=== PATIENT | male | born 1970 | race Caucasian/White ===

== ENCOUNTER → 2022-05-27 14:18 | Outpatient (CLI) | payer OTHER, SELFPAY ==
[2022-05-27 14:31] LABS: Microscopic, Urine URINE MICROSCOPIC (MICROSCOPIC)
[2022-05-27 14:59] LABS: Appearance,Urine CLEAR (Clear); Bilirubin,Urine Negative (Negative); Blood, Urine 1+ (Negative); Color,Urine YELLOW (Yellow); Glucose,Urine (UA) 3+ (Negative); Ketones,Urine Negative (Negative); Leukocyte Esterase,Urine Negative (Negative); Nitrate,Urine Negative (Negative); Protein,Urine 3+ (Negative); Urobilinogen,Urine 0.2 EU/dl (0.2)
[2022-05-27 15:02] LABS: Basophils # 0.1 K/mm3 (0-0.2); Basophils % 1.3 % (0.1-2.0); Eosinophils # 0.4 K/mm3 (0.0-0.4); Eosinophils % 3.2 % (0.1-12.0); Hematocrit 52.5 % (42.0-52.0); Hemoglobin 17.9 g/dL (14.1-18.0); Lymphocytes # 3.6 K/mm3 (0.7-4.5); Lymphocytes % 31.8 % (10-50); Mean Platelet Volume 8.2 fl (7.4-10.4); Monocytes # 0.7 K/mm3 (0.1-1.0); Monocytes % 6.6 % (1.7-9.3); Neutrophils # 6.4 K/mm3 (1.8-7.8); Neutrophils % 57.1 % (37.0-80.0); Platelet Count 364 K/mm3 (142-424); Red Blood Count 5.59 M/mm3 (4.60-6.20); Red Cell Distribution Width 13.5 % (11.5-17.5); White Blood Count 11.3 K/mm3 (4.8-10.8)
[2022-05-27 15:25] LABS: Chloride 106 mmol/L (98-107); Potassium 4.1 mmoL/L (3.5-5.1); Sodium 139 mmol/L (136-145)
[2022-05-27 15:28] LABS: Anion Gap 6.1 mEq/L (5-15); Blood Urea Nitrogen 17 mg/dl (9-20); Calcium 8.2 mg/dl (8.4-10.2); Carbon Dioxide 31 mmol/L (22.0-30.0); Estimated Glomerular Filt Rate 37 ml/min (>60); GFR (African American) 45 ML/MIN (>60); Glucose 160 mg/dl (74-100); Iron 109 ug/dL (49-181); Phosphorous 4.4 mg/dl (2.5-4.5)
[2022-05-27 15:34] LABS: RBC,Urine Occasional #/hpf (0-3); Squamous Epithelial Cell,Urine Occasional #/hpf (0-5); WBC,Urine Occasional #/hpf (0-3)
[2022-05-27 15:38] LABS: Total Iron Binding Capacity 179 ug/dL (261-462)
[2022-05-27 16:03] LABS: Ferritin 212 ng/ml (17.9-464)
[2022-05-27 16:05] LABS: Intact Parathyroid Hormone 105.2 pg/mL (7.5-53.5)
== END ==
PROVIDERS: Internal Medicine; PCP Family Medicine
DX: N18.30 Chronic kidney disease, stage 3 unspecified (principal)
CPT/HCPCS: 36415; 80048; 81001; 82728; 83540; 83550; 83735; 83970; 84100; 85025

== ENCOUNTER 2023-12-16 12:02 | Outpatient (CLI) | payer BC, SELFPAY ==
[2023-12-16 12:09] LABS: Microscopic, Urine URINE MICROSCOPIC (MICROSCOPIC)
[2023-12-16 12:24] LABS: Appearance,Urine CLEAR (Clear); Basophils # 0.1 K/mm3 (0-0.2); Basophils % 0.9 % (0.1-2.0); Bilirubin,Urine Negative (Negative); Blood, Urine 1+ (Negative); Color,Urine YELLOW (Yellow); Eosinophils # 0.8 K/mm3 (0.0-0.4); Eosinophils % 6.4 % (0.1-12.0); Glucose,Urine (UA) 3+ (Negative); Hematocrit 46.9 % (42.0-52.0); Hemoglobin 15.2 g/dL (14.1-18.0); Ketones,Urine Negative (Negative); Leukocyte Esterase,Urine Negative (Negative); Lymphocytes # 2.9 K/mm3 (0.7-4.5); Lymphocytes % 23.1 % (10-50); Mean Corpuscular HGB Conc 32.3 g/dL (31.8-35.4); Mean Corpuscular Hemoglobin 30.7 pg (27.0-31.2); Mean Corpuscular Volume 95.2 fl (80-94); Mean Platelet Volume 8.1 fl (7.4-10.4); Monocytes # 0.7 K/mm3 (0.1-1.0); Monocytes % 5.3 % (1.7-9.3); Neutrophils # 8.1 K/mm3 (1.8-7.8); Neutrophils % 64.2 % (37.0-80.0); Nitrate,Urine Negative (Negative); Platelet Count 252 K/mm3 (142-424); Protein,Urine 3+ (Negative); Red Blood Count 4.93 M/mm3 (4.60-6.20); Red Cell Distribution Width 14.7 % (11.5-17.5); Specific Gravity, Urine 1.025 (1.005-1.030); Urobilinogen,Urine 0.2 EU/dl (0.2); White Blood Count 12.6 K/mm3 (4.8-10.8)
[2023-12-16 12:38] LABS: Bacteria,Urine Trace /lpf; Squamous Epithelial Cell,Urine Occasional #/hpf (0-5); WBC,Urine Occasional #/hpf (0-3)
[2023-12-16 13:15] LABS: Chloride 103 mmol/L (98-107); Sodium 140 mmol/L (136-145)
[2023-12-16 13:16] LABS: Albumin Level 3.6 g/dl (3.5-5.0); Potassium 4.2 mmoL/L (3.5-5.1)
[2023-12-16 13:18] LABS: Anion Gap 11.2 mEq/L (5-15); Blood Urea Nitrogen 41 mg/dl (9-20); Carbon Dioxide 30 mmol/L (22.0-30.0); Estimated Glomerular Filt Rate 18 ml/min (>60); GFR (African American) 21 ML/MIN (>60)
[2023-12-16 13:19] LABS: Calcium 8.3 mg/dl (8.4-10.2); Glucose 168 mg/dl (74-100); Phosphorous 6.3 mg/dl (2.5-4.5)
== END 2023-12-16 23:59 | disposition home or self-care (01) ==
LOC: LAB 12:05
PROVIDERS: PCP Family Medicine; Visit Provider Student in an Organized Health Care Education/Training Program
DX: N18.4 Chronic kidney disease, stage 4 (severe) (principal)
CPT/HCPCS: 36415; 80069; 81001; 84156; 85025

== ENCOUNTER 2024-08-06 01:55 | Emergency (ER) | payer MEDICARE, SELFPAY ==
[2024-08-06] VITALS (12 sets, daily range): BP systolic 142–180; BP diastolic 63–98; PULSE 82–91; RESP 16–28; TEMP 36.9–37.1; O2SAT 89–100; BMI 37.6
--- NOTE | 2024-08-06 02:01 | ECG_ITS ---
APPROVED REPORT Exam: Resting ECG HR:89 bpm ECG Measurements Heart Rate 89 AXES SC 166 P 59 QRSd 162 QRS 127 QT 421 T 16 QTc 467 Conclusion SINUS RHYTHM RIGHT AXIS DEVIATION [QRS AXIS > 100] RIGHT BUNDLE BRANCH BLOCK [120+ ms QRS DURATION, UPRIGHT V1, 40+ ms S IN I/aVL/V4/V5/V6] ABNORMAL ECG UNCONFIRMED REPORT Electronically signed by : DEBRA SCHAEFFER, 08/07/2024 06:53:53
--- NOTE | 2024-08-06 02:07 | XR_ITS ---
PROCEDURE INFORMATION: Exam: XR Chest Exam date and time: 08/06/2024 2:09 AM Age: 54 years old Clinical indication: Pain; Other: Hypoxia, esrd; Chest pressure; Additional info: Hypoxia, esrd, left chest pain TECHNIQUE: Imaging protocol: Radiologic exam of the chest. Views: 2 views. COMPARISON: No relevant prior studies available. FINDINGS: Lungs: Bilateral interstitial opacities. Pleural spaces: Unremarkable. No pleural effusion. No pneumothorax. Heart/Mediastinum: Unremarkable. No cardiomegaly. Bones/joints: Unremarkable. IMPRESSION: Bilateral interstitial opacities. Suspicious for volume overload versus pulmonary edema.
[2024-08-06] MEDS: ACETAMINOPHEN 500MG TAB 1000 MG PO (02:14)
--- NOTE | 2024-08-06 02:14 | HMH.EDGENADL ---
Discharge Plan Disposition Patient Disposition: Xfer Other Chief Complaint: Shortness of Breath/Dyspnea Prescriptions Prescriptions: No Action hydroxychloroquine 200 mg Tablet 200 mg PO BID Referrals Follow up/Referrals: Provider,Referral, MD [Primary Care Provider] - See instructions Clinical Impressions Clinical Impression: Respiratory failure with hypoxia, Pulmonary edema, ESRD (end stage renal disease) on dialysis Print Language Print Language: Syriac Discharge ED Provider: Dennis Martinez General Adult HPI General Chief complaint: Shortness of Breath/Dyspnea Stated complaint: sob Time Seen by Provider: 08/06/24 01:55 History of Present Illness HPI narrative: 54-year-old male with history of end-stage renal disease, diabetes, hypertension presents for shortness of breath. He reports that started around 9 PM and continued to worsen. He is on Monday dialysis, last received dialysis on Monday. He reports he is been having some left lateral rib pain, worse with coughing for the last couple of weeks. Worse tonight. Denies any fever chills or other infectious symptoms recently. Cough is nonproductive. Exposed to get dialysis in a few hours but was too short of breath. Related Data Home Medications ?Medication ?Instructions ?Recorded ?Confirmed aspirin 81 mg tablet 81 mg PO DAILY 08/06/24 08/06/24 atorvastatin 80 mg tablet 80 mg PO DAILY 08/06/24 08/06/24 bumetanide 2 mg tablet 2 mg PO DAILY 08/06/24 08/06/24 clonidine HCl 0.1 mg tablet 0.1 mg PO TID 08/06/24 08/06/24 clopidogrel 75 mg tablet 75 mg PO DAILY 08/06/24 08/06/24 empagliflozin 25 mg tablet 25 mg PO DAILY 08/06/24 08/06/24 (Jardiance) ezetimibe 10 mg tablet 10 mg PO DAILY 08/06/24 08/06/24 fenofibrate 40 mg tablet 48 mg PO DAILY 08/06/24 08/06/24 fluoxetine 20 mg tablet 20 mg PO DAILY 08/06/24 08/06/24 gabapentin 300 mg capsule 300 mg PO BID 08/06/24 08/06/24 gabapentin 800 mg tablet 800 mg PO DAILY 08/06/24 08/06/24 hydralazine 25 mg tablet 25 mg PO QID 08/06/24 08/06/24 hydroxychloroquine 200 mg tablet 200 mg PO BID 08/06/24 08/06/24 icosapent ethyl 1 gram capsule 2 g PO BID 08/06/24 08/06/24 isosorbide mononitrate 120 mg 120 mg PO DAILY 08/06/24 08/06/24 tablet,extended release 24 hr nifedipine 90 mg tablet,extended 90 mg PO DAILY 08/06/24 08/06/24 release tamsulosin 0.4 mg capsule 0.4 mg PO DAILY 08/06/24 08/06/24 Allergies Allergy/AdvReac Type Severity Reaction Status Date / Time glipizide Allergy Unknown Verified 08/06/24 02:25 allergy reaction Sulfa (Sulfonamide Allergy Unknown Verified 08/06/24 02: Antibiotics) [facility] Disclaimer: The information contained in this section may have been updated after the patient was seen, as this information can be updated by other users. Social History Smoking Status: Never smoker Have you lived/traveled outside [place] in past 30 days?: No Contact w/someone who lives/traveled outside US past 30 days?: No Exposure to someone with infectious disease in past 14 days?: No Do you have a fever (greater than 100.4 F or 38 C)?: No Have you tested positive for COVID-19: No Exposed to someone with COVID-19 in past 14 days?: No Do you have a sore throat?: No Do you have a cough?: No Do you have any weakness?: No Do you have any diarrhea?: No Are you experiencing any unusual bleeding?: No Do you have any muscle aches/pain?: No Do you have any abdominal pain?: No Are you experiencing loss of taste or smell?: No ROS Obtained: Yes All systems reviewed & no additional complaints except as documented Physical Exam General General appearance: alert Comment: Uncomfortable appearing Head Head exam: atraumatic and normocephalic Eye Eye exam: Present normal appearance, PERRL and EOMI ENT ENT exam: Present normal oropharynx and normal external ear exam Neck Neck exam: Present normal inspection and full ROM Chest Chest inspection: Present normal inspection, symmetric chest wall rise and tenderness (Left lateral chest wall) Respiratory Respiratory exam: Present other (Tachypnea, crackles) Cardiovascular Cardiovascular exam: Present regular rate and normal rhythm Abdominal Exam Abdominal exam: Present soft and distention; Absent tenderness or guarding Extremities Exam Extremities exam: Present other (Left upper extremity fistula); Absent joint swelling Back Exam Back exam: Present normal inspection; Absent tenderness Neurological Exam Neurological exam: Present alert and oriented X3; Absent motor sensory deficit Psychiatric Psychiatric exam: Present normal affect and normal mood Skin Skin exam: Present warm, dry and normal color Lymphatic Lymphatic Findings: no adenopathy Medical Decision Making Medical Records Medical records reviewed: Yes I reviewed the patient's medical records. Screening: Per USPSTF and CDC recommendations, given the prevalence of disease in our region, it is our hospital?s policy to screen for HIV and viral Hepatitis for all patients aged 18 and over and those with ongoing risk factors. Andrew Inquiry Pt receiving controlled substance: No Andrew was queried for this patient: No Vital Signs: 08/06/24 02:00 08/06/24 02:12 08/06/24 02:14 Temperature 98.7 F Temperature Source Oral Pulse Rate 90 88 Pulse Rate [Right] 87 Respiratory Rate 24 24 Blood Pressure 180/77 H 166/98 H Blood Pressure [Right Arm] 166/91 H Blood Pressure Mean 120 Blood Pressure Mean [Right Arm] 116 Blood Pressure Position 02 Sat by Pulse Oximetry 91 L 94 L 89 L Oxygen Delivery Method Nasal Cannula Nasal Cannula Nasal Cannula Oxygen Flow Rate (LPM) 4 4 4 Fraction of Inspired Oxygen 08/06/24 02:31 08/06/24 02:54 08/06/24 03:19 Temperature Temperature Source Pulse Rate 91 H 91 H 88 Pulse Rate [Right] Respiratory Rate 26 H 28 H 16 Blood Pressure 173/68 H 179/82 H 180/95 H Blood Pressure [Right Arm] Blood Pressure Mean 103 Blood Pressure Mean [Right Arm] Blood Pressure Position Sitting 02 Sat by Pulse Oximetry 91 L 90 L 94 L Oxygen Delivery Method Nasal Cannula Nasal Cannula Room Air Oxygen Flow Rate (LPM) 4 6 Fraction of Inspired Oxygen 08/06/24 03:23 08/06/24 03:30 Temperature Temperature Source Pulse Rate 86 Pulse Rate [Right] Respiratory Rate 25 H Blood Pressure 171/78 H Blood Pressure [Right Arm] Blood Pressure Mean Blood Pressure Mean [Right Arm] Blood Pressure Position 02 Sat by Pulse Oximetry 96 Oxygen Delivery Method BiPAP Oxygen Flow Rate (LPM) Fraction of Inspired Oxygen 35 Lab Data Lab results reviewed: Yes I reviewed the patient's lab results. Lab Results 08/06/24 02:07: WBC 16.9 H, RBC 3.45 L, Hgb 10.5 L, Hct 32.9 L, MCV 95.4 H, MCH 30.4, MCHC 31.9, RDW 15.9, Plt Count 286, MPV 9.3, Neut % (Auto) 78.8, Lymph % (Auto) 10.9, [place] % (Auto) 6.6, Eos % (Auto) 2.8, Baso % (Auto) 0.4, Neut # (Auto) 13.3 H, Lymph # (Auto) 1.8, [place] # (Auto) 1.1 H, Eos # (Auto) 0.5 H, Baso # (Auto) 0.1, D-Dimer 1.10 H, Sodium 140, Potassium 4.4, Chloride 98, Carbon Dioxide 27, Anion Gap 19.4 H, BUN 49 H, Creatinine 4.80 H, Estimated Creat Clear 30, Estimated GFR 13 L*, Est GFR ( Amer) 15 L*, Glucose 164 H, Calcium 8.6, Phosphorus 6.1 H, Magnesium 2.6 H, Total Bilirubin 0.8, AST 29, ALT 28, Alkaline Phosphatase 96, Troponin I < 0.01, Total Protein 8.1, Albumin 4.8, Globulin 3.3 H, Albumin/Globulin Ratio 1.5 08/06/24 02:12: VBG pH 7.38, VBG pCO2 42.1, VBG pO2 38.7, VBG HCO3 24.2, VBG Total CO2 25.5, VBG O2 Saturation 72.0 H, VBG Base Excess -1.0, VBG Lactic Acid 2.0 08/06/24 02:42: SARS-CoV-2 (PCR) Not detected, Influenza A Untype (PCR) Not detected, Influenza Type B (PCR) Not detected 08/06/24 02:07 08/06/24 02:07 Orders (Tests/Meds): ED MEDICATIONS Discontinued Medications Generic Name Dose Route Start Last Admin Trade Name Freq PRN Reason Stop Dose Admin Acetaminophen 1,000 mg 08/06/24 02:07 08/06/24 02:14 Acetaminophen 500mg Tab PO 08/06/24 02:08 1,000 mg ONCE ONE Administration Hydralazine HCl 10 mg 08/06/24 03:03 Hydralazine 20mg/Ml Vial IV 08/06/24 03:04 ONCE ONE Ceftriaxone Sodium 1 gm/ 50 mls @ 100 mls/hr 08/06/24 02:48 08/06/24 02:56 Sodium Chloride IV 08/06/24 03:17 100 mls/hr ONCE ONE Administration Ondansetron HCl 4 mg 08/06/24 02:49 08/06/24 02:52 Ondansetron 4mg/2ml Vial IV 08/06/24 02:50 4 mg ONCE ONE Administration ORDERS Category Date Time Status CXR 2 view (NOT portable) [XR chest 2V] Stat Exams 08/06/24 02:07 Completed POCUS Point of Care (ER Only) Stat Exams 08/06/24 02:39 Completed CBC w/Auto Diff [Complete Blood Count Auto Diff] Stat Lab 08/06/24 02:07 Results CMP [Comprehensive Metabolic Panel] Stat Lab 08/06/24 02:07 Completed D-Dimer Stat Lab 08/06/24 02:07 Completed Lactate Venous Stat Lab 08/06/24 02:12 Ordered Magnesium Stat Lab 08/06/24 02:07 Completed Phosphorous Stat Lab 08/06/24 02:07 Completed Rapid PCR Covid and Flu A/B Stat Lab 08/06/24 02:42 Completed Troponin I Q3H Lab 08/06/24 02:07 Completed Troponin I Q3H Lab 08/06/24 05:15 Ordered VBG [Venous Blood Gas] Stat RT 08/06/24 02:12 Completed ECG Data Tracing #1: I reviewed this ECG and interpreted as documented below: Sinus rhythm, rate of 89, right bundle branch block, no obvious ischemic ST changes. ECG initial impression date: 08/06/24 ECG initial impression time: 02:02 HEART Score History (anamnesis): Slightly suspicious ECG: Non-specific disturbance Age: 45-65 years Risk factors: 3 or more risk factors Troponin: </= normal limit HEART Score: 4 Medical Decision Narrative: 54-year-old male with history of HTN, DM2, ESRD on TTS dialysis, last dialysis on Monday presents for worsening shortness of breath.. History was obtained via interactive discussion with patient, family. On arrival, patient is afebrile, mildly hypertensive, satting in the high 70s on room air, moving all extremities spontaneously. Full physical exam performed and significant for bibasilar crackles, distended abdomen without tenderness, some tenderness to the left lateral ribs. Hypoxia improved on 2 L nasal cannula. Bedside ultrasound was performed and shows diffuse B-lines consistent with pulmonary edema Differential includes but is not limited to volume overload/pulmonary edema, pneumonia, COVID flu, ACS, PE. Patient was given Zofran, Tylenol for symptomatic management and correction of underlying abnormalities. Workup initiated including 2 view chest x-ray CBC CMP mag Phos VBG troponin EKG D-dimer. On re-evaluation, patient continues to intermittently desat on nasal cannula, will transition to BiPAP. Laboratory workup independently interpreted by me and significant for creatinine consistent with ESRD, potassium normal, pH normal, leukocytosis with white count of 16.9 with neutrophil predominance. D-dimer is positive but Imaging independently interpreted by me and significant for bilateral pulmonary edema with small left lower lobe infiltrate versus atelectasis. See radiology read for full review of final results. Patient was initiated on ceftriaxone for empiric coverage of possible pneumonia. CT PE was considered, but given patient has pulmonary edema on x-ray and bedside ultrasound, and given concerns from patient regarding his renal function, I discussed with patient and his the risk and benefit of it CT imaging with contrast at this time. It seems that pulmonary edema is the more likely culprit at this time given his x-ray and ultrasound. They have concerns about the contrast and the fact that he still makes urine. After discussion with family, they decided they would prefer to forego the CT scan at this time. Given patient history, exam and workup, patient's presentation most likely represents acute pulmonary edema and volume overload in the setting of ESRD with resulting acute hypoxic respiratory failure. We do not have the capability to do dialysis at the facility so initiated transfer discussion. Multiple hospitals including [place] and [place] did not have capacity. We called and spoke with Dori and Dr. Mancera who accepted the patient in transfer. Procedures Risk/Benefits of Procedure(s) Were Explained: Yes Limited Ultrasound Indication:: Limited lung ultrasound A focused ultrasound exam of the pleural spaces was performed to evaluate for pneumothorax, pulmonary edema, pleural effusion and/or consolidation. The ultrasound was performed with the following indications, as noted in the H&P: Shortness of breath and hypoxia Identified structures: Bilateral thoracic cavities were examined. Findings: Lung sliding: -Present bilaterally B-lines: -Present bilaterally anteriorly and posteriorly Pleural effusion: -Absent bilaterally Consolidation: -Absent bilaterally Impression: -Diffuse B-lines consistent with pulmonary edema Images were saved to permanent archive The study was technically adequate CPT 03514-76 This study was performed by me, and I personally interpreted all images/videos. Critical Care Critical Care Time Critical Care Time: Yes Attestation: On 08/06/24, the high probability of a clinically significant, sudden or life threatening deterioration of the following system(s) required my full and direct attention, intervention and personal management. The time I documented below is in addition to time spent performing reported procedures but includes the following listed in this critical care notation. Total Time Total Critical Care Time: 40
[2024-08-06 02:15] LABS: Basophils # 0.1 K/mm3 (0-0.2); Basophils % 0.4 % (0.1-2.0); Eosinophils # 0.5 K/mm3 (0.0-0.4); Eosinophils % 2.8 % (0.1-12.0); Hematocrit 32.9 % (42.0-52.0); Hemoglobin 10.5 g/dL (14.1-18.0); Lymphocytes # 1.8 K/mm3 (0.7-4.5); Lymphocytes % 10.9 % (10-50); Mean Corpuscular HGB Conc 31.9 g/dL (31.8-35.4); Mean Corpuscular Hemoglobin 30.4 pg (27.0-31.2); Mean Corpuscular Volume 95.4 fl (80-94); Mean Platelet Volume 9.3 fl (7.4-10.4); Monocytes # 1.1 K/mm3 (0.1-1.0); Monocytes % 6.6 % (1.7-9.3); Neutrophils # 13.3 K/mm3 (1.8-7.8); Neutrophils % 78.8 % (37.0-80.0); Platelet Count 286 K/mm3 (142-424); Red Blood Count 3.45 M/mm3 (4.60-6.20); Red Cell Distribution Width 15.9 % (11.5-17.5); White Blood Count 16.9 K/mm3 (4.8-10.8)
[2024-08-06 02:29] LABS: Alanine Aminotransferase 28 U/L (12-78); Albumin Level 4.8 g/dl (3.5-5.0); Albumin/Globulin Ratio 1.5 (1.1-1.8); Alkaline Phosphatase 96 U/L (38-126); Aspartate Amino Transferase 29 U/L (17-59); Bilirubin,Total 0.8 mg/dl (0.2-1.3); Blood Urea Nitrogen 49 mg/dl (9-20); Calcium 8.6 mg/dl (8.4-10.2); Carbon Dioxide 27 mmol/L (22.0-30.0); Chloride 98 mmol/L (98-107); Creatinine Clearance Estimated 30 mL/min (50-200); Estimated Glomerular Filt Rate 13 ml/min (>60); GFR (African American) 15 ML/MIN (>60); Globulin 3.3 g/dL (1.3-3.2); Glucose 164 mg/dl (74-100); Potassium 4.4 mmoL/L (3.5-5.1); Total Protein,Serum 8.1 g/dl (6.3-8.2)
[2024-08-06 02:33] LABS: MANUAL DIFFERENTIAL MANUAL DIFFERENTIAL (MANUAL DIFF)
[2024-08-06 02:34] LABS: Anion Gap 19.4 mEq/L (5-15); Sodium 140 mmol/L (136-145)
[2024-08-06 02:42] LABS: VBG HCO3 24.2 mmol/L (23-30); VBG PCO2 42.1 mmol/L (35-51); VBG PH 7.38 mmol/L (7.31-7.41); VBG PO2 38.7 mmol/L (28-40); VBG Total CO2 25.5 mmol/L (23-27)
[2024-08-06 02:47] LABS: Coronavirus 19, PCR Not Detected (NotDetected); Influenza A, PCR Not Detected (NotDetected); Influenza B, PCR Not Detected (NotDetected)
--- NOTE | 2024-08-06 02:51 | PC.NURSE ---
Patient has started vomiting. EVS has been called to clean the room due to emesis on floor and ramirez.
[2024-08-06] MEDS: ONDANSETRON 4MG/2ML VIAL 4 MG IV (02:52)
[2024-08-06] MEDS: CEFTRIAXONE 1 GM 1 GM in 0.9 % SODIUM CHLORIDE 50 ML IV (02:56)
--- NOTE | 2024-08-06 03:09 | PC.NURSE ---
Aj RN placing non-rebreather at this time
--- NOTE | 2024-08-06 03:10 | PC.NURSE ---
Spoke with [facility], awaiting a call back from them at this time.
--- NOTE | 2024-08-06 03:10 | PC.NURSE ---
JARRED Moy called respiratory for bipap placement
[2024-08-06 03:14] LABS: Troponin I < 0.01 ng/ml (0.00-0.034)
[2024-08-06 03:24] LABS: Magnesium 2.6 mg/dl (1.6-2.3); Phosphorous 6.1 mg/dl (2.5-4.5)
--- NOTE | 2024-08-06 03:29 | PC.NURSE ---
[facility] was called for a transfer. Transfer was declined due to hospital volume.
--- NOTE | 2024-08-06 03:29 | PC.NURSE ---
[facility] has been called for a transfer. Provider Dennis Martinez is currently speaking to the automatic vulcanizing operator.
[2024-08-06] MEDS: HYDRALAZINE 20MG/ML VIAL 10 MG IV (03:46)
[2024-08-06 04:16] LABS: Eosinophils % 6 % (0-3); Lymphocytes % 6 % (10-50); Neutrophils % 85 % (42-76); Platelet Estimate Normal; RBC Morphology Normal; Total Cells Counted 100
== END 2024-08-06 05:25 | disposition other institution (70) ==
PROVIDERS: Emergency Provider Emergency Medicine
DX: N18.6 End stage renal disease (principal); J81.1 Chronic pulmonary edema; J96.91 Respiratory failure, unspecified with hypoxia; R07.82 Intercostal pain; R05.9 Cough, unspecified; Z99.2 Dependence on renal dialysis
CPT/HCPCS: 71046; 80053; 82803; 83735; 84100; 84484; 85007; 85025; 85027; 85378; 87636; 93005; 96365; 96374; 96375; 99291; J0360; J0696; J2405

== ENCOUNTER 2025-01-24 16:02 | Emergency (ER) | payer MEDICARE, SELFPAY ==
--- OUTSIDE RECORDS SUMMARY | 2024-08-07 11:47 | XMS_ITS | Continuity of Care Document ---
Author Organization [facility], [facility]. If a dditional information is needed, contact Health Information Management at [phone] Address [address] [place] [address] Phone Care Team Providers Care Firearms Assembly Supervisor Name Role Phone Unavailable Unavailable Unavailable Unavailable Unavailable Unavailable Unavailable Unavailable Unavailable Unavailable Unavailable Unavailable Unavailable Unavailable Unavailable Unavailable Unavailable Unavailable Unavailable Unavailable Unavailable Unavailable Unavailable Unavailable Unavailable Unavailable Unavailable Unavailable Unavailable Unavailable Unavailable Unavailable Unavailable Unavailable Unavailable Unavailable Unavailable Unavailable Unavailable Unavailable Unavailable Unavailable Unavailable Unavailable Unavailable Unavailable Unavailable Unavailable Note Nadine Stevenson MD-07-Aug-19 [place], [place] [address]Phone: [email or web address] Discharge SummaryPatient Name: JAISON CHEUNGDOB: 1970 Age: 54 Sex: MAcct: [id number] MR#: [id number]: Graham Mccoy MD Author: Graham Mccoy MDPatient Status: DIS IN Patient Location: [place] [address]-ADate of Admission/Service: 08/06/24Report Date/Time: 08/07/24 1318 Report Status: SignedReport#: [id number] Information- General InformationDate of admission:08/06/24Discharge date: 08/07/24Hospital course:54 years old man with history of ESRD on TTS dialysis, hypertension, diabetes, neuropathy, who wastransferred from outlying facility for fluid overload requiring urgent dialysis.Patient reports that he went to her dialysis last Monday and completed full session, however overthe weekend his started to feel more short of breath and has increasing cough as well. Patient hadsimilar symptoms in the past due to fluid overload and reportedly resolved after extra session ofdialysis. He denies any fever, chills, chest pain, leg swelling, or other related complaints.Patient initially presented at outlying facility but referred to our hospital for nephrology anddialysisER course reviewed and discussed with ER providerHypoxic but stable on nasal cannula, hemodynamically stable, not in distress. Workup revealedpulmonary edema likely secondary to fluid overload. Also noted he has elevated white blood cell [id number], COVID and flu was checked at outlying facility and it was negative. Suspected concurrentcommunity-acquired pneumonia as well patient started on antibiotics empirically.During hospital course patient underwent dialysis on Monday and Monday (on discharge day), hisfluid status optimized. 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- General InformationAllergies/Adverse Reactions:Allergiesglipizide Allergy (Verified 08/06/24 10:09)Patient Name: JAISON CHEUNG Acct: [id number] Unit: [id number] Page 1 UnknownSulfa (Sulfonamide Antibiotics) Allergy (Verified 08/06/24 10:09) UnknownObjective- Physical ExamVS/I O: Vital Signs - Last DocumentedBlood pressure 125/55 L 08/07/24 10:45Blood pressure location Arm upper right 08/06/24 09:43Blood pressure source Monitor 08/06/24 06:48Temperature 97.5 F 08/07/24 10:45Temperature source Axillary 08/07/24 08:00Pulse 63 08/07/24 10:45Pulse location Radial 08/06/24 06:48Pulse source Monitor 08/06/24 06:48Respiratory rate 16 08/07/24 10:45Respiratory source Observed 08/06/24 09:43Vital signs position Lying 08/06/24 09:43Mean arterial pressure 82 08/07/24 10:00Bedside pulse oximetry/SpO2 99 08/07/24 10:45Oxygen delivery devices Nasal cannula 08/07/24 10:45O2 liters per minute 6 08/07/24 10:45Level of consciousness Alert 08/07/24 10:45MEWS score - adult 1 08/06/24 09:43Weight 119 kg 08/06/24 10:15Weight source Stated/Reported 08/06/24 06:48Body surface area 2.53 08/06/24 10:15Body mass index 33.7 08/06/24 10:15Height 1.88 m 08/06/24 10:15Patient Name: JAISON CHEUNG Acct: [id number] Unit: [id number] Page 2[facility] source Stated/Reported 08/06/24 10:15 Vital Signs Temp Pulse Resp BP Pulse Ox 08/07/24 10:45 97.5 F 63 16 125/55 L 99 08/07/24 10:20 64 23 H 91 08/07/24 10:10 64 27 H 90 08/07/24 10:00 64 22 H 90 08/07/24 10:00 123/57 L 08/07/24 09:50 65 28 H 98 08/07/24 09:40 64 19 98 08/07/24 09:30 65 29 H 100 08/07/24 09:20 64 30 H 99 08/07/24 09:10 65 20 88 L 08/07/24 09:00 64 18 90 08/07/24 09:00 132/60 L 08/07/24 08:50 66 20 94 08/07/24 08:40 64 29 H 97 08/07/24 08:30 64 20 98 08/07/24 08:20 59 L 9 L 100 08/07/24 08:10 59 L 8 L 100 08/07/24 08:00 59 L 9 L 100 08/07/24 08:00 139/65 L 08/07/24 08:00 97.7 F 08/07/24 07:50 60 8 L 99 08/07/24 07:40 61 10 L 100 08/07/24 07:30 60 9 L 99 08/07/24 07:20 62 13 98Patient Name: JAISON CHEUNG Acct: [id number] Unit: [id number] Page 3 08/07/24 07:10 62 13 98 08/07/24 07:00 60 9 L 96 08/07/24 07:00 138/65 L 08/07/24 06:50 60 9 L 98 08/07/24 06:40 60 9 L 98 08/07/24 06:30 60 9 L 98 08/07/24 06:20 61 9 L 99 08/07/24 06:10 62 10 L 99 08/07/24 06:00 64 17 99 08/07/24 06:00 141/69 H 08/07/24 05:50 67 23 H 99 08/07/24 05:40 62 13 100 08/07/24 05:30 62 13 99 08/07/24 05:20 62 12 98 08/07/24 05:10 65 20 99 08/07/24 05:00 64 23 H 97 08/07/24 05:00 132/63 L 08/07/24 04:50 64 20 99 08/07/24 04:40 65 17 98 08/07/24 04:30 65 20 99 08/07/24 04:20 63 100 08/07/24 04:10 66 99 08/07/24 04:01 65 98 08/07/24 04:01 133/103 H 08/07/24 04:00 65 97 08/07/24 03:53 98.2 F 08/07/24 03:50 62 20 99 08/07/24 03:40 62 18 99Patient Name: JAISON CHEUNG Acct: [id number] Unit: [id number] Page 4 08/07/24 03:30 62 19 98 08/07/24 03:20 62 20 98 08/07/24 03:10 64 98 08/07/24 03:01 65 99 08/07/24 03:01 143/70 H 08/07/24 03:00 64 98 08/07/24 02:50 62 99 08/07/24 02:40 62 99 08/07/24 02:30 62 98 08/07/24 02:20 62 19 98 08/07/24 02:10 62 19 98 08/07/24 02:00 63 20 99 08/07/24 02:00 142/69 H 08/07/24 01:50 64 20 100 08/07/24 01:40 67 28 H 98 08/07/24 01:30 66 10 L 99 08/07/24 01:20 66 15 97 08/07/24 01:10 67 19 96 08/07/24 01:00 65 13 97 08/07/24 01:00 155/70 H 08/07/24 00:50 64 10 L 99 08/07/24 00:40 66 11 L 98 08/07/24 00:30 66 11 L 98 08/07/24 00:20 66 11 L 99 08/07/24 00:10 66 12 97 08/07/24 00:01 68 21 H 91 08/07/24 00:01 117/71 L 08/07/24 00:00 67 19 91 08/07/24 00:00 98.4 FPatient Name: JAISON CHEUNG Acct: [id number] Unit: [id number] Page 5 08/06/24 23:50 68 15 98 08/06/24 23:40 69 19 99 08/06/24 23:30 68 12 98 08/06/24 23:20 68 12 98 08/06/24 23:10 69 13 97 08/06/24 23:01 71 18 97 08/06/24 23:01 121/56 L 08/06/24 23:00 71 16 97 08/06/24 22:50 72 16 98 08/06/24 22:40 73 18 98 08/06/24 22:30 69 14 99 08/06/24 22:20 71 17 99 08/06/24 22:10 72 19 100 08/06/24 22:00 74 20 100 08/06/24 22:00 154/71 H 08/06/24 21:50 79 87 L 08/06/24 21:40 77 18 99 08/06/24 21:30 76 16 99 08/06/24 21:20 75 17 98 08/06/24 21:10 75 16 98 08/06/24 21:01 76 15 97 02 21:01 158/71 H 08/06/24 21:00 76 96 08/06/24 20:54 75 159/70 H 08/06/24 20:50 76 89 L 08/06/24 20:40 78 94 08/06/24 20:30 76 20 95 02/18/25 20:20 78 94Patient Name: JAISON CHEUNG Acct: [id number] Unit: [id number] Page 6 08/06/24 20:10 76 96 08/06/24 20:00 78 17 98 08/06/24 20:00 159/70 H 08/06/24 20:00 98.2 F 08/06/24 19:50 76 17 97 08/06/24 19:40 78 97 08/06/24 19:30 79 95 08/06/24 19:20 75 16 97 08/06/24 19:10 77 96 08/06/24 19:01 76 96 08/06/24 19:01 142/66 H 08/06/24 19:00 75 97 08/06/24 18:50 75 97 08/06/24 18:40 72 96 08/06/24 18:30 72 97 08/06/24 18:20 73 95 08/06/24 18:10 75 94 08/06/24 18:00 74 95 08/06/24 18:00 155/73 H 08/06/24 17:52 73 87 L 08/06/24 17:52 157/72 H 08/06/24 17:40 70 08/06/24 17:38 98.2 F 72 20 161/80 H 99 08/06/24 17:30 70 08/06/24 17:20 70 08/06/24 17:10 70 08/06/24 17:00 69 08/06/24 16:50 69 08/06/24 16:40 70Patient Name: JAISON CHEUNG Acct: [id number] Unit: [id number] Page 7 08/06/24 16:30 71 08/06/24 16:20 72 08/06/24 16:10 71 08/06/24 16:00 71 08/06/24 15:50 69 08/06/24 15:40 69 08/06/24 15:30 71 08/06/24 15:20 70 08/06/24 15:10 70 08/06/24 15:00 70 08/06/24 14:50 72 08/06/24 14:40 70 08/06/24 14:30 71 08/06/24 14:20 73 08/06/24 14:10 75 08/06/24 14:00 75 08/06/24 13:50 77 08/06/24 13:40 78 08/06/24 13:30 80- ResultsFindings/Data: Chemistry 08/07/24 Range/Units 04:16Sodium 139 (136-142) mmol/LPotassium 4.5 (3.5-5.1) mmol/LChloride 100 (98-107) mmol/LPatient Name: JAISON CHEUNG Acct: [id number] Unit: [id number] Page 8Carbon Dioxide 32 (21-32) mmol/LAnion Gap 7 (5-14) mMol/LBUN 40 H (7-18) mg/dLCreatinine 4.22 H (0.70- 1.30) mg/dLBUN/Creatinine Ratio 9.5Glucose 112 H (74-106) mg/dLCalcium 8.4 L (8.5- 10.1) mg/dLMagnesium 2.6 H (1.8-2.4) mg/dL POC Glucose 08/06/24 08/06/24 08/07/24 Range/Units 13:22 20:09 07:16POC Glucose 141 H 151 H 122 H (73-118) mg/dL Hematology 08/07/24 Range/Units 04:16WBC 12.9 H (4.8-10.8) K/uLRBC 3.66 (3.60-6.00) M/uLHgb 10.7 L (13.0-17.8) g/dLHct 34.8 L (38.1-50.5) %MCV 95.1 (80-98) fLMCH 29.2 (27.7- 34.6) pgMCHC 30.7 L (32-38) g/dLRDW Coeff of Ekta 15.4 (10.9-15.6) %Plt Count 285 (119- 334) K/uLMPV 9.5 (8.4-11.5) fLPatient Name: JAISON CHEUNG Acct: [id number] Unit: [id number] Page 9Gran % (Auto) 65.2 (41.7-77.2) %Immature Gran % (Auto) 0.5 (0.0-0.7) %Lymph % (Auto) 22.2 (11.0-46.1) %[place] % (Auto) 7.9 (3.5-13.5) %Eos % (Auto) 3.6 (0.0-5.3) %Baso % (Auto) 0.6 (0.0-1.0) %Nucleat RBC Rel Count 0.0 (0.0-0.2) %Gran # (Auto) 8.40 H (2.00-6.30) K/uLLymph # (Auto) 2.86 (0.60-3.60) K/uLMono # (Auto) 1.02 H (0.20-1.00) K/uLEos # (Auto) 0.46 (0.00-0.50) K/uLBaso # (Auto) 0.08 H (0.01- 0.05) K/uLImmature Gran # (Auto) 0.06 (0.00-0.06) K/uLAbsolute Nucleated RBC 0.00 (0.00-0.01) K/uL Serology 08/06/24 Range/Units 12:45Hep Bs Antigen Negative (Negative)Radiology data:Recent ImpressionsChest X-Ray 08/06/24 13:27IMPRESSION:Slightly increased bilateral interstitial opacities suggestive of increasing pulmonary edema.CRITICAL RESULT:No.COMMUNICATION:Per this written report.By electronically signing this report, I, the attending physician, attest that I have personallyreviewed the images/data for the above examination(s) and I agree with the final edited report.Patient Name: JAISON CHEUNG Acct: [id number] Unit: [id number] Page 10Drafted by Jonathan Gomez MD on 08/06/2024 1:50 PMFinal report signed by Graham Love MD on 08/06/2024 2:27 PMChest X-Ray 08/07/24 05:00IMPRESSION:Decreasing pulmonary edema. Small bilateral pleural effusions.CRITICAL RESULT:No.COMMUNICATION:Per this written report.By electronically signing this report, I, the attending physician, attest that I have personallyreviewed the images/data for the above examination(s) and I agree with the final edited report.Drafted by Jonathan Gomez MD on 08/07/2024 8:04 AMFinal report signed by Kobe Cisneros MD on 08/07/2024 9:36 AM- Free Text Obj NotesFree Text Obj Notes:General: Alert and oriented, not in distressEye: PERRLNeck: Supple, no lymphadenopathyLung: Diminished breath sound bilaterally, scattered rales, no wheezingHeart: Normal S1 and S2, regular rhythm, no murmurAbdomen: Soft, non tender, no organomegaly, no rebound/guardingExtremities: normal capillary refill time, no peripheral edemaNeuro: No focal neuro deficitSkin: No rashDischarge Instructions- PCPPCP follow-up:PCP Provider UndefinedDischarge to: Home/Self Care- Discharge InstructionsAdditional Discharge Routines: PCP Follow-Up, Guest Experience Manager Follow-Up (Account Officer)Treatments Procedures- Treatments ProceduresLab: Chemistry last 24 hrs 08/07/24Patient Name: JAISON CHEUNG Acct: [id number] Unit: [id number] Page 11 04:16Sodium 139 mmol/L (136-142)Potassium 4.5 mmol/L (3.5-5.1)Chloride 100 mmol/L (98-107)Carbon Dioxide 32 mmol/L (21-32)BUN 40 H mg/dL (7-18)Glucose 112 H mg/dL (74-106) Hematology last 24 hrs 08/07/24 04:16WBC 12.9 H K/uL (4.8-10.8)Hgb 10.7 L g/dL (13.0-17.8)Hct 34.8 L % (38.1-50.5)Plt Count 285 K/uL (119- 334)Imaging:Radiology Impressions within the last 48 hrsChest X-Ray 08/06/24 06:59Patient Name: JAISON CHEUNG Acct: [id number] Unit: [id number] Page 12IMPRESSION:Findings concerning for pulmonary edema.CRITICAL RESULT:No.COMMUNICATION:Per this written report.Drafted by Gustavo Gould MD on 08/06/2024 7:22 AMFinal report signed by Gustavo Gould MD on 08/06/2024 7:23 AMChest X-Ray 08/06/24 13:27IMPRESSION:Slightly increased bilateral interstitial opacities suggestive of increasing pulmonary edema.CRITICAL RESULT:No.COMMUNICATION:Per this written report.By electronically signing this report, I, the attending physician, attest that I have personallyreviewed the images/data for the above examination(s) and I agree with the final edited report.Drafted by Jonathan Gomez MD on 08/06/2024 1:50 PMFinal report signed by Graham Love MD on 08/06/2024 2:27 PMChest X-Ray 08/07/24 05:00IMPRESSION:Decreasing pulmonary edema. Small bilateral pleural effusions.CRITICAL RESULT:No.COMMUNICATION:Per this written report.By electronically signing this report, I, the attending physician, attest that I have personallyreviewed the images/data for the above examination(s) and I agree with the final edited report.Drafted by Jonathan Gomez MD on 08/07/2024 8:04 AMFinal report signed by Kobe Cisneros MD on 08/07/2024 9:36 AMQuality- ReviewedCurrent medication review:I attest that the foregoing medication list in the medical record is true, accurate, and complete tothe best of my knowledge.Unable to obtain:Patient Name: JAISON CHEUNG Acct: [id number] Unit: [id number] Page 13Unable to obtain an accurate home medication list at this time. [facility] where time is of the essence. To delay treatment would jeopardize thepatient's health status on the day of the encounter.- BMI Screening > 25 or < 18.5Patient's BMI:Current BMI: 33.7 08/06/24 10:15- HTN Screening/Follow-upLast documented vitals: Vital Signs - Last DocumentedBlood pressure 125/55 L 08/07/24 10:45Blood pressure location Arm upper right 08/06/24 09:43Blood pressure source Monitor 08/06/24 06:48Temperature 97.5 F 08/07/24 10:45Temperature source Axillary 08/07/24 08:00Pulse 63 08/07/24 10:45Pulse location Radial 08/06/24 06:48Pulse source Monitor 08/06/24 06:48Respiratory rate 16 08/07/24 10:45Respiratory source Observed 08/06/24 09:43Vital signs position Lying 08/06/24 09:43Mean arterial pressure 82 08/07/24 10:00Bedside pulse oximetry/SpO2 99 08/07/24 10:45Oxygen delivery devices Nasal cannula 08/07/24 10:45O2 liters per minute 6 08/07/24 10:45Level of consciousness Alert 08/07/24 10:45MEWS score - adult 1 08/06/24 09:43Weight 119 kg 08/06/24 10:15Weight source Stated/Reported 08/06/24 06:48Body surface area 2.53 08/06/24 10:15Body mass index 33.7 08/06/24 10:15Patient Name: JAISON CHEUNG Acct: [id number] Unit: [id number] Page 14Height 1.88 m 08/06/24 10:15Height source Stated/Reported 08/06/24 10:15Blood pressure ranges/guide:Screening for Hypertension and follow up measure #317Blood pressure parametersNormal B/P SBP </= 119 DBP </= 79Pre-hypertensive SBP 120-139 DBP 80-89Hypertensive SBP >/= 140 DBP >/= 90Discharge Plan- Discharge PlanDisposition: Home, Self-CareReason For Visit: DIALYSISDischarge Orders:Discharge Order (Routine); Ordered 08/07/24 Ordered By: Graham Mccoy Discharge Disposition: Home, Self-Care Does patient have any of following, AMI, HF, PCI,Stroke/TIA?: NoCondition: Good- InstructionsPrescriptions:New azithromycin 500 mg Tablet 500 mg PO DAILY Qty: 5 RF: 0 [id number] Ordered By: Graham Mccoy Last Taken: Unknown cefdinir 300 mg Capsule 300 mg PO Q12H Qty: 10 RF: 0 Transmission Status: Received by [id number] Ordered By: Graham Mccoy Last Taken: UnknownContinued aspirin 81 mg Tablet,Delayed Release (Dr/Ec) 81 mg PO DAILYPatient Name: JAISON CHEUNG Acct: [id number] Unit: [id number] Page 15 Last Taken: 08/07/24 09:02 81 mg atorvastatin 80 mg tablet 80 mg PO DAILY Last Taken: 08/07/24 09:02 80 mg bisoprolol fumarate 10 mg tablet 10 mg PO DAILY Last Taken: 08/07/24 09:03 100 mg bumetanide 2 mg tablet 2 mg PO DAILY Last Taken: 08/07/24 09:01 2 mg clonidine HCl 0.1 mg tablet 0.1 mg PO TID Last Taken: 08/07/24 09:03 0.1 mg clopidogrel 75 mg tablet 75 mg PO DAILY Last Taken: 08/07/24 09:03 75 mg Dialyvite 800-Ultra D 0.8-2,000 mg-unit tablet 1 tab PO DAILY Last Taken: Unknown ezetimibe 10 mg tablet 10 mg PO DAILY Last Taken: 08/07/24 09:01 10 mg fenofibrate 40 mg Tablet 40 mg PO DAILY Last Taken: Unknown fluoxetine 20 mg tablet 20 mg PO DAILY Last Taken: 08/07/24 09:03 20 mg gabapentin 300 mg capsule 300 mg PO TID Last Taken: 08/07/24 09:03 300 mg Humulin 70/30 U-100 Insulin 100 unit/mL (70-30) suspension 80 ml SUBCUT BID Last Taken: Unknown hydralazine 100 mg tablet 100 mg PO TID Last Taken: 08/07/24 09:01 100 mg isosorbide mononitrate 120 mg tablet extended release 24 hr 120 mg PO DAILY Last Taken: 08/07/24 09:02 120 mg Jardiance 10 mg tablet 10 mg PO DAILY Last Taken: 08/07/24 09:03 10 mg nifedipine 90 mg tablet extended release 24hr 90 mg PO DAILY Last Taken: 08/07/24 09:01 90 mg oxycodone 10 mg tablet 10 mg PO TID Last Taken: 08/07/24 05:07 10 mgAdditional Instructions:Follow up with PCP and HD center<Electronically signed by Graham Mccoy MD> 08/07/24 1633Patient Name: JAISON CHEUNG Acct: [id number] Unit: [id number] Page 16 [facility]-19-Jul-2024 [place] [address] [address] [address]Jipre: [phone] Zeekiqbmlwa Progress NotePatient Name: JAISON CHEUNGDOB: 1970 Age: 54 Sex: MAcct: [id number] MR#: [id number]: Graham Mccoy MD Author: Fabien Sarabia HPatient Status: ADM IN Patient Location: [address]-ADate of Admission/Service: 08/06/24Report Date/Time: 08/07/24 0654 Report Status: SignedReport#: [id number]- SubjectivePatient reports: YES resting comfortably (on O2, S/P HD, + dyspnea , cough and chest pain)Objective- Physical ExamVS/I O: Vital Signs - Last DocumentedBlood pressure 133/103 H 08/07/24 04:01Blood pressure location Arm upper right 08/06/24 09:43Blood pressure source Monitor 08/06/24 06:48Temperature 36.8 C 08/07/24 03:53Temperature source Oral 08/07/24 03:53Pulse 63 08/07/24 04:20Pulse location Radial 08/06/24 06:48Pulse source Monitor 08/06/24 06:48Respiratory rate 20 08/07/24 03:50Respiratory source Observed 08/06/24 09:43Vital signs position Lying 08/06/24 09:43Mean arterial pressure 114 08/07/24 04:01Bedside pulse oximetry/SpO2 100 08/07/24 04:20Oxygen delivery devices Nasal cannula 08/06/24 20:00Patient Name: JAISON CHEUNG Acct: [id number] Unit: [id number] Page 1O2 liters per minute 6 08/06/24 20:00Level of consciousness Alert 08/06/24 17:38MEWS score - adult 1 08/06/24 09:43Weight 119 kg 08/06/24 10:15Weight source Stated/Reported 08/06/24 06:48Body surface area 2.53 08/06/24 10:15Body mass index 33.7 02/18/25 10:15Height 1.88 m 08/06/24 10:15Height source Stated/Reported 08/06/24 10:15 Intake Output 08/05/24 08/06/24 08/07/24 06:59 06:59 06:59Intake Total 720 / 720Output Total 5000 / 5000Balance -4280 / - 4280Intake: Oral 720 / 720Output: HD net negative volume balance 5000 / 5000Other: Number of voids 1Medications: Active MedicationsGeneric Name Dose Route Start Last Admin Trade Name Freq PRN Reason Stop Dose AdminPatient Name: JAISON CHEUNG Acct: [id number] Unit: [id number] Page 2Acetaminophen 650 mg 08/06/24 08:53 Acetaminophen 325 Mg Tab PO 10/05/24 08:52 Q6H PRN PRN Pain 1-3 / Temp > 100.5F/38.1CAlbuterol 2.5 mg 08/06/24 23:34 Albuterol Nebulizer Solution 2.5 Mg/0.5 Ml (0.5%) Vial NEB 10/05/24 23:33 RT Q6H PRN PRN WheezingAspirin 81 mg 08/07/24 09:00 Aspirin 81 Mg Ec Tab PO 10/06/24 08:59 DAILY SCHAtorvastatin Calcium 80 mg 08/07/24 09:00 Atorvastatin 80 Mg Tab PO 10/06/24 08:59 DAILY LAURA ProtocolBumetanide 2 mg 08/07/24 09:00 Bumetanide 1 Mg Tab PO 10/06/24 08:59 DAILY SCHCeftriaxone Sodium 1 gm 08/06/24 10:00 08/06/24 10:34 Ceftriaxone Powder For Injection 1 Gm Vial IV 08/10/24 09:01 1 gm Q24 LAURA Administration ProtocolClonidine 0.1 mg 08/06/24 21:00 08/06/24 20:54 Clonidine 0.1 Mg Tab PO 10/05/24 20:59 0.1 mg TID LAURA AdministrationClopidogrel Bisulfate 75 mg 08/07/24 09:00 Clopidogrel Bisulfate 75 Mg Tab PO 10/06/24 08:59 DAILY SCHDapagliflozin 10 mg 08/07/24 09:00Patient Name: JAISON CHEUNG Acct: [id number] Unit: [id number] Page 3 Dapagliflozin 10 Mg Tablet PO 10/06/24 08:59 DAILY SCHEzetimibe 10 mg 08/07/24 09:00 Ezetimibe 10 Mg Tab PO 10/06/24 08:59 DAILY SCHEnoxaparin Sodium 30 mg 08/06/24 10:00 08/06/24 10:34 Enoxaparin 30 Mg/0.3 Ml Syringe SUBQ 10/05/24 09:59 30 mg Q24H LAURA AdministrationFluoxetine HCl 20 mg 08/07/24 09:00 Fluoxetine 20 Mg Cap PO 10/06/24 08:59 DAILY SCHGabapentin 300 mg 08/06/24 21:00 08/06/24 20:53 Gabapentin 300 Mg Cap PO 10/05/24 20:59 300 mg TID LAURA AdministrationHydralazine HCl 100 mg 08/06/24 21:00 08/06/24 20:54 Hydralazine 50 Mg Tab PO 10/05/24 20:59 100 mg TID LAURA AdministrationInsulin Human Lispro 0 unit 08/06/24 16:30 08/06/24 20:54 Insulin Lispro 100 Unit/Ml SUBQ 10/05/24 16:29 Not Given ACHS LAURA ProtocolIsosorbide Mononitrate 120 mg 08/07/24 09:00 Isosorbide Mononitrate 60 Mg 24 Hr Er Tab PO 10/06/24 08:59 DAILY SCHMetoprolol Succinate 100 mg 08/07/24 09:00 Metoprolol Succinate 100 Mg Sr 24 Hr Tab PO 10/06/24 08:59 DAILY SCHNicotine 14 mg 08/06/24 08:53Patient Name: JAISON CHEUNG Acct: [id number] Unit: [id number] Page 4 Nicotine 14 Mg/24 Hr Transdermal Patch TRANSDERM 10/05/24 08:59 Q24 PRN Nicotine Replacement ProtocolNifedipine 90 mg 08/07/24 09:00 Nifedipine 90 Mg 24 Hr Er Tab PO 10/06/24 08:59 DAILY SCHOndansetron HCl 4 mg 08/06/24 08:53 Ondansetron Injection Solution 4 Mg/2 Ml Sdv IV 10/05/24 08:52 Q8H PRN PRN Nausea / VomitingOxycodone HCl 10 mg 08/06/24 15:31 08/07/24 05:07 Oxycodone Hcl 10mg Immed Release Tablet PO 10/05/24 15:30 10 mg TID PRN PRN Administration Pain Scale 7- 10 Protocol Discontinued MedicationsDiscontinued MedicationsGeneric Name Dose Route Start Last Admin Trade Name Jerri PRN Reason Stop Dose AdminAlbuterol 2.5 mg 08/06/24 17:00 08/06/24 23:35 Albuterol Nebulizer Solution 2.5 Mg/0.5 Ml (0.5%) Vial NEB 10/05/24 16:59 Not Given RT Q6H SCHFenofibrate 48 mg 08/07/24 09:00 Fenofibrate Nanocrystallized 48 Mg Tablet PO 10/06/24 08:59Patient Name: JAISON CHEUNG Acct: [id number] Unit: [id number] Page 5 DAILY SCHMorphine Sulfate 2 mg 08/06/24 13:30 08/06/24 13:34 Morphine Sulfate Injection Solution 2 Mg/Ml 1 Ml IV 08/06/24 13:31 2 mg ONCE ONE AdministrationGeneral appearance: alert, awake, oriented, no acute distress- ResultsResult Diagrams: 08/07/24 04:16 08/07/24 04:16Findings/Data: Blood Gas 08/06/24 Range/Units 07:00Specimen Type VenousPuncture Site Not enteredVBG pH 7.40 (7.32-7.43)VBG pCO2 47 (41-51) mmHgVBG pO2 48 (30-55) mmHgVBG HCO3 29 (22- 29) mmol/LPOC VBG CO2 (Calc) 31 H (24-30) mmol/LVBG O2 Saturation 83 (40-85) %VBG Base Excess 4 H (-2-3) mmol/LO2 Delivery Device Not enteredVent Mode Not enteredBlood Gas Notified Whom lawsomReport Date/Time 08/06/2024 07:01:32 ChemistryPatient Name: JAISON CHEUNG Acct: [id number] Unit: [id number] Page 6 08/06/24 08/06/24 08/07/24 Range/Units 06:58 06:58 04:16Sodium 142 139 (136-142) mmol/LPotassium 5.2 H 4.5 (3.5-5.1) mmol/LChloride 103 100 (98-107) mmol/LCarbon Dioxide 29 32 (21-32) mmol/LAnion Gap 10 7 (5-14) mMol/LBUN 48 H 40 H (7-18) mg/dLCreatinine 5.10 H 4.22 H (0.70-1.30) mg/dLBUN/Creatinine Ratio 9.4 9.5Glucose 148 H 112 H (74-106) mg/dLCalcium 8.5 8.4 L (8.5-10.1) mg/dLPhosphorus 5.8 H 5.9 H (2.5-4.9) mg/dLMagnesium 2.7 H 2.6 H (1.8-2.4) mg/dLTotal Bilirubin 0.6 (0.2-1.0) mg/dLAST 16 (15-37) IU/LALT 23 (13-63) IU/LTotal Alk Phosphatase 135 H (46-116) IU/LSerum Total Protein 7.7 (6.4-8.2) g/dLAlbumin 3.5 (3.4-5.0) g/dLGlobulin 4.2 g/dLAlbumin/Globulin Ratio 0.8 POC Glucose 08/06/24 08/06/24 Range/Units 13:22 20:09POC Glucose 141 H 151 H (73-118) mg/dL HematologyPatient Name: JAISON CHEUNG Acct: [id number] Unit: [id number] Page 7 08/06/24 08/07/24 Range/Units 06:58 04:16WBC 15.4 H 12.9 H (4.8-10.8) K/uLRBC 3.45 L 3.66 (3.60-6.00) M/uLHgb 10.3 L 10.7 L (13.0-17.8) g/dLHct 33.0 L 34.8 L (38.1-50.5) %MCV 95.7 95.1 (80-98) fLMCH 29.9 29.2 (27.7-34.6) pgMCHC 31.2 L 30.7 L (32-38) g/dLRDW Coeff of Ekta 16.0 H 15.4 (10.9-15.6) %Plt Count 266 285 (119-334) K/uLMPV 9.7 9.5 (8.4-11.5) fLGran % (Auto) 81.7 H 65.2 (41.7-77.2) %Immature Gran % (Auto) 0.4 0.5 (0.0-0.7) %Lymph % (Auto) 9.8 L 22.2 (11.0-46.1) %[place] % (Auto) 6.7 7.9 (3.5-13.5) %Eos % (Auto) 0.9 3.6 (0.0-5.3) %Baso % (Auto) 0.5 0.6 (0.0-1.0) %Nucleat RBC Rel Count 0.0 0.0 (0.0-0.2) %Gran # (Auto) 12.60 H 8.40 H (2.00-6.30) K/uLLymph # (Auto) 1.51 2.86 (0.60-3.60) K/uLMono # (Auto) 1.04 H 1.02 H (0.20-1.00) K/uLEos # (Auto) 0.14 0.46 (0.00-0.50) K/uLBaso # (Auto) 0.08 H 0.08 H (0.01-0.05) K/uLImmature Gran # (Auto) 0.06 0.06 (0.00-0.06) K/uLAbsolute Nucleated RBC 0.00 0.00 (0.00-0.01) K/uL SerologyPatient Name: JAISON CHEUNG Acct: [id number] Unit: [id number] Page 8 08/06/24 Range/Units 12:45Hep Bs Antigen Negative (Negative)Radiology data:Recent ImpressionsChest X-Ray 08/06/24 06:59IMPRESSION:Findings concerning for pulmonary edema.CRITICAL RESULT:No.COMMUNICATION:Per this written report.Drafted by Gustavo Gould MD on 08/06/2024 7:22 AMFinal report signed by Gustavo Gould MD on 08/06/2024 7:23 AMChest X-Ray 08/06/24 13:27IMPRESSION:Slightly increased bilateral interstitial opacities suggestive of increasing pulmonary edema.CRITICAL RESULT:No.COMMUNICATION:Per this written report.By electronically signing this report, I, the attending physician, attest that I have personallyreviewed the images/data for the above examination(s) and I agree with the final edited report.Drafted by Jonathan Gomez MD on 08/06/2024 1:50 PMFinal report signed by Graham Love MD on 08/06/2024 2:27 PMDiagnosis, Assessment Plan- Hospital Course to DateHospital course to date:Subjective:on O2, S/P HD, + dyspnea , cough and chest painPatient Name: JAISON CHEUNG Acct: [id number] Unit: [id number] Page 9PHYSICAL EXAMINATION:alert, awake, not in distressNECK: Supple. No thyromegaly. No lymphadenopathy in cervical area. Nojugular venous distention.CARDIOVASCULAR: S1, S2. Point of maximum impulse is nondisplaced.LUNGS: Scattered rhonchi. Decreased air movement. No wheezing. Nodullness.ABDOMEN: Soft. Bowel sounds present.EXTREMITIES: Trace edema. No rashes. No bleeding.ASSESSMENT:1. Acute respiratory failure.2. Hypoxemia.3. Pulmonary edema.4. Likely chronic obstructive pulmonary disease.5. Tobacco abuse.6. Diabetes.7. End-stage renal disease, on hemodialysis.8. Hypertension.August 07, 2024.on O2, S/P HD, + dyspnea , cough and chest paintitrate O2 as tolerated.DVT prophAbxaggressive BDconsider CTA/ VS V/Q scan, discussed the case with the patient, he wants to talk to his formaking any decision.Discussed with hospitalist during the round.- Diagnosis, Assessment PlanOrders:My Orders Category Date Time Status Albuterol NEB [Proventil] Med 08/06/24 17:00 Discontinued 2.5 mg NEB RT Q6H Albuterol NEB [Proventil] Med 08/06/24 23:34 Active 2.5 mg NEB RT Q6H PRN PRN Notify RT NEB Routine Resp 08/06/24 16:48 Completed Notify RT O2 Routine Resp 08/06/24 19:19 Completed Oxygen Administration CONTINUOUS Resp 08/06/24 19:18 ActivePatient Name: JAISON CHEUNG Acct: [id number] Unit: [id number] Page 10<Electronically signed by Fabien Sarabia M.D.> 08/07/24 1336Patient Name: JAISON CHEUNG Acct: [id number] Unit: [id number] Page 11 Nadine Stevenson MD-[birth year] [place], [place] [address]Phone: [id number] History PhysicalPatient Name: JAISON CHEUNGDOB: 1970 Age: 54 Sex: MAcct: [id number] MR#: [id number]: Graham Mccoy MD Author: Graham Mccoy MDPatient Status: ADM IN Patient Location: [address]-ADate of Admission/Service: 08/06/24Report Date/Time: 08/06/24 1556 Report Status: SignedReport#: [id number] of Present Illness- HPIChief complaint: Shortness of breathPCP:PCP Provider UndefinedHPI:54 years old man with history of ESRD on TTS dialysis, hypertension, diabetes, neuropathy, [facility].Patient reports that he went to her dialysis last Monday and completed full session, however overthe weekend his started to feel more short of breath and has increasing cough as well. Patient hadsimilar symptoms in the past due to fluid overload and reportedly resolved after extra session ofdialysis. He denies any fever, chills, chest pain, leg swelling, or other related complaints.Patient [facility] but referred to our hospital for nephrology anddialysisER course reviewed and discussed with ER providerHypoxic but stable on nasal cannula, hemodynamically stable, not in distress. Workup revealedpulmonary edema likely secondary to fluid overload. Also noted he has elevated white blood cell [id number], COVID and flu was checked at [facility] and it was negative.History- Past Medical HistoryMedical History: History, Medical (Last Updated 08/06/24 @ 15:59 by Graham Mccoy MD)Diabetes (Medical) E11.9ESRD (end stage renal disease) (Medical) N18.6Hypertension (Medical) D61Gtbikppvfk (Medical) G62.9- Social HistoryAlcohol use: denies EtOH useDrug use: denies recreational drugsSmoking status for patients 13 years old or older: Former SmokerPatient Name: JAISON CHEUNG Acct: [id number] Unit: [id number] Page 1- Medication/Allergy-Vaccine HxMedications:Rx, Patient Hx, SampleMedication Instructions Recorded Confirmed Last Taken Typeaspirin 81 mg tablet,delayed 81 mg PO DAILY 08/06/24 08/06/24 Unknown Historyreleaseatorvastatin 80 mg tablet 80 mg PO DAILY 08/06/24 08/06/24 Unknown Historybisoprolol fumarate 10 mg tablet 10 mg PO DAILY 08/06/24 08/06/24 Unknown Historybumetanide 2 mg tablet 2 mg PO DAILY 08/06/24 08/06/24 Unknown Historyclonidine HCl 0.1 mg tablet 0.1 mg PO TID 08/06/24 08/06/24 Unknown Historyclopidogrel 75 mg tablet 75 mg PO DAILY 08/06/24 08/06/24 Unknown Historyempagliflozin 10 mg tablet 10 mg PO DAILY 08/06/24 08/06/24 Unknown History(Jardiance)ezetimibe 10 mg tablet 10 mg PO DAILY 08/06/24 08/06/24 Unknown Historyfenofibrate 40 mg tablet 40 mg PO DAILY 08/06/24 08/06/24 Unknown Historyfluoxetine 20 mg tablet 20 mg PO DAILY 08/06/24 08/06/24 Unknown Historyfolic acid 0.8 mg-vit B comp with 1 tab PO DAILY 08/06/24 08/06/24 Unknown [id number]-qpdsyck D3 2,000 unittablet (Dialyvite 800-Ultra D)gabapentin 300 mg capsule 300 mg PO TID 08/06/24 08/06/24 Unknown Historyhydralazine 100 mg tablet 100 mg PO TID 08/06/24 08/06/24 Unknown Historyinsulin human U-100 NPH-regulr 80 ml subcut BID 08/06/24 08/06/24 Unknown Hjcwvdf14-27 mix 100 unit/mL subcutaneoussusp (Humulin 70/30 U-100 Insulin)isosorbide mononitrate 120 mg 120 mg PO DAILY 08/06/24 08/06/24 Unknown Historytablet,extended release 24 hrnifedipine 90 mg tablet,extended 90 mg PO DAILY 08/06/24 08/06/24 Unknown Historyrelease 24 hroxycodone 10 mg tablet 10 mg PO TID 08/06/24 08/06/24 Unknown HistoryPatient Name: JAISON CHEUNG Acct: [id number] Unit: [id number] Page 2Current Hospital MedicationsGeneric Name Dose Route Start Last Admin Trade Name Freq PRN Reason Stop Dose AdminAcetaminophen 650 mg 08/06/24 08:53 Acetaminophen 325 Mg Tab PO 10/05/24 08:52 Q6H PRN PRN Pain 1-3 / Temp > 100.5F/38.1CAspirin 81 mg 08/07/24 09:00 Aspirin 81 Mg Ec Tab PO 10/06/24 08:59 DAILY SCHAtorvastatin Calcium 80 mg 08/07/24 09:00 Atorvastatin 80 Mg Tab PO 10/06/24 08:59 DAILY LAURA ProtocolCeftriaxone Sodium 1 gm 08/06/24 10:00 08/06/24 10:34 Ceftriaxone Powder For Injection 1 Gm Vial IV 08/10/24 09:01 1 gm Q24 LAURA Administration ProtocolClonidine 0.1 mg 08/06/24 21:00 Clonidine 0.1 Mg Tab PO 10/05/24 20:59 TID SCHClopidogrel Bisulfate 75 mg 08/07/24 09:00 Clopidogrel Bisulfate 75 Mg Tab PO 10/06/24 08:59 DAILY SCHEzetimibe 10 mg 08/07/24 09:00 Ezetimibe 10 Mg Tab PO 10/06/24 08:59 DAILY SCHPatient Name: JAISON CHEUNG Acct: [id number] Unit: [id number] Page 3Enoxaparin Sodium 30 mg 08/06/24 10:00 08/06/24 10:34 Enoxaparin 30 Mg/0.3 Ml Syringe SUBQ 10/05/24 09:59 30 mg Q24H LAURA AdministrationGabapentin 300 mg 08/06/24 21:00 Gabapentin 300 Mg Cap PO 10/05/24 20:59 TID SCHNicotine 14 mg 08/06/24 08:53 Nicotine 14 Mg/24 Hr Transdermal Patch TRANSDERM 10/05/24 08:59 Q24 PRN Nicotine Replacement ProtocolNifedipine 90 mg 08/07/24 09:00 Nifedipine 90 Mg 24 Hr Er Tab PO 10/06/24 08:59 DAILY SCHNon- Formulary Medication 10 mg 08/07/24 09:00 Bisoprolol Fumarate PO 10/06/24 08:59 DAILY SCHNon-Formulary Medication 2 mg 08/07/24 09:00 Bumetanide PO 10/06/24 08:59 DAILY SCHNon-Formulary Medication 10 mg 08/07/24 09:00 Empagliflozin [Jardiance] PO 10/06/24 08:59 DAILY SCHNon-Formulary Medication 40 mg 08/07/24 09:00 Fenofibrate PO 10/06/24 08:59 DAILY SCHNon-Formulary Medication 20 mg 08/07/24 09:00 Fluoxetine PO 10/06/24 08:59Patient Name: JAISON CHEUNG Acct: [id number] Unit: [id number] Page 4 DAILY SCHNon-Formulary Medication 100 mg 08/06/24 21:00 Hydralazine PO 10/05/24 20:59 TID SCHNon-Formulary Medication 120 mg 08/07/24 09:00 Isosorbide Mononitrate PO 10/06/24 08:59 DAILY SCHOndansetron HCl 4 mg 08/06/24 08:53 Ondansetron Injection Solution 4 Mg/2 Ml Sdv IV 10/05/24 08:52 Q8H PRN PRN Nausea / VomitingOxycodone HCl 10 mg 08/06/24 15:31 Oxycodone Hcl 10mg Immed Release Tablet PO 10/05/24 15:30 TID PRN Pain Scale 7-10 Protocol- Medication/Allergy-Vaccine HxAllergies/Adverse Reactions:Allergiesglipizide Allergy (Verified 08/06/24 10:09) UnknownSulfa (Sulfonamide Antibiotics) Allergy (Verified 08/06/24 10:09) UnknownReview of Systems- Free Text ROS NotesFree Text ROS Notes:Constitutional: Denies chills, feverEyes: DENIES visual loss/blurredENT: DENIES nasal congestion, hearing lossRespiratory: DENIES hemoptysisCardiovascular: DENIES orthopnea, palpitation, PNDGI: DENIES hematemesis, melenaPatient Name: JAISON CHEUNG Acct: [id number] Unit: [id number] Page 5GU: DENIES hematuriaNeuro: DENIES loss of consciousness, slurred speech,Objective- GeneralVS/I O: Vital Signs - Last DocumentedBlood pressure 164/77 H 08/06/24 13:15Blood pressure location Arm upper right 08/06/24 09:43Blood pressure source Monitor 08/06/24 06:48Temperature 98.4 F 08/06/24 13:15Temperature source Oral 08/06/24 09:43Pulse 78 08/06/24 13:15Pulse location Radial 08/06/24 06:48Pulse source Monitor 08/06/24 06:48Respiratory rate 22 H 08/06/24 13:15Respiratory source Observed 08/06/24 09:43Vital signs position Lying 08/06/24 09:43Mean arterial pressure 94.9 08/06/24 09:43Bedside pulse oximetry/SpO2 96 08/06/24 13:15Oxygen delivery devices Nasal cannula 08/06/24 13:15O2 liters per minute 6 08/06/24 13:15Level of consciousness Alert 08/06/24 13:15MEWS score - adult 1 08/06/24 09:43Weight 119 kg 08/06/24 10:15Weight source Stated/Reported 08/06/24 06:48Body surface area 2.53 08/06/24 10:15Body mass index 33.7 08/06/24 10:15Height 1.88 m 08/06/24 10:15Height source Stated/Reported 08/06/24 10:15Patient Name: JAISON CHEUNG Acct: [id number] Unit: [id number] Page 6Patient Weight: 119 kg 08/06/24 10:15Medications: Active MedicationsGeneric Name Dose Route Start Last Admin Trade Name Freq PRN Reason Stop Dose AdminAcetaminophen 650 mg 08/06/24 08:53 Acetaminophen 325 Mg Tab PO 10/05/24 08:52 Q6H PRN PRN Pain 1-3 / Temp > 100.5F/38.1CAspirin 81 mg 08/07/24 09:00 Aspirin 81 Mg Ec Tab PO 10/06/24 08:59 DAILY SCHAtorvastatin Calcium 80 mg 08/07/24 09:00 Atorvastatin 80 Mg Tab PO 10/06/24 08:59 DAILY LAURA ProtocolCeftriaxone Sodium 1 gm 08/06/24 10:00 08/06/24 10:34 Ceftriaxone Powder For Injection 1 Gm Vial IV 08/10/24 09:01 1 gm Q24 LAURA Administration ProtocolClonidine 0.1 mg 08/06/24 21:00 Clonidine 0.1 Mg Tab PO 10/05/24 20:59 TID SCHClopidogrel Bisulfate 75 mg 08/07/24 09:00 Clopidogrel Bisulfate 75 Mg Tab PO 10/06/24 08:59 DAILY SCHEzetimibe 10 mg 08/07/24 09:00 Ezetimibe 10 Mg Tab PO 10/06/24 08:59Patient Name: JAISON CHEUNG Acct: [id number] Unit: [id number] Page 7 DAILY SCHEnoxaparin Sodium 30 mg 08/06/24 10:00 08/06/24 10:34 Enoxaparin 30 Mg/0.3 Ml Syringe SUBQ 10/05/24 09:59 30 mg Q24H LAURA AdministrationGabapentin 300 mg 08/06/24 21:00 Gabapentin 300 Mg Cap PO 10/05/24 20:59 TID SCHNicotine 14 mg 08/06/24 08:53 Nicotine 14 Mg/24 Hr Transdermal Patch TRANSDERM 10/05/24 08:59 Q24 PRN Nicotine Replacement ProtocolNifedipine 90 mg 08/07/24 09:00 Nifedipine 90 Mg 24 Hr Er Tab PO 10/06/24 08:59 DAILY SCHNon- Formulary Medication 10 mg 08/07/24 09:00 Bisoprolol Fumarate PO 10/06/24 08:59 DAILY SCHNon-Formulary Medication 2 mg 08/07/24 09:00 Bumetanide PO 10/06/24 08:59 DAILY SCHNon-Formulary Medication 10 mg 08/07/24 09:00 Empagliflozin [Jardiance] PO 10/06/24 08:59 DAILY SCHNon-Formulary Medication 40 mg 08/07/24 09:00 Fenofibrate PO 10/06/24 08:59 DAILY SCHNon-Formulary Medication 20 mg 08/07/24 09:00Patient Name: JAISON CHEUNG Acct: [id number] Unit: [id number] Page 8 Fluoxetine PO 10/06/24 08:59 DAILY SCHNon-Formulary Medication 100 mg 08/06/24 21:00 Hydralazine PO 10/05/24 20:59 TID SCHNon-Formulary Medication 120 mg 08/07/24 09:00 Isosorbide Mononitrate PO 10/06/24 08:59 DAILY SCHOndansetron HCl 4 mg 08/06/24 08:53 Ondansetron Injection Solution 4 Mg/2 Ml Sdv IV 10/05/24 08:52 Q8H PRN PRN Nausea / VomitingOxycodone HCl 10 mg 08/06/24 15:31 Oxycodone Hcl 10mg Immed Release Tablet PO 10/05/24 15:30 TID PRN Pain Scale 7-10 Protocol Discontinued MedicationsDiscontinued MedicationsGeneric Name Dose Route Start Last Admin Trade Name Freq PRN Reason Stop Dose AdminMorphine Sulfate 2 mg 08/06/24 13:30 08/06/24 13:34 Morphine Sulfate Injection Solution 2 Mg/Ml 1 Ml IV 08/06/24 13:31 2 mg ONCE ONE AdministrationPatient Name: JAISON CHEUNG Acct: [id number] Unit: [id number] Page 9- ResultsFindings/Data: Blood Gas 08/06/24 Range/Units 07:00Specimen Type VenousPuncture Site Not enteredVBG pH 7.40 (7.32-7.43)VBG pCO2 47 (41-51) mmHgVBG pO2 48 (30-55) mmHgVBG HCO3 29 (22-29) mmol/LPOC VBG CO2 (Calc) 31 H (24-30) mmol/LVBG O2 Saturation 83 (40-85) %VBG Base Excess 4 H (-2-3) mmol/LO2 Delivery Device Not enteredVent Mode Not enteredBlood Gas Notified Whom lawsomReport Date/Time 08/06/2024 07:01:32 Chemistry 08/06/24 08/06/24 Range/Units 06:58 06:58Sodium 142 (136-142) mmol/LPotassium 5.2 H (3.5-5.1) mmol/LChloride 103 (98-107) mmol/LCarbon Dioxide 29 (21-32) mmol/LAnion Gap 10 (5-14) mMol/LBUN 48 H (7-18) mg/dLPatient Name: JAISON CHEUNG Acct: [id number] Unit: [id number] Page 10Creatinine 5.10 H (0.70-1.30) mg/dLBUN/Creatinine Ratio 9.4Glucose 148 H (74-106) mg/dLCalcium 8.5 (8.5-10.1) mg/dLPhosphorus 5.8 H 5.9 H (2.5-4.9) mg/dLMagnesium 2.7 H (1.8-2.4) mg/dLTotal Bilirubin 0.6 (0.2-1.0) mg/dLAST 16 (15-37) IU/LALT 23 (13-63) IU/LTotal Alk Phosphatase 135 H (46-116) IU/LSerum Total Protein 7.7 (6.4-8.2) g/dLAlbumin 3.5 (3.4-5.0) g/dLGlobulin 4.2 g/dLAlbumin/Globulin Ratio 0.8 POC Glucose 08/06/24 Range/Units 13:22POC Glucose 141 H (73-118) mg/dL Hematology 08/06/24 Range/Units 06:58WBC 15.4 H (4.8-10.8) K/uLRBC 3.45 L (3.60- 6.00) M/uLHgb 10.3 L (13.0-17.8) g/dLHct 33.0 L (38.1-50.5) %Patient Name: JAISON CHEUNG Acct: [id number] Unit: [id number] Page 11MCV 95.7 (80-98) fLMCH 29.9 (27.7- 34.6) pgMCHC 31.2 L (32-38) g/dLRDW Coeff of Ekta 16.0 H (10.9-15.6) %Plt Count 266 (119-334) K/uLMPV 9.7 (8.4-11.5) fLGran % (Auto) 81.7 H (41.7-77.2) %Immature Gran % (Auto) 0.4 (0.0-0.7) %Lymph % (Auto) 9.8 L (11.0-46.1) %[place] % (Auto) 6.7 (3.5- 13.5) %Eos % (Auto) 0.9 (0.0-5.3) %Baso % (Auto) 0.5 (0.0-1.0) %Nucleat RBC Rel Count 0.0 (0.0-0.2) %Gran # (Auto) 12.60 H (2.00-6.30) K/uLLymph # (Auto) 1.51 (0.60-3.60) K/uLMono # (Auto) 1.04 H (0.20-1.00) K/uLEos # (Auto) 0.14 (0.00-0.50) K/uLBaso # (Auto) 0.08 H (0.01-0.05) K/uLImmature Gran # (Auto) 0.06 (0.00-0.06) K/uLAbsolute Nucleated RBC 0.00 (0.00-0.01) K/uLRadiology Data:Recent ImpressionsChest X-Ray 08/06/24 06:59IMPRESSION:Findings concerning for pulmonary edema.CRITICAL RESULT:No.COMMUNICATION:Per this written report.Drafted by Gustavo Gould MD on 08/06/2024 7:22 AMFinal report signed by Gustavo Gould MD on 08/06/2024 7:23 AMPatient Name: JAISON CHEUNG Acct: [id number] Unit: [id number] Page 12Chest X-Ray 08/06/24 13:27IMPRESSION:Slightly increased bilateral interstitial opacities suggestive of increasing pulmonary edema.CRITICAL RESULT:No.COMMUNICATION:Per this written report.By electronically signing this report, I, the attending physician, attest that I have personallyreviewed the images/data for the above examination(s) and I agree with the final edited report.Drafted by Jonathan Gomez MD on 08/06/2024 1:50 PMFinal report signed by Graham Love MD on 08/06/2024 2:27 PM- Free Text Obj NotesFree Text Obj Notes:General: Alert and oriented, not in distressEye: PERRLNeck: Supple, no lymphadenopathyLung: Diminished breath sound bilaterally, scattered rales, no wheezingHeart: Normal S1 and S2, regular rhythm, no murmurAbdomen: Soft, non tender, no organomegaly, no rebound/guardingExtremities: normal capillary refill time, no peripheral edemaNeuro: No focal neuro deficitSkin: No rashDiagnosis, Assessment Plan- Diagnosis, Assessment PlanFree Text A P:Assessment and Plan:# pulmonary edema; due to fluid overload# ESRD on TTS HD-resume home meds-nephrology consult-further fluid optimization per Nephrology, follow up recommendations-wean O2 off when able# Lung infiltrates-likely due to pulmonary edema, however elevated WBC raising concern of underlying pneumonia as well- start empiric IV ceftriaxone for now-monitor WBC, monitor chest x-ray post dialysis# essential hypertension-blood pressure acceptable-reconcile and continue with home medicationPatient Name: JAISON CHEUNG Acct: [id number] Unit: [id number] Page 13# type 2 diabetes mellitus-start lispro sliding scale-fingerstick glucose ACHS, Hypoglycemia precaution# chronic neuropathy-resume home medication# DVT prophylaxis - Lovenox subQ, renal adjusted doseCode: Full codeDisposition: Depends on hospital courseHigh risk and complex decision making due to aboveOrders:My Orders Category Date Time Status Top Stitcher follow up [Reflex Only] ONCE Care 08/06/24 08:53 Completed VTE Prophylaxis Status Routine Care 08/06/24 08:53 Ordered Consult Nephrology Routine Cons 08/06/24 08:52 Ordered Diet, Renal/Low Potassium/Low Phos Diet 08/06/24 Lunch Active Basic Metabolic Panel 0500 Lab 08/07/24 05:00 Ordered Basic Metabolic Panel 0500 Lab 08/08/24 05:00 Ordered Basic Metabolic Panel 0500 Lab 08/09/24 05:00 Ordered CBC w Automated Differential 0500 Lab 08/07/24 05:00 Ordered CBC w Automated Differential 0500 Lab 08/08/24 05:00 Ordered CBC w Automated Differential 0500 Lab 08/09/24 05:00 Ordered Hepatitis B Surface Ag Pnl Routine Lab 08/06/24 12:45 Received Magnesium Level 0500 Lab 08/07/24 05:00 Ordered Magnesium Level 0500 Lab 08/08/24 05:00 Ordered Magnesium Level 0500 Lab 08/09/24 05:00 Ordered POC Glucose Profile Routine Lab 08/06/24 13:22 Completed Phosphorus Routine Lab 08/06/24 06:58 Completed Acetaminophen [Tylenol] Med 08/06/24 08:53 Active 650 mg PO Q6H PRN PRN Aspirin [Ecotrin] Med 08/07/24 09:00 OrderedPatient Name: JAISON CHEUNG Acct: [id number] Unit: [id number] Page 14 81 mg PO DAILY Atorvastatin [Lipitor] Med 08/07/24 09:00 Ordered 80 mg PO DAILY Clopidogrel Bisulfate [Plavix] Med 08/07/24 09:00 Ordered 75 mg PO DAILY Enoxaparin [Lovenox] Med 08/06/24 10:00 Active 30 mg SUBQ Q24H Ezetimibe [Zetia] Med 08/07/24 09:00 Ordered 10 mg PO DAILY Gabapentin [Neurontin] Med 08/06/24 21:00 Ordered 300 mg PO TID NIFEdipine [NIFEdipine ER] Med 08/07/24 09:00 Ordered 90 mg PO DAILY Nicotine [Nicoderm CQ] Med 08/06/24 08:53 Active 14 mg TRANSDERM Q24 PRN Ondansetron [Zofran] Med 08/06/24 08:53 Active 4 mg IV Q8H PRN PRN bisoprolol fumarate Med 08/07/24 09:00 Ordered 10 mg PO DAILY bumetanide Med 08/07/24 09:00 Ordered 2 mg PO DAILY cefTRIAXone [Rocephin] Med 08/06/24 10:00 Active 1 gm IV Q24 cloNIDine [Catapres] Med 08/06/24 21:00 Ordered 0.1 mg PO TID empagliflozin [Jardiance] Med 08/07/24 09:00 Ordered 10 mg PO DAILY fenofibrate Med 08/07/24 09:00 OrderedPatient Name: JONATAN JAISON Acct: [id number] Unit: [id number] Page 15 40 mg PO DAILY fluoxetine Med 08/07/24 09:00 Ordered 20 mg PO DAILY hydralazine Med 08/06/24 21:00 Ordered 100 mg PO TID isosorbide mononitrate Med 08/07/24 09:00 Ordered 120 mg PO DAILY oxyCODONE HCl Med 08/06/24 15:31 Ordered 10 mg PO TID PRN OT Eval and Tx Routine Ther 08/06/24 08:53 Active PT Eval and Tx Routine Ther 08/06/24 08:53 ActiveQuality- ReviewedCurrent medication review:I attest that the foregoing medication list in the medical record is true, accurate, and complete to the best of my knowledge.Unable to obtain:Unable to obtain an accurate home medication list at this time. The patient is in an urgent oremergent medical situation where time is of the essence. To delay treatment would jeopardize thepatient's health status on the day of the encounter.- BMI Screening > 25 or < 18.5Patient's BMI:Current BMI: 33.7 08/06/24 10:15- HTN Screening/Follow-upLast documented vitals: Vital Signs - Last DocumentedBlood pressure 164/77 H 08/06/24 13:15Blood pressure location Arm upper right 08/06/24 09:43Blood pressure source Monitor 08/06/24 06:48Temperature 98.4 F 08/06/24 13:15Patient Name: JAISON CHEUNG Acct: [id number] Unit: [id number] Page 16Temperature source Oral 08/06/24 09:43Pulse 78 08/06/24 13:15Pulse location Radial 08/06/24 06:48Pulse source Monitor 08/06/24 06:48Respiratory rate 22 H 08/06/24 13:15Respiratory source Observed 08/06/24 09:43Vital signs position Lying 08/06/24 09:43Mean arterial pressure 94.9 08/06/24 09:43Bedside pulse oximetry/SpO2 96 08/06/24 13:15Oxygen delivery devices Nasal cannula 08/06/24 13:15O2 liters per minute 6 08/06/24 13:15Level of consciousness Alert 08/06/24 13:15MEWS score - adult 1 08/06/24 09:43Weight 119 kg 08/06/24 10:15Weight source Stated/Reported 08/06/24 06:48Body surface area 2.53 08/06/24 10:15Body mass index 33.7 08/06/24 10:15Height 1.88 m 08/06/24 10:15Height source Stated/Reported 08/06/24 10:15Blood pressure ranges/guide:Screening for Hypertension and follow up measure #317Blood pressure parametersNormal B/P SBP </= 119 DBP </= 79Pre-hypertensive SBP 120-139 DBP 80-89Hypertensive SBP >/= 140 DBP >/= 90Patient Name: JAISON CHEUNG Acct: [id number] Unit: [id number] Page 17<Electronically signed by Graham Mccoy MD> 08/06/24 1716Patient Name: DELFINO CHEUNGORD Acct: [id number] Unit: [id number] Page 18 Jermaine Core[employer]- [address] [place], [place] [address]Phone: [id number] Consultation NotePatient Name: JAISON CHEUNGDOB: 1970 Age: 54 Sex: MAcct: [id number] MR#: [id number]: Graham Mccoy MD Author: Anu Dean NPPatient Status: DIS IN Patient Location: [place] [address]-ADate of Admission/Service: 08/06/24Report Date/Time: 08/06/24 1235 Report Status: SignedReport#: [id number] of Present Illness- HPIRequesting clinician: Nadine Jaquez for consult: End-stage renal diseaseHPI:54-year-old male with history of hypertension, diabetes mellitus type 2, in [address] renal disease.Patient on hemodialysis since January of last year. Normally undergoes dialysis in [facility] the care of Dr. Carpenter and CLIFF. His last treatment was Monday. He woke up overnight withsudden onset of shortness of breath. Presented to emergency room in [place] with concern forfluid overload. He was placed on BiPAP. Transferred here for hemodialysis. Chest x-ray notedpulmonary vascular congestion with increased opacity. Potassium 5.2. Blood pressure 130-140ssystolic. Patient was seen lying flat in bed. On 6 L O2. Patient's states he still makessome urine. Patient complains of shortness of breath although able to lie flat. No significantedema. No vomiting or diarrhea. No cough. Noted with white blood cell count [id number]. We are askedto see him for end-stage renal disease theHistory- Social HistorySmoking status for patients 13 years old or older: Former Smoker- Medication/Allergy-Vaccine HxMedications:Rx, Patient Hx, SampleMedication Instructions Recorded Confirmed Last Taken Typeaspirin 81 mg tablet,delayed 81 mg PO DAILY 08/06/24 08/06/24 Unknown Historyreleaseatorvastatin 80 mg tablet 80 mg PO DAILY 08/06/24 08/06/24 Unknown Historybisoprolol fumarate 10 mg tablet 10 mg PO DAILY 08/06/24 08/06/24 Unknown Historybumetanide 2 mg tablet 2 mg PO DAILY 08/06/24 08/06/24 Unknown HistoryPatient Name: JAISON CHEUNG Acct: [id number] Unit: [id number] Page 1clonidine HCl 0.1 mg tablet 0.1 mg PO TID 08/06/24 08/06/24 Unknown Historyclopidogrel 75 mg tablet 75 mg PO DAILY 08/06/24 08/06/24 Unknown Historyempagliflozin 10 mg tablet 10 mg PO DAILY 08/06/24 08/06/24 Unknown History(Jardiance)ezetimibe 10 mg tablet 10 mg PO DAILY 08/06/24 08/06/24 Unknown Historyfenofibrate 40 mg tablet 40 mg PO DAILY 08/06/24 08/06/24 Unknown Historyfluoxetine 20 mg tablet 20 mg PO DAILY 08/06/24 08/06/24 Unknown Historyfolic acid 0.8 mg-vit B comp with 1 tab PO DAILY 08/06/24 08/06/24 Unknown EkztwdvO-zqme-epdtpwr D3 2,000 unittablet (Dialyvite 800-Ultra D)gabapentin 300 mg capsule 300 mg PO TID 08/06/24 08/06/24 Unknown Historyhydralazine 100 mg tablet 100 mg PO TID 08/06/24 08/06/24 Unknown Historyinsulin human U-100 NPH-regulr 80 ml subcut BID 08/06/24 08/06/24 Unknown Sutjozu37-09 mix 100 unit/mL subcutaneoussusp (Humulin 70/30 U-100 Insulin)isosorbide mononitrate 120 mg 120 mg PO DAILY 08/06/24 08/06/24 Unknown Historytablet,extended release 24 hrnifedipine 90 mg tablet,extended 90 mg PO DAILY 08/06/24 08/06/24 Unknown Historyrelease 24 hroxycodone 10 mg tablet 10 mg PO TID 08/06/24 08/06/24 Unknown HistoryCurrent Hospital MedicationsGeneric Name Dose Route Start Last Admin Trade Name Freq PRN Reason Stop Dose AdminAcetaminophen 650 mg 08/06/24 08:53 Acetaminophen 325 Mg Tab PO 10/05/24 08:52 Q6H PRN PRN Pain 1-3 / Temp > 100.5F/38.1CPatient Name: JAISON CHEUNG Acct: [id number] Unit: [id number] Page 2Ceftriaxone Sodium 1 gm 08/06/24 10:00 08/06/24 10:34 Ceftriaxone Powder For Injection 1 Gm Vial IV 08/10/24 09:01 1 gm Q24 LAURA Administration ProtocolEnoxaparin Sodium 30 mg 08/06/24 10:00 08/06/24 10:34 Enoxaparin 30 Mg/0.3 Ml Syringe SUBQ 10/05/24 09:59 30 mg Q24H LAURA AdministrationNicotine 14 mg 08/06/24 08:53 Nicotine 14 Mg/24 Hr Transdermal Patch TRANSDERM 10/05/24 08:59 Q24 PRN Nicotine Replacement ProtocolOndansetron HCl 4 mg 08/06/24 08:53 Ondansetron Injection Solution 4 Mg/2 Ml Sdv IV 10/05/24 08:52 Q8H PRN PRN Nausea / Vomiting- Medication/Allergy-Vaccine HxAllergies/Adverse Reactions:Allergiesglipizide Allergy (Verified 08/06/24 10:09) UnknownSulfa (Sulfonamide Antibiotics) Allergy (Verified 08/06/24 10:09) UnknownObjective- GeneralVS/I O: Vital Signs Temp Pulse Resp BP Pulse OxPatient Name: JAISON CHEUNG Acct: [id number] Unit: [id number] Page 3 08/06/24 09:43 36.7 C 72 17 146/69 H 96 08/06/24 09:00 74 96 08/06/24 08:56 73 94 08/06/24 08:30 75 94 08/06/24 08:20 78 94 08/06/24 08:10 80 08/06/24 08:08 147/70 H 08/06/24 08:08 75 98 08/06/24 08:07 76 22 H 99 08/06/24 06:48 36.2 C 80 24 H 137/35 L 99Medications: Active MedicationsGeneric Name Dose Route Start Last Admin Trade Name Freq PRN Reason Stop Dose AdminAcetaminophen 650 mg 08/06/24 08:53 Acetaminophen 325 Mg Tab PO 10/05/24 08:52 Q6H PRN PRN Pain 1-3 / Temp > 100.5F/38.1CCeftriaxone Sodium 1 gm 08/06/24 10:00 08/06/24 10:34 Ceftriaxone Powder For Injection 1 Gm Vial IV 08/10/24 09:01 1 gm Q24 LAURA Administration ProtocolEnoxaparin Sodium 30 mg 08/06/24 10:00 08/06/24 10:34 Enoxaparin 30 Mg/0.3 Ml Syringe SUBQ 10/05/24 09:59 30 mg Q24H LAURA AdministrationNicotine 14 mg 08/06/24 08:53 Nicotine 14 Mg/24 Hr Transdermal Patch TRANSDERM 10/05/24 08:59Patient Name: JAISON CHEUNG Acct: [id number] Unit: [id number] Page 4 Q24 PRN Nicotine Replacement ProtocolOndansetron HCl 4 mg 08/06/24 08:53 Ondansetron Injection Solution 4 Mg/2 Ml Sdv IV 10/05/24 08:52 Q8H PRN PRN Nausea / Vomiting- Physical ExamGeneral appearance: alert, no acute distressHead/eyes: atraumatic, normocephalicENT: normal noseNeck: non-tenderCardiovascular: lower extremity edema (trace), normal heart sounds, pedal pulses presentRespiratory: decreased breath sounds, on oxygen, symmetric expansion, no distressAbdomen: non-tender, normal bowel sounds, softGenitourinary: no foleyExtremities: swelling (trace LE), non-tenderNeuro/PIPING DESIGN SPECIALIST: alert, oriented X 3- Hemodialysis AccessType: AV fistulaLocation: left upper armComments: bruit present, thrill presentSkin: dryPsychiatry: normal mood- ResultsFindings/Data:Hematology 08/06/24 Range/Units 06:58WBC 15.4 H (4.8-10.8) K/uLRBC 3.45 L (3.60-6.00) M/uLHgb 10.3 L (13.0-17.8) g/dLHct 33.0 L (38.1-50.5) %MCV 95.7 (80-98) fLMCH 29.9 (27.7-34.6) pgPatient Name: JAISNO CHEUNG Acct: [id number] Unit: [id number] Page 5MCHC 31.2 L (32-38) g/dLRDW Coeff of Ekta 16.0 H (10.9-15.6) %Plt Count 266 (119-334) K/uLMPV 9.7 (8.4-11.5) fLGran % (Auto) 81.7 H (41.7-77.2) %Immature Gran % (Auto) 0.4 (0.0-0.7) %Lymph % (Auto) 9.8 L (11.0-46.1) %[place] % (Auto) 6.7 (3.5-13.5) %Eos % (Auto) 0.9 (0.0-5.3) %Baso % (Auto) 0.5 (0.0-1.0) %Nucleat RBC Rel Count 0.0 (0.0-0.2) %Gran # (Auto) 12.60 H (2.00-6.30) K/uLLymph # (Auto) 1.51 (0.60-3.60) K/uLMono # (Auto) 1.04 H (0.20-1.00) K/uLEos # (Auto) 0.14 (0.00-0.50) K/uLBaso # (Auto) 0.08 H (0.01-0.05) K/uLImmature Gran # (Auto) 0.06 (0.00-0.06) K/uLAbsolute Nucleated RBC 0.00 (0.00-0.01) K/uLChemistry 08/06/24 08/06/24 Range/Units 06:58 06:58Sodium 142 (136-142) mmol/LPotassium 5.2 H (3.5-5.1) mmol/LChloride 103 (98-107) mmol/LCarbon Dioxide 29 (21-32) mmol/LAnion Gap 10 (5-14) mMol/LBUN 48 H (7-18) mg/dLPatient Name: JAISON CHEUNG Acct: [id number] Unit: [id number] Page 6Creatinine 5.10 H (0.70-1.30) mg/dLEst GFR (CKD-EPI 2020) 13 mL/minBUN/Creatinine Ratio 9.4Glucose 148 H (74-106) mg/dLCalcium 8.5 (8.5-10.1) mg/dLPhosphorus 5.8 H 5.9 H (2.5-4.9) mg/dLMagnesium 2.7 H (1.8-2.4) mg/dLTotal Bilirubin 0.6 (0.2-1.0) mg/dLAST 16 (15-37) IU/LALT 23 (13-63) IU/LTotal Alk Phosphatase 135 H (46-116) IU/LTroponin I High Sens 13 (0-76) ng/LSerum Total Protein 7.7 (6.4-8.2) g/dLAlbumin 3.5 (3.4-5.0) g/dLGlobulin 4.2 g/dLAlbumin/Globulin Ratio 0.8Blood Gas 08/06/24 Range/Units 07:00Specimen Type VenousPuncture Site Not enteredVBG pH 7.40 (7.32-7.43)VBG pCO2 47 (41-51) mmHgVBG pO2 48 (30-55) mmHgVBG HCO3 29 (22-29) mmol/LPOC VBG CO2 (Calc) 31 H (24-30) mmol/LVBG O2 Saturation 83 (40-85) %VBG Base Excess 4 H (-2-3) mmol/LPatient Name: JAISON CHEUNG Acct: [id number] Unit: [id number] Page 7O2 Delivery Device Not enteredVent Mode Not enteredBlood Gas Notified Whom lawsomReport Date/Time 08/06/2024 07:01:32Radiology data:Radiology Impressions within the last 24 hrsChest X-Ray 08/06/24 06:59IMPRESSION:Findings concerning for pulmonary edema.CRITICAL RESULT:No.COMMUNICATION:Per this written report.Drafted by Gustavo Gould MD on 08/06/2024 7:22 AMFinal report signed by Gustavo Gould MD on 08/06/2024 7:23 AMResults: labs reviewed, vital signs stable, current med profile rev'dDiagnosis, Assessment Plan- Problem List/A P(1) ESRD (end stage renal disease)Status: Acute(2) HypertensionStatus: Acute(3) HyperkalemiaStatus: Acute(4) Pulmonary edemaStatus: Acute(5) Acute hypoxic respiratory failureStatus: Acute- Diagnosis, Assessment PlanFree Text A P:54-year-old with end-stage renal disease, hypertension, diabetes mellitus type 2. Patient presentedto outside hospital with shortness of breath. Likely pulmonary edema. Today is his normal dialysisday. Mild hyperkalemia. No significant peripheral edema however chest x-ray concerning for volumeoverload. Anemia with leukocytosis noted. Was given IV antibiotics in outside hospital.PLAN KARELY DURANIDYPatient Name: JAISON CHEUNG Acct: [id number] Unit: [id number] Page 8Plan hemodialysis today. Patient states he normally takes between 4 and 5 L. Will attempt UF 4.5.Resume the antihypertensive medications after dialysis depending on his blood pressures.Renal diet. Fluid restrictionFollow hemoglobin. Stable hemoglobin at this point for ESRDOrders:My Orders Category Date Time Status Initiate Magnesium Protocol Continuous Care 08/06/24 10:53 Active Initiate Phosphorus Protocol CONTINUOUS Care 08/06/24 10:53 Active Initiate Potassium Protocol Continuous Care 08/06/24 10:53 Active Hemodialysis DIRECTED Ther 08/06/24 11:00 Ordered<Electronically signed by MIKE Dean> 08/06/24 1245I interviewed/examined the pt. Rev'd all charts/labs/images and agree with the PA/NPsfindings/exam/plan.<Electronically signed by Silke Esparza MD> 08/15/24 0853Patient Name: JAISON CHEUNG Acct: [id number] Unit: [id number] Page 9 Bobby Linares MD- [address] [place], [place] [address]Phone: ed PHYSICIAN RECORDPatient Name: JAISON CHEUNGDOB: 1970 Age: 54 Sex: MAcct: [id number] MR#: [id number]: Graham Mccoy MD Author: Hadley Rosales MDPatient Status: ADM IN Patient [facility]-BDate of Admission/Service: 08/06/24Report Date/Time: 08/06/24 0647 Report Status: SignedReport#: [id number] Illness- Chief ComplaintChief Complaint: OtherComplaint Description: 54-year-old male with history of ESRD on Monday//Monday dialysis,diabetes, hypertension, presents to the emergency department from [facility] for fluid overload. Patient had went to the outside hospital due to increased shortness ofbreath. He has not had any missed dialysis sessions. Patient was placed on a BiPAP there, and hadsome improvement, and then was accepted here for further evaluation and treatment.- Source of HistoryHx Obtained From: Patient, EMS- GeneralTime Seen by Provider: 08/06/24 06:37Review of Systems- Free Text ROS NotesAll reviewed and per HPIPast Medical History - Adult- Nursing NotesStated Complaint: DIALYSISPhysical Exam- Initial Vital SignsReview of Vital Signs: Reviewed- Basic Physical ExamBasic Physical Exam: HEAD:atraumatic/NC, NECK:supple,full ROM, RESP:no resp distress (Rhonchi,crackles bilaterally), C/V:RRR,normal pulses, ABD:soft,non-tender, ABD:no distention,EXT:neurovascular intact, SKIN:no rashes,warm/dry, LITA:alert/orient,nonfocalInterpretation Diagnostics- Lab Results InterpretationPatient Name: JAISON CHEUNG Acct: [id number] Unit: [id number] Page 1Result Diagrams: 08/06/24 06:58 08/06/24 06:58Re-Evaluation MDM- Free Text MDM NotesText/Dict MDM Notes:54-year-old male with ESRD on Monday//Monday dialysis, hypertension, diabetes, presentsto the emergency department from [facility] due to concern for fluid overload, hehad went to the outside hospital to be seen for increased shortness of breath. He was found to behypoxic on arrival and had B-lines indicating pulmonary edema on ultrasound there, was started onBiPAP and oxygen went up to the 90s.According to record review, he has been feeling more short of breath over the last day or so, and inaddition is had left lateral rib pain for about 6 weeks which is worse with coughing. He wasoffered a CT/CTA of the chest at the outside hospital and refused. He had labs there showing whiteblood cell count 16.9, hemoglobin 10.5, platelets okay, D-dimer 1.1, creatinine 4.8, potassium 4.4,magnesium 2.6, negative troponin, and a blood gas was showing pH 7.38 with CO2 on blood gas 42. Hehad a negative influenza and negative COVID at the outside hospital as well. Patient was on BiPAPfor couple of hours and taken off BiPAP and put back on nasal cannula. He does not normally requirenasal cannula, in the ER here, on arrival, patient has slightly elevated blood pressure, hisrespiratory rate is okay, he is on 4 L nasal cannula, and states he feels much better than when hepresented to the outside hospital regionally. He had a chest x-ray, and radiology read showsbilateral interstitial opacities that is suspicious for pulmonary edema/volume overload. [facility] he was treated with 1 g of Tylenol 1 g Rocephin and 4 mg Zofran. Patient will beadmitted for further evaluation treatment.- ED CourseOrders-All:08/06/24XR RAD Reference Images [RAD] RoutinePatient Discharge Departure- ConditionCondition: StableClinical Impression: Acute hypoxic respiratory failure, Pulmonary edemaDischarge Plan- Discharge PlanReason For Visit: DIALYSIS<Electronically signed by Hadley Rosales MD> 08/06/24 1404Patient Name: JAISON CHEUNG Acct: [id number] Unit: [id number] Page 2 No Conn Q-40-Tiv06-Aug-2024 [place], [place] [address]Phone: Rzpindzkyyue ReportPatient Name: JAISON CHEUNGDOB: 1970 Age: 54 Sex: MAcct: [id number] MR#: [id number] Status: ADM IN Patient Location: [address] Physician:Date of Admission:08/06/24 DATE OF CONSULTATION: 08/06/2024 REASON FOR EVALUATION: Respiratory failure. HISTORY OF PRESENT ILLNESS: This is a pleasant 54-year-old gentleman with known history of end-stage renal disease, on hemodialysis. He did not miss any of his dialysis. The patient claimed that he was told that he has COPD and using rescue inhaler as needed, unfortunately continued to smoke. The patient has at baseline mild shortness of breath for moderate to severe exertion. The patient presented to the hospital complaining of belly distention, lower extremity edema, shortness of breath. He had been having events of cough for a while. The patient was admitted to the hospital. Also he is complaining of left-sided pain for a month. It is pleuritic and with the cough. No fever or chills. The patient was placed on BiPAP on his admission to the emergency room at [facility] and then transferred to [facility]. We had been asked to see the patient for further evaluation and management. ALLERGIES: GLIPIZIDE, SULFONAMIDE. MEDICATIONS: Please refer to MAR. PAST MEDICAL HISTORY: History of COPD, tobacco abuse, end-stage renal disease on hemodialysis, diabetes, and hypertension. SOCIAL HISTORY: Continues to smoke. No drug abuse or alcohol abuse. FAMILY HISTORY: No lung cancer. REVIEW OF SYSTEMS: Twelve systems have been reviewed. Positive for left- sided chest pain, shortness of breath, and cough. PHYSICAL EXAMINATION: GENERAL: During my evaluation, he is on hemodialysis. VITAL SIGNS: Temperature 36.9, respirations 22, heart rate 78, blood pressure 164/77 with oxygen saturation 96% on 6 L of oxygen, earlier he was on 10 L of oxygen. NECK: Supple. No thyromegaly. No lymphadenopathy in cervical area. No jugular venous distention. CARDIOVASCULAR: S1, S2. Point of maximum impulse is nondisplaced.Patient Name: JAISON CHEUNG Acct: [id number] Unit: [id number] Page 1 LUNGS: Scattered rhonchi. Decreased air movement. No wheezing. No dullness. ABDOMEN: Soft. Bowel sounds present. EXTREMITIES: Trace edema. No rashes. No bleeding. Reportedly by ER physician on his arrival, the patient was offered CTA of the chest since he had left-sided rib pain, pleuritic in nature. The patient declined to take this CAT scan at the outside hospital. LABORATORY AND DIAGNOSTIC DATA: White count 15.4, hemoglobin 10.3, hematocrit 33.0, and platelets 266. Sodium 142, potassium 5.2, chloride 103, bicarb 29, anion gap 10, BUN 48, creatinine 5.1. AST and ALT within normal limits. The patient had chest x-ray and blood gas; pH 7.40, pCO2 47, PO2 48 and bicarb 29, and it was on venous sample. Chest x-ray is showing bilateral fluid excess/pulmonary edema. ASSESSMENT: 1. Acute respiratory failure. 2. Hypoxemia. 3. Pulmonary edema. 4. Likely chronic obstructive pulmonary disease. 5. Tobacco abuse. 6. Diabetes. 7. End-stage renal disease, on hemodialysis. 8. Hypertension. PLAN: At this point, we will titrate oxygen to keep sat above 92%. He is getting hemodialysis now. Started on antibiotic, he is on DVT prophylaxis, might use bronchodilator as needed. He will need pulmonary function tests as an outpatient. Likely, he has COPD. The patient was counseled for tobacco abuse. Meanwhile with this chronic rib pain for a month, I cannot rule out pulmonary embolism. Reportedly, the patient was offered as an outpatient and he did decline. We will retry again in the morning to discuss. If the patient is not willing to get the CT of the chest since he is going to be on transplant list according to his information, we might consider doing V/Q scan. We will titrate oxygen down to keep sat above 92%. Further plan depends on the hospital course and on his response to the treatment. Thank you for allowing me to participate in the care of this patient. JOB: [id number]<Electronically signed by Fabien Sarabia M.D.>08/07/24 0640Dictated By: Fabien Sarabia M.D. DictatedDate/Time: 08/06/24 1649Transcribed By: [facility] InterfaceTranscribed Date/Time: 08/06/24 1717Technologist: Report ID: [id number] Name: JAISON CHEUNG Acct: [id number] Unit: [id number] Page 2Copies To:Patient Name: JAISON CHEUNG Acct: [id number] Unit: [id number] Page 3 Problems End-stage renal disease Onset:06-Aug-2024 Nadine Stevenson MD Status:Inactive Hypertensive disorder Onset:06-Aug-2024 Nadine Stevenson MD Status:Inactive Neuropathy Onset:06-Aug-2024 Nadine Stevenson MD Status:Inactive Diabetes mellitus Onset:06-Aug-2024 Nadine Stevenson MD Status:Inactive End-stage renal disease Onset:06-Aug-2024 Jermaine Corea [employer] Status:Acute Hyperkalemia Onset:06-Aug-2024 Jermaine Corea [employer] Status:Acute Hypertensive disorder Onset:06-Aug-2024 Jermaine Corea [employer] Status:Acute Pulmonary edema Onset:06-Aug-2024 Bobby Linares MD Status:Acute Acute respiratory failure Onset:06-Aug-2024 Bobby Linares MD Status:Acute Functional Status Functional finding 06-Aug-2024 Functional finding 06-Aug-2024 Functional finding 06-Aug-2024 Functional finding 06-Aug-2024 Allergies and Adverse Reactions Sulfa (Sulfonamide Antibioti cs)(Allergy) Onset: 06-Aug-2024 Reaction:Unknown glipizide(Allergy) Onset: 06-Aug-2024 Reaction:Unknown Medications 100 ML albumin human, SHELTER 250 MG/ML Injection [Alburx];100 ML .STK-MED Quantity:1 Start:50-Rib-6556Zyg:2024 Status:Aborted Comments:Provider Administration Instructions:Administer over 30 to 60 minutes HAZARDOUS WASTE DISPOSAL REQUIREMENT Please dispose of remaining product inthe RED sharps/biohazardous disposal heparin sodium, porcine 1000 UNT/ML Injectable Solution;2000 UNIT .STK-MED Quantity:2 Start:51-Kls-5427Eci:2024 Status:Aborted aspirin 81 MG Oral Tablet;81 MG DAILY_0900 Quantity:1 Start:60-Wvw-5368Jon:2024 Status:Aborted ATORVASTATIN;80 MG DAILY_0900 Quantity:1 Start:24-Vrl-8302Iil:2024 Status:Aborted 24 HR NIFEdipine 90 MG Extended Release Oral Tablet;90 MG DAILY_0900 Quantity:1 Start:58-Gnz-8122Vof:2024 Status:Aborted clopidogrel 75 MG Oral Tablet [Plavix];75 MG DAILY_0900 Quantity:1 Start:53-Pbs-0429Bkb:2024 Status:Aborted ezetimibe 10 MG Oral Tablet [Zetia];10 MG DAILY_0900 Quantity:1 Start:26-Ihz-8624Elp:2024 Status:Aborted 24 HR isosorbide mononitrate 60 MG Extended Release Oral Tablet;120 MG DAILY_0900 Quantity:2 Start:61-Zib-1052Ivn:2024 Status:Aborted FLUoxetine 20 MG Oral Capsule;20 MG DAILY_0900 Quantity:1 Start:36-Pql-2074Jzd:2024 Status:Aborted bumetanide 1 MG Oral Tablet;2 MG DAILY_0900 Quantity:2 Start:68-Cfq-9395Qrx:2024 Status:Aborted 24 HR metoprolol succinate 100 MG Extended Release Oral Tablet [Toprol];100 MG DAILY_0900 Quantity:1 Start:10-Xkb-0040Rlr:2024 Status:Aborted Comments:Provider Administration Instructions:Therapeutic Substitution forbisoprolol 10mg po daily dapagliflozin 10 MG Oral Tablet [Farxiga];10 MG DAILY_0900 Quantity:1 Start:31-Fum-4712Dxo:2024 Status:Aborted Comments:Provider Administration Instructions:Therapeutic Substitution forjardiance (empagliflozin) 10mg po daily fenofibrate 48 MG Oral Tablet;48 MG DAILY_0900 Quantity:1 Nadine Stevenson MD Start:45-Lvd-1061Sga:2024 Status:Aborted Comments:Provider Administration Instructions:Therapeutic Substitution forfenofibrate 40mg po daily glucose 0.4 MG/MG Oral Gel [Glutose];15 GM As Directed Quantity:1 Start:91-Ciu-1023Ell:2024 Status:Aborted Comments:Provider Administration Instructions:Hypoglycemia Per ProtocolAdminister 1 tube for blood glucose 50-70mg/dL 50 ML glucose 500 MG/ML Prefilled Syringe;25 GM As Needed Quantity:1 Start:77-Mop-5936Ajh:2024 Status:Aborted glucose 0.4 MG/MG Oral Gel [Glutose];30 GM As Directed Quantity:2 Start:01-Ttl-7268Szd:2024 Status:Aborted Comments:Provider Administration Instructions:Administer 2 tubes for blood glucose lessthan 50 mg/dL cefdinir 300 MG Oral Capsule;300 MG ORAL Q12H Start:07-Aug-2024 Comments:300 mg PO Q12H Zithromax;500 MG ORAL Daily Start:07-Aug-2024 Comments:500 mg PO DAILY albuterol 5 MG/ML Inhalation Solution;2.5 MG Every 6 Hours as Needed Quantity:1 Start:01-Kzf-0392Adp:2024 Status:Aborted gabapentin 300 MG Oral Capsule [Neurontin];300 MG TID_0900,1400,2100 Quantity:1 Start:61-Xjf-9100Ugv:2024 Status:Aborted Comments:Provider Administration Instructions:Consider monitoring SCr while patient isreceiving Gabapentin cloNIDine hydrochloride 0.1 MG Oral Tablet;0.1 MG TID_0900,1400,2100 Quantity:1 Start:57-Nzy-0143Bij:2024 Status:Aborted hydrALAZINE hydrochloride 50 MG Oral Tablet;100 MG TID_0900,1400,2100 Quantity:2 Start:35-Dbm-2101Ntj:2024 Status:Aborted albuterol 5 MG/ML Inhalation Solution;2.5 MG RT Q6H_0500,1100,1700,2300 Quantity:1 Start:58-Gxs-7501Nbw:2024 Status:Aborted insulin lispro 100 UNT/ML Injectable Solution [HumaLOG];Provider Administration Instructions:Moderate dose sliding scale- for averageadults.Administer SUBQ according to protocol forhyperglycemia. Quantity:0 Start:39-Lrq-6655Rgw:2024 Status:Aborted Comments:Provider Administration Instructions:Moderate dose sliding scale- for averageadults.Administer SUBQ according to protocol forhyperglycemia. oxyCODONE HCl;10 MG Three Times a Day As Needed Quantity:1 Start:23-Qis-9663Xft:2024 Status:Aborted 1 ML morphine sulfate 2 MG/ML Cartridge;2 MG Once Quantity:1 Chauncey Wesley MD Start:30-Hzg-8845Dfz:2024 1 ML morphine sulfate 2 MG/ML Cartridge;2 MG .STK-MED Quantity:1 Start:03-Uvd-1582Yjr:2024 Status:Aborted Comments:Provider Administration Instructions:Consider Monitoring End Tidal CO2 lidocaine 25 MG/ML / prilocaine 25 MG/ML Topical Cream;1 APPLICATION .STK-MED Quantity:1 Start:53-Pkh-5343Fnr:2024 Status:Aborted heparin sodium, porcine 1000 UNT/ML Injectable Solution;2000 UNIT .STK-MED Quantity:2 Start:32-Pot-8764Nwr:2024 Status:Aborted 0.3 ML enoxaparin sodium 100 MG/ML Prefilled Syringe [Lovenox];30 MG Q24H Quantity:1 Start:39-Fji-5232Sqt:2024 Status:Aborted Comments:Provider Administration Instructions:for creatinine clearance less than 30ml/min cefTRIAXone 1000 MG Injection;1 GM [id number] Quantity:1 Start:36-Vmz-5433Oaq:2024 Status:Aborted Comments:Provider Administration Instructions:DO NOT INFUSE WITH LACTATED RINGERSDilute Rocephin 1 GM in 10 ml NormalSaline. Administer IV Push over 3 to 5minutes 2 ML ondansetron 2 MG/ML Injection;4 MG Every 8 Hours as Needed Quantity:1 Start:21-Urz-9581Efi:2024 Status:Aborted acetaminophen 325 MG Oral Tablet;650 MG Every 6 Hours as Needed Quantity:2 Start:10-Vvl-4622Ovr:2024 Status:Aborted 24 HR nicotine 0.583 MG/HR Transdermal System;14 MG [id number] Quantity:1 Start:23-Ohs-3265Odl:2024 Status:Aborted bisoprolol fumarate 10 MG Oral Tablet;10 MG ORAL Daily Start:06-Aug-2024 Comments:10 mg PO DAILY gabapentin 300 mg capsule;300 MG ORAL Three Times a Day Start:06-Aug-2024 Comments:300 mg PO TID clopidogrel 75 MG Oral Tablet [Plavix];75 MG ORAL Daily Start:06-Aug-2024 Comments:75 mg PO DAILY Nifedipine ER;90 MG ORAL Daily Start:06-Aug-2024 Comments:90 mg PO DAILY Fenoglide;40 MG ORAL Daily Start:06-Aug-2024 Comments:40 mg PO DAILY empagliflozin 10 mg tablet;10 MG ORAL Daily Start:06-Aug-2024 Comments:10 mg PO DAILY Isosorbide Mononitrate;120 MG ORAL Daily Start:06-Aug-2024 Comments:120 mg PO DAILY hydrALAZINE hydrochloride;100 MG ORAL Three Times a Day Start:06-Aug-2024 Comments:100 mg PO TID oxycodone 10 mg tablet;10 MG ORAL Three Times a Day Start:06-Aug-2024 Comments:10 mg PO TID ezetimibe 10 MG Oral Tablet [Zetia];10 MG ORAL Daily Start:06-Aug-2024 Comments:10 mg PO DAILY bumetanide;2 MG ORAL Daily Start:06-Aug-2024 Comments:2 mg PO DAILY ReliOn/NovoLIN 70/30;80 ML subcut Two Times a Day Start:06-Aug-2024 Comments:80 mL SUBCUT BID ATORVASTATIN;80 MG ORAL Daily Start:06-Aug-2024 Comments:80 mg PO DAILY Dialyvite 800-Ultra D Tablet;1 TAB ORAL Daily Start:06-Aug-2024 Comments:1 tab PO DAILY Aspir 57_PTES-065-KCF;81 MG ORAL Daily Start:06-Aug-2024 Comments:81 mg PO DAILY Sarafem;20 MG ORAL Daily Start:06-Aug-2024 Comments:20 mg PO DAILY Catapres;0.1 MG ORAL Three Times a Day Start:06-Aug-2024 Comments:0.1 mg PO TID Procedures Performance of Urinary Filtr ation, Intermittent, Less than 6 Hours Per Day Date:07-Aug-2024 Chest 1 ViewResult:[place] [address] Diagnostic Imaging ReportPatient Name: JAISON CHEUNG Acct: [id number]: 1970 Age: 54 Sex: M MR#: [id number] Date/Time: 08/07/24 0500 Admit Date/Time:08/06/24 0733Patient Status: ADM IN Ordering Physician: VINEET Whartonatidrew Location: [address] Attending Physician: Saranya Whartonession Number(s): [id number](s): Radiology XR Chest 1 ViewCPT Code(s): 82566KQRJSVMJ INDICATION: Follow-up pulmonary edema TECHNIQUE: XR Chest 1 View COMPARISON: Chest radiograph 08/06/2024 FINDINGS: Cardiac silhouette and mediastinal contours are similar to prior. Interval decrease in bilateralairspace opacities. Persistent subtle interstitial opacities. Small bilateral pleural effusions. Nopneumothorax. RAD/XR Chest 1 ViewIMPRESSION:Decreasing pulmonary edema. Small bilateral pleural effusions.CRITICAL RESULT:No.COMMUNICATION:Per this written report.By electronically signing this report, I, the attending physician, attest that I have personallyreviewed the images/data for the above examination(s) and I agree with the final edited report.Drafted by Jonathan Gomez MD on 08/07/2024 8:04 AMFinal report signed by Kobe Cisneros MD on 08/07/2024 9:36 AM<Electronically signed by Kobe Cisneros MD in OV>08/07/24 0936Patient Name: JAISON CHEUNG Acct: [id number] Unit: [id number] Page 1 Thank you for choosing [facility] Imaging Services Dictated By: AVIS Lazcanoictated Date/Time: 08/07/24 0936Transcribed By: Kobe Cisneros MDTranscribed Date/Time: 08/07/24 0936Technologist: Nadya Rosales To: Report ID: [id number] -End of Report-Patient Name: JAISON CHEUNG Acct: [id number] Unit: [id number] Page 2 Date:07-Aug-2024 Status:Completed Chest 1 ViewResult:[place] [address] [place] [address] Diagnostic Imaging ReportPatient Name: JAISON CHEUNG Acct: [id number]: 1970 Age: 54 Sex: M MR#: [id number] Date/Time: 08/06/24 1327 Admit Date/Time:08/06/24 0733Patient Status: ADM IN Ordering Physician: VINEET Keyesatidrew Location: [facility] FR.435-B Attending Physician: Saranya Whartonession Number(s): [id number](s): Radiology XR Chest 1 ViewCPT Code(s): [id number] INDICATION: Shortness of air TECHNIQUE: XR Chest 1 View COMPARISON: Chest radiograph 08/06/2024 FINDINGS: Cardiac silhouette and mediastinal contours are similar to prior. Slightly increased bilateralinterstitial opacities and significant pulmonary vascular congestion. No large pleural effusions. Nopneumothorax. RAD/XR Chest 1 ViewIMPRESSION:Slightly increased bilateral interstitial opacities suggestive of increasing pulmonary edema.CRITICAL RESULT:No.COMMUNICATION:Per this written report.By electronically signing this report, I, the attending physician, attest that I have personallyreviewed the images/data for the above examination(s) and I agree with the final edited report.Drafted by Jonathan Gomez MD on 08/06/2024 1:50 PMFinal report signed by Graham Love MD on 08/06/2024 2:27 PM<Electronically signed by Graham Love MD in OV>08/06/24 1427 Thank you for choosing [facility] Imaging Services Patient Name: JAISON CHEUNG Acct: [id number] Unit: [id number] Page 1Dictated By: Graham Love MD Dictated Date/Time: 08/06/24 1427Transcribed By: Graham Love MD Transcribed Date/Time: 08/06/24 1427Technologist: Thais Martinez To: Report ID: [id number] -End of Report-Patient Name: JAISON CHEUNG Acct: [id number] Unit: [id number] Page 2 Date:06-Aug-2024 Status:Completed EKGResult:[place], [place] [address]Phone: Moagyrnfebtlswqkb ReportPatient Name: JAISON CHEUNGDOB: 1970 Age: 54 Sex: MAcct: [id number] MR#: [id number] Status: DIS IN Patient Location: [address] Physician: Hadley Rosales MDDate of Admission:08/06/24Test Reason : Blood Pressure : / mmHG Vent. Rate : 077 BPM Atrial Rate : 077 BPM P-R Int : 160 ms QRS Dur : 146 ms QT Int : 452 ms P-R-T Axes : 061 131 024 degrees QTc Int : 511 ms Normal sinus rhythm Right bundle branch block Left posterior fascicular block Bifascicular block Abnormal ECG No previous ECGs available Confirmed by Willie Paz ([id number]) on 08/21/2024 2:03:20 PM Referred By: Confirmed By:Willie Paz<Electronically signed by Willie Paz MD in OV>08/21/24 1403Dictated By: Willie Paz MD DictatedDate/Time: 08/06/247[address]Transcribed By: Willie Paz MDTranscribed Date/Time: 08/06/247[address]Technologist: Report ID: [id number] To:Patient Name: JAISON CHEUNG Acct: [id number] Unit: [id number] Page 1 Date:06-Aug-2024 Status:Completed Chest 1 ViewResult:[place] [address] [place] [address] Diagnostic Imaging ReportPatient Name: JAISON CHEUNG Acct: [id number]: 1970 Age: 54 Sex: M MR#: [id number] Date/Time: 08/06/24 0659 Admit Date/Time:Patient Status: PRE ER Ordering Physician: VINEET Fongatidrew [facility] Attending Physician:Accession Number(s): [id number](s): Radiology XR Chest 1 ViewCPT Code(s): 22656CYAFOHNP INDICATION: soa TECHNIQUE: XR Chest 1 View COMPARISON: 5 hours prior. FINDINGS: Pulmonary venous congestion with increased interstitial opacities. Cardiac silhouette is at theupper limits of normal. No pleural effusion. No pneumothorax. No acute fracture. RAD/XR Chest 1 ViewIMPRESSION:Findings concerning for pulmonary edema.CRITICAL RESULT:No.COMMUNICATION:Per this written report.Drafted by Gustavo Gould MD on 08/06/2024 7:22 AMFinal report signed by Gustavo Gould MD on 08/06/2024 7:23 AM<Electronically signed by Gustavo Gould MD in OV>08/06/[address] Thank you for choosing [facility] Imaging Services Dictated By: AVIS Deckerictated Date/Time: 08/06/247[address]Patient Name: JAISON CHEUNG Acct: [id number] Unit: [id number] Page 1Transcribed By: Gustavo Gould MDTranscribed Date/Time: 02/18/25 0723Technologist: Thais NelsonCopanna To: Report ID: [id number] -End of Report-Patient Name: JAISON CHEUNG Acct: [id number] Unit: [id number] Page 2 Date:06-Aug-2024 Status:Completed Results POC Glucose Profile Ordered On:07-Aug-2024 07:30 Glucose Point of Cfzd367zr/dL(High) Range:73mg/dL-118mg/dL Magnesium Level Ordered On:07-Aug-2024 05:09 Magnesium Level2.6mg/dL(High) Range:1.8mg/dL-2.4mg/dL CBC w Automated Differential Ordered On:07-Aug-2024 04:54 Nucleated RBC absolu te auto0.00K/uL(Normal) Range:0K/uL-0.01K/uL Nucleated RBC relati ve auto0.0%(Normal) Range:0%-0.2% RDW Coefficient of Dcymlgmsn98.4%(Normal) Range:10.9%-15.6% White Blood Count12.9K/uL(High) Range:4.8K/uL-10.8K/uL Platelet Omqqp699J/uL(Normal) Range:119K/uL-334K/uL Red Blood Cell Count3.66{M/uL}(Normal) Range:3.6{M/uL}-6{M/uL} Basophils Absolute-Auto0.08K/uL(High) Range:0.01K/uL-0.05K/uL Basophils Percent-Auto0.6%(Normal) Range:0%-1% Eosinophils Absolute-Auto0.46K/uL(Normal ) Range:0K/uL-0.5K/uL Eosinophils Percent-Auto3.6%(Normal) Range:0%-5.3% Granulocytes Absolute-Auto8.40K/uL(High) Range:2K/uL-6.3K/uL Granulocytes Percent-Auto65.2%(Normal) Range:41.7%-77.2% Fsocikqhxx29.8%(Low) Range:38.1% -50.5% Hmpehmisuo29.7g/dL(Low) Range:13 g/dL-17.8g/dL Immature Granulocyte s absolute0.06K/uL(Normal) Range:0K/uL-0.06K/uL Immature Granulocyte s percent0.5%(Normal) Range:0%-0.7% Lymphocytes Absolute-Auto2.86K/uL(Normal ) Range:0.6K/uL-3.6K/uL Lymphocytes Percent-Auto22.2%(Normal) Range:11%-46.1% Mean Corpuscular Jkcszebole32.2pg(Normal) Range:27.7pg-34.6pg Mean Corpuscular Hgb Kisyobt95.7g/dL(Low) Range:32g/dL-38g/dL Mean Corpuscular Aeqddu05.1fL(Normal) Range:80fL-98fL Monocytes Absolute-Auto1.02K/uL(High) Range:0.2K/uL-1K/uL Monocytes Percent-Auto7.9%(Normal) Range:3.5%-13.5% Mean Platelet Volume9.5fL(Normal) Range:8.4fL-11.5fL Basic Metabolic Panel Ordered On:07-Aug-2024 05:09 BUN/Creatinine Ratio9.5 Anion Rqz9geup/L(Normal) Range:5 mmol/L-14mmol/L Fxkvhdw439iq/dL(High) Range:74mg /dL-106mg/dL Potassium4.5mmol/L(Normal) Range :3.5mmol/L-5.1mmol/L Cyknig681tgcx/L(Normal) Range:13 6mmol/L-142mmol/L Blood Urea Itkjpuqn95pj/dL(High) Range:7mg/dL-18mg/dL Calcium8.4mg/dL(Low) Range:8.5mg /dL-10.1mg/dL Vumasbbo841pfwf/L(Normal) Range: 98mmol/L-107mmol/L Carbon Smcgdxi23vfgv/L(Normal) Range:21mmol/L-32mmol/L Creatinine4.22mg/dL(High) Range: 0.7mg/dL-1.3mg/dL Glom Filtration Rate CKD-EPI 216mL/min Comments:EFFECTIVE SEPT 2022, THE LABORATORY HAS CONVERTED TO BTM1960 CKD EPI CREATININE EQUATION FOR ADULTS THAT DOES NOTCONTAIN A RACE FACTOR TO CALCULATE AND REPORT THE eGFRRESULTS. POC Glucose Profile Ordered On:06-Aug-2024 20:22 Glucose Point of Utkq911ad/dL(High) Range:73mg/dL-118mg/dL POC Glucose Profile Ordered On:06-Aug-2024 13:27 Glucose Point of Tnof634vg/dL(High) Range:73mg/dL-118mg/dL Hepatitis B Surface Ag Pnl Ordered On:07-Aug-2024 05:09 Hepatitis B Surface AntigenNegative Range:Negative Comments:Performed At: [address] [id number] Vincent PhD Ph:[phone] VENOUS BLOOD GAS Ordered On:06-Aug-2024 07:06 DELIVERY SYSTEMNot entered Draw SiteNot entered VENT MODENot entered Notify Time 07:01:32 Notify [place] BLOOD GAS SAMPLE TYPEVenous POC VBG BASE UOXXDY9gdnj/L(High) Range:-2mmol/L-3mmol/L POC VBG O2 FMEBFVIVIO79%(Normal) Range:40%-85% POC VBG UYR372jb[Hg](Normal) Ran ge:41mm[Hg]-51mm[Hg] POC VBG PH7.40(Normal) Range:7.3 2-7.43 POC VBG RN167yq[Hg](Normal) Rang e:30mm[Hg]-55mm[Hg] VBG TCO2 (calculated)31mmol/L(High) Range:24mmol/L-30mmol/L POC VBG VJIFMCKUJAI39auko/L(Normal) Range:22mmol/L-29mmol/L CBC w Automated Differential Ordered On:06-Aug-2024 07:19 RDW Coefficient of Htupwpsby24.0%(High) Range:10.9%-15.6% Nucleated RBC relati ve auto0.0%(Normal) Range:0%-0.2% Nucleated RBC absolu te auto0.00K/uL(Normal) Range:0K/uL-0.01K/uL White Blood Count15.4K/uL(High) Range:4.8K/uL-10.8K/uL Red Blood Cell Count3.45{M/uL}(Low) Range:3.6{M/uL}-6{M/uL} Cvehejcipe60.3g/dL(Low) Range:13 g/dL-17.8g/dL Upjlpnycwv33.0%(Low) Range:38.1% -50.5% Mean Corpuscular Zivzsx76.7fL(Normal) Range:80fL-98fL Mean Corpuscular Eckvhtxhzn28.9pg(Normal) Range:27.7pg-34.6pg Mean Corpuscular Hgb Krlebma62.2g/dL(Low) Range:32g/dL-38g/dL Granulocytes Absolute-Auto12.60K/uL(High) Range:2K/uL-6.3K/uL Immature Granulocyte s absolute0.06K/uL(Normal) Range:0K/uL-0.06K/uL Lymphocytes Absolute-Auto1.51K/uL(Normal ) Range:0.6K/uL-3.6K/uL Monocytes Absolute-Auto1.04K/uL(High) Range:0.2K/uL-1K/uL Eosinophils Absolute-Auto0.14K/uL(Normal ) Range:0K/uL-0.5K/uL Basophils Absolute-Auto0.08K/uL(High) Range:0.01K/uL-0.05K/uL Platelet Xpjrh709I/uL(Normal) Range:119K/uL-334K/uL Mean Platelet Volume9.7fL(Normal) Range:8.4fL-11.5fL Granulocytes Percent-Auto81.7%(High) Range:41.7%-77.2% Immature Granulocyte s percent0.4%(Normal) Range:0%-0.7% Lymphocytes Percent-Auto9.8%(Low) Range:11%-46.1% Monocytes Percent-Auto6.7%(Normal) Range:3.5%-13.5% Eosinophils Percent-Auto0.9%(Normal) Range:0%-5.3% Basophils Percent-Auto0.5%(Normal) Range:0%-1% Comprehensive Metabolic Panel Ordered On:06-Aug-2024 07:35 BUN/Creatinine Ratio9.4 Anion Ffg76usou/L(Normal) Range: 5mmol/L-14mmol/L Blood Urea Pecyhbvc84ef/dL(High) Range:7mg/dL-18mg/dL Creatinine5.10mg/dL(High) Range: 0.7mg/dL-1.3mg/dL Bxwtsz916ouss/L(Normal) Range:13 6mmol/L-142mmol/L Potassium5.2mmol/L(High) Range:3 .5mmol/L-5.1mmol/L Kecaqbts280tloa/L(Normal) Range: 98mmol/L-107mmol/L Carbon Jltxghf86llxi/L(Normal) Range:21mmol/L-32mmol/L Glom Filtration Rate CKD-EPI 213mL/min Comments:EFFECTIVE FEB 2022, THE LABORATORY HAS CONVERTED TO XOT4606 CKD EPI CREATININE EQUATION FOR ADULTS THAT DOES NOTCONTAIN A RACE FACTOR TO CALCULATE AND REPORT THE eGFRRESULTS. 06-Aug-2024 07:43 Albumin/Globulin Ratio0.8 Globulin4.2g/dL Alkaline Phosphatase Uyfux274[IU]/L(High) Range:46[IU]/L-116[IU]/L Aglbzdb258kh/dL(High) Range:74mg /dL-106mg/dL Calcium8.5mg/dL(Normal) Range:8. 5mg/dL-10.1mg/dL Bilirubin Total0.6mg/dL(Normal) Range:0.2mg/dL-1mg/dL Aspartate Aminotrans AST/SGOT16[IU]/L(Normal) Range:15[IU]/L-37[IU]/L Alanine Aminotrans ALT/SGPT23[IU]/L(Normal) Range:13[IU]/L-63[IU]/L Total Protein7.7g/dL(Normal) Ran ge:6.4g/dL-8.2g/dL Albumin3.5g/dL(Normal) Range:3.4 g/dL-5g/dL Phosphorus Ordered On:06-Aug-2024 07:43 Phosphorus5.8mg/dL(High) Range :2.5mg/dL-4.9mg/dL Magnesium Level Ordered On:06-Aug-2024 07:43 Magnesium Level2.7mg/dL(High) Range:1.8mg/dL-2.4mg/dL Troponin I High Sensitivity Ordered On:06-Aug-19 07:43 Troponin I High Idyevdbekui95pc/L(Normal) Range:0ng/L-76ng/L Comments:If the repeat Troponin is rising and a delta of 20% ispresent, it may be clinically significant. Provider shouldassess if further treatment is required.The reportedreference range is based on the gender specific 99thpercentile cut-off for the Siemens Dimension EXL HighSensitivity Troponin I method.Biotin concentrations greater than 300 ng/mL may have falsenegative results. Therefore, this method should not be usedfor these patients and patients with renal impairment (eGFR<60). Phosphorus Ordered On:06-Aug-2024 10:05 Phosphorus5.9mg/dL(High) Range :2.5mg/dL-4.9mg/dL Vital Signs 07-Aug-2024 15:00 Pnmore521.64924gx 07-Aug-2024 14:30 O2 SAT98% Pulse66 Respiratory Rate18 07-Aug-2024 14:20 O2 SAT98% Pulse64 Respiratory Rate20 07-Aug-2024 14:10 O2 SAT98% Pulse63 Respiratory Rate17 07-Aug-2024 14:10 Temp36.4c Pulse63 Respiratory Rate16 O2 SAT98% BP Lajfsjjr686dj[Hg] BP Spxohezgn27lr[Hg] 07-Aug-2024 14:09 BP Ooavqhfp373cz[Hg] BP Jmgvckyrf70xe[Hg] 07-Aug-2024 14:09 O2 SAT97% Pulse63 Respiratory Rate18 07-Aug-2024 14:00 BP Cagwnuvg019vv[Hg] BP Rwqfqywxa75ti[Hg] 07-Aug-2024 14:00 O2 SAT98% Pulse63 Respiratory Rate27 07-Aug-2024 13:58 BP Wwvqrihb241dx[Hg] BP Vumfowvev68cn[Hg] 07-Aug-2024 13:58 O2 IMF626% Pulse63 Respiratory Rate24 07-Aug-2024 13:50 O2 SAT97% Pulse61 Respiratory Rate18 07-Aug-2024 13:45 BP Ldplqkba801xg[Hg] BP Ntoojfwkz63mn[Hg] 07-Aug-2024 13:45 O2 SAT97% Pulse61 Respiratory Rate17 07-Aug-2024 13:40 O2 SAT99% Pulse61 Respiratory Rate16 07-Aug-2024 13:30 O2 SAT97% Pulse61 Respiratory Rate13 07-Aug-2024 13:29 BP Uifkykfx946os[Hg] BP Djplziqsq74qe[Hg] 07-Aug-2024 13:29 O2 SAT98% Pulse62 Respiratory Rate17 07-Aug-2024 13:20 O2 SAT99% Pulse61 Respiratory Rate13 07-Aug-2024 13:15 BP Dagjstpo098vt[Hg] BP Ruvjbxeor64su[Hg] 07-Aug-2024 13:15 O2 SAT98% Pulse61 Respiratory Rate14 07-Aug-2024 13:10 O2 SAT98% Pulse61 Respiratory Rate20 07-Aug-2024 13:06 BP Uangswxx854gs[Hg] BP Jkbtvqbgu22rv[Hg] 07-Aug-2024 13:06 O2 SAT97% Pulse61 Respiratory Rate20 07-Aug-2024 13:05 BP Tvwjyqiq372ek[Hg] BP Ppsaugshq64kr[Hg] 07-Aug-2024 13:05 O2 SAT99% Pulse61 Respiratory Rate19 07-Aug-2024 13:00 BP Uzqxupoq261la[Hg] BP Qbqastukn58sw[Hg] 07-Aug-2024 13:00 O2 SEX600% Pulse62 Respiratory Rate28 07-Aug-2024 12:50 O2 SAT95% Pulse61 Respiratory Rate14 07-Aug-2024 12:45 BP Duhcmfcq931az[Hg] BP Cagrxjdvq12mn[Hg] 07-Aug-2024 12:45 O2 SAT97% Pulse61 Respiratory Rate22 07-Aug-2024 12:40 O2 SAT98% Pulse62 Respiratory Rate16 07-Aug-2024 12:30 BP Aoaybgmk129qa[Hg] BP Snrkewnoi70ce[Hg] 07-Aug-2024 12:30 O2 SAT97% Pulse63 Respiratory Rate27 07-Aug-2024 12:20 O2 SAT97% Pulse64 Respiratory Rate27 07-Aug-2024 12:15 BP Cajolbnq512iy[Hg] BP Nroyhxost53gr[Hg] 07-Aug-2024 12:15 O2 SAT97% Pulse63 Respiratory Rate26 07-Aug-2024 12:10 O2 SAT97% Pulse63 Respiratory Rate24 07-Aug-2024 12:00 BP Pxdiaowj462nf[Hg] BP Iyywwndfx07ad[Hg] 07-Aug-2024 12:00 O2 SAT98% Pulse63 Respiratory Rate28 07-Aug-2024 11:50 O2 SAT98% Pulse63 Respiratory Rate23 07-Aug-2024 11:45 BP Efelcgsu725wo[Hg] BP Mcrfjyqqe91rc[Hg] 07-Aug-2024 11:45 O2 IRR097% Pulse61 Respiratory Rate20 07-Aug-2024 11:40 O2 OVP277% Pulse62 Respiratory Rate18 07-Aug-2024 11:30 BP Bgdihkyz837ij[Hg] BP Phaqnorfa94lg[Hg] 07-Aug-2024 11:30 O2 SAT97% Pulse63 Respiratory Rate14 07-Aug-2024 11:29 BP Xmvsrzpu464sj[Hg] BP Hlbdzijnz36qc[Hg] 07-Aug-2024 11:29 O2 SAT98% Pulse63 Respiratory Rate13 07-Aug-2024 11:23 BP Muovvqmw613qk[Hg] BP Yzypnixrm38tu[Hg] 07-Aug-2024 11:23 O2 SAT97% Pulse63 Respiratory Rate25 07-Aug-2024 11:20 O2 SAT98% Pulse63 Respiratory Rate25 07-Aug-2024 11:15 BP Gfkrxlrl498el[Hg] BP Rvahinlrz13mr[Hg] 07-Aug-2024 10:45 Temp36.4c Pulse63 Respiratory Rate16 O2 SAT99% BP Qmafarum222nd[Hg] BP Sakwibggn80wg[Hg] 07-Aug-2024 10:20 O2 SAT91% Pulse64 Respiratory Rate23 07-Aug-2024 10:10 O2 SAT90% Pulse64 Respiratory Rate27 07-Aug-2024 10:00 O2 SAT90% Pulse64 Respiratory Rate22 07-Aug-2024 10:00 BP Lcmonpru893mr[Hg] BP Snjyatkip59ae[Hg] 07-Aug-2024 09:50 O2 SAT98% Pulse65 Respiratory Rate28 07-Aug-2024 09:40 O2 SAT98% Pulse64 Respiratory Rate19 07-Aug-2024 09:30 O2 YVT200% Pulse65 Respiratory Rate29 07-Aug-2024 09:20 O2 SAT99% Pulse64 Respiratory Rate30 07-Aug-2024 09:10 O2 SAT88% Pulse65 Respiratory Rate20 07-Aug-2024 09:00 O2 SAT90% Pulse64 Respiratory Rate18 07-Aug-2024 09:00 BP Umdifdmj203ew[Hg] BP Ajhyziikw54ww[Hg] 07-Aug-2024 08:50 O2 SAT94% Pulse66 Respiratory Rate20 07-Aug-2024 08:40 O2 SAT97% Pulse64 Respiratory Rate29 07-Aug-2024 08:30 O2 SAT98% Pulse64 Respiratory Rate20 07-Aug-2024 08:20 O2 RUC807% Pulse59 Respiratory Rate9 07-Aug-2024 08:10 O2 GZO700% Pulse59 Respiratory Rate8 07-Aug-2024 08:00 Temp36.5c 07-Aug-2024 08:00 O2 BSL069% Pulse59 Respiratory Rate9 07-Aug-2024 08:00 BP Ksqabzny237wc[Hg] BP Vmozwmaln28cs[Hg] 07-Aug-2024 07:50 O2 SAT99% Pulse60 Respiratory Rate8 07-Aug-2024 07:40 O2 PEP294% Pulse61 Respiratory Rate10 07-Aug-2024 07:30 O2 SAT99% Pulse60 Respiratory Rate9 07-Aug-2024 07:20 O2 SAT98% Pulse62 Respiratory Rate13 07-Aug-2024 07:10 O2 SAT98% Pulse62 Respiratory Rate13 07-Aug-2024 07:00 O2 SAT96% Pulse60 Respiratory Rate9 07-Aug-2024 07:00 BP Fjqeexct512ku[Hg] BP Awkebyjsd59zw[Hg] 07-Aug-2024 06:50 O2 SAT98% Pulse60 Respiratory Rate9 07-Aug-2024 06:40 O2 SAT98% Pulse60 Respiratory Rate9 07-Aug-2024 06:30 O2 SAT98% Pulse60 Respiratory Rate9 07-Aug-2024 06:20 O2 SAT99% Pulse61 Respiratory Rate9 07-Aug-2024 06:10 O2 SAT99% Pulse62 Respiratory Rate10 07-Aug-2024 06:00 O2 SAT99% Pulse64 Respiratory Rate17 07-Aug-2024 06:00 BP Ajfrywkl834de[Hg] BP Lwhmxerta28dz[Hg] 07-Aug-2024 05:50 O2 SAT99% Pulse67 Respiratory Rate23 07-Aug-2024 05:40 O2 MGA673% Pulse62 Respiratory Rate13 07-Aug-2024 05:30 O2 SAT99% Pulse62 Respiratory Rate13 07-Aug-2024 05:20 O2 SAT98% Pulse62 Respiratory Rate12 07-Aug-2024 05:10 O2 SAT99% Pulse65 Respiratory Rate20 07-Aug-2024 05:00 O2 SAT97% Pulse64 Respiratory Rate23 07-Aug-2024 05:00 BP Qvmpbmsb861kw[Hg] BP Cwipcdnhq83pu[Hg] 07-Aug-2024 04:50 O2 SAT99% Pulse64 Respiratory Rate20 07-Aug-2024 04:40 O2 SAT98% Pulse65 Respiratory Rate17 07-Aug-2024 04:30 O2 SAT99% Pulse65 Respiratory Rate20 07-Aug-2024 04:20 O2 BIV559% Pulse63 07-Aug-2024 04:10 O2 SAT99% Pulse66 07-Aug-2024 04:01 O2 SAT98% Pulse65 07-Aug-2024 04:01 BP Qkrdvfqp194bg[Hg] BP Oolibkkjg873av[Hg] 07-Aug-2024 04:00 O2 SAT97% Pulse65 07-Aug-2024 03:53 Temp36.8c 07-Aug-2024 03:50 O2 SAT99% Pulse62 Respiratory Rate20 07-Aug-2024 03:40 O2 SAT99% Pulse62 Respiratory Rate18 07-Aug-2024 03:30 O2 SAT98% Pulse62 Respiratory Rate19 07-Aug-2024 03:20 O2 SAT98% Pulse62 Respiratory Rate20 07-Aug-2024 03:10 O2 SAT98% Pulse64 07-Aug-2024 03:01 O2 SAT99% Pulse65 07-Aug-2024 03:01 BP Dwcggnsi260yq[Hg] BP Rpexvrnwi52pn[Hg] 07-Aug-2024 03:00 O2 SAT98% Pulse64 07-Aug-2024 02:50 O2 SAT99% Pulse62 07-Aug-2024 02:40 O2 SAT99% Pulse62 07-Aug-2024 02:30 O2 SAT98% Pulse62 07-Aug-2024 02:20 O2 SAT98% Pulse62 Respiratory Rate19 07-Aug-2024 02:10 O2 SAT98% Pulse62 Respiratory Rate19 07-Aug-2024 02:00 O2 SAT99% Pulse63 Respiratory Rate20 07-Aug-2024 02:00 BP Jxhwneud896zg[Hg] BP Ezwsotdye65pt[Hg] 07-Aug-2024 01:50 O2 CYX569% Pulse64 Respiratory Rate20 07-Aug-2024 01:40 O2 SAT98% Pulse67 Respiratory Rate28 07-Aug-2024 01:30 O2 SAT99% Pulse66 Respiratory Rate10 07-Aug-2024 01:20 O2 SAT97% Pulse66 Respiratory Rate15 07-Aug-2024 01:10 O2 SAT96% Pulse67 Respiratory Rate19 07-Aug-2024 01:00 O2 SAT97% Pulse65 Respiratory Rate13 07-Aug-2024 01:00 BP Rwtydjwb269xk[Hg] BP Qsecvnjvq45gp[Hg] 07-Aug-2024 00:50 O2 SAT99% Pulse64 Respiratory Rate10 07-Aug-2024 00:40 O2 SAT98% Pulse66 Respiratory Rate11 07-Aug-2024 00:30 O2 SAT98% Pulse66 Respiratory Rate11 07-Aug-2024 00:20 O2 SAT99% Pulse66 Respiratory Rate11 07-Aug-2024 00:10 O2 SAT97% Pulse66 Respiratory Rate12 07-Aug-2024 00:01 O2 SAT91% Pulse68 Respiratory Rate21 07-Aug-2024 00:01 BP Snxczhjc023ok[Hg] BP Pnaehttbv95bk[Hg] 07-Aug-2024 Temp36.9c 07-Aug-2024 O2 SAT91% Pulse67 Respiratory Rate19 06-Aug-2024 23:50 O2 SAT98% Pulse68 Respiratory Rate15 06-Aug-2024 23:40 O2 SAT99% Pulse69 Respiratory Rate19 06-Aug-2024 23:30 O2 SAT98% Pulse68 Respiratory Rate12 06-Aug-2024 23:20 O2 SAT98% Pulse68 Respiratory Rate12 06-Aug-2024 23:10 O2 SAT97% Pulse69 Respiratory Rate13 06-Aug-2024 23:01 O2 SAT97% Pulse71 Respiratory Rate18 06-Aug-2024 23:01 BP Jzloicss637yb[Hg] BP Jewdjaclw90af[Hg] 06-Aug-2024 23:00 O2 SAT97% Pulse71 Respiratory Rate16 06-Aug-2024 22:50 O2 SAT98% Pulse72 Respiratory Rate16 06-Aug-2024 22:40 O2 SAT98% Pulse73 Respiratory Rate18 06-Aug-2024 22:30 O2 SAT99% Pulse69 Respiratory Rate14 06-Aug-2024 22:20 O2 SAT99% Pulse71 Respiratory Rate17 06-Aug-2024 22:10 O2 QIB037% Pulse72 Respiratory Rate19 06-Aug-2024 22:00 O2 VJK801% Pulse74 Respiratory Rate20 06-Aug-2024 22:00 BP Icoqjswv600fh[Hg] BP Spaasdwav17fw[Hg] 06-Aug-2024 21:50 O2 SAT87% Pulse79 06-Aug-2024 21:40 O2 SAT99% Pulse77 Respiratory Rate18 06-Aug-2024 21:30 O2 SAT99% Pulse76 Respiratory Rate16 06-Aug-2024 21:20 O2 SAT98% Pulse75 Respiratory Rate17 06-Aug-2024 21:10 O2 SAT98% Pulse75 Respiratory Rate16 06-Aug-2024 21:01 O2 SAT97% Pulse76 Respiratory Rate15 06-Aug-2024 21:01 BP Evkfankb446vy[Hg] BP Vzqlcnyvi72ya[Hg] 06-Aug-2024 21:00 O2 SAT96% Pulse76 06-Aug-2024 20:50 O2 SAT89% Pulse76 06-Aug-2024 20:40 O2 SAT94% Pulse78 06-Aug-2024 20:30 O2 SAT95% Pulse76 Respiratory Rate20 06-Aug-2024 20:20 O2 SAT94% Pulse78 06-Aug-2024 20:10 O2 SAT96% Pulse76 06-Aug-2024 20:00 Temp36.8c 06-Aug-2024 20:00 O2 SAT98% Pulse78 Respiratory Rate17 06-Aug-2024 20:00 BP Kagvkwvs794tx[Hg] BP Mxirwhmvq55ay[Hg] 06-Aug-2024 19:50 O2 SAT97% Pulse76 Respiratory Rate17 06-Aug-2024 19:40 O2 SAT97% Pulse78 06-Aug-2024 19:30 O2 SAT95% Pulse79 06-Aug-2024 19:20 O2 SAT97% Pulse75 Respiratory Rate16 06-Aug-2024 19:10 O2 SAT96% Pulse77 06-Aug-2024 19:01 O2 SAT96% Pulse76 06-Aug-2024 19:01 BP Dsffeuyi210sn[Hg] BP Orkxcaogv33vm[Hg] 06-Aug-2024 19:00 O2 SAT97% Pulse75 06-Aug-2024 18:50 O2 SAT97% Pulse75 06-Aug-2024 18:40 O2 SAT96% Pulse72 06-Aug-2024 18:30 O2 SAT97% Pulse72 06-Aug-2024 18:20 O2 SAT95% Pulse73 06-Aug-2024 18:10 O2 SAT94% Pulse75 06-Aug-2024 18:00 O2 SAT95% Pulse74 06-Aug-2024 18:00 BP Qjnhxiql149jl[Hg] BP Hndpjaciw35sc[Hg] 06-Aug-2024 17:52 O2 SAT87% Pulse73 06-Aug-2024 17:52 BP Ndenirvd032gf[Hg] BP Grxdlhdmg55wk[Hg] 06-Aug-2024 17:40 Pulse70 06-Aug-2024 17:38 Temp36.8c Pulse72 Respiratory Rate20 O2 SAT99% BP Kdbngmwz382ub[Hg] BP Vwgnoiirk73eo[Hg] 06-Aug-2024 17:30 Pulse70 06-Aug-2024 17:20 Pulse70 06-Aug-2024 17:10 Pulse70 06-Aug-2024 17:00 Pulse69 06-Aug-2024 16:50 Pulse69 06-Aug-2024 16:40 Pulse70 06-Aug-2024 16:30 Pulse71 06-Aug-2024 16:20 Pulse72 06-Aug-2024 16:10 Pulse71 06-Aug-2024 16:00 Pulse71 06-Aug-2024 15:50 Pulse69 06-Aug-2024 15:40 Pulse69 06-Aug-2024 15:30 Pulse71 06-Aug-2024 15:20 Pulse70 06-Aug-2024 15:10 Pulse70 06-Aug-2024 15:00 Pulse70 06-Aug-2024 14:50 Pulse72 06-Aug-2024 14:40 Pulse70 06-Aug-2024 14:30 Pulse71 06-Aug-2024 14:20 Pulse73 06-Aug-2024 14:10 Pulse75 06-Aug-2024 14:00 Pulse75 06-Aug-2024 13:50 Pulse77 06-Aug-2024 13:40 Pulse78 06-Aug-2024 13:30 Pulse80 06-Aug-2024 13:15 Temp36.9c Pulse78 Respiratory Rate22 O2 SAT96% BP Brjzdyvu827vh[Hg] BP Gccxegvra56rz[Hg] 06-Aug-2024 10:15 BMI33.7cm [id number][ft_us] [id number] 06-Aug-2024 09:43 Temp36.7c O2 SAT96% Pulse72 Respiratory Rate17 BP Ljemlpcl733jw[Hg] BP Lxuskvzif68kc[Hg] 06-Aug-2024 09:00 O2 SAT96% Pulse74 06-Aug-2024 08:56 O2 SAT94% Pulse73 06-Aug-2024 08:30 O2 SAT94% Pulse75 06-Aug-2024 08:20 O2 SAT94% Pulse78 06-Aug-2024 08:10 Pulse80 06-Aug-2024 08:08 BP Qdpyqmry778nf[Hg] BP Krjcfggci05dl[Hg] 06-Aug-2024 08:08 O2 SAT98% Pulse75 06-Aug-2024 08:07 O2 SAT99% Pulse76 Respiratory Rate22 06-Aug-2024 06:48 BMI33.7cm Temp36.2c O2 SAT99% Pulse80 Respiratory Rate24 BP Xcozdcqu606mv[Hg] BP Sferihcuy37dv[Hg] Height6.3662375[ft_us] [id number] Encounters Inpatient encounter Encounter Reason:DIALYSIS Encounter Diagnosis:640,640,PNEUMONIA, UNSPECIFIED ORGANISM,Contact with and (suspected) exposure to COVID-19,ACUTE RESPIRATORY FAILURE WITH HYPOXIA,END STAGE RENAL DISEASE,HYP CHR KIDNEY DISEASE W STAGE 5 CHR KIDNEY DISEASE OR ESRD,DEPENDENCE ON RENAL DIALYSIS,KILN STOKER (CURRENT) USE OF INSULIN,POLYNEUROPATHY, UNSPECIFIED,ALLERGY STATUS TO SULFONAMIDES STATUS,ALLERGY STATUS TO OTH DRUG/MEDS/BIOL SUBST STATUS,CHRONIC OBSTRUCTIVE PULMONARY DISEASE, UNSPECIFIED,TOBACCO USE,TYPE 2 DIABETES MELLITUS W DIABETIC CHRONIC KIDNEY DISEASE,MISC DISORDERS OF NUTRITION,METABOLISM,FLUIDS/ELECTROLYTES W JAIL,FLUID OVERLOAD, UNSPECIFIED 06-Aug-2024 07:[id number] 15:47 [place] Discharge Disposition:Discharged to home or self care (routine discharge) Rose Mary Schwartz-10-Aug-[address] [address]Ocums: [phone] Tcvq Management Rpt from MIDASPatient Name: JAISON CHEUNGDOB: 1970 Age: 54 Sex: MAcct: [id number] MR#: [id number] Status: DIS IN Patient Location: [address] [place] [address] Physician:Date of Admission:08/06/24 ----- [facility] User Loera: Date Entered: 08/06/2024 Service Type: *Care Coordination Operater: [facility],ICU-3rdFLR Worklist Date: 08/10/2024 Payer: [employer] [place] Comments: --- 08/06/2024 03:15 PM by Diane Connor --- DPE completed. HCM DISCHARGE PLANNING HCM Discharge Planning Comments: HCM DISCHARGE PLANNING EVALUATION Case Workers: Diane Connor Living Status: Spouse-partner Setting: Home-residence ADL Limits: None or n/a DME: None [facility] Discharge Planning User Loera: Community Services Prior to Admission: None or NA Current Mental Status/Cognition: Alert and Oriented Information obtained from: PatientPatient Name: JAISON CHEUNG Acct: [id number] Unit: [id number] Page 1 Discharge Barriers, select all that apply: None or NA Readmission (unplanned) in the last 30 days: No Patient goals and preferences after discharge: home Based on information gathered, is it likely that the patient's care needs can be met in the environment from which he/she entered the hospital?: Yes Proposed Discharge Plan, select one: Home Home Services needed: None or NA If a caregiver is needed, is there a caregiver available, willing and capable to provide care?: Yes Community services needed: None New DME required at discharge: None or NA If new DME is required, is patient able to obtain DME?: Yes Home Modifications required: None or NA If home modifications are required, is patient able to obtain them?: Yes Patient concerns about obtaining medications on day of discharge?: None Transportation needs at discharge: car Discharge Plan Discussed with: Patient Have you discussed with the patient how his/her care needs may pipe changer time?: No Patient/tax compliance representative agrees with discharge plan: Yes Discussed expected insurance coverage and/or out of pocket expenses: No Comments:: CM spoke with patient, states he lives home with his spouse. His pcp is Courtney Elizondo. States he drives and independent in ADL's. States he has dialysis @ [facility] in [facility], on , , and Mon. States he will return home when medically ready. Date / Time: 08/06/2024 12:05 PM Evaluated by: Diane Connor Updated by: Rose Mary Gutierrez ([id number]) - 08/10/2024 11:40 AM Patie nt Name: JAISON CHEUNG Acct: [id number] Unit: [id number] Page 2Dictated By: Rose Mary Gutierrez Dictated Date/Time:08/10/24 1140Transcribed By: Rose Mary Gutierrez TranscribedDate/Time: 08/10/24 1140Technologist: Report ID: [id number] To:Patient Name: JAISON CHEUNG Acct: [id number] Unit: [id number] Page 3 Plan of Treatment Future Tests Future scheduled test information is unavailable Pending Tests Pending diagnostic test information is unavailable Future Visits Future appointment information is unavailable Referrals to Other Providers Referral information is unavailable Future Procedures Procedure Name Ordered Date Scheduled Date PT Eval and Tx August 06, 2024 8:53am Febru enoch 2024 8:53am OT Eval and Tx August 06, 2024 8:53am Febru enoch 2024 8:53am Admission Status Order August 06, 2024 7:33a m August 06, 2024 7:33am Discharge Order August 07, 2024 10:49am Febr ua 2024 10:49am Level of Care August 06, 2024 7:33am Febru enoch2024 7:33am Hemodialysis August 06, 2024 10:53am Febr ua 2024 11:00am Hemodialysis August 07, 2024 9:58am Febru [place] 2024 10:00am Consult Nephrology August 06, 2024 8:52am Fe bruary 2024 8:52am Consult Pulmonary August 06, 2024 1:58pm Feb ruary 2024 1:58pm VTE Prophylaxis Status August 06, 2024 8:53a m August 06, 2024 8:53am Future Medications Future medication information is unavailable Patient Instructions Instruction Admit Date Azithromycin Cefdinir August 06, 2024 6:33am Goals Acute Goals Respiration Alteration Change in or modification of the breathing function Cardiovascular Alteration Change in or modification of the heart or blood vessels Assessments Diagnosis Onset Date Resolution Status Admit Date Acute hypoxic respiratory failure acute August 06, 025 6:33am ESRD (end stage renal disease) acute August 06, 2024 6:33am Hyperkalemia acute July 6:33am Hypertension acute July 6:33am Pulmonary edema acute August 06, 2024 6:33am
--- OUTSIDE RECORDS SUMMARY | 2024-12-13 11:00 | XMS_ITS | Encounter Summary ---
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 Procedures Adult Transthoracic Echo Complete W/ Cont if Necessary Per Protocol CA ECHO TTHRC R-T 2D W/WOM-MODE COMPL SPEC&COLR D CA ECHO TRANSTHORC R-T 2D W/WO M-MODE REC F-UP/LMTD Edi Leung MD [address] [facility] [address] [address] Phone: tel: fax: [facility] [address] [place] [address] Phone: tel: Referral ID Status Reason Start Date Expiration Date Visits Re quested Visits Authorized [id number] Closed 06/14/2024 06/14/2025 1 1 Reason for Visit * Diagnostic Imaging (Routine) - Closed Specialty Diagnoses / Procedures Referred By Contac t Referred To Contact Diagnoses 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 Procedures Adult Transthoracic Echo Complete W/ Cont if Necessary Per Protocol CA ECHO TTHRC R-T 2D W/WOM-MODE COMPL SPEC&COLR D CA ECHO TRANSTHORC R-T 2D W/WO M-MODE REC F-UP/LMTD Edi Leung MD [address] [place] [address] Phone: tel: fax: [facility] [address] [place] [address] Phone: tel: Referral ID Status Reason Start Date Expiration Date Visits Re quested Visits Authorized [id number] Closed 06/14/2024 06/14/2025 1 1 Encounter Details Date Type Department Care Team (Late st Contact Info) Description 12/13/2024 11:00 AM EDT - 12/13/2024 11:59 PM EDT Hospital Encounter [facility] [address] [facility] [address] [place] [address] Edi Leung MD [address] [facility] [address] [place] [address] 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 Discharge Disposition: Home or Self Care Social History Tobacco Use Types Packs/Day Years Used Date Smoking Tobacco: Former Cigarettes 1 38 Passive Smoke Exposure: Past Smokeless Tobacco: Never Alcohol Use Standard Drinks/Week Comments No 0 (1 standard drink = 0.6 oz pur e alcohol) AUDIT-C Answer Date Recorded Q1: How often do you have a drink containing alcohol? Never 06/20/2023 Q2: How many drinks containi ng alcohol do you have on a typical day when you are drinking? Patient does not drink Q3: How often do you have si x or more drinks on one occasion? Never 06/20/2023 Abuse Screen Answer Date Recorded Feels Unsafe at Home or Work/School no 06/20/2023 Feels Threatened by Someone no 07/2023 Does Anyone Try to Keep You From Having Contact with Others or Doing Things Outside Your Home? no 06/20/2023 Physical Signs of Abuse Present no 06/20/2023 Housing Stability Answer Date Recorded Current Living Arrangements home 07/2023 Potentially Unsafe Housing Conditions Not on kiet e 06/20/2023 Disabilities Answer Date Recorded Difficulty Concentrating, Remembering or Making Decisions no 06/20/2023 Difficulty Managing Errands Independently no 06/20/2023 Sex and Gender Information Value Date Recorded Sex Assigned at Male 10/29/2024 5:19 PM EDT Legal Sex Male 10:36 AM EDT Gender Identity Male 01/22/2024 9:13 AM EDT Sexual Orientation Straight 01/22/2024 9: 13 AM EDT documented as of this encounter Last Filed Vital Signs Vital Sign Reading Time Taken Comments Blood Pressure 130/73 12/13/2024 11:46 AM EDT Pulse - - Temperature - - Respiratory Rate - - Oxygen Saturation - - Inhaled Oxygen Concentration - - Weight 110 kg (242 lb 8.1 oz) 12/13/2024 11:46 A M EDT Height 182.9 cm (6' 0.01 ) 12/13/2024 11:46 AM E DT Body Mass Index 32.88 12/13/2024 11:46 AM EDT documented in this encounter Medications at Time of Discharge albuterol sulfate HFA 108 (90 Base) MCG/ACT inhaler INHALE 1 PUFF BY MOUTH EVERY 4 TO 6 HOURS aspirin 81 MG EC tablet Take 1 tablet by mouth Daily. atorvastatin (Lipitor) 80 MG tabletIndications:M ixed hyperlipidemia Take 1 tablet by mouth Daily. 30 tablet 11 4 03/08/20 25 bisoprolol (ZEBeta) 10 MG tablet Take 1 tablet by mouth Daily. 30 tablet 11 5 bumetanide (BUMEX) 2 MG tablet Take 1 tablet by mouth Daily. Nephrology for further refills 30 tablet 4 cetirizine (ZyrTEC Allergy) 10 MG tablet Take 1 tablet by mouth Daily. clopidogrel (PLAVIX) 75 MG tablet Take 1 tablet by mouth Daily. 90 tablet 1 5 ezetimibe (ZETIA) 10 MG tablet Take by mouth. FLUoxetine (PROzac) 20 MG tablet Take 1 tablet by mouth Daily. 4 gabapentin (NEURONTIN) 300 MG capsule Take 1 capsule by mouth 2 (Two) Times a Day. hydrALAZINE (APRESOLINE) 25 MG tablet Take 4 tablets by mouth 4 (Four) Times a Day. 4 hydroxychloroquine (PLAQUENIL) 200 MG tablet Take 1 tablet by mouth Daily. 4 02/13/20 25 icosapent ethyl (VASCEPA) 1 g capsule capsule Take 2 g by mouth 2 (Two) Times a Day With Meals. insulin NPH-insulin regular (HumuLIN 70/30) (70-30) 100 UNIT/ML injectionIndication s:Type 2 diabetes mellitus with chronic kidney disease on chronic dialysis, with long-term current use of insulin INJECT 80 UNITS SUBCUTANEOUSLY BEFORE BREAKFAST AND 80 BEFORE SUPPER (TITRATE FOR MAX DAILY DOSE OF 200 UNITS) 60 mL 6 5 Insulin Syringe-Needle U-100 (BD Insulin Syringe U/F) 31G X 11/01 1 ML miscIndications:Typ e 2 diabetes mellitus with chronic kidney disease on chronic dialysis, with long-term current use of insulin Use twice daily for insulin 100 each 5 5 NIFEdipine XL (PROCARDIA XL) 90 MG 24 hr tablet Take 1 tablet by mouth Daily. 30 tablet 11 4 03/08/20 25 oxyCODONE (ROXICODONE) 10 MG tablet Take by oral route for 30 days. tamsulosin (FLOMAX) 0.4 MG capsule 24 hr capsule Take 1 capsule by mouth Every Night. cloNIDine (CATAPRES) 0.1 MG tablet TAKE 1 TABLET BY MOUTH THREE TIMES DAILY 60 tablet 1 5 01/08/20 25 isosorbide mononitrate (IMDUR) 120 MG 24 hr tablet Take 1 tablet by mouth Daily. 90 tablet 3 4 12/18/19 25 documented as of this encounter Plan of Treatment Upcoming Encounters Date Type Department Care Team (Late st Contact Info) Description 03/03/2025 12:30 PM EDT Office Visit [facility] ENDOCRINOLOGY [address] [phone] Aileen Patricia PA [address] [id number] 05/13/2025 9:30 AM EST Office Visit [facility]Y [address] [address] [place] [address] Edi Leung MD [address] [place] [address] documented as of this encounter Procedures Procedure Name Priority Date/Time Associated Diagnosis Comments ECHO COMPLETE W/ DOPPLER, COLOR FLOW AND STRAIN Routine 12/13/2024 11:46 AM EDT 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 documented in this encounter Results * ECHO COMPLETE W/ DOPPLER, COLOR FLOW AND STRAIN (12/13/2024 11:46 AM EDT) LVIDd 6.0 cm LVIDs 4.0 cm IVSd 1.40 cm LVPWd 1.40 cm IVS/LVPW 1.00 cm LVOT area 5.3 cm2 LVOT diam 2.6 cm SVi (LVOT) 47.1 ml/m2 MV E max prashant 84.0 cm/sec MV A max prashant 93.0 cm/sec MV E/A 0.90 IVRT 96.0 ms LA ESV Index (BP) 18.0 ml/m2 Med Peak E' Prashant 8.4 cm/sec Lat Peak E' Prashant 9.0 cm/sec TR max prashant 210.8 cm/sec Avg E/e' ratio 9.66 SV(LVOT) 108.8 ml RV Base 3.8 cm RV Mid 3.3 cm RV Length 9.1 cm TAPSE (>1.6) 2.5 cm RV S' 14.6 cm/sec LA dimension (2D) 4.5 cm LV V1 max 92.0 cm/sec LV V1 max PG 3.4 mmHg LV V1 mean PG 1.40 mmHg LV V1 VTI 20.5 cm Ao pk prashant 171.1 cm/sec Ao max PG 11.7 mmHg Ao mean PG 6.3 mmHg Ao V2 VTI 42.5 cm GRADY(I,D) 2.6 cm2 Dimensionless Index 0.48 (DI) MV max PG 3.1 mmHg MV mean PG 1.70 mmHg MV V2 VTI 29.6 cm MV P1/2t 79.0 msec MVA(P1/2t) 2.8 cm2 MVA(VTI) 3.7 cm2 MV dec slope 321.3 cm/sec2 TR max PG 17.8 mmHg PA acc time 0.12 sec PI end-d prashant 104.4 cm/sec Ao root diam 3.3 cm Ascending aorta 3.5 cm EF(MOD-bp) 54.0 % LV GLOBAL STRAIN -15.9 % RVSP(TR) 21 mmHg RAP systole 3 mmHg BH CV VAS BP RIGHT ARM 130/73 mmHg Anatomical Region Laterality Modality Ultrasound Narrative 12/13/2024 12:44 PM EDT Left ventricular systolic function is normal. Calculated left ventricular EF = 54% The left ventricular cavity is mildly dilated. Left ventricular wall thickness is consistent with moderate concentric hypertrophy. There is moderate calcification of the aortic valve. No aortic valve regurgitation or stenosis is present. Mild tricuspid valve regurgitation is present. Estimated right ventricular systolic pressure from tricuspid regurgitation is normal (<35 mmHg). Left Ventricle Left ventricular systolic function is normal. Calculated left ventricular EF = 54% Global longitudinal LV strain (GLS) = -15.9%. The left ventricular cavity is mildly dilated. Left ventricular wall thickness is consistent with moderate concentric hypertrophy. All left ventricular wall segments contract normally. Right Ventricle Normal right ventricular cavity size and systolic function noted. Left Atrium The left atrial cavity is mildly dilated. Left atrial volume is normal. Right Atrium Normal right atrial cavity size noted. The inferior vena cava is normally sized. The diameter of the inferior vena cava is 1.44 cm. Normal IVC inspiratory collapse of greater than 50% noted. Mitral Valve No mitral valve regurgitation or significant stenosis is present. There is calcification of the mitral valve. Tricuspid Valve The tricuspid valve is structurally normal with no significant stenosis present. Mild tricuspid valve regurgitation is present. Estimated right ventricular systolic pressure from tricuspid regurgitation is normal (<35 mmHg). Calculated right ventricular systolic pressure from tricuspid regurgitation is 21 mmHg. Aortic Valve The aortic valve is not well visualized. No aortic valve regurgitation or stenosis is present. The aortic valve is abnormal in structure. There is moderate calcification of the aortic valve. Pulmonic Valve The pulmonic valve is structurally normal with no regurgitation or significant stenosis present. Pericardium There is no evidence of pericardial effusion. . Greater Vessels No dilation of the aortic root is present. Borderline dilation of the ascending aorta is present. Study Quality The study is technically adequate for diagnosis. 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
--- OUTSIDE RECORDS SUMMARY | 2025-01-01 10:15 | XMS_ITS | Encounter Summary ---
Author Organization [facility] Address [address] [place] [address] Care Team Providers Care Fur Dresser Name Role Phone Sydnee Castro Primary Care Provider [phone] Reason for Referral * Consultation (Routine) - Authorized Specialty Diagnoses / Procedures Referred By Anshu bustillo Referred To Contact Otolaryngology Diagnoses Primary squamous cell carcinoma of tonsil Israel Broderick MD [id number] [place] [address] Phone: tel: fax: Referral ID Status Reason Start Date Expiration Date Visits Requested Visits Authorized [id number] Authorized Specialty Services Required 01/01/2025 07/03/2026 1 1 Scheduling Instructions establish care ENT Dr. Abraham Rosenberg, history of a nasal vestibule squamous cell carcinoma. The patient underwent a right lateral rhinotomy with wide local excision of the lesion and full-thickness skin graft reconstruction on August 29, 2022. Reason for Visit * Reason Comments Follow-up Encounter Details Date Type Department Care Team ([facility] Contact Info) Description 01/01/2025 10:15 AM EDT Office Visit [facility] [address] [place] [address] Israel Broderick MD [id number] [place] [address] Primary squamous cell carcinoma of tonsil Social History Tobacco Use Types Packs/Day Years Used Date Smoking Tobacco: Former Cigarettes 0.5 37.6 S tarted: 06/19/1987 Passive Smoke Exposure: Never Smokeless Tobacco: Never Tobacco Cessation:Counseling Given: No Alcohol Use Standard Drinks/Week Comments Never 0 (1 standard drink = 0.6 oz pur e alcohol) PHQ-2 Answer Date Recorded Patient Health Questionnaire-2 Score 2 07/29/2024 PHQ-9 Answer Date Recorded Patient Health Questionnaire-9 Score 15 05/17/2023 PHQ-2A Answer Date Recorded Patient Health Questionnaire-2 Score 3 05/17/2023 Sex and Gender Information Value Date Recorded Sex Assigned at Male 08/08/2022 11:07 AM EST Legal Sex Male 8:42 AM EST Gender Identity Male 08/08/2022 11:07 AM EST Sexual Orientation Straight 08/08/2022 11 :07 AM EST documented as of this encounter Last Filed Vital Signs Vital Sign Reading Time Taken Comments Blood Pressure 138/68 01/01/2025 9:56 AM EDT Pulse 72 01/01/2025 9:56 AM EDT Temperature 36.9 C (98.5 F) 01/01/2025 9:56 AM EDT Respiratory Rate 14 01/01/2025 9:56 AM EDT Oxygen Saturation 97% 01/01/2025 9:56 AM EDT Inhaled Oxygen Concentration - - Weight 118 kg (261 lb 0.4 oz) 01/01/2025 9:56 AM EDT Height - - Body Mass Index 35.4 07/29/2024 8:05 AM EST documented in this encounter Functional Status * Calculated C-SSRS Risk Score (Lifetime/Recent) Answer Date of Assessment Author No Risk Indicated 01/01/2025 9:59 AM EDT Lety Obregon * Question Answer Date of Assessment Author 1. Wish to be (Past 1 Month) No 025 9:59 AM EDT Lety Obregon 2. Non-Specific Active Suici laurel Thoughts (Past 1 Month) No 01/01/2025 9:59 AM EDT Mary Obregon 6. Suicidal Behavior (Lifetime) No 9:59 AM EDT Lety Obregon documented as of this encounter Miscellaneous Notes * Progress Notes - Julianne Mo MD - 01/01/2025 10:15 AM EDT Chief Complaint Patient presents with Follow-up Johnny Madera is a 54 y.o. male who presents to our clinic today for follow up evaluation. He has a history of a nasal vestibule squamous cell carcinoma. The patient underwent a right lateral rhinotomy with wide local excision of the lesion and full-thickness skin graft reconstruction on August 29, 2022. He has done well from an oncologic standpoint since that time. He was last seen in June this year. We do not get CT scans on him because he has significant renal disease and is unable to get contrast. He presents today for a 1 year follow up. He has not noticed any new lesions on his face or nose. He is tired of being on dialysis at this point. He has quit smoking for 2 weeks and needs to quit forat least 30 days to be considered for renal transplant. His weight is 118 kg (261 lb 0.4 oz). His temperature is 36.9 ??C (98.5 ??F). His blood pressure is138/68 and his pulse is 72. His respiration is 14 and oxygen saturation is 97%. 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 He has a past surgical history that includes Back surgery; Nose surgery (Right, 08/29/2022); Coronary stent placement (06/2023); and Dialysis fistula creation (2023). His family history includes Angina in his mother; Cancer in his father and sister; Diabetes in his mother; Drug abuse in his brother; Heart disease in his mother; Leukemia in his sister; Lung cancer in his father; Melanoma in his paternal grandfather. He reports that he has quit smoking. His smoking use included cigarettes. He started smoking about 37 years ago. He has a 18.8 pack-year smoking history. He has never been exposed to tobacco smoke. He has never used smokeless tobacco. He reports no history of alcohol use. Nutrition Assessment Anthropometrics: Wt Readings from Last 3 Encounters: 01/01/25 118 kg (261 lb 0.4 oz) 07/29/24 117 kg (257 lb 8 oz) 05/03/24 118 kg (260 lb 5.8 oz) Ht Readings from Last 1 Encounters: 07/29/24 1.829 m (6') BMI Readings from Last 1 Encounters: 01/01/25 35.40 kg/m?? Biochemical: Lab Results Component Value Date GLUCOSE 124 (H) 05/03/2024 CALCIUM 8.0 (L) 05/03/2024 NA 143 05/03/2024 K 3.3 (L) 05/03/2024 CO2 28 05/03/2024 CL 101 05/03/2024 BUN 19 05/03/2024 CREATININE 3.46 (H) 05/03/2024 PHYSICAL EXAMINATION: General: Healthy-appearing 54 y.o. patient, alert and oriented x3, in no acute distress, well nourished, well developed. Psychiatric evaluation: Normal mood and affect, very pleasant and cooperative. Nasal cavity examination: Septum is midline. No new nasal lesions. Oral cavity examination: The oral cavity is evaluated without concerning ulceration or lesion. The tongue demonstrates full range of motion. Neck: soft and supple. I did not feel any enlarged lymphadenopathy. Eyes: Extraocular movements are intact bilaterally. PERRLA. Neurological examination: Cranial nerves II-XII are grossly intact. Skin of the neck and face: Nose and incision are well healed. There is no evidence of malignancy. Endocrine examination: I do not feel any thyroid nodules. No thyromegaly. Respiratory: chest is symmetrical, breathing comfortably without effort. The patient has been counseled on tobacco cessation: Not Applicable Diagnosis Plan 1. Primary squamous cell carcinoma of tonsil Clinic Appointment Request Follow up; ISRAEL BRODERICK IMPRESSION/PLAN: The patient appears free of disease from a surgical standpoint. We will refer him to an ENT closer to home in [place] for follow up. He can follow up with us as needed. Julianne Mo MD Digital speech recognition software was used to dictate this note and, despite all efforts to proofread, some dictation errors may occur. If you have any questions, please do not hesitate to contact me. Cosigned by Israel Broderick MD at 01/02/2025 3:08 PM EDT Associated attestation - Israel Broderick MD - 01/02/2025 3:08 PM EDT I saw and evaluated the patient with the resident/fellow. I discussed the case with the resident/fellow and agree with the findings and plan as documented. documented in this encounter Plan of Treatment Scheduled Referrals Name Type Priority Associated Diagnoses Order Schedule Ambulatory referral to ENT Outpatient Referral Routine Primary squamous cell carcinoma of tonsil Expected: 01/01/2025 (Approximate), Expires: 07/04/2026 documented as of this encounter Visit Diagnoses Diagnosis Primary squamous cell carcinoma of tonsil Malignant neoplasm of tonsil documented in this encounter Additional Health Concerns Assessment Noted Time PHQ-9 Depression Total Score: 15 023 10:32 AM EST A fall risk assessment has been complete d for the patient 01/01/2025 10:00 AM EDT A Body Mass Index follow-up plan has been documented for the patient 07/29/2024 9:12 AM EST documented as of this encounter Care Teams Fur Dresser Relationship Specialty Start Date End Date Sydnee Castro PA PCP - General 12/22/22 documented as of this encounter
[2025-01-24 16:04] VITALS: BP 124/45; PULSE 77; RESP 17; TEMP 36.7; O2SAT 97; BMI 25.0
--- OUTSIDE RECORDS SUMMARY | 2025-01-24 16:12 | XMS_ITS | Clinical Summary ---
Author Organization [facility] Address [address] [place] [address] Care Team Providers Care Casting Coordinator Name Role Phone Unavailable Primary Care Provider Unavailabl e Source Comments This information has been disclosed to you from confidential records protectedfrom disclosure by state law. You shall make no further disclosure of thisinformation without the specific, written, and informed release of theindividual to whom it pertains, or as otherwise permitted by law. A generalauthorization for the release of medical or other information is not sufficientfor the purposes of therelease of HIV test results or diagnoses. [id number] Social History Tobacco Use Types Packs/Day Years Used Date Smoking Tobacco: Never Assessed Sex and Gender Information Value Date Recorded Sex Assigned at Not on file Legal Sex Male 2:32 PM EST Gender Identity Not on file Sexual Orientation Not on file Last Filed Vital Signs Vital Sign Reading Time Taken Comments Blood Pressure - - Pulse - - Temperature - - Respiratory Rate - - Oxygen Saturation - - Inhaled Oxygen Concentration - - Weight 127 kg (280 lb) 05/04/2023 7:00 AM EST Height 182.9 cm (6') 05/04/2023 7:00 AM EST Body Mass Index 37.97 05/04/2023 7:00 AM EST Plan of Treatment Not on file Insurance
--- OUTSIDE RECORDS SUMMARY | 2025-01-24 16:13 | XMS_ITS | Referral Summary ---
Author Organization [facility] [place], [place], [place]) Address [address] [place] [address] Care Team Providers Care Airport Operations Coordinator Name Role Phone Courtney Mays MD Primary Care Provider [phone] Allergies Active Allergy Reactions Criticality Noted Date Comments Glyburide Itching 02/12/2024 Sulfa (Sulfonamide Antibiotics) Anaphylaxis High 07/2023 Medications tamsulosin (FLOMAX) 0.4 mg Cap 24 hr capsule Take 1 capsule (0.4 mg total) by mouth nightly. Active isosorbide mononitrate (IMDUR) 120 mg 24 hr tablet Take 1 tablet (120 mg total) by mouth daily. 11/15/19 24 Active icosapent ethyL (Vascepa) 1 gram capsule Take 2 capsules (2 g total) by mouth 2 (two) times daily with breakfast and dinner. Active FLUoxetine (PROzac) 10 MG tablet Take 1 tablet (10 mg total) by mouth daily. Active ezetimibe (ZETIA) 10 mg tablet Take 1 tablet (10 mg total) by mouth. 03/29/20 23 Active clopidogreL (PLAVIX) 75 mg tablet Take 1 tablet (75 mg total) by mouth daily. 06/20/19 24 Active aspirin 81 MG EC tablet Take 1 tablet (81 mg total) by mouth daily. Active empagliflozin (Jardiance) 10 mg tablet Take 1 tablet (10 mg total) by mouth daily. Active albuterol HFA (VENTOLIN HFA) 90 mcg/actuation inhaler Inhale 2 puffs by mouth via inhaler every 6 (six) hours as needed for wheezing. Active insulin 70/30, insulin NPH-insulin regular, (NovoLIN 70/30 U-100 Insulin) 100 unit/mL (70-30) injection Inject 80 Units subcutaneously 2 (two) times daily before meals. Active evolocumab (Repatha SureClick) 140 mg/mL pen injector Inject 140 mg subcutaneously every 14 (fourteen) days. Active semaglutide (Ozempic) 0.25 mg or 0.5 mg(2 mg/1.5 mL) PnIj Inject 0.1875 mLs (0.25 mg total) subcutaneously once a week. Active bisoprolol (ZEBETA) 5 MG tablet Take 3 tablets (15 mg total) by mouth daily. 90 tablet 02/13/20 24 025 Active atorvastatin (LIPITOR) 40 MG tablet Take 1 tablet (40 mg total) by mouth nightly. 30 tablet 02/13/20 24 025 Active fenofibrate (TRICOR) 48 MG tablet Take 1 tablet (48 mg total) by mouth daily. 30 tablet 02/13/20 24 025 Active gabapentin (NEURONTIN) 400 MG capsule Take 1 capsule (400 mg total) by mouth nightly. Max Daily Amount: 400 mg 3 capsule 02/13/20 24 025 Active gabapentin (NEURONTIN) 100 MG capsule Take 2 capsules (200 mg total) by mouth daily. Max Daily Amount: 200 mg 3 capsule 02/13/20 24 025 Active hydrALAZINE (APRESOLINE) 25 MG tablet Take 3 tablets (75 mg total) by mouth every 6 (six) hours Look-alike/Sound -alike medication. 360 tablet 02/13/20 24 025 Active hydroxychloroqu ine (PLAQUENIL) 200 mg tablet Take 1 tablet (200 mg total) by mouth daily. 30 tablet 02/13/20 24 025 Active bumetanide (BUMEX) 2 MG tablet Take 1 tablet (2 mg total) by mouth daily. 30 tablet 02/13/20 24 025 Active cloNIDine HCL (CATAPRES) 0.1 MG tablet Take 1 tablet (0.1 mg total) by mouth 2 (two) times daily Look-alike/Sound -alike medication. 60 tablet 02/13/20 24 025 Active NIFEdipine (PROCARDIA-XL) 90 MG (OSM) 24 hr tablet Take 1 tablet (90 mg total) by mouth daily. 30 tablet 02/13/20 24 025 Active oxyCODONE (OXY-IR) 5 mg capsule Take 2 capsules (10 mg total) by mouth every 6 (six) hours as needed for pain. Max Daily Amount: 40 mg Active Active Problems Problem Noted Date Diagnosed Date Abnormal nuclear stress test 06/14/2023 BPH (benign prostatic hyperplasia) 05/26/2023 01/30/2024 Squamous cell carcinoma of nose 05/26/2023 01/30/2024 Coronary artery disease of n ative artery of [place] heart with stable angina pectoris 04/12/2023 01/30/2024 Overview (01/30/2024): 06/20/2023: LHC at [facility], mid LAD 70-80% with IFR 0.83 status post PCI with a 3.0 x 23 mm Xience AMANDEEP postdilated with a 3.25 NC. 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 Mid circumflex 20% otherwise normal. LVEDP 18 mmHg. Tobacco use 04/12/2023 01/30/2024 Primary squamous cell carcinoma of tonsil 202201/30/2024 Hyperparathyroidism 02/10/2023 01/30/2024 Overview (01/30/2024): Last Assessment & Plan: -Suspect patient with 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 -Patient without evidence of hypercalcemia -Recommend he follow with nephrology later today to discuss management -Check CMP, 25-OH Vitamin D, and PTH 6th nerve palsy, left 08/26/2022 01/30/2024 Anxiety, generalized 08/26/2022 01/30/2024 CKD (chronic kidney disease), stage IV 01/30/2024 Overview (01/30/2024): [facility] Elevated TSH 08/26/2022 01/30/2024 Enlarged prostate 08/26/2022 01/30/2024 Hypertension, benign 08/26/2022 01/30/2024 Retinopathy, diabetic, bilateral 08/26/2022 01/30/2024 Chest pain 12/18/2020 01/30/2024 Arteriosclerosis of coronary artery 12/18/2020 01/30/2024 Hyperlipidemia 12/18/2020 01/30/2024 Morbid obesity 12/18/2020 01/30/2024 Type 2 diabetes mellitus treated with insulin 01/30/2024 Obesity with body mass index 30 or greater 05/1101/30/2024 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 Harden. Hydrocodone Resolved Problems Problem Noted Date Diagnosed Date Resolved Date Hypertensive emergency 01/19/202401/29 Melena 2024 01/30/2024 Social History Tobacco Use Types Packs/Day Years Used Date Smoking Tobacco: Former Cigarettes Passive Smoke Exposure: Past Tobacco Cessation:Counseling Given: Not Answered Alcohol Use Standard Drinks/Week Comments Not Currently 0 (1 standard drink = 0.6 oz pur e alcohol) Utilities Answer Date Recorded In the past 12 months, has t he electric, gas, oil, or water company threatened to shut off services in your home? No 01/21/2024 Interpersonal Safety Answer Date Record ed How often does anyone, douglas izaguirre family and friends, physically hurt you? Never 01/21/2024 How often does anyone, douglas izaguirre family and friends, insult or talk down to you? Never 01/21/2024 How often does anyone, douglas izaguirre family and friends, threaten you with harm? Never 01/21/2024 How often does anyone, inclu ding family and friends, scream or curse at you? Never 01/21/2024 Housing Stability Answer Date Recorded What is your living situation today? I have a [place] place to live 01/21/[address] you li ve. Do you have problems with any of the following? None of the above 01/21/2024 Food Insecurity Answer Date Recorded Within the past 12 months, y ou worried that your food would run out before you got money to buy more. Never true 01/21/2024 Within the past 12 months, t he food you bought just didn't last and you didn't have money to get more. Never true 01/21/2024 Transportation Needs Answer Date Record ed In the past 12 months, has l ack of reliable transportation kept you from medical appointments, meetings, work or from getting things needed for daily living? No 01/21/2024 Financial Resource Strain Answer Date R ecorded How hard is it for you to pa y for the very basics like food, housing, medical care, and heating? Would you say it is: Not hard at all 01/21/2024 Employment Answer Date Recorded Do you want help finding or keeping work or a job? I do not need or want help 01/21/2024 Family and Community Support Answer Roman e Recorded If for any reason you need h elp with day-to-day activities such as bathing, preparing meals, shopping, managing finances, etc., do you get the help you need? I don't need any help 01/21/2024 Feeling Lonely or Isolated 0 01/20 Educational Attainment Answer Date Serjio rded Do you speak a language other than [place] at [facility]? No 01/21/2024 Do you want help with school or training? For example, starting or completing job training or getting a high school diploma, GED or equivalent. No 01/21/2024 Physical Activity Answer Date Recorded Number of minutes of exercise per week 90 01/21/2024 Self Management Answer Date Recorded Because of a physical, menta l, or emotional condition, do you have serious difficulty concentrating, remembering, or making decisions? (5 years or older) No 01/21/2024 Because of a physical, menta l, or emotional condition, do you have difficulty doing errands alone such as visiting a doctor's office or shopping? (15 years or older) No 01/21/2024 Substance Use Answer Date Recorded How many times in the past y ear have you used prescription drugs for non-medical reasons? Never 01/21/2024 How many times in the past year have you used [place] legal drugs? Never 01/21/2024 Mental Health Answer Date Recorded Calculation of above two rows 0 Sex and Gender Information Value Date Recorded Sex Assigned at Not on file Legal Sex Male 7:08 PM CDT Gender Identity Not on file Sexual Orientation Not on file Last Filed Vital Signs Vital Sign Reading Time Taken Comments Blood Pressure 130/59 04/05/2024 9:55 AM EDT Pulse 63 04/05/2024 9:55 AM EDT Temperature 36.4 C (97.6 F) 04/05/2024 9:40 AM EDT Respiratory Rate 20 04/05/2024 9:55 AM EDT Oxygen Saturation 95% 04/05/2024 9:55 AM EDT RA Inhaled Oxygen Concentration 21% 10:56 PM EDT Weight 117.2 kg (258 lb 6.4 oz) 04/05/2024 6:00 AM EDT Height 182.9 cm (6') 04/05/2024 6:00 AM EDT Body Mass Index 35.05 04/05/2024 6:00 AM EDT Functional Status * Are you deaf or do you have serious difficulty hearing? Answer Date of Assessment Author No 02/13/2024 12:15 PM CDT Feli Elmore RN * Are you blind or do you have serious difficulty seeing, even when wearing glasses? Answer Date of Assessment Author No 02/13/2024 12:15 PM CDT Feli Elmore RN * Do you have serious difficulty walking or climbing stairs? Answer Date of Assessment Author No 02/13/2024 12:15 PM CDT Feli Elmore RN * Do you have serious difficulty dressing or bathing? Answer Date of Assessment Author No 02/13/2024 12:15 PM CDT Feli Elmore, RN * Because of a physical, mental, or emotional condition, do you have serious difficulty doing errandsalone such as visiting the doctor? Answer Date of Assessment Author No 02/13/2024 12:15 PM CDT Feli Elmore RN Mental Status * Because of a physical, mental, or emotional condition, do you have serious difficulty concentrating, remembering, or making decisions? (5 years old or older) Answer Entry Date Author No 02/13/2024 12:15 PM CDT Feli Elmore RN Plan of Treatment Not on file Procedures Procedure Name Priority Date/Time Associated Diagnosis Comments HEPATITIS PANEL, ACUTE Routine 02/08/2024 10:46 AM EDT from Last 3 Months or Most Recently Relevant to Health Maintenance Results * Hepatitis panel, acute (02/08/2024 10:46 AM EDT) Hep A IgM Nonreactive Nonreactive, Equivocal 02/08/2024 12:37 PM EDT [facility] Hep B C IgM Nonreactive Nonreactive 02/08/2024 12:37 PM EDT [facility] Hepatitis B surface antigen Nonreactive Nonreactive, Equivocal 02/08/2024 12:37 PM EDT [facility] Hepatitis C Ab Nonreactive Nonreactive, Equivocal 02/08/2024 12:37 PM EDT [facility] Blood Venipuncture / Unknown 02/08/2024 10:46 AM EDT 02/08/2024 10:53 AM EDT [facility] - 02/08/2024 12:37 PM EDT Hepatitis A Antibody IgM: (a) A negative test result does not exclude the possibility of exposure to the hepatitis A virus. (b) This test can be used to determine if a patient has or recently had an acute or asymptomatic hepatitis A infection. (c) A reactive result does not exclude co-infection by another hepatitis virus. Biotin supplements can cause clinically significant incorrect lab results. The FDA has seen an increase in the number of adverse events related to biotin interference with lab tests. Hepatitis B Core Antibody IgM: A reactive anti-HBc IgM result does not exclude co-infection by another hepatitis virus. Biotin supplements can cause clinically significant incorrect lab results. The FDA has seen an increase in the number of adverse events related to biotin interference with lab tests. Hepatitis B Surface Antibody Qual: This test does not differentiate between a vaccine induced immune response and an immune response induced by infection with HBV. Individuals that have received blood component therapies, (e.g. whole blood, plasma, immunoglobulin) administered during the previous 3 to 6 months may have a false reactive anti HBs due to passive transfer of anti HBs. A positive anti HBs result does not exclude co infection by another hepatitis virus. Biotin supplements can cause clinically significant incorrect lab results. The FDA has seen an increase in the number of adverse events related to biotin interference with lab tests. Hepatitis B Surface Antigen: This test may not detect all HBV mutants. If acute or chronic HBV infection is suspected and this test is non-reactive other HBV markers should be tested. Biotin supplements can cause clinically significant incorrect lab results. The FDA has seen an increase in the number of adverse events related to biotin interference with lab tests. Hepatitis C Antibody: A negative test result does not exclude the possibility of exposure to the hepatitis C virus and a reactive result does not exclude co-infection by another hepatitis virus. Biotin supplements can cause clinically significant incorrect lab results. The FDA has seen an increase in the number of adverse events related to biotin interference with lab tests. us Samuel Shaffer MD LAB BLOOD ORDERABLES Final Resul t [facility] [address] [phone] from Last 3 Months or Most Recently Relevant to Health Maintenance Insurance BLUE CROSS/BLUE SHIELD Advance Directives For more information, please contact: [phone] * Full Code (Latest Code Status on File) Date Activated Date Inactivated Comments 2024 7:01 PM 02/13/2024 5:44 PM Care Teams Airport Operations Coordinator Relationship Specialty Start Date End Date Courtney Mays MD PCP - General Internal Medicine 01/20/24
--- OUTSIDE RECORDS SUMMARY | 2025-01-24 16:13 | XMS_ITS ---
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 Ordering Clinician Indication Dosage Frequency Signature (SIG) Comments Components Venofer 01-03 04:00: 00 Yes [id number] Number of Repeats Allowed: Frequency: One time a weekDosesO rdered: Maintenanc e Dose 100 Milligram Route: Intravenou s Oxygen 204 10:15: 44 Yes [id number] Number of Repeats Allowed: Frequency: As needed ONS Adan Formulary 02-27 04:00: 00 Yes [id number] Number of Repeats Allowed: Frequency: Every Dialysis Treatment Gabapentin 02-13 15:35: 21 Yes Number of Repeats Allowed: Frequency: Every morning Gabapentin 02-13 15:34: 25 Yes Number of Repeats Allowed: Frequency: Once a day, at bedtime HYDROcodone -Acetaminop hen 02-13 12:07: 39 Yes Number of Repeats Allowed: Frequency: Four times a day ondansetron hydrochlori de 02-13 11:55: 00 Yes [id number] Number of Repeats Allowed: Frequency: Every 4 hours as needed acetaminoph en 02-13 11:54: 19 Yes [id number] Number of Repeats Allowed: Frequency: Every 4 hours as needed Problems This patient has no known problems. Procedures Procedure Date / Time Performed Performing Clinician Janny ce Details AV Fistula 2024-02-12 04:00:00 Access Surgeon MAAME MCGINNIS ([id number]),[place], [place] Access Site Upper Arm (Left) Access Use Start Date 2024-05-13 00:00:0 0 Central Venous Catheter (CVC)2024-02-12 04:00:00 Access Site Chest (Right) Access Use Start Date 2024-02-12 04:00:0 0 Access Use End Date 2024-06-05 05:00:00 DIALYSIS TREATMENT INFORMATION Conventional Hemodialysis Date Type Treatment Start Date Treatment End Date Pre-Treatment Vitals Post-Treatment Vitals Weight Gain BFR DFR Actual UF Dialysis Access Augus t 2024 In-Ce nter Hemod ialys is Treat ment 2025-01-23 T09:17:38. 000Z 2025-01-23 T12:52:22. 000Z BP Sitting (Pre-Dialysis) 153/79 mmHg BP Sitting (Post-D ialysis ) 131/ 70 mmHg BP Standing (Pre-Dialysis) 136/66 mmHg Sitti ng Heart Rate Post-Dialysis 68 BPM Sitting Heart Rate Pre-Dialysis 72 BPM Temperatu re Post-Dialysis 97.4 degF Standing Heart Rate Pre-Dialysis 68 BPM Temperature Pre-Dialysis 97.3 degF January 21, 2025 In-Center Hemodialysis Treatment 4968-05-67H40:25:00.000Z 2253-28-20S91:23:52.000Z BP Sitting (Pre-Dialysis) 146/77 mmHg BP Sitting (Post-Dialysis) 107/63 mmHg Concurrent Access: falseAV Fistula Upper Arm (Left) Arterial BP Standing (Pre-Dialysis) 145/82 mmHg BP Standing (P ost-Dialysis) 114/60 mmHg Sitting Heart Rate Pre-Dialysis 71 BPM Sitting Heart Rate Post-Dialysis 65 BPM Standing Heart Rate Pre-Dialysis 70 BPM Standing Heart Rate Post-Dialysis 66 BPM Temperature Pre-Dialysis 98.2 degF Temperature Post -Dialysis 97.4 degF January 18, 2025 In-Center Hemodialysis Treatment 2233-46-74S23:41:08.000Z 6333-51-97I19:37:48.000Z BP Sitting (Pre-Dialysis) 101/60 mmHg BP Sitting (Post-Dialysis) 138/72 mmHg Concurrent Access: falseAV Fistula Upper Arm (Left) Arterial Sitting Heart Rate Pre-Dialysis 68 BPM BP Standing (Post-Dialysis) 115/52 mmHg Temperature Pre-Dialysis 98.2 degF Sitting Heart Ra te Post-Dialysis 66 BPM Standing Heart Rate Post-Eileen lysis 67 BPM Temperature Post-Dialysis 98 degF January 16, 2025 In-Center Hemodialysis Treatment 2466-26-81U13:09:55.000Z 8147-25-05W67:56:10.000Z BP Sitting (Pre-Dialysis) 149/74 mmHg BP Sitting (Post-Dialysis) 126/59 mmHg Concurrent Access: falseAV Fistula Upper Arm (Left) Arterial BP Standing (Pre-Dialysis) 145/81 mmHg BP Standing (P ost-Dialysis) 103/53 mmHg Sitting Heart Rate Pre-Dialysis 73 BPM Sitting Heart Rate Post-Dialysis 67 BPM Standing Heart Rate Pre-Dialysis 77 BPM Standing Heart Rate Post-Dialysis 67 BPM Temperature Pre-Dialysis 97.5 degF Temperature Post -Dialysis 98.1 degF January 14, 2025 In-Center Hemodialysis Treatment 6223-26-27O56:34:05.000Z 7302-93-17N82:16:20.000Z BP Sitting (Pre-Dialysis) 135/76 mmHg BP Sitting (Post-Dialysis) 133/97 mmHg Concurrent Access: falseAV Fistula Upper Arm (Left) Arterial BP Standing (Pre-Dialysis) 138/79 mmHg BP Standing (P ost-Dialysis) 116/56 mmHg Sitting Heart Rate Pre-Dialysis 72 BPM Sitting Heart Rate Post-Dialysis 65 BPM Standing Heart Rate Pre-Dialysis 72 BPM Standing Heart Rate Post-Dialysis 69 BPM Temperature Pre-Dialysis 97.5 degF Temperature Post -Dialysis 97.3 degF January 11, 2025 In-Center Hemodialysis Treatment 4966-40-27I20:49:29.000Z 8701-16-65F42:47:51.000Z BP Sitting (Pre-Dialysis) 139/73 mmHg BP Sitting (Post-Dialysis) 108/58 mmHg Concurrent Access: falseAV Fistula Upper Arm (Left) Arterial Sitting Heart Rate Pre-Dialysis 74 BPM BP Standing (Post-Dialysis) 105/51 mmHg Temperature Pre-Dialysis 98.2 degF Sitting Heart Ra te Post-Dialysis 70 BPM Standing Heart Rate Post-Eileen lysis 69 BPM Temperature Post-Dialysis 97 .6 degF January 09, 2025 In-Center Hemodialysis Treatment 2662-69-65I30:22:46.000Z 6164-04-83D69:17:15.000Z BP Sitting (Pre-Dialysis) 100/67 mmHg BP Sitting (Post-Dialysis) 128/65 mmHg Concurrent Access: falseAV Fistula Upper Arm (Left) Arterial BP Standing (Pre-Dialysis) 134/64 mmHg BP Standing (P ost-Dialysis) 119/59 mmHg Sitting Heart Rate Pre-Dialysis 80 BPM Sitting Heart Rate Post-Dialysis 68 BPM Standing Heart Rate Pre-Dialysis 71 BPM Standing Heart Rate Post-Dialysis 69 BPM Temperature Pre-Dialysis 97.2 degF Temperature Post -Dialysis 97.9 degF January 07, 2025 In-Center Hemodialysis Treatment 7769-75-33M53:33:35.000Z 2261-34-22G65:20:33.000Z BP Sitting (Pre-Dialysis) 140/72 mmHg BP Sitting (Post-Dialysis) 147/79 mmHg Concurrent Access: falseAV Fistula Upper Arm (Left) Arterial BP Standing (Pre-Dialysis) 140/76 mmHg Sitti ng Heart Rate Post-Dialysis 72 BPM Sitting Heart Rate Pre-Dialysis 74 BPM Temperatu re Post-Dialysis 97.9 degF Standing Heart Rate Pre-Dialysis 74 BPM Temperature Pre-Dialysis 97.3 degF January 04, 2025 In-Center Hemodialysis Treatment 4276-70-54M45:24:05.000Z 1045-52-59H08:10:06.000Z BP Sitting (Pre-Dialysis) 139/79 mmHg BP Sitting (Post-Dialysis) 128/67 mmHg Concurrent Access: falseAV Fistula Upper Arm (Left) Arterial Sitting Heart Rate Pre-Dialysis 67 BPM BP Standing (Post-Dialysis) 122/66 mmHg Temperature Pre-Dialysis 98.3 degF Sitting Heart Ra te Post-Dialysis 60 BPM Standing Heart Rate Post-Eileen lysis 72 BPM Temperature Post-Dialysis 97 .6 degF January 02, 2025 In-Center Hemodialysis Treatment 8191-07-66S58:22:44.000Z 6835-21-73I84:20:03.000Z BP Sitting (Pre-Dialysis) 146/72 mmHg BP Sitting (Post-Dialysis) 133/72 mmHg Concurrent Access: falseAV Fistula Upper Arm (Left) Arterial BP Standing (Pre-Dialysis) 147/78 mmHg Sitting Heart Rate Post-Dialysis 66 BPM Sitting Heart Rate Pre-Dialysis 77 BPM Standing Heart Rate Pre-Dialysis 77 BPM Temperature Pre-Dialysis 98.4 degF December 31, 2024 In-Center Hemodialysis Treatment 7121-12-84E10:16:12.000Z 5294-13-40K38:12:13.000Z BP Sitting (Pre-Dialysis) 97/82 mmHg BP Sitting (Post-Dialysis) 159/79 mmHg Concurrent Access: falseAV Fistula Upper Arm (Left) Arterial Sitting Heart Rate Pre-Dialysis 77 BPM Sitting H eart Rate Post-Dialysis 72 BPM Temperature Pre-Dialysis 98.2 degF December 28, 2024 In-Center Hemodialysis Treatment 0050-18-19R92:31:37.000Z 7863-83-04U42:21:18.000Z BP Sitting (Pre-Dialysis) 143/89 mmHg BP Sitting (Post-Dialysis) 143/82 mmHg Concurrent Access: falseAV Fistula Upper Arm (Left) Arterial Sitting Heart Rate Pre-Dialysis 69 BPM BP Standing (Post-Dialysis) 106/80 mmHg Temperature Pre-Dialysis 98.1 degF Sitting Heart Ra te Post-Dialysis 62 BPM Standing Heart Rate Post-Eileen lysis 67 BPM Temperature Post-Dialysis 98 .1 degF December 26, 2024 In-Center Hemodialysis Treatment 8179-93-85V63:15:00.000Z 2995-71-94Z10:05:35.000Z BP Sitting (Pre-Dialysis) 113/91 mmHg BP Sitting (Post-Dialysis) 129/61 mmHg Concurrent Access: falseAV Fistula Upper Arm (Left) Arterial BP Standing (Pre-Dialysis) 139/76 mmHg BP Standing (P ost-Dialysis) 140/64 mmHg Sitting Heart Rate Pre-Dialysis 72 BPM Sitting Heart Rate Post-Dialysis 69 BPM Standing Heart Rate Pre-Dialysis 73 BPM Standing Heart Rate Post-Dialysis 69 BPM Temperature Pre-Dialysis 97.4 degF Temperature Post -Dialysis 97.3 degF December 24, 2024 In-Center Hemodialysis Treatment 1377-40-87S08:16:38.000Z 4589-46-60P41:06:34.000Z BP Sitting (Pre-Dialysis) 135/70 mmHg BP Sitting (Post-Dialysis) 137/78 mmHg Concurrent Access: falseAV Fistula Upper Arm (Left) Arterial Sitting Heart Rate Pre-Dialysis 69 BPM BP Standing (Post-Dialysis) 126/63 mmHg Temperature Pre-Dialysis 97.9 degF Sitting Heart Ra te Post-Dialysis 62 BPM Standing Heart Rate Post-Eileen lysis 68 BPM Temperature Post-Dialysis 97 .3 degF December 21, 2024 In-Center Hemodialysis Treatment 7565-84-27N44:16:05.000Z 4901-80-90J47:10:11.000Z BP Sitting (Pre-Dialysis) 183/109 mmHg BP Sitting (Post-Dialysis) 176/89 mmHg Concurrent Access: falseAV Fistula Upper Arm (Left) Arterial BP Standing (Pre-Dialysis) 177/90 mmHg BP Standing (P ost-Dialysis) 153/79 mmHg Sitting Heart Rate Pre-Dialysis 80 BPM Sitting Heart Rate Post-Dialysis 74 BPM Standing Heart Rate Pre-Dialysis 80 BPM Standing Heart Rate Post-Dialysis 80 BPM Temperature Pre-Dialysis 97.4 degF Temperature Post -Dialysis 97.9 degF December 19, 2024 In-Center Hemodialysis Treatment 9885-09-22N46:40:32.000Z 5863-74-24F62:42:24.000Z BP Sitting (Pre-Dialysis) 151/84 mmHg BP Sitting (Post-Dialysis) 150/80 mmHg Concurrent Access: falseAV Fistula Upper Arm (Left) Arterial BP Standing (Pre-Dialysis) 161/79 mmHg BP Standing (P ost-Dialysis) 129/69 mmHg Sitting Heart Rate Pre-Dialysis 80 BPM Sitting Heart Rate Post-Dialysis 72 BPM Standing Heart Rate Pre-Dialysis 80 BPM Standing Heart Rate Post-Dialysis 72 BPM Temperature Pre-Dialysis 97.3 degF Temperature Post -Dialysis 98.4 degF December 17, 2024 In-Center Hemodialysis Treatment 8052-45-01J04:21:42.000Z 6031-69-99M27:32:21.000Z BP Sitting (Pre-Dialysis) 109/85 mmHg BP Sitting (Post-Dialysis) 129/65 mmHg Concurrent Access: falseAV Fistula Upper Arm (Left) Arterial Sitting Heart Rate Pre-Dialysis 88 BPM BP Standing (Post-Dialysis) 123/68 mmHg Temperature Pre-Dialysis 97.8 degF Sitting Heart Ra te Post-Dialysis 67 BPM Standing Heart Rate Post-Eileen lysis 68 BPM Temperature Post-Dialysis 98 .1 degF December 14, 2024 In-Center Hemodialysis Treatment 0411-83-82C40:05:55.000Z 3938-11-90F32:55:28.000Z BP Sitting (Pre-Dialysis) 187/86 mmHg BP Sitting (Post-Dialysis) 138/78 mmHg Concurrent Access: falseAV Fistula Upper Arm (Left) Arterial Sitting Heart Rate Pre-Dialysis 80 BPM BP Standing (Post-Dialysis) 118/84 mmHg Temperature Pre-Dialysis 98.1 degF Sitting Heart Ra te Post-Dialysis 60 BPM Standing Heart Rate Post-Eileen lysis 67 BPM Temperature Post-Dialysis 97 .9 degF December 12, 2024 In-Center Hemodialysis Treatment 2881-05-70J91:16:36.000Z 0986-57-09J70:09:43.000Z BP Sitting (Pre-Dialysis) 146/85 mmHg BP Sitting (Post-Dialysis) 140/74 mmHg Concurrent Access: falseAV Fistula Upper Arm (Left) Arterial BP Standing (Pre-Dialysis) 144/85 mmHg BP Standing (P ost-Dialysis) 120/66 mmHg Sitting Heart Rate Pre-Dialysis 62 BPM Sitting Heart Rate Post-Dialysis 65 BPM Standing Heart Rate Pre-Dialysis 66 BPM Standing Heart Rate Post-Dialysis 68 BPM Temperature Pre-Dialysis 97.4 degF Temperature Post -Dialysis 97.9 degF December 10, 2024 In-Center Hemodialysis Treatment 6822-66-17D52:19:28.000Z 0555-72-50Z72:08:16.000Z BP Sitting (Pre-Dialysis) 139/75 mmHg BP Sitting (Post-Dialysis) 140/78 mmHg Concurrent Access: falseAV Fistula Upper Arm (Left) Arterial BP Standing (Pre-Dialysis) 120/63 mmHg BP Standing (P ost-Dialysis) 145/90 mmHg Sitting Heart Rate Pre-Dialysis 67 BPM Sitting Heart Rate Post-Dialysis 65 BPM Standing Heart Rate Pre-Dialysis 66 BPM Standing Heart Rate Post-Dialysis 66 BPM Temperature Pre-Dialysis 97.9 degF Temperature Post -Dialysis 97.5 degF December 07, 2024 In-Center Hemodialysis Treatment 8597-51-17W05:19:52.000Z 8994-87-78L52:58:29.000Z BP Sitting (Pre-Dialysis) 124/69 mmHg BP Sitting (Post-Dialysis) 131/60 mmHg Concurrent Access: falseAV Fistula Upper Arm (Left) Arterial BP Standing (Pre-Dialysis) 130/72 mmHg BP Standing (P ost-Dialysis) 112/63 mmHg Sitting Heart Rate Pre-Dialysis 67 BPM Sitting Heart Rate Post-Dialysis 74 BPM Standing Heart Rate Pre-Dialysis 66 BPM Standing Heart Rate Post-Dialysis 68 BPM Temperature Pre-Dialysis 97.6 degF Temperature Post -Dialysis 97.5 degF December 05, 2024 In-Center Hemodialysis Treatment 6984-68-14Q89:28:01.000Z 9383-99-48S96:03:42.000Z BP Sitting (Pre-Dialysis) 129/67 mmHg BP Sitting (Post-Dialysis) 113/85 mmHg Concurrent Access: falseAV Fistula Upper Arm (Left) Arterial Sitting Heart Rate Pre-Dialysis 72 BPM Sitting H eart Rate Post-Dialysis 77 BPM Temperature Pre-Dialysis 98.1 degF December 03, 2024 In-Center Hemodialysis Treatment 0631-80-99M92:30:23.000Z 4841-96-81U90:21:16.000Z BP Sitting (Pre-Dialysis) 167/81 mmHg BP Sitting (Post-Dialysis) 155/73 mmHg Concurrent Access: falseAV Fistula Upper Arm (Left) Arterial Sitting Heart Rate Pre-Dialysis 80 BPM Sitting H eart Rate Post-Dialysis 72 BPM Temperature Pre-Dialysis 97.6 degF Temperature Post -Dialysis 97.9 degF November 30, 2024 In-Center Hemodialysis Treatment 3487-72-52M74:41:54.000Z 3734-74-37X60:22:14.000Z BP Sitting (Pre-Dialysis) 165/78 mmHg BP Sitting (Post-Dialysis) 147/80 mmHg Concurrent Access: falseAV Fistula Upper Arm (Left) Arterial BP Standing (Pre-Dialysis) 166/78 mmHg BP Standing (P ost-Dialysis) 101/56 mmHg Sitting Heart Rate Pre-Dialysis 80 BPM Sitting Heart Rate Post-Dialysis 69 BPM Standing Heart Rate Pre-Dialysis 80 BPM Standing Heart Rate Post-Dialysis 72 BPM Temperature Pre-Dialysis 97.4 degF Temperature Post -Dialysis 98.3 degF November 28, 2024 In-Center Hemodialysis Treatment 3597-20-86Z25:17:52.000Z 5772-20-59M97:12:06.000Z BP Sitting (Pre-Dialysis) 154/80 mmHg BP Sitting (Post-Dialysis) 153/77 mmHg Concurrent Access: falseAV Fistula Upper Arm (Left) Arterial BP Standing (Pre-Dialysis) 152/72 mmHg Sitti ng Heart Rate Post-Dialysis 70 BPM Sitting Heart Rate Pre-Dialysis 74 BPM Temperatu re Post-Dialysis 97.5 degF Standing Heart Rate Pre-Dialysis 77 BPM Temperature Pre-Dialysis 97.5 degF November 26, 2024 In-Center Hemodialysis Treatment 7155-65-08W97:24:22.000Z 9398-74-91V59:19:23.000Z BP Sitting (Pre-Dialysis) 142/75 mmHg BP Sitting (Post-Dialysis) 143/75 mmHg Concurrent Access: falseAV Fistula Upper Arm (Left) Arterial Sitting Heart Rate Pre-Dialysis 66 BPM Sitting H eart Rate Post-Dialysis 42 BPM Temperature Pre-Dialysis 98 degF Temperature Post -Dialysis 98.1 degF November 23, 2024 In-Center Hemodialysis Treatment 9634-47-63E10:32:02.000Z 0135-52-23U04:23:07.000Z BP Sitting (Pre-Dialysis) 146/74 mmHg BP Sitting (Post-Dialysis) 117/63 mmHg Concurrent Access: falseAV Fistula Upper Arm (Left) Arterial BP Standing (Pre-Dialysis) 117/83 mmHg Sitti ng Heart Rate Post-Dialysis 66 BPM Sitting Heart Rate Pre-Dialysis 69 BPM Temperatu re Post-Dialysis 97.9 degF Standing Heart Rate Pre-Dialysis 67 BPM Temperature Pre-Dialysis 97.9 degF November 21, 2024 In-Center Hemodialysis Treatment 1170-11-41H14:27:30.000Z 0855-15-91U50:18:12.000Z BP Sitting (Pre-Dialysis) 153/78 mmHg BP Sitting (Post-Dialysis) 107/62 mmHg Concurrent Access: falseAV Fistula Upper Arm (Left) Arterial BP Standing (Pre-Dialysis) 154/78 mmHg BP Standing (P ost-Dialysis) 125/61 mmHg Sitting Heart Rate Pre-Dialysis 68 BPM Sitting Heart Rate Post-Dialysis 67 BPM Standing Heart Rate Pre-Dialysis 67 BPM Standing Heart Rate Post-Dialysis 68 BPM Temperature Pre-Dialysis 98.2 degF Temperature Post -Dialysis 98.2 degF November 19, 2024 In-Center Hemodialysis Treatment 9622-20-21E41:16:20.000Z 9837-61-88M64:05:38.000Z BP Sitting (Pre-Dialysis) 133/70 mmHg BP Sitting (Post-Dialysis) 127/69 mmHg Concurrent Access: falseAV Fistula Upper Arm (Left) Arterial Sitting Heart Rate Pre-Dialysis 74 BPM BP Standing (Post-Dialysis) 109/53 mmHg Temperature Pre-Dialysis 98.1 degF Sitting Heart Ra te Post-Dialysis 71 BPM Standing Heart Rate Post-Eileen lysis 71 BPM Temperature Post-Dialysis 97 .9 degF November 16, 2024 In-Center Hemodialysis Treatment 6603-51-05Q93:39:15.000Z 2274-46-46Z60:23:05.000Z BP Sitting (Pre-Dialysis) 147/80 mmHg BP Sitting (Post-Dialysis) 114/62 mmHg Concurrent Access: falseAV Fistula Upper Arm (Left) Arterial Sitting Heart Rate Pre-Dialysis 68 BPM BP Standing (Post-Dialysis) 107/68 mmHg Temperature Pre-Dialysis 98.2 degF Sitting Heart Ra te Post-Dialysis 70 BPM Standing Heart Rate Post-Eileen lysis 74 BPM Temperature Post-Dialysis 97 .1 degF November 14, 2024 In-Center Hemodialysis Treatment 5408-72-73B41:41:00.000Z 6603-83-25B10:33:57.000Z BP Sitting (Pre-Dialysis) 194/140 mmHg BP Sitting (Post-Dialysis) 121/71 mmHg Concurrent Access: falseAV Fistula Upper Arm (Left) Arterial Sitting Heart Rate Pre-Dialysis 68 BPM Sitting H eart Rate Post-Dialysis 68 BPM Temperature Pre-Dialysis 98.2 degF Temperature Post -Dialysis 98.2 degF November 12, 2024 In-Center Hemodialysis Treatment 1906-86-59X64:31:43.000Z 8404-65-19B94:20:49.000Z BP Sitting (Pre-Dialysis) 158/85 mmHg BP Sitting (Post-Dialysis) 136/72 mmHg Concurrent Access: falseAV Fistula Upper Arm (Left) Arterial BP Standing (Pre-Dialysis) 164/76 mmHg BP Standing (P ost-Dialysis) 106/85 mmHg Sitting Heart Rate Pre-Dialysis 74 BPM Sitting Heart Rate Post-Dialysis 72 BPM Standing Heart Rate Pre-Dialysis 74 BPM Standing Heart Rate Post-Dialysis 73 BPM Temperature Pre-Dialysis 98.3 degF Temperature Post -Dialysis 97.9 degF November 09, 2024 In-Center Hemodialysis Treatment 8894-72-08R30:30:40.000Z 5957-26-89Q41:14:02.000Z BP Sitting (Pre-Dialysis) 131/77 mmHg BP Sitting (Post-Dialysis) 116/55 mmHg Concurrent Access: falseAV Fistula Upper Arm (Left) Arterial Sitting Heart Rate Pre-Dialysis 69 BPM BP Standing (Post-Dialysis) 105/53 mmHg Temperature Pre-Dialysis 98.1 degF Sitting Heart Ra te Post-Dialysis 68 BPM Standing Heart Rate Post-Eileen lysis 80 BPM Temperature Post-Dialysis 98 .1 degF November 07, 2024 In-Center Hemodialysis Treatment 2426-63-91L83:25:00.000Z 0459-45-43L65:11:22.000Z BP Sitting (Pre-Dialysis) 130/81 mmHg BP Sitting (Post-Dialysis) 130/66 mmHg Concurrent Access: falseAV Fistula Upper Arm (Left) Arterial BP Standing (Pre-Dialysis) 160/81 mmHg BP Standing (P ost-Dialysis) 114/58 mmHg Sitting Heart Rate Pre-Dialysis 69 BPM Sitting Heart Rate Post-Dialysis 68 BPM Standing Heart Rate Pre-Dialysis 70 BPM Standing Heart Rate Post-Dialysis 69 BPM Temperature Pre-Dialysis 98.3 degF Temperature Post -Dialysis 98.3 degF November 05, 2024 In-Center Hemodialysis Treatment 2344-09-68O19:29:04.000Z 1931-05-60G03:18:24.000Z BP Sitting (Pre-Dialysis) 126/89 mmHg BP Sitting (Post-Dialysis) 118/65 mmHg Concurrent Access: falseAV Fistula Upper Arm (Left) Arterial Sitting Heart Rate Pre-Dialysis 66 BPM BP Standing (Post-Dialysis) 105/58 mmHg Temperature Pre-Dialysis 98.1 degF Sitting Heart Ra te Post-Dialysis 60 BPM Standing Heart Rate Post-Eileen lysis 60 BPM Temperature Post-Dialysis 98 .1 degF November 02, 2024 In-Center Hemodialysis Treatment 9045-69-79P62:56:14.000Z 8889-40-93D49:45:34.000Z BP Sitting (Pre-Dialysis) 129/71 mmHg BP Sitting (Post-Dialysis) 118/59 mmHg Concurrent Access: falseAV Fistula Upper Arm (Left) Arterial Sitting Heart Rate Pre-Dialysis 74 BPM Sitting H eart Rate Post-Dialysis 62 BPM Temperature Pre-Dialysis 97.9 degF Temperature Post -Dialysis 97.9 degF October 31, 2024 In-Center Hemodialysis Treatment 6323-05-84W70:01:58.000Z 5881-28-85M82:37:20.000Z BP Sitting (Pre-Dialysis) 162/82 mmHg BP Sitting (Post-Dialysis) 129/70 mmHg Concurrent Access: falseAV Fistula Upper Arm (Left) Arterial BP Standing (Pre-Dialysis) 158/80 mmHg Sitti ng Heart Rate Post-Dialysis 68 BPM Sitting Heart Rate Pre-Dialysis 77 BPM Temperatu re Post-Dialysis 97.9 degF Standing Heart Rate Pre-Dialysis 70 BPM Temperature Pre-Dialysis 97.6 degF October 29, 2024 In-Center Hemodialysis Treatment 4358-57-45V18:20:29.000Z 5289-94-05F13:15:34.000Z BP Sitting (Pre-Dialysis) 165/83 mmHg BP Sitting (Post-Dialysis) 144/72 mmHg Concurrent Access: falseAV Fistula Upper Arm (Left) Arterial BP Standing (Pre-Dialysis) 166/89 mmHg Sitting Heart Rate Post-Dialysis 65 BPM Sitting Heart Rate Pre-Dialysis 74 BPM Standing Heart Rate Pre-Dialysis 73 BPM Temperature Pre-Dialysis 98.2 degF October 26, 2024 In-Center Hemodialysis Treatment 8462-88-81E90:29:21.000Z 7802-29-08A32:16:21.000Z BP Sitting (Pre-Dialysis) 130/70 mmHg BP Sitting (Post-Dialysis) 134/68 mmHg Concurrent Access: falseAV Fistula Upper Arm (Left) Arterial BP Standing (Pre-Dialysis) 127/64 mmHg BP Standing (P ost-Dialysis) 104/55 mmHg Sitting Heart Rate Pre-Dialysis 66 BPM Sitting Heart Rate Post-Dialysis 70 BPM Standing Heart Rate Pre-Dialysis 69 BPM Standing Heart Rate Post-Dialysis 68 BPM Temperature Pre-Dialysis 97.5 degF Temperature Post -Dialysis 97.6 degF October 24, 2024 In-Center Hemodialysis Treatment 7768-91-69C69:25:49.000Z 5278-78-24M84:14:46.000Z BP Sitting (Pre-Dialysis) 122/62 mmHg BP Sitting (Post-Dialysis) 144/87 mmHg Concurrent Access: falseAV Fistula Upper Arm (Left) Arterial BP Standing (Pre-Dialysis) 119/67 mmHg BP Standing (P ost-Dialysis) 130/67 mmHg Sitting Heart Rate Pre-Dialysis 71 BPM Sitting Heart Rate Post-Dialysis 70 BPM Standing Heart Rate Pre-Dialysis 71 BPM Standing Heart Rate Post-Dialysis 70 BPM Temperature Pre-Dialysis 97.3 degF Temperature Post -Dialysis 98.1 degF October 22, 2024 In-Center Hemodialysis Treatment 2395-39-32Q10:25:00.000Z 3636-40-21D06:46:20.000Z BP Sitting (Pre-Dialysis) 111/56 mmHg BP Sitting (Post-Dialysis) 105/62 mmHg Concurrent Access: falseAV Fistula Upper Arm (Left) Arterial BP Standing (Pre-Dialysis) 123/68 mmHg BP Standing (P ost-Dialysis) 110/57 mmHg Sitting Heart Rate Pre-Dialysis 77 BPM Sitting Heart Rate Post-Dialysis 77 BPM Standing Heart Rate Pre-Dialysis 80 BPM Standing Heart Rate Post-Dialysis 77 BPM Temperature Pre-Dialysis 97.6 degF Temperature Post -Dialysis 98.2 degF October 19, 2024 In-Center Hemodialysis Treatment 7880-57-25Z56:29:47.000Z 9637-46-04F27:54:30.000Z BP Sitting (Pre-Dialysis) 160/79 mmHg BP Sitting (Post-Dialysis) 123/72 mmHg Concurrent Access: falseAV Fistula Upper Arm (Left) Arterial BP Standing (Pre-Dialysis) 142/103 mmHg BP Standing (P ost-Dialysis) 109/55 mmHg Sitting Heart Rate Pre-Dialysis 80 BPM Sitting Heart Rate Post-Dialysis 80 BPM Standing Heart Rate Pre-Dialysis 80 BPM Standing Heart Rate Post-Dialysis 78 BPM Temperature Pre-Dialysis 98.3 degF Temperature Post -Dialysis 97.3 degF October 17, 2024 In-Center Hemodialysis Treatment 9714-47-35G73:23:48.000Z 9089-30-16X35:17:06.000Z BP Sitting (Pre-Dialysis) 163/109 mmHg BP Sitting (Post-Dialysis) 157/94 mmHg Concurrent Access: falseAV Fistula Upper Arm (Left) Arterial BP Standing (Pre-Dialysis) 146/71 mmHg BP Standing (P ost-Dialysis) 128/66 mmHg Sitting Heart Rate Pre-Dialysis 80 BPM Sitting Heart Rate Post-Dialysis 80 BPM Standing Heart Rate Pre-Dialysis 80 BPM Standing Heart Rate Post-Dialysis 80 BPM Temperature Pre-Dialysis 97.9 degF Temperature Post -Dialysis 98.5 degF October 15, 2024 In-Center Hemodialysis Treatment 5300-65-99F60:25:28.000Z 7121-85-21E45:13:23.000Z BP Sitting (Pre-Dialysis) 122/67 mmHg BP Sitting (Post-Dialysis) 108/90 mmHg Concurrent Access: falseAV Fistula Upper Arm (Left) Arterial Sitting Heart Rate Pre-Dialysis 67 BPM BP Standing (Post-Dialysis) 113/85 mmHg Temperature Pre-Dialysis 98.2 degF Sitting Heart Ra te Post-Dialysis 80 BPM Standing Heart Rate Post-Eileen lysis 80 BPM Temperature Post-Dialysis 98 .4 degF October 12, 2024 In-Center Hemodialysis Treatment [id number]:26:08.000Z 2553-22-32O12:09:43.000Z BP Sitting (Pre-Dialysis) 152/62 mmHg BP Sitting (Post-Dialysis) 116/72 mmHg Concurrent Access: falseAV Fistula Upper Arm (Left) Arterial Sitting Heart Rate Pre-Dialysis 71 BPM BP Standing (Post-Dialysis) 109/80 mmHg Temperature Pre-Dialysis 97.9 degF Sitting Heart Ra te Post-Dialysis 68 BPM Standing Heart Rate Post-Eileen lysis 69 BPM Temperature Post-Dialysis 97 .3 degF October 10, 2024 In-Center Hemodialysis Treatment [id number]:54:50.000Z 0312-23-79B79:40:12.000Z BP Sitting (Pre-Dialysis) 149/81 mmHg BP Sitting (Post-Dialysis) 103/40 mmHg Concurrent Access: falseAV Fistula Upper Arm (Left) Arterial BP Standing (Pre-Dialysis) 161/80 mmHg BP Standing (P ost-Dialysis) 106/55 mmHg Sitting Heart Rate Pre-Dialysis 80 BPM Sitting Heart Rate Post-Dialysis 80 BPM Standing Heart Rate Pre-Dialysis 80 BPM Standing Heart Rate Post-Dialysis 77 BPM Temperature Pre-Dialysis 97.5 degF Temperature Post -Dialysis 97.3 degF October 08, 2024 In-Center Hemodialysis Treatment 2870-09-59R39:19:49.000Z 3513-49-76L05:43:36.000Z BP Sitting (Pre-Dialysis) 148/79 mmHg BP Sitting (Post-Dialysis) 119/71 mmHg Concurrent Access: falseAV Fistula Upper Arm (Left) Arterial Sitting Heart Rate Pre-Dialysis 71 BPM BP Standing (Post-Dialysis) 123/71 mmHg Temperature Pre-Dialysis 97.9 degF Sitting Heart Ra te Post-Dialysis 67 BPM Standing Heart Rate Post-Eileen lysis 67 BPM Temperature Post-Dialysis 97 .9 degF October 05, 2024 In-Center Hemodialysis Treatment [id number]:41:57.000Z 6003-18-94A38:26:13.000Z BP Sitting (Pre-Dialysis) 112/60 mmHg BP Sitting (Post-Dialysis) 131/77 mmHg Concurrent Access: falseAV Fistula Upper Arm (Left) Arterial Sitting Heart Rate Pre-Dialysis 60 BPM BP Standi ng (Post-Dialysis) 106/57 mmHg Temperature Pre-Dialysis 98 degF Sitting Heart Ra te Post-Dialysis 61 BPM Standing Heart Rate Post-Eileen lysis 62 BPM Temperature Post-Dialysis 98 .1 degF October 03, 2024 In-Center Hemodialysis Treatment 7603-20-73W96:39:45.000Z 0160-87-49Z88:23:30.000Z BP Sitting (Pre-Dialysis) 130/73 mmHg BP Sitting (Post-Dialysis) 121/77 mmHg Concurrent Access: falseAV Fistula Upper Arm (Left) Arterial Sitting Heart Rate Pre-Dialysis 69 BPM BP Standing (Post-Dialysis) 100/62 mmHg Temperature Pre-Dialysis 98.1 degF Sitting Heart Ra te Post-Dialysis 69 BPM Standing Heart Rate Post-Eileen lysis 70 BPM Temperature Post-Dialysis 98 .1 degF October 01, 2024 In-Center Hemodialysis Treatment 4929-40-34V66:17:35.000Z 9115-71-48K90:07:20.000Z BP Sitting (Pre-Dialysis) 147/67 mmHg BP Sitting (Post-Dialysis) 122/68 mmHg Concurrent Access: falseAV Fistula Upper Arm (Left) Arterial BP Standing (Pre-Dialysis) 158/75 mmHg Sitti ng Heart Rate Post-Dialysis 73 BPM Sitting Heart Rate Pre-Dialysis 66 BPM Temperatu re Post-Dialysis 97.6 degF Standing Heart Rate Pre-Dialysis 66 BPM Temperature Pre-Dialysis 98.2 degF September 28, 2024 In-Center Hemodialysis Treatment 5113-69-09W86:25:13.000Z 8166-59-02K85:31:28.000Z BP Sitting (Pre-Dialysis) 113/58 mmHg Concurrent Access: falseAV Fistula Upper Arm (Left) Arterial BP Standing (Pre-Dialysis) 141/96 mmHg Sitting Heart Rate Pre-Dialysis 65 BPM Standing Heart Rate Pre-Dialysis 66 BPM Temperature Pre-Dialysis 97.6 degF September 26, 2024 In-Center Hemodialysis Treatment 4608-63-89N80:28:56.000Z 1003-80-48U44:22:42.000Z BP Sitting (Pre-Dialysis) 110/58 mmHg BP Sitting (Post-Dialysis) 116/53 mmHg Concurrent Access: falseAV Fistula Upper Arm (Left) Arterial Sitting Heart Rate Pre-Dialysis 65 BPM BP Standing (Post-Dialysis) 114/52 mmHg Temperature Pre-Dialysis 98.1 degF Sitting Heart Ra te Post-Dialysis 67 BPM Standing Heart Rate Post-Eileen lysis 71 BPM Temperature Post-Dialysis 97 .6 degF September 24, 2024 In-Center Hemodialysis Treatment 9312-04-45N07:57:58.000Z 5716-07-22N07:49:22.000Z BP Sitting (Pre-Dialysis) 121/60 mmHg BP Sitting (Post-Dialysis) 140/68 mmHg Concurrent Access: falseAV Fistula Upper Arm (Left) Arterial Sitting Heart Rate Pre-Dialysis 71 BPM Sitting H eart Rate Post-Dialysis 71 BPM Temperature Pre-Dialysis 97.6 degF Temperature Post -Dialysis 97.6 degF September 21, 2024 In-Center Hemodialysis Treatment [id number]:35:16.000Z 6302-54-80X32:28:46.000Z BP Sitting (Pre-Dialysis) 134/71 mmHg BP Sitting (Post-Dialysis) 127/69 mmHg Concurrent Access: falseAV Fistula Upper Arm (Left) Arterial Sitting Heart Rate Pre-Dialysis 74 BPM Sitting H eart Rate Post-Dialysis 71 BPM Temperature Pre-Dialysis 97.9 degF Temperature Post -Dialysis 97.8 degF September 19, 2024 In-Center Hemodialysis Treatment [id number]:09:00.000Z 6920-55-48O31:58:45.000Z BP Sitting (Pre-Dialysis) 158/76 mmHg BP Sitting (Post-Dialysis) 138/78 mmHg Concurrent Access: falseAV Fistula Upper Arm (Left) Arterial BP Standing (Pre-Dialysis) 168/76 mmHg BP Standing (P ost-Dialysis) 100/62 mmHg Sitting Heart Rate Pre-Dialysis 77 BPM Sitting Heart Rate Post-Dialysis 68 BPM Standing Heart Rate Pre-Dialysis 80 BPM Standing Heart Rate Post-Dialysis 70 BPM Temperature Pre-Dialysis 97.3 degF Temperature Post -Dialysis 97.1 degF September 17, 2024 In-Center Hemodialysis Treatment 9761-26-06Y22:55:18.000Z 6343-87-72X12:52:58.000Z BP Sitting (Pre-Dialysis) 109/58 mmHg BP Sitting (Post-Dialysis) 132/62 mmHg Concurrent Access: falseAV Fistula Upper Arm (Left) Arterial Sitting Heart Rate Pre-Dialysis 62 BPM BP Standing (Post-Dialysis) 100/54 mmHg Temperature Pre-Dialysis 98.1 degF Sitting Heart Ra te Post-Dialysis 68 BPM Standing Heart Rate Post-Eileen lysis 70 BPM Temperature Post-Dialysis 97 .2 degF September 14, 2024 In-Center Hemodialysis Treatment 1780-28-50U33:34:27.000Z 1252-88-86D19:23:13.000Z BP Sitting (Pre-Dialysis) 168/88 mmHg BP Sitting (Post-Dialysis) 145/88 mmHg Concurrent Access: falseAV Fistula Upper Arm (Left) Arterial BP Standing (Pre-Dialysis) 172/80 mmHg Sitti ng Heart Rate Post-Dialysis 80 BPM Sitting Heart Rate Pre-Dialysis 80 BPM Temperatu re Post-Dialysis 97.9 degF Standing Heart Rate Pre-Dialysis 80 BPM Temperature Pre-Dialysis 97.6 degF September 13, 2024 Sequential Treatment 7921-04-93I91:26:00.000Z 9621-11-56E51:30:43.000Z BP Sitting (Pre-Dialysis) 181/97 mmHg BP Sitting (Post-Dialysis) 128/92 mmHg Concurrent Access: falseAV Fistula Upper Arm (Left) Arterial BP Standing (Pre-Dialysis) 189/99 mmHg BP Standing (P ost-Dialysis) 139/68 mmHg Sitting Heart Rate Pre-Dialysis 80 BPM Sitting Heart Rate Post-Dialysis 73 BPM Standing Heart Rate Pre-Dialysis 80 BPM Standing Heart Rate Post-Dialysis 80 BPM Temperature Pre-Dialysis 98.3 degF Temperature Post -Dialysis 98.1 degF September 12, 2024 In-Center Hemodialysis Treatment 4448-54-52Z18:21:31.000Z 0038-92-44Q96:55:43.000Z BP Sitting (Pre-Dialysis) 141/88 mmHg BP Sitting (Post-Dialysis) 130/75 mmHg Concurrent Access: falseAV Fistula Upper Arm (Left) Arterial BP Standing (Pre-Dialysis) 162/89 mmHg BP Standing (P ost-Dialysis) 117/61 mmHg Sitting Heart Rate Pre-Dialysis 80 BPM Sitting Heart Rate Post-Dialysis 80 BPM Standing Heart Rate Pre-Dialysis 80 BPM Standing Heart Rate Post-Dialysis 80 BPM Temperature Pre-Dialysis 98.5 degF Temperature Post -Dialysis 98.4 degF September 10, 2024 In-Center Hemodialysis Treatment 7501-80-79K58:28:58.000Z 9050-23-31S35:17:01.000Z BP Sitting (Pre-Dialysis) 154/79 mmHg BP Sitting (Post-Dialysis) 108/55 mmHg Concurrent Access: falseAV Fistula Upper Arm (Left) Arterial BP Standing (Pre-Dialysis) 156/77 mmHg BP Standing (P ost-Dialysis) 117/82 mmHg Sitting Heart Rate Pre-Dialysis 80 BPM Sitting Heart Rate Post-Dialysis 73 BPM Standing Heart Rate Pre-Dialysis 80 BPM Standing Heart Rate Post-Dialysis 120 BPM Temperature Pre-Dialysis 97.9 degF Temperature Post -Dialysis 97.3 degF September 07, 2024 In-Center Hemodialysis Treatment 6462-29-63I72:46:49.000Z 6462-61-31L79:38:24.000Z BP Sitting (Pre-Dialysis) 174/85 mmHg BP Sitting (Post-Dialysis) 132/71 mmHg Concurrent Access: falseAV Fistula Upper Arm (Left) Arterial BP Standing (Pre-Dialysis) 169/84 mmHg Sitti ng Heart Rate Post-Dialysis 68 BPM Sitting Heart Rate Pre-Dialysis 71 BPM Temperatu re Post-Dialysis 97.8 degF Standing Heart Rate Pre-Dialysis 71 BPM Temperature Pre-Dialysis 97.5 degF September 05, 2024 In-Center Hemodialysis Treatment 2852-50-68Z23:41:35.000Z 1852-55-19A94:31:41.000Z BP Sitting (Pre-Dialysis) 130/64 mmHg BP Sitting (Post-Dialysis) 144/72 mmHg Concurrent Access: falseAV Fistula Upper Arm (Left) Arterial BP Standing (Pre-Dialysis) 123/66 mmHg Sitti ng Heart Rate Post-Dialysis 70 BPM Sitting Heart Rate Pre-Dialysis 69 BPM Temperatu re Post-Dialysis 97.6 degF Standing Heart Rate Pre-Dialysis 68 BPM Temperature Pre-Dialysis 97.6 degF September 03, 2024 In-Center Hemodialysis Treatment 2637-00-33O96:13:46.000Z 7163-97-38O39:59:53.000Z BP Sitting (Pre-Dialysis) 111/64 mmHg BP Sitting (Post-Dialysis) 112/56 mmHg Concurrent Access: falseAV Fistula Upper Arm (Left) Arterial Sitting Heart Rate Pre-Dialysis 69 BPM Sitting H eart Rate Post-Dialysis 70 BPM Temperature Pre-Dialysis 97.6 degF Temperature Post -Dialysis 97.6 degF August 31, 2024 In-Center Hemodialysis Treatment 6529-41-92K59:44:36.000Z 3878-68-05L75:33:42.000Z BP Sitting (Pre-Dialysis) 134/97 mmHg BP Sitting (Post-Dialysis) 122/63 mmHg Concurrent Access: falseAV Fistula Upper Arm (Left) Arterial Sitting Heart Rate Pre-Dialysis 98 BPM BP Standi ng (Post-Dialysis) 121/56 mmHg Temperature Pre-Dialysis 98 degF Sitting Heart Ra te Post-Dialysis 68 BPM Standing Heart Rate Post-Eileen lysis 68 BPM Temperature Post-Dialysis 97 .7 degF August 29, 2024 In-Center Hemodialysis Treatment 5107-43-75F30:24:45.000Z 2970-86-58Q06:19:16.000Z BP Sitting (Pre-Dialysis) 128/67 mmHg BP Sitting (Post-Dialysis) 134/69 mmHg Concurrent Access: falseAV Fistula Upper Arm (Left) Arterial BP Standing (Pre-Dialysis) 122/64 mmHg BP Standing (P ost-Dialysis) 107/64 mmHg Sitting Heart Rate Pre-Dialysis 62 BPM Sitting Heart Rate Post-Dialysis 60 BPM Standing Heart Rate Pre-Dialysis 60 BPM Standing Heart Rate Post-Dialysis 68 BPM Temperature Pre-Dialysis 97.9 degF Temperature Post -Dialysis 98.1 degF August 27, 2024 In-Center Hemodialysis Treatment 7788-24-20E94:48:00.000Z 0997-06-17J83:42:35.000Z BP Sitting (Pre-Dialysis) 115/54 mmHg BP Sitting (Post-Dialysis) 144/71 mmHg Concurrent Access: falseAV Fistula Upper Arm (Left) Arterial BP Standing (Pre-Dialysis) 100/76 mmHg Sitting Heart Rate Post-Dialysis 71 BPM Sitting Heart Rate Pre-Dialysis 67 BPM Temperatu re Post-Dialysis 98 degF Standing Heart Rate Pre-Dialysis 77 BPM Temperature Pre-Dialysis 97.3 degF August 24, 2024 In-Center Hemodialysis Treatment 5667-89-31K68:02:05.000Z 4088-94-46M60:57:47.000Z BP Sitting (Pre-Dialysis) 145/113 mmHg BP Sitting (Post-Dialysis) 97/56 mmHg Concurrent Access: falseAV Fistula Upper Arm (Left) Arterial Sitting Heart Rate Pre-Dialysis 80 BPM Sitting H eart Rate Post-Dialysis 72 BPM Temperature Pre-Dialysis 97.5 degF Temperature Post -Dialysis 97.8 degF August 22, 2024 In-Center Hemodialysis Treatment 7091-16-59P31:42:15.000Z 5579-21-36F66:12:40.000Z BP Sitting (Pre-Dialysis) 120/68 mmHg BP Sitting (Post-Dialysis) 129/80 mmHg Concurrent Access: falseAV Fistula Upper Arm (Left) Arterial BP Standing (Pre-Dialysis) 126/62 mmHg BP Standing (P ost-Dialysis) 111/59 mmHg Sitting Heart Rate Pre-Dialysis 70 BPM Sitting Heart Rate Post-Dialysis 80 BPM Standing Heart Rate Pre-Dialysis 72 BPM Standing Heart Rate Post-Dialysis 71 BPM Temperature Pre-Dialysis 97.3 degF Temperature Post -Dialysis 97.6 degF August 20, 2024 In-Center Hemodialysis Treatment 5434-97-38C72:25:00.000Z 1758-38-36E84:21:38.000Z BP Sitting (Pre-Dialysis) 149/81 mmHg BP Sitting (Post-Dialysis) 133/70 mmHg Concurrent Access: falseAV Fistula Upper Arm (Left) Arterial BP Standing (Pre-Dialysis) 139/87 mmHg BP Standing (P ost-Dialysis) 106/56 mmHg Sitting Heart Rate Pre-Dialysis 73 BPM Sitting Heart Rate Post-Dialysis 70 BPM Standing Heart Rate Pre-Dialysis 74 BPM Standing Heart Rate Post-Dialysis 71 BPM Temperature Pre-Dialysis 98 degF Temperature Post -Dialysis 97.3 degF August 17, 2024 In-Center Hemodialysis Treatment [id number]:34:14.000Z 4321-76-58C17:22:14.000Z BP Sitting (Pre-Dialysis) 143/74 mmHg BP Sitting (Post-Dialysis) 124/63 mmHg Concurrent Access: falseAV Fistula Upper Arm (Left) Arterial BP Standing (Pre-Dialysis) 144/67 mmHg BP Standing (P ost-Dialysis) 103/56 mmHg Sitting Heart Rate Pre-Dialysis 68 BPM Sitting Heart Rate Post-Dialysis 67 BPM Standing Heart Rate Pre-Dialysis 69 BPM Standing Heart Rate Post-Dialysis 70 BPM Temperature Pre-Dialysis 98 degF Temperature Post -Dialysis 97.5 degF August 15, 2024 In-Center Hemodialysis Treatment 3675-95-03R53:17:00.000Z 7021-41-10V76:07:07.000Z BP Sitting (Pre-Dialysis) 140/76 mmHg BP Sitting (Post-Dialysis) 108/55 mmHg Concurrent Access: falseAV Fistula Upper Arm (Left) Arterial BP Standing (Pre-Dialysis) 135/72 mmHg BP Standing (P ost-Dialysis) 120/88 mmHg Sitting Heart Rate Pre-Dialysis 77 BPM Sitting Heart Rate Post-Dialysis 66 BPM Standing Heart Rate Pre-Dialysis 80 BPM Standing Heart Rate Post-Dialysis 70 BPM Temperature Pre-Dialysis 97.6 degF Temperature Post -Dialysis 97.3 degF August 13, 2024 In-Center Hemodialysis Treatment 4020-11-07W80:37:29.000Z 4765-11-57N15:20:23.000Z BP Sitting (Pre-Dialysis) 125/65 mmHg BP Sitting (Post-Dialysis) 117/88 mmHg Concurrent Access: falseAV Fistula Upper Arm (Left) Arterial BP Standing (Pre-Dialysis) 141/75 mmHg Sitti ng Heart Rate Post-Dialysis 71 BPM Sitting Heart Rate Pre-Dialysis 81 BPM Temperatu re Post-Dialysis 97.6 degF Standing Heart Rate Pre-Dialysis 77 BPM Temperature Pre-Dialysis 97.6 degF August 10, 2024 In-Center Hemodialysis Treatment 9994-60-97G39:45:17.000Z 2117-93-79L34:31:02.000Z BP Sitting (Pre-Dialysis) 125/62 mmHg BP Sitting (Post-Dialysis) 123/54 mmHg Concurrent Access: falseAV Fistula Upper Arm (Left) Arterial BP Standing (Pre-Dialysis) 112/79 mmHg Sitti ng Heart Rate Post-Dialysis 66 BPM Sitting Heart Rate Pre-Dialysis 66 BPM Temperatu re Post-Dialysis 97.9 degF Standing Heart Rate Pre-Dialysis 68 BPM Temperature Pre-Dialysis 98.1 degF August 08, 2024 In-Center Hemodialysis Treatment 0054-46-89W41:31:50.000Z 6247-83-98G15:19:26.000Z BP Sitting (Pre-Dialysis) 128/56 mmHg BP Sitting (Post-Dialysis) 146/78 mmHg Concurrent Access: falseAV Fistula Upper Arm (Left) Arterial BP Standing (Pre-Dialysis) 118/61 mmHg Sitting Heart Rate Post-Dialysis 67 BPM Sitting Heart Rate Pre-Dialysis 73 BPM Temperatu re Post-Dialysis 98 degF Standing Heart Rate Pre-Dialysis 74 BPM Temperature Pre-Dialysis 97.3 degF August 03, 2024 In-Center Hemodialysis Treatment 3998-13-10Q22:29:05.000Z 2313-65-14D08:16:05.000Z BP Sitting (Pre-Dialysis) 111/70 mmHg BP Sitting (Post-Dialysis) 129/62 mmHg Concurrent Access: falseAV Fistula Upper Arm (Left) Arterial Sitting Heart Rate Pre-Dialysis 80 BPM BP Standing (Post-Dialysis) 129/60 mmHg Temperature Pre-Dialysis 97.4 degF Sitting Heart Ra te Post-Dialysis 72 BPM Standing Heart Rate Post-Eileen lysis 74 BPM Temperature Post-Dialysis 98 .1 degF August 01, 2024 In-Center Hemodialysis Treatment 1237-22-39H27:46:30.000Z 4177-69-11C32:37:46.000Z BP Sitting (Pre-Dialysis) 137/69 mmHg BP Sitting (Post-Dialysis) 126/70 mmHg Concurrent Access: falseAV Fistula Upper Arm (Left) Arterial BP Standing (Pre-Dialysis) 132/70 mmHg BP Standing (P ost-Dialysis) 110/67 mmHg Sitting Heart Rate Pre-Dialysis 73 BPM Sitting Heart Rate Post-Dialysis 66 BPM Standing Heart Rate Pre-Dialysis 74 BPM Standing Heart Rate Post-Dialysis 68 BPM Temperature Pre-Dialysis 97.3 degF Temperature Post -Dialysis 98.3 degF July 30, 2024 In-Center Hemodialysis Treatment 9584-96-96E60:24:31.000Z 2508-84-48W29:11:37.000Z BP Sitting (Pre-Dialysis) 130/68 mmHg BP Sitting (Post-Dialysis) 133/66 mmHg Concurrent Access: falseAV Fistula Upper Arm (Left) Arterial BP Standing (Pre-Dialysis) 139/74 mmHg BP Standing (P ost-Dialysis) 104/71 mmHg Sitting Heart Rate Pre-Dialysis 80 BPM Sitting Heart Rate Post-Dialysis 72 BPM Standing Heart Rate Pre-Dialysis 80 BPM Standing Heart Rate Post-Dialysis 74 BPM Temperature Pre-Dialysis 97.6 degF Temperature Post -Dialysis 97.3 degF July 27, 2024 In-Center Hemodialysis Treatment 5252-09-48O77:32:07.000Z 8696-04-40A75:20:17.000Z BP Sitting (Pre-Dialysis) 150/78 mmHg BP Sitting (Post-Dialysis) 122/98 mmHg Concurrent Access: falseAV Fistula Upper Arm (Left) Arterial BP Standing (Pre-Dialysis) 153/73 mmHg BP Standing (P ost-Dialysis) 106/55 mmHg Sitting Heart Rate Pre-Dialysis 77 BPM Sitting Heart Rate Post-Dialysis 80 BPM Standing Heart Rate Pre-Dialysis 77 BPM Standing Heart Rate Post-Dialysis 68 BPM Temperature Pre-Dialysis 97.9 degF Temperature Post -Dialysis 97.3 degF July 25, 2024 In-Center Hemodialysis Treatment 3385-85-06A90:26:55.000Z 4445-29-40R13:12:30.000Z BP Sitting (Pre-Dialysis) 139/79 mmHg BP Sitting (Post-Dialysis) 130/68 mmHg Concurrent Access: falseAV Fistula Upper Arm (Left) Arterial BP Standing (Pre-Dialysis) 146/74 mmHg Sitti ng Heart Rate Post-Dialysis 68 BPM Sitting Heart Rate Pre-Dialysis 68 BPM Temperatu re Post-Dialysis 97.3 degF Standing Heart Rate Pre-Dialysis 69 BPM Temperature Pre-Dialysis 98 degF July 23, 2024 In-Center Hemodialysis Treatment 1476-10-00D25:14:02.000Z 2302-02-60W75:09:02.000Z BP Sitting (Pre-Dialysis) 135/75 mmHg BP Sitting (Post-Dialysis) 145/75 mmHg Concurrent Access: falseAV Fistula Upper Arm (Left) Arterial BP Standing (Pre-Dialysis) 124/60 mmHg BP Standing (P ost-Dialysis) 111/55 mmHg Sitting Heart Rate Pre-Dialysis 70 BPM Sitting Heart Rate Post-Dialysis 71 BPM Standing Heart Rate Pre-Dialysis 74 BPM Standing Heart Rate Post-Dialysis 69 BPM Temperature Pre-Dialysis 98 degF Temperature Post -Dialysis 98.2 degF July 20, 2024 In-Center Hemodialysis Treatment 7917-20-58Q37:57:44.000Z 2139-97-90W99:44:27.000Z BP Sitting (Pre-Dialysis) 135/67 mmHg BP Sitting (Post-Dialysis) 134/83 mmHg Concurrent Access: falseAV Fistula Upper Arm (Left) Arterial BP Standing (Pre-Dialysis) 135/69 mmHg Sitti ng Heart Rate Post-Dialysis 69 BPM Sitting Heart Rate Pre-Dialysis 69 BPM Temperatu re Post-Dialysis 97.9 degF Standing Heart Rate Pre-Dialysis 71 BPM Temperature Pre-Dialysis 97.5 degF July 18, 2024 In-Center Hemodialysis Treatment 2573-28-98A56:20:00.000Z 3995-49-84S49:09:08.000Z BP Sitting (Pre-Dialysis) 143/73 mmHg BP Sitting (Post-Dialysis) 116/56 mmHg Concurrent Access: falseAV Fistula Upper Arm (Left) Arterial BP Standing (Pre-Dialysis) 136/74 mmHg Sitti ng Heart Rate Post-Dialysis 73 BPM Sitting Heart Rate Pre-Dialysis 72 BPM Temperatu re Post-Dialysis 97.6 degF Standing Heart Rate Pre-Dialysis 73 BPM Temperature Pre-Dialysis 98.2 degF July 16, 2024 In-Center Hemodialysis Treatment 3661-85-04B88:25:52.000Z 5993-82-20L28:12:59.000Z BP Sitting (Pre-Dialysis) 139/76 mmHg BP Sitting (Post-Dialysis) 135/73 mmHg Concurrent Access: falseAV Fistula Upper Arm (Left) Arterial BP Standing (Pre-Dialysis) 134/75 mmHg Sitti ng Heart Rate Post-Dialysis 70 BPM Sitting Heart Rate Pre-Dialysis 77 BPM Temperatu re Post-Dialysis 97.9 degF Standing Heart Rate Pre-Dialysis 80 BPM Temperature Pre-Dialysis 97.9 degF July 13, 2024 In-Center Hemodialysis Treatment 1498-59-84P81:33:00.000Z 5861-34-96G32:34:27.000Z BP Sitting (Pre-Dialysis) 126/65 mmHg BP Sitting (Post-Dialysis) 105/61 mmHg Concurrent Access: falseAV Fistula Upper Arm (Left) Arterial BP Standing (Pre-Dialysis) 122/62 mmHg Sitti ng Heart Rate Post-Dialysis 66 BPM Sitting Heart Rate Pre-Dialysis 68 BPM Temperatu re Post-Dialysis 97.3 degF Standing Heart Rate Pre-Dialysis 71 BPM Temperature Pre-Dialysis 98.4 degF July 11, 2024 In-Center Hemodialysis Treatment 4280-10-21N95:28:51.000Z 4768-63-79S85:16:51.000Z BP Sitting (Pre-Dialysis) 131/90 mmHg BP Sitting (Post-Dialysis) 115/66 mmHg Concurrent Access: falseAV Fistula Upper Arm (Left) Arterial BP Standing (Pre-Dialysis) 109/67 mmHg BP Standing (P ost-Dialysis) 103/52 mmHg Sitting Heart Rate Pre-Dialysis 80 BPM Sitting Heart Rate Post-Dialysis 68 BPM Standing Heart Rate Pre-Dialysis 80 BPM Standing Heart Rate Post-Dialysis 70 BPM Temperature Pre-Dialysis 98.1 degF Temperature Post -Dialysis 97.7 degF July 09, 2024 In-Center Hemodialysis Treatment 8436-48-92R95:36:00.000Z 1360-19-70F94:53:05.000Z BP Sitting (Pre-Dialysis) 111/66 mmHg BP Sitting (Post-Dialysis) 120/72 mmHg Concurrent Access: falseAV Fistula Upper Arm (Left) Arterial BP Standing (Pre-Dialysis) 106/61 mmHg Sitting Heart Rate Post-Dialysis 67 BPM Sitting Heart Rate Pre-Dialysis 68 BPM Temperatu re Post-Dialysis 98 degF Standing Heart Rate Pre-Dialysis 67 BPM Temperature Pre-Dialysis 98 degF July 06, 2024 In-Center Hemodialysis Treatment 0549-42-00M65:45:32.000Z 6773-41-98F88:33:33.000Z BP Sitting (Pre-Dialysis) 135/73 mmHg BP Sitting (Post-Dialysis) 123/66 mmHg Concurrent Access: falseAV Fistula Upper Arm (Left) Arterial BP Standing (Pre-Dialysis) 137/75 mmHg BP Standing (P ost-Dialysis) 115/54 mmHg Sitting Heart Rate Pre-Dialysis 68 BPM Sitting Heart Rate Post-Dialysis 68 BPM Standing Heart Rate Pre-Dialysis 69 BPM Standing Heart Rate Post-Dialysis 54 BPM Temperature Pre-Dialysis 98 degF Temperature Post -Dialysis 97.6 degF July 04, 2024 In-Center Hemodialysis Treatment 3439-68-25I00:38:36.000Z 5341-99-53B79:35:41.000Z BP Sitting (Pre-Dialysis) 123/63 mmHg BP Sitting (Post-Dialysis) 116/59 mmHg Concurrent Access: falseAV Fistula Upper Arm (Left) Arterial BP Standing (Pre-Dialysis) 130/95 mmHg BP Standing (P ost-Dialysis) 116/56 mmHg Sitting Heart Rate Pre-Dialysis 68 BPM Sitting Heart Rate Post-Dialysis 69 BPM Standing Heart Rate Pre-Dialysis 74 BPM Standing Heart Rate Post-Dialysis 68 BPM Temperature Pre-Dialysis 98 degF Temperature Post -Dialysis 97.9 degF July 02, 2024 In-Center Hemodialysis Treatment 8663-87-44Q86:28:40.000Z 4808-18-33Z64:21:56.000Z BP Sitting (Pre-Dialysis) 143/69 mmHg BP Sitting (Post-Dialysis) 122/72 mmHg Concurrent Access: falseAV Fistula Upper Arm (Left) Arterial BP Standing (Pre-Dialysis) 140/75 mmHg BP Standing (P ost-Dialysis) 122/89 mmHg Sitting Heart Rate Pre-Dialysis 80 BPM Sitting Heart Rate Post-Dialysis 73 BPM Standing Heart Rate Pre-Dialysis 80 BPM Standing Heart Rate Post-Dialysis 77 BPM Temperature Pre-Dialysis 97.6 degF Temperature Post -Dialysis 98.5 degF June 29, 2024 In-Center Hemodialysis Treatment [id number]:42:59.000Z 5277-04-31S44:44:39.000Z BP Sitting (Pre-Dialysis) 133/77 mmHg BP Sitting (Post-Dialysis) 131/68 mmHg Concurrent Access: falseAV Fistula Upper Arm (Left) Arterial Sitting Heart Rate Pre-Dialysis 73 BPM BP Standing (Post-Dialysis) 117/88 mmHg Temperature Pre-Dialysis 97.9 degF Sitting Heart Ra te Post-Dialysis 70 BPM Standing Heart Rate Post-Eileen lysis 67 BPM Temperature Post-Dialysis 98 degF June 27, 2024 In-Center Hemodialysis Treatment [id number]:35:01.000Z 7143-31-01P11:28:37.000Z BP Sitting (Pre-Dialysis) 145/82 mmHg BP Sitting (Post-Dialysis) 134/68 mmHg Concurrent Access: falseAV Fistula Upper Arm (Left) Arterial BP Standing (Pre-Dialysis) 142/68 mmHg BP Standing (P ost-Dialysis) 126/62 mmHg Sitting Heart Rate Pre-Dialysis 74 BPM Sitting Heart Rate Post-Dialysis 80 BPM Standing Heart Rate Pre-Dialysis 74 BPM Standing Heart Rate Post-Dialysis 80 BPM Temperature Pre-Dialysis 98 degF Temperature Post -Dialysis 97.8 degF June 25, 2024 In-Center Hemodialysis Treatment 7576-51-96W44:38:13.000Z 3521-57-06L73:15:37.000Z BP Sitting (Pre-Dialysis) 113/61 mmHg BP Sitting (Post-Dialysis) 113/70 mmHg Concurrent Access: falseAV Fistula Upper Arm (Left) Arterial BP Standing (Pre-Dialysis) 121/63 mmHg Sitting Heart Rate Post-Dialysis 74 BPM Sitting Heart Rate Pre-Dialysis 66 BPM Standing Heart Rate Pre-Dialysis 74 BPM Temperature Pre-Dialysis 97.3 degF June 22, 2024 In-Center Hemodialysis Treatment [id number]:47:59.000Z 3010-04-92C03:41:04.000Z BP Sitting (Pre-Dialysis) 130/73 mmHg BP Sitting (Post-Dialysis) 128/71 mmHg Concurrent Access: falseAV Fistula Upper Arm (Left) Arterial BP Standing (Pre-Dialysis) 130/74 mmHg BP Standing (P ost-Dialysis) 121/66 mmHg Sitting Heart Rate Pre-Dialysis 70 BPM Sitting Heart Rate Post-Dialysis 68 BPM Standing Heart Rate Pre-Dialysis 71 BPM Standing Heart Rate Post-Dialysis 73 BPM Temperature Pre-Dialysis 97.3 degF Temperature Post -Dialysis 97.4 degF June 20, 2024 In-Center Hemodialysis Treatment [id number]:37:54.000Z [id number]:35:29.000Z BP Sitting (Pre-Dialysis) 127/69 mmHg BP Sitting (Post-Dialysis) 119/77 mmHg Concurrent Access: falseAV Fistula Upper Arm (Left) Arterial BP Standing (Pre-Dialysis) 139/71 mmHg BP Standing (P ost-Dialysis) 104/66 mmHg Sitting Heart Rate Pre-Dialysis 80 BPM Sitting Heart Rate Post-Dialysis 69 BPM Standing Heart Rate Pre-Dialysis 80 BPM Standing Heart Rate Post-Dialysis 70 BPM Temperature Pre-Dialysis 97.3 degF Temperature Post -Dialysis 97.3 degF June 18, 2024 In-Center Hemodialysis Treatment [id number]:33:00.000Z 4488-53-66Q17:29:00.000Z BP Sitting (Pre-Dialysis) 126/74 mmHg BP Sitting (Post-Dialysis) 131/60 mmHg Concurrent Access: falseAV Fistula Upper Arm (Left) Arterial BP Standing (Pre-Dialysis) 134/65 mmHg BP Standing (P ost-Dialysis) 111/60 mmHg Sitting Heart Rate Pre-Dialysis 80 BPM Sitting Heart Rate Post-Dialysis 72 BPM Standing Heart Rate Pre-Dialysis 80 BPM Standing Heart Rate Post-Dialysis 72 BPM Temperature Pre-Dialysis 98.7 degF Temperature Post -Dialysis 97.9 degF June 15, 2024 In-Center Hemodialysis Treatment [id number]:50:33.000Z [id number]:42:43.000Z BP Sitting (Pre-Dialysis) 157/79 mmHg BP Sitting (Post-Dialysis) 153/84 mmHg Concurrent Access: falseAV Fistula Upper Arm (Left) Arterial BP Standing (Pre-Dialysis) 106/58 mmHg Sitti ng Heart Rate Post-Dialysis 80 BPM Sitting Heart Rate Pre-Dialysis 80 BPM Temperatu re Post-Dialysis 96.8 degF Standing Heart Rate Pre-Dialysis 65 BPM Temperature Pre-Dialysis 97.5 degF June 13, 2024 In-Center Hemodialysis Treatment [id number]:36:36.000Z 6899-64-59B36:31:53.000Z BP Sitting (Pre-Dialysis) 142/73 mmHg BP Sitting (Post-Dialysis) 118/57 mmHg Concurrent Access: falseAV Fistula Upper Arm (Left) Arterial BP Standing (Pre-Dialysis) 124/65 mmHg Sitti ng Heart Rate Post-Dialysis 68 BPM Sitting Heart Rate Pre-Dialysis 68 BPM Temperatu re Post-Dialysis 96.8 degF Standing Heart Rate Pre-Dialysis 70 BPM Temperature Pre-Dialysis 97.3 degF June 10, 2024 In-Center Hemodialysis Treatment 8524-02-02W86:37:15.000Z [id number]:27:06.000Z BP Sitting (Pre-Dialysis) 128/67 mmHg BP Sitting (Post-Dialysis) 122/95 mmHg Concurrent Access: falseAV Fistula Upper Arm (Left) Arterial BP Standing (Pre-Dialysis) 117/78 mmHg BP Standing (P ost-Dialysis) 116/54 mmHg Sitting Heart Rate Pre-Dialysis 70 BPM Sitting Heart Rate Post-Dialysis 77 BPM Standing Heart Rate Pre-Dialysis 71 BPM Standing Heart Rate Post-Dialysis 73 BPM Temperature Pre-Dialysis 97.3 degF Temperature Post -Dialysis 98.3 degF June 08, 2024 In-Center Hemodialysis Treatment [id number]:46:42.000Z [id number]:08:52.000Z BP Sitting (Pre-Dialysis) 155/77 mmHg BP Sitting (Post-Dialysis) 121/59 mmHg Concurrent Access: falseAV Fistula Upper Arm (Left) Arterial BP Standing (Pre-Dialysis) 140/71 mmHg Sitti ng Heart Rate Post-Dialysis 80 BPM Sitting Heart Rate Pre-Dialysis 80 BPM Temperatu re Post-Dialysis 97.3 degF Standing Heart Rate Pre-Dialysis 80 BPM Temperature Pre-Dialysis 97.9 degF June 06, 2024 In-Center Hemodialysis Treatment [id number]:34:14.000Z 4317-81-94J99:25:54.000Z BP Sitting (Pre-Dialysis) 134/75 mmHg BP Sitting (Post-Dialysis) 136/73 mmHg Concurrent Access: falseAV Fistula Upper Arm (Left) ArterialCentral Venous Catheter (CVC) Chest (Right) Venous BP Standing (Pre-Dialysis) 137/64 mmHg BP Standing (P ost-Dialysis) 135/75 mmHg Sitting Heart Rate Pre-Dialysis 80 BPM Sitting Heart Rate Post-Dialysis 80 BPM Standing Heart Rate Pre-Dialysis 77 BPM Standing Heart Rate Post-Dialysis 80 BPM Temperature Pre-Dialysis 97.6 degF Temperature Post -Dialysis 97.4 degF June 04, 2024 In-Center Hemodialysis Treatment [id number]:46:03.000Z 8410-35-06O40:36:54.000Z BP Sitting (Pre-Dialysis) 121/90 mmHg BP Sitting (Post-Dialysis) 137/75 mmHg Concurrent Access: falseAV Fistula Upper Arm (Left) ArterialCentral Venous Catheter (CVC) Chest (Right) Venous BP Standing (Pre-Dialysis) 153/86 mmHg BP Standing (P ost-Dialysis) 110/73 mmHg Sitting Heart Rate Pre-Dialysis 80 BPM Sitting Heart Rate Post-Dialysis 79 BPM Standing Heart Rate Pre-Dialysis 80 BPM Standing Heart Rate Post-Dialysis 80 BPM Temperature Pre-Dialysis 97.6 degF Temperature Post -Dialysis 97.6 degF June 01, 2024 In-Center Hemodialysis Treatment [id number]:37:03.000Z 8623-41-48T45:34:53.000Z BP Sitting (Pre-Dialysis) 136/65 mmHg BP Sitting (Post-Dialysis) 134/63 mmHg Concurrent Access: falseAV Fistula Upper Arm (Left) ArterialCentral Venous Catheter (CVC) Chest (Right) Venous BP Standing (Pre-Dialysis) 149/70 mmHg Sitti ng Heart Rate Post-Dialysis 80 BPM Sitting Heart Rate Pre-Dialysis 80 BPM Temperatu re Post-Dialysis 97.6 degF Standing Heart Rate Pre-Dialysis 80 BPM Temperature Pre-Dialysis 97.9 degF May 30, 2024 In-Center Hemodialysis Treatment [id number]:02:18.000Z [id number]:54:49.000Z BP Sitting (Pre-Dialysis) 125/65 mmHg BP Sitting (Post-Dialysis) 130/71 mmHg Concurrent Access: falseAV Fistula Upper Arm (Left) ArterialCentral Venous Catheter (CVC) Chest (Right) Venous BP Standing (Pre-Dialysis) 113/69 mmHg Sitti ng Heart Rate Post-Dialysis 68 BPM Sitting Heart Rate Pre-Dialysis 68 BPM Temperatu re Post-Dialysis 97.6 degF Standing Heart Rate Pre-Dialysis 71 BPM Temperature Pre-Dialysis 97.6 degF May 28, 2024 In-Center Hemodialysis Treatment [id number]:52:50.000Z 4628-06-13S63:51:24.000Z BP Sitting (Pre-Dialysis) 130/67 mmHg BP Sitting (Post-Dialysis) 140/67 mmHg Concurrent Access: falseAV Fistula Upper Arm (Left) ArterialCentral Venous Catheter (CVC) Chest (Right) Venous BP Standing (Pre-Dialysis) 132/67 mmHg Sitti ng Heart Rate Post-Dialysis 68 BPM Sitting Heart Rate Pre-Dialysis 71 BPM Temperatu re Post-Dialysis 98.5 degF Standing Heart Rate Pre-Dialysis 70 BPM Temperature Pre-Dialysis 97.9 degF May 25, 2024 In-Center Hemodialysis Treatment [id number]:54:14.000Z [id number]:39:09.000Z BP Sitting (Pre-Dialysis) 148/82 mmHg BP Sitting (Post-Dialysis) 167/88 mmHg Concurrent Access: trueAV Fistula Upper Arm (Left) ArterialCentral Venous Catheter (CVC) Chest (Right) Venous BP Standing (Pre-Dialysis) 147/76 mmHg Sitti ng Heart Rate Post-Dialysis 80 BPM Sitting Heart Rate Pre-Dialysis 80 BPM Temperatu re Post-Dialysis 97.3 degF Standing Heart Rate Pre-Dialysis 80 BPM Temperature Pre-Dialysis 97.9 degF May 23, 2024 In-Center Hemodialysis Treatment [id number]:47:54.000Z 3775-55-14Y04:43:42.000Z BP Sitting (Pre-Dialysis) 117/54 mmHg BP Sitting (Post-Dialysis) 115/66 mmHg Concurrent Access: trueAV Fistula Upper Arm (Left) ArterialCentral Venous Catheter (CVC) Chest (Right) Venous Sitting Heart Rate Pre-Dialysis 80 BPM BP Standi ng (Post-Dialysis) 105/58 mmHg Temperature Pre-Dialysis 98 degF Sitting Heart Ra te Post-Dialysis 73 BPM Standing Heart Rate Post-Eileen lysis 69 BPM Temperature Post-Dialysis 97 .5 degF May 21, 2024 In-Center Hemodialysis Treatment [id number]:45:39.000Z [id number]:33:15.000Z BP Sitting (Pre-Dialysis) 117/78 mmHg BP Sitting (Post-Dialysis) 117/90 mmHg Concurrent Access: trueAV Fistula Upper Arm (Left) ArterialCentral Venous Catheter (CVC) Chest (Right) Venous BP Standing (Pre-Dialysis) 135/66 mmHg BP Standing (P ost-Dialysis) 100/65 mmHg Sitting Heart Rate Pre-Dialysis 73 BPM Sitting Heart Rate Post-Dialysis 68 BPM Standing Heart Rate Pre-Dialysis 73 BPM Standing Heart Rate Post-Dialysis 68 BPM Temperature Pre-Dialysis 97.9 degF Temperature Post -Dialysis 98.3 degF May 18, 2024 In-Center Hemodialysis Treatment [id number]:19:31.000Z 3547-30-03P73:07:21.000Z BP Sitting (Pre-Dialysis) 130/68 mmHg BP Sitting (Post-Dialysis) 147/79 mmHg Concurrent Access: trueAV Fistula Upper Arm (Left) ArterialCentral Venous Catheter (CVC) Chest (Right) Venous BP Standing (Pre-Dialysis) 123/78 mmHg BP Standing (P ost-Dialysis) 142/75 mmHg Sitting Heart Rate Pre-Dialysis 65 BPM Sitting Heart Rate Post-Dialysis 69 BPM Standing Heart Rate Pre-Dialysis 62 BPM Standing Heart Rate Post-Dialysis 72 BPM Temperature Pre-Dialysis 98 degF Temperature Post -Dialysis 97.6 degF May 15, 2024 In-Center Hemodialysis Treatment [id number]:33:19.000Z [id number]:22:10.000Z BP Sitting (Pre-Dialysis) 134/72 mmHg BP Sitting (Post-Dialysis) 126/63 mmHg Concurrent Access: trueAV Fistula Upper Arm (Left) ArterialCentral Venous Catheter (CVC) Chest (Right) Venous BP Standing (Pre-Dialysis) 134/66 mmHg Sitti ng Heart Rate Post-Dialysis 71 BPM Sitting Heart Rate Pre-Dialysis 69 BPM Temperatu re Post-Dialysis 98.1 degF Standing Heart Rate Pre-Dialysis 69 BPM Temperature Pre-Dialysis 98 degF May 13, 2024 In-Center Hemodialysis Treatment [id number]:37:17.000Z 8699-65-49T35:12:57.000Z BP Sitting (Pre-Dialysis) 132/73 mmHg BP Sitting (Post-Dialysis) 147/68 mmHg Concurrent Access: trueAV Fistula Upper Arm (Left) ArterialAV Fistula Upper Arm (Left) Venous BP Standing (Pre-Dialysis) 131/68 mmHg BP Standing (P ost-Dialysis) 146/70 mmHg Sitting Heart Rate Pre-Dialysis 69 BPM Sitting Heart Rate Post-Dialysis 67 BPM Standing Heart Rate Pre-Dialysis 72 BPM Standing Heart Rate Post-Dialysis 71 BPM Temperature Pre-Dialysis 98.2 degF Temperature Post -Dialysis 97.6 degF May 11, 2024 In-Center Hemodialysis Treatment [id number]:59:29.000Z 6137-23-03O32:04:02.000Z BP Sitting (Pre-Dialysis) 161/85 mmHg BP Sitting (Post-Dialysis) 172/84 mmHg Concurrent Access: falseCentral Venous Catheter (CVC) Chest (Right) ArterialAV Fistula Upper Arm (Left) Venous Sitting Heart Rate Pre-Dialysis 72 BPM BP Standing (Post-Dialysis) 155/82 mmHg Temperature Pre-Dialysis 96.9 degF Sitting Heart Ra te Post-Dialysis 73 BPM Standing Heart Rate Post-Eileen lysis 74 BPM Temperature Post-Dialysis 97 .9 degF May 09, 2024 In-Center Hemodialysis Treatment [id number]:25:36.000Z 8282-50-52U15:17:11.000Z BP Sitting (Pre-Dialysis) 118/97 mmHg BP Sitting (Post-Dialysis) 148/88 mmHg Concurrent Access: falseCentral Venous Catheter (CVC) Chest (Right) ArterialAV Fistula Upper Arm (Left) Venous BP Standing (Pre-Dialysis) 157/84 mmHg Sitti ng Heart Rate Post-Dialysis 68 BPM Sitting Heart Rate Pre-Dialysis 95 BPM Temperatu re Post-Dialysis 97.3 degF Standing Heart Rate Pre-Dialysis 74 BPM Temperature Pre-Dialysis 97.3 degF May 07, 2024 In-Center Hemodialysis Treatment 4894-05-89O14:32:13.000Z 6006-15-43K13:04:36.000Z BP Sitting (Pre-Dialysis) 184/87 mmHg BP Sitting (Post-Dialysis) 178/95 mmHg Concurrent Access: falseCentral Venous Catheter (CVC) Chest (Right) ArterialAV Fistula Upper Arm (Left) Venous BP Standing (Pre-Dialysis) 189/85 mmHg BP Standing (P ost-Dialysis) 151/76 mmHg Sitting Heart Rate Pre-Dialysis 80 BPM Sitting Heart Rate Post-Dialysis 85 BPM Standing Heart Rate Pre-Dialysis 80 BPM Standing Heart Rate Post-Dialysis 80 BPM Temperature Pre-Dialysis 98.7 degF Temperature Post -Dialysis 97.9 degF May 04, 2024 In-Center Hemodialysis Treatment [id number]:45:05.000Z 4858-56-79K37:29:04.000Z BP Sitting (Pre-Dialysis) 154/80 mmHg BP Sitting (Post-Dialysis) 161/85 mmHg Concurrent Access: falseCentral Venous Catheter (CVC) Chest (Right) ArterialAV Fistula Upper Arm (Left) Venous Sitting Heart Rate Pre-Dialysis 72 BPM BP Standing (Post-Dialysis) 155/76 mmHg Temperature Pre-Dialysis 97.5 degF Sitting Heart Ra te Post-Dialysis 72 BPM Standing Heart Rate Post-Eileen lysis 71 BPM Temperature Post-Dialysis 98 .7 degF May 02, 2024 In-Center Hemodialysis Treatment [id number]:21:43.000Z 9468-60-53D07:21:05.000Z BP Sitting (Pre-Dialysis) 163/82 mmHg BP Sitting (Post-Dialysis) 163/80 mmHg Concurrent Access: falseCentral Venous Catheter (CVC) Chest (Right) ArterialAV Fistula Upper Arm (Left) Venous BP Standing (Pre-Dialysis) 160/87 mmHg Sitti ng Heart Rate Post-Dialysis 73 BPM Sitting Heart Rate Pre-Dialysis 80 BPM Temperatu re Post-Dialysis 97.6 degF Standing Heart Rate Pre-Dialysis 80 BPM Temperature Pre-Dialysis 97.9 degF April 30, 2024 In-Center Hemodialysis Treatment [id number]:41:22.000Z 2527-20-05T51:37:57.000Z BP Sitting (Pre-Dialysis) 153/82 mmHg BP Sitting (Post-Dialysis) 153/87 mmHg Concurrent Access: falseCentral Venous Catheter (CVC) Chest (Right) ArterialAV Fistula Upper Arm (Left) Venous BP Standing (Pre-Dialysis) 150/82 mmHg BP Standing (P ost-Dialysis) 138/80 mmHg Sitting Heart Rate Pre-Dialysis 69 BPM Sitting Heart Rate Post-Dialysis 69 BPM Standing Heart Rate Pre-Dialysis 70 BPM Standing Heart Rate Post-Dialysis 69 BPM Temperature Pre-Dialysis 97.3 degF Temperature Post -Dialysis 98.4 degF April 27, 2024 In-Center Hemodialysis Treatment 2066-68-83P62:45:16.000Z 6609-50-73L78:46:46.000Z BP Sitting (Pre-Dialysis) 180/94 mmHg BP Sitting (Post-Dialysis) 200/100 mmHg Concurrent Access: falseCentral Venous Catheter (CVC) Chest (Right) ArterialAV Fistula Upper Arm (Left) Venous BP Standing (Pre-Dialysis) 184/89 mmHg BP Standing (P ost-Dialysis) 176/79 mmHg Sitting Heart Rate Pre-Dialysis 77 BPM Sitting Heart Rate Post-Dialysis 71 BPM Standing Heart Rate Pre-Dialysis 77 BPM Standing Heart Rate Post-Dialysis 72 BPM Temperature Pre-Dialysis 97.3 degF Temperature Post -Dialysis 97.3 degF April 25, 2024 In-Center Hemodialysis Treatment [id number]:32:03.000Z 6489-23-04E22:22:07.000Z BP Sitting (Pre-Dialysis) 132/66 mmHg BP Sitting (Post-Dialysis) 158/82 mmHg Concurrent Access: falseCentral Venous Catheter (CVC) Chest (Right) ArterialAV Fistula Upper Arm (Left) Venous BP Standing (Pre-Dialysis) 155/79 mmHg BP Standing (P ost-Dialysis) 155/70 mmHg Sitting Heart Rate Pre-Dialysis 82 BPM Sitting Heart Rate Post-Dialysis 74 BPM Standing Heart Rate Pre-Dialysis 73 BPM Standing Heart Rate Post-Dialysis 72 BPM Temperature Pre-Dialysis 97.6 degF Temperature Post -Dialysis 97.9 degF April 23, 2024 In-Center Hemodialysis Treatment [id number]:47:23.000Z 2948-88-04T44:44:27.000Z BP Sitting (Pre-Dialysis) 152/73 mmHg BP Sitting (Post-Dialysis) 164/79 mmHg Concurrent Access: falseCentral Venous Catheter (CVC) Chest (Right) ArterialAV Fistula Upper Arm (Left) Venous BP Standing (Pre-Dialysis) 158/81 mmHg Sitti ng Heart Rate Post-Dialysis 69 BPM Sitting Heart Rate Pre-Dialysis 66 BPM Temperatu re Post-Dialysis 97.6 degF Standing Heart Rate Pre-Dialysis 67 BPM Temperature Pre-Dialysis 97.3 degF April 20, 2024 In-Center Hemodialysis Treatment [id number]:47:51.000Z 4948-40-65T46:44:22.000Z BP Sitting (Pre-Dialysis) 122/82 mmHg BP Sitting (Post-Dialysis) 175/87 mmHg Concurrent Access: falseCentral Venous Catheter (CVC) Chest (Right) ArterialAV Fistula Upper Arm (Left) Venous Sitting Heart Rate Pre-Dialysis 80 BPM BP Standing (Post-Dialysis) 165/89 mmHg Temperature Pre-Dialysis 98.7 degF Sitting Heart Ra te Post-Dialysis 66 BPM Standing Heart Rate Post-Eileen lysis 69 BPM Temperature Post-Dialysis 97 .6 degF April 18, 2024 In-Center Hemodialysis Treatment [id number]:28:52.000Z 8045-85-84P41:24:52.000Z BP Sitting (Pre-Dialysis) 149/80 mmHg BP Sitting (Post-Dialysis) 158/82 mmHg Concurrent Access: falseCentral Venous Catheter (CVC) Chest (Right) ArterialAV Fistula Upper Arm (Left) Venous BP Standing (Pre-Dialysis) 144/76 mmHg BP Standing (P ost-Dialysis) 156/78 mmHg Sitting Heart Rate Pre-Dialysis 74 BPM Sitting Heart Rate Post-Dialysis 72 BPM Standing Heart Rate Pre-Dialysis 73 BPM Standing Heart Rate Post-Dialysis 74 BPM Temperature Pre-Dialysis 97.3 degF Temperature Post -Dialysis 97.6 degF April 16, 2024 In-Center Hemodialysis Treatment [id number]:28:47.000Z 2987-48-92Y75:02:53.000Z BP Sitting (Pre-Dialysis) 154/78 mmHg BP Sitting (Post-Dialysis) 168/88 mmHg Concurrent Access: falseCentral Venous Catheter (CVC) Chest (Right) ArterialAV Fistula Upper Arm (Left) Venous BP Standing (Pre-Dialysis) 155/81 mmHg BP Standing (P ost-Dialysis) 156/79 mmHg Sitting Heart Rate Pre-Dialysis 65 BPM Sitting Heart Rate Post-Dialysis 80 BPM Standing Heart Rate Pre-Dialysis 67 BPM Standing Heart Rate Post-Dialysis 68 BPM Temperature Pre-Dialysis 98.2 degF Temperature Post -Dialysis 97.8 degF April 13, 2024 In-Center Hemodialysis Treatment 1954-14-64U87:53:03.000Z 4251-26-14F92:03:44.000Z BP Sitting (Pre-Dialysis) 119/81 mmHg BP Sitting (Post-Dialysis) 165/92 mmHg Concurrent Access: falseCentral Venous Catheter (CVC) Chest (Right) ArterialAV Fistula Upper Arm (Left) Venous BP Standing (Pre-Dialysis) 126/99 mmHg Sitti ng Heart Rate Post-Dialysis 77 BPM Sitting Heart Rate Pre-Dialysis 68 BPM Temperatu re Post-Dialysis 97.6 degF Standing Heart Rate Pre-Dialysis 80 BPM Temperature Pre-Dialysis 97.6 degF April 11, 2024 In-Center Hemodialysis Treatment 3436-49-09M18:31:41.000Z 8788-86-35L83:08:27.000Z BP Sitting (Pre-Dialysis) 145/78 mmHg BP Sitting (Post-Dialysis) 128/73 mmHg Concurrent Access: falseCentral Venous Catheter (CVC) Chest (Right) ArterialAV Fistula Upper Arm (Left) Venous Sitting Heart Rate Pre-Dialysis 73 BPM BP Standing (Post-Dialysis) 139/69 mmHg Temperature Pre-Dialysis 97.1 degF Sitting Heart Ra te Post-Dialysis 71 BPM Standing Heart Rate Post-Eileen lysis 73 BPM Temperature Post-Dialysis 97 .4 degF April 09, 2024 In-Center Hemodialysis Treatment 2550-03-49H97:17:02.000Z 9411-95-44Y49:05:17.000Z BP Sitting (Pre-Dialysis) 110/60 mmHg BP Sitting (Post-Dialysis) 111/50 mmHg Concurrent Access: falseCentral Venous Catheter (CVC) Chest (Right) ArterialAV Fistula Upper Arm (Left) Venous BP Standing (Pre-Dialysis) 111/62 mmHg BP Standing (P ost-Dialysis) 100/53 mmHg Sitting Heart Rate Pre-Dialysis 70 BPM Sitting Heart Rate Post-Dialysis 68 BPM Standing Heart Rate Pre-Dialysis 71 BPM Standing Heart Rate Post-Dialysis 71 BPM Temperature Pre-Dialysis 97.6 degF Temperature Post -Dialysis 97.6 degF April 06, 2024 In-Center Hemodialysis Treatment [id number]:39:47.000Z 0883-70-28O21:34:00.000Z BP Sitting (Pre-Dialysis) 167/83 mmHg BP Sitting (Post-Dialysis) 151/73 mmHg Concurrent Access: falseCentral Venous Catheter (CVC) Chest (Right) ArterialAV Fistula Upper Arm (Left) Venous BP Standing (Pre-Dialysis) 139/92 mmHg BP Standing (P ost-Dialysis) 159/77 mmHg Sitting Heart Rate Pre-Dialysis 71 BPM Sitting Heart Rate Post-Dialysis 69 BPM Standing Heart Rate Pre-Dialysis 70 BPM Standing Heart Rate Post-Dialysis 80 BPM Temperature Pre-Dialysis 97.6 degF Temperature Post -Dialysis 97.6 degF April 04, 2024 In-Center Hemodialysis Treatment 9590-47-82G71:42:58.000Z 6248-23-79K26:29:58.000Z BP Sitting (Pre-Dialysis) 152/80 mmHg BP Sitting (Post-Dialysis) 167/87 mmHg Concurrent Access: falseCentral Venous Catheter (CVC) Chest (Right) ArterialAV Fistula Upper Arm (Left) Venous Sitting Heart Rate Pre-Dialysis 73 BPM BP Standing (Post-Dialysis) 158/83 mmHg Temperature Pre-Dialysis 98.1 degF Sitting Heart Ra te Post-Dialysis 68 BPM Standing Heart Rate Post-Eileen lysis 72 BPM Temperature Post-Dialysis 97 .8 degF April 02, 2024 Additional Day Of Dialysis Treatment [id number]:41:01.000Z [id number]:32:42.000Z BP Sitting (Pre-Dialysis) 157/82 mmHg BP Sitting (Post-Dialysis) 147/85 mmHg Concurrent Access: falseCentral Venous Catheter (CVC) Chest (Right) ArterialAV Fistula Upper Arm (Left) Venous BP Standing (Pre-Dialysis) 139/79 mmHg Sitti ng Heart Rate Post-Dialysis 68 BPM Sitting Heart Rate Pre-Dialysis 73 BPM Temperatu re Post-Dialysis 98.2 degF Standing Heart Rate Pre-Dialysis 74 BPM Temperature Pre-Dialysis 97.6 degF April 01, 2024 In-Center Hemodialysis Treatment [id number]:03:30.000Z 8980-28-95C15:56:00.000Z BP Sitting (Pre-Dialysis) 154/83 mmHg BP Sitting (Post-Dialysis) 158/75 mmHg Concurrent Access: falseCentral Venous Catheter (CVC) Chest (Right) ArterialAV Fistula Upper Arm (Left) Venous BP Standing (Pre-Dialysis) 148/81 mmHg BP Standing (P ost-Dialysis) 159/79 mmHg Sitting Heart Rate Pre-Dialysis 73 BPM Sitting Heart Rate Post-Dialysis 72 BPM Standing Heart Rate Pre-Dialysis 77 BPM Standing Heart Rate Post-Dialysis 77 BPM Temperature Pre-Dialysis 97.5 degF Temperature Post -Dialysis 98.3 degF March 28, 2024 In-Center Hemodialysis Treatment 6605-60-11Y52:59:08.000Z 2700-20-34Y16:56:34.000Z BP Sitting (Pre-Dialysis) 140/75 mmHg BP Sitting (Post-Dialysis) 160/78 mmHg Concurrent Access: falseCentral Venous Catheter (CVC) Chest (Right) ArterialAV Fistula Upper Arm (Left) Venous BP Standing (Pre-Dialysis) 146/87 mmHg BP Standing (P ost-Dialysis) 149/64 mmHg Sitting Heart Rate Pre-Dialysis 69 BPM Sitting Heart Rate Post-Dialysis 72 BPM Standing Heart Rate Pre-Dialysis 69 BPM Standing Heart Rate Post-Dialysis 71 BPM Temperature Pre-Dialysis 97.5 degF Temperature Post -Dialysis 97.9 degF March 27, 2024 In-Center Hemodialysis Treatment 8622-43-14L20:59:36.000Z 1635-79-41Q03:57:44.000Z BP Sitting (Pre-Dialysis) 134/71 mmHg BP Sitting (Post-Dialysis) 139/69 mmHg Concurrent Access: falseCentral Venous Catheter (CVC) Chest (Right) ArterialAV Fistula Upper Arm (Left) Venous BP Standing (Pre-Dialysis) 140/66 mmHg Sitti ng Heart Rate Post-Dialysis 71 BPM Sitting Heart Rate Pre-Dialysis 73 BPM Temperatu re Post-Dialysis 97.9 degF Standing Heart Rate Pre-Dialysis 74 BPM Temperature Pre-Dialysis 97.6 degF March 26, 2024 In-Center Hemodialysis Treatment 9012-97-07W77:55:23.000Z 1132-06-17K83:00:08.000Z BP Sitting (Pre-Dialysis) 110/88 mmHg BP Sitting (Post-Dialysis) 143/77 mmHg Concurrent Access: falseCentral Venous Catheter (CVC) Chest (Right) ArterialAV Fistula Upper Arm (Left) Venous BP Standing (Pre-Dialysis) 161/85 mmHg BP Standing (P ost-Dialysis) 135/74 mmHg Sitting Heart Rate Pre-Dialysis 87 BPM Sitting Heart Rate Post-Dialysis 77 BPM Standing Heart Rate Pre-Dialysis 87 BPM Standing Heart Rate Post-Dialysis 80 BPM Temperature Pre-Dialysis 97.9 degF Temperature Post -Dialysis 97.5 degF March 23, 2024 In-Center Hemodialysis Treatment [id number]:29:56.000Z 5054-77-85S01:22:56.000Z BP Sitting (Pre-Dialysis) 137/87 mmHg BP Sitting (Post-Dialysis) 141/68 mmHg Concurrent Access: falseCentral Venous Catheter (CVC) Chest (Right) ArterialAV Fistula Upper Arm (Left) Venous Sitting Heart Rate Pre-Dialysis 69 BPM Sitting H eart Rate Post-Dialysis 70 BPM Temperature Pre-Dialysis 97.8 degF Temperature Post -Dialysis 97.6 degF March 21, 2024 In-Center Hemodialysis Treatment [id number]:24:06.000Z 3561-31-74Y24:24:39.000Z BP Sitting (Pre-Dialysis) 155/81 mmHg BP Sitting (Post-Dialysis) 125/74 mmHg Concurrent Access: falseCentral Venous Catheter (CVC) Chest (Right) ArterialAV Fistula Upper Arm (Left) Venous BP Standing (Pre-Dialysis) 126/68 mmHg BP Standing (P ost-Dialysis) 151/74 mmHg Sitting Heart Rate Pre-Dialysis 73 BPM Sitting Heart Rate Post-Dialysis 75 BPM Standing Heart Rate Pre-Dialysis 74 BPM Standing Heart Rate Post-Dialysis 71 BPM Temperature Pre-Dialysis 97.6 degF Temperature Post -Dialysis 98 degF March 19, 2024 In-Center Hemodialysis Treatment 9550-20-23V23:55:00.000Z 7063-64-88Q23:34:57.000Z BP Sitting (Pre-Dialysis) 155/81 mmHg BP Sitting (Post-Dialysis) 150/77 mmHg Concurrent Access: falseCentral Venous Catheter (CVC) Chest (Right) ArterialAV Fistula Upper Arm (Left) Venous Sitting Heart Rate Pre-Dialysis 69 BPM BP Standi ng (Post-Dialysis) 151/78 mmHg Temperature Pre-Dialysis 98 degF Sitting Heart Ra te Post-Dialysis 75 BPM Standing Heart Rate Post-Eileen lysis 75 BPM Temperature Post-Dialysis 98 degF March 16, 2024 In-Center Hemodialysis Treatment [id number]:06:45.000Z [id number]:42:20.000Z BP Sitting (Pre-Dialysis) 144/74 mmHg BP Sitting (Post-Dialysis) 167/85 mmHg Concurrent Access: falseCentral Venous Catheter (CVC) Chest (Right) ArterialAV Fistula Upper Arm (Left) Venous Sitting Heart Rate Pre-Dialysis 73 BPM BP Standing (Post-Dialysis) 167/81 mmHg Temperature Pre-Dialysis 98.1 degF Sitting Heart Ra te Post-Dialysis 73 BPM Standing Heart Rate Post-Eileen lysis 73 BPM Temperature Post-Dialysis 98 degF March 14, 2024 In-Center Hemodialysis Treatment 0533-26-70L69:45:07.000Z 1623-59-41I01:27:36.000Z BP Sitting (Pre-Dialysis) 178/89 mmHg BP Sitting (Post-Dialysis) 164/90 mmHg Concurrent Access: falseCentral Venous Catheter (CVC) Chest (Right) ArterialAV Fistula Upper Arm (Left) Venous BP Standing (Pre-Dialysis) 172/89 mmHg BP Standing (P ost-Dialysis) 171/67 mmHg Sitting Heart Rate Pre-Dialysis 71 BPM Sitting Heart Rate Post-Dialysis 70 BPM Standing Heart Rate Pre-Dialysis 72 BPM Standing Heart Rate Post-Dialysis 70 BPM Temperature Pre-Dialysis 98.3 degF Temperature Post -Dialysis 98.3 degF March 12, 2024 In-Center Hemodialysis Treatment [id number]:08.000Z [id number]:38:24.000Z BP Sitting (Pre-Dialysis) 150/66 mmHg BP Sitting (Post-Dialysis) 166/82 mmHg Concurrent Access: falseCentral Venous Catheter (CVC) Chest (Right) ArterialAV Fistula Upper Arm (Left) Venous BP Standing (Pre-Dialysis) 137/75 mmHg BP Standing (P ost-Dialysis) 164/86 mmHg Sitting Heart Rate Pre-Dialysis 68 BPM Sitting Heart Rate Post-Dialysis 69 BPM Standing Heart Rate Pre-Dialysis 67 BPM Standing Heart Rate Post-Dialysis 71 BPM Temperature Pre-Dialysis 98.2 degF Temperature Post -Dialysis 97.9 degF March 09, 2024 In-Center Hemodialysis Treatment [id number]:59.000Z BP Sitting (Pre-Dialysis) 155/74 mmHg BP Sitting (Post-Dialysis) 164/86 mmHg Concurrent Access: falseCentral Venous Catheter (CVC) Chest (Right) ArterialAV Fistula Upper Arm (Left) Venous BP Standing (Pre-Dialysis) 154/84 mmHg BP Standing (P ost-Dialysis) 141/74 mmHg Sitting Heart Rate Pre-Dialysis 70 BPM Sitting Heart Rate Post-Dialysis 68 BPM Standing Heart Rate Pre-Dialysis 70 BPM Standing Heart Rate Post-Dialysis 69 BPM Temperature Pre-Dialysis 97.6 degF Temperature Post -Dialysis 97.9 degF March 07, 2024 In-Center Hemodialysis Treatment [id number]:15.000Z [id number]:43:24.000Z BP Sitting (Pre-Dialysis) 158/90 mmHg BP Sitting (Post-Dialysis) 123/98 mmHg Concurrent Access: falseCentral Venous Catheter (CVC) Chest (Right) ArterialAV Fistula Upper Arm (Left) Venous BP Standing (Pre-Dialysis) 147/75 mmHg Sitti ng Heart Rate Post-Dialysis 77 BPM Sitting Heart Rate Pre-Dialysis 80 BPM Temperatu re Post-Dialysis 98.3 degF Standing Heart Rate Pre-Dialysis 80 BPM Temperature Pre-Dialysis 98.3 degF March 05, 2024 In-Center Hemodialysis Treatment [id number]:41.000Z [id number]:31:07.000Z BP Sitting (Pre-Dialysis) 165/68 mmHg BP Sitting (Post-Dialysis) 166/87 mmHg Concurrent Access: falseCentral Venous Catheter (CVC) Chest (Right) ArterialAV Fistula Upper Arm (Left) Venous BP Standing (Pre-Dialysis) 175/86 mmHg BP Standing (P ost-Dialysis) 155/75 mmHg Sitting Heart Rate Pre-Dialysis 86 BPM Sitting Heart Rate Post-Dialysis 80 BPM Standing Heart Rate Pre-Dialysis 86 BPM Standing Heart Rate Post-Dialysis 80 BPM Temperature Pre-Dialysis 98.3 degF Temperature Post -Dialysis 98.8 degF March 02, 2024 In-Center Hemodialysis Treatment [id number]:56:34.000Z [id number]:45:00.000Z BP Sitting (Pre-Dialysis) 144/77 mmHg BP Sitting (Post-Dialysis) 163/82 mmHg Concurrent Access: falseCentral Venous Catheter (CVC) Chest (Right) ArterialAV Fistula Upper Arm (Left) Venous Sitting Heart Rate Pre-Dialysis 80 BPM BP Standing (Post-Dialysis) 131/71 mmHg Temperature Pre-Dialysis 98.3 degF Sitting Heart Ra te Post-Dialysis 77 BPM Standing Heart Rate Post-Eileen lysis 77 BPM Temperature Post-Dialysis 97 .5 degF February 29, 2024 In-Center Hemodialysis Treatment [id number]:03:46.000Z [id number]:45:30.000Z BP Sitting (Pre-Dialysis) 155/84 mmHg BP Sitting (Post-Dialysis) 151/85 mmHg Concurrent Access: falseCentral Venous Catheter (CVC) Chest (Right) ArterialAV Fistula Upper Arm (Left) Venous Sitting Heart Rate Pre-Dialysis 80 BPM BP Standi ng (Post-Dialysis) 171/89 mmHg Temperature Pre-Dialysis 98 degF Sitting Heart Ra te Post-Dialysis 77 BPM Standing Heart Rate Post-Eileen lysis 85 BPM Temperature Post-Dialysis 98 .1 degF February 27, 2024 In-Center Hemodialysis Treatment [id number]:56:00.000Z [id number]:34:08.000Z BP Sitting (Pre-Dialysis) 154/77 mmHg BP Sitting (Post-Dialysis) 160/82 mmHg Concurrent Access: falseCentral Venous Catheter (CVC) Chest (Right) ArterialAV Fistula Upper Arm (Left) Venous BP Standing (Pre-Dialysis) 148/88 mmHg Sitti ng Heart Rate Post-Dialysis 80 BPM Sitting Heart Rate Pre-Dialysis 80 BPM Temperatu re Post-Dialysis 98.3 degF Standing Heart Rate Pre-Dialysis 80 BPM Temperature Pre-Dialysis 98.6 degF February 24, 2024 In-Center Hemodialysis Treatment [id number]:44:00.000Z [id number]:13:37.000Z BP Sitting (Pre-Dialysis) 157/90 mmHg BP Sitting (Post-Dialysis) 164/81 mmHg Concurrent Access: falseCentral Venous Catheter (CVC) Chest (Right) ArterialAV Fistula Upper Arm (Left) Venous Sitting Heart Rate Pre-Dialysis 80 BPM BP Standing (Post-Dialysis) 157/70 mmHg Temperature Pre-Dialysis 97.5 degF Sitting Heart Ra te Post-Dialysis 80 BPM Standing Heart Rate Post-Eileen lysis 81 BPM Temperature Post-Dialysis 97 .1 degF February 22, 2024 In-Center Hemodialysis Treatment [id number]:37:00.000Z [id number]:28:28.000Z BP Sitting (Pre-Dialysis) 167/88 mmHg BP Sitting (Post-Dialysis) 169/82 mmHg Concurrent Access: falseCentral Venous Catheter (CVC) Chest (Right) ArterialAV Fistula Upper Arm (Left) Venous BP Standing (Pre-Dialysis) 154/91 mmHg BP Standing (P ost-Dialysis) 172/89 mmHg Sitting Heart Rate Pre-Dialysis 74 BPM Sitting Heart Rate Post-Dialysis 80 BPM Standing Heart Rate Pre-Dialysis 80 BPM Standing Heart Rate Post-Dialysis 80 BPM Temperature Pre-Dialysis 97.7 degF Temperature Post -Dialysis 97.6 degF February 20, 2024 In-Center Hemodialysis Treatment [id number]:42.000Z [id number]:16:09.000Z BP Sitting (Pre-Dialysis) 172/90 mmHg BP Sitting (Post-Dialysis) 131/74 mmHg Concurrent Access: falseCentral Venous Catheter (CVC) Chest (Right) ArterialAV Fistula Upper Arm (Left) Venous Sitting Heart Rate Pre-Dialysis 80 BPM BP Standing (Post-Dialysis) 118/64 mmHg Temperature Pre-Dialysis 97.7 degF Sitting Heart Ra te Post-Dialysis 72 BPM Standing Heart Rate Post-Eileen lysis 85 BPM Temperature Post-Dialysis 97 .5 degF February 17, 2024 In-Center Hemodialysis Treatment [id number]:44:00.000Z [id number]:16:52.000Z BP Sitting (Pre-Dialysis) 175/89 mmHg BP Sitting (Post-Dialysis) 177/99 mmHg Concurrent Access: falseCentral Venous Catheter (CVC) Chest (Right) ArterialAV Fistula Upper Arm (Left) Venous BP Standing (Pre-Dialysis) 174/88 mmHg Sitti ng Heart Rate Post-Dialysis 80 BPM Sitting Heart Rate Pre-Dialysis 80 BPM Temperatu re Post-Dialysis 97.6 degF Standing Heart Rate Pre-Dialysis 85 BPM Temperature Pre-Dialysis 97.5 degF February 15, 2024 In-Center Hemodialysis Treatment [id number]:21:36.000Z [id number]:04:11.000Z BP Sitting (Pre-Dialysis) 155/65 mmHg BP Sitting (Post-Dialysis) 133/65 mmHg Concurrent Access: falseCentral Venous Catheter (CVC) Chest (Right) ArterialAV Fistula Upper Arm (Left) Venous BP Standing (Pre-Dialysis) 100/83 mmHg Sitti ng Heart Rate Post-Dialysis 72 BPM Sitting Heart Rate Pre-Dialysis 77 BPM Temperatu re Post-Dialysis 97.6 degF Standing Heart Rate Pre-Dialysis 77 BPM Temperature Pre-Dialysis 98.2 degF DIALYSIS ORDER Dialysis Procedure Orders Type of Dialysis Procedure Order Order Date/Time Observations In-Center Hemodialysis Treatment January 22, 2025 Target Weight 115.5 kg Dialysate Flow Rate 800 mL/min Blood Flow Rate 450 mL/min Treatment Time 225 min(total) Max UF Rate 13 mL/kg/hr Base Sodium Dialysate Base Sodium 138 mE q/L dialysate_temp 37 C BiCarb Dialysate BiCarbonate 35 meq/L Access Concurrent No Arterial Access AV Fistula (Upper Ar m (Left)) Venous Access AV Fistula (Upper Ar m (Left)) Arterial Needle Display NIPRO, TULIP, 15 G x 1 , SHARP , TWIN Venous Needle NIPRO, TULIP, 15G x 1 , SHARP , TWIN Dialyzer [employer] Optiflux F 180NR 1218 [email or web address] Dialysate Bath Potassium Potassium 3 mEq /L Dialysate Bath Calcium Calcium 2.5 mEq/L In-Center Hemodialysis TreatmentJuly 2024 Observation Value Target Weight 113.5 kg Dialysate Flow Rate 800 mL/min Blood Flow Rate 450 mL/min Treatment Time 225 min(total) Max UF Rate 13 mL/kg/hr Base Sodium Dialysate Base Sodium 138 mE q/L dialysate_temp 37 C BiCarb Dialysate BiCarbonate 35 meq/L Access Concurrent No Arterial Access AV Fistula (Upper Ar m (Left)) Venous Access AV Fistula (Upper Ar m (Left)) Arterial Needle Display NIPRO, TULIP, 15 G x 1 , SHARP , TWIN Venous Needle NIPRO, TULIP, 15G x 1 , SHARP , TWIN Dialyzer [employer] Optiflux F 180NR 1218 [email or web address] Dialysate Bath Potassium Potassium 2 mEq /L Dialysate Bath Calcium Calcium 2.5 mEq/L In-Center Hemodialysis TreatmentMay 2024 Observation Value Target Weight 112.5 kg Dialysate Flow Rate 800 mL/min Blood Flow Rate 450 mL/min Treatment Time 225 min(total) Max UF Rate 13 mL/kg/hr Base Sodium Dialysate Base Sodium 138 mE q/L dialysate_temp 37 C BiCarb Dialysate BiCarbonate 35 meq/L Access Concurrent No Arterial Access AV Fistula (Upper Ar m (Left)) Venous Access AV Fistula (Upper Ar m (Left)) Arterial Needle Display NIPRO, TULIP, 15 G x 1 , SHARP , TWIN Venous Needle NIPRO, TULIP, 15G x 1 , SHARP , TWIN Dialyzer [employer] Optiflux F 180NR 1218 [email or web address] Dialysate Bath Potassium Potassium 3 mEq /L Dialysate Bath Calcium Calcium 2.5 mEq/L Results Adequacy Description Draw Date Result/Unit Status Ref Range Result Comments stdKT/V Total 2025-01-22 23:39:19 N/A F spKt/V 2025-01-22 23:39:19 1.13 F WEIGHT - POST DAY 1 2025-01-22 23:39:19 114.4 kg F VT (KT/V TX VOL) 2025-01-22 23:39:19 62.1 L F PRESCRIBED DAYS/WEEK 2025-01-22 23:39:19 3 Day/Wk F AMPUTATE FACTOR 2025-01-22 23:39:19 0 F eKt/V 2025-01-22 23:39:19 0.98 F Total Kt/V 2025-01-22 23:39:19 1.13 F Dialyzer JEFE 2025-01-22 23:39:19 1218 Calc F WEIGHT (KG) 2025-01-22 23:39:19 115.5 kg F BSA RICK 2025-01-22 23:39:19 2.34 sq m F HEIGHT IN INCHES 2025-01-22 23:39:19 71 Inches F Std Renal KT/V 2025-01-22 23:39:19 N/A F DIALYZER FLOW-QD 2025-01-22 23:39:19 792 mL/min F stdKt/V (DIAL) 2025-01-22 23:39:19 N/A F TBW (Sifuentes) 2025-01-22 23:39:19 54.85 Liters F VM (KT/V MEAN VOL) 2025-01-22 23:39:19 56.2 F WEIGHT - PRE DAY 1 2025-01-22 23:39:19 117.4 kg F CURRENT KRU 2025-01-22 23:39:19 F TOTAL HOURS/WEEK DIALYSIS 2025-01-22 23:39:19 11 hrs F BLOOD FLOW-QWB 2025-01-22 23:39:19 450 F LENGTH OF DIALYSIS 2025-01-22 23:39:19 225 min F Residual kt/v 2025-01-22 23:39:19 F PATIENT AGE 2025-01-22 23:39:19 55 Years F nPCR 2025-01-22 23:39:19 0.72 G/KG/D F KT/V PRESCRIBED 2025-01-22 23:39:19 1.53 F URR% 2025-01-22 23:39:19 63 % F Urea nitrogen [Mass/volume] in Serum or Plasma 2025-01-22 23:37:16 48 mg/dL F 9.0-23.0 Urea nitrogen [Mass/volume] in Serum or Plasma --post dialysis 2025-01-22 14:23:23 18 mg/dL F 9.0-23.0 URR% 2025-01-03 20:48:04 66 % F DIALYZER FLOW-QD 2025-01-03 20:48:04 811 mL/min F Dialyzer JEFE 2025-01-03 20:48:04 1218 Calc F PATIENT AGE 2025-01-03 20:48:04 54 Years F LENGTH OF DIALYSIS 2025-01-03 20:48:04 238 min F BSA RICK 2025-01-03 20:48:04 2.32 sq m F WEIGHT - POST DAY 1 2025-01-03 20:48:04 114.9 kg F HEIGHT IN INCHES 2025-01-03 20:48:04 71 Inches F WEIGHT - PRE DAY 1 2025-01-03 20:48:04 118.9 kg F WEIGHT (KG) 2025-01-03 20:48:04 113.5 kg F PRESCRIBED DAYS/WEEK 2025-01-03 20:48:04 3 Day/Wk F VM (KT/V MEAN VOL) 2025-01-03 20:48:04 54.2 F VT (KT/V TX VOL) 2025-01-03 20:48:04 56 L F KT/V PRESCRIBED 2025-01-03 20:48:04 1.64 F Residual kt/v 2025-01-03 20:48:04 F Total Kt/V 2025-01-03 20:48:04 1.29 F nPCR 2025-01-03 20:48:04 0.71 G/KG/D F AMPUTATE FACTOR 2025-01-03 20:48:04 0 F TBW (Sfiuentes) 2025-01-03 20:48:04 55.12 Liters F spKt/V 2025-01-03 20:48:04 1.29 F stdKt/V (DIAL) 2025-01-03 20:48:04 N/A F eKt/V 2025-01-03 20:48:04 1.12 F Std Renal KT/V 2025-01-03 20:48:04 N/A F stdKT/V Total 2025-01-03 20:48:04 N/A F TOTAL HOURS/WEEK DIALYSIS 2025-01-03 20:48:04 11 hrs F CURRENT KRU 2025-01-03 20:48:04 F BLOOD FLOW-QWB 2025-01-03 20:48:04 427 F Urea nitrogen [Mass/volume] in Serum or Plasma 2025-01-03 20:46:17 35 mg/dL F 9.0-23.0 Urea nitrogen [Mass/volume] in Serum or Plasma --post dialysis 2025-01-03 20:45:19 12 mg/dL F 9.0-23.0 URR% 2025-01-01 22:21:46 64 % F DIALYZER FLOW-QD 2025-01-01 22:21:46 807 mL/min F Dialyzer JEFE 2025-01-01 22:21:46 1218 Calc F LENGTH OF DIALYSIS 2025-01-01 22:21:46 227 min F PATIENT AGE 2025-01-01 22:21:46 54 Years F BSA RICK 2025-01-01 22:21:46 2.32 sq m F WEIGHT - POST DAY 1 2025-01-01 22:21:46 116.3 kg F HEIGHT IN INCHES 2025-01-01 22:21:46 71 Inches F WEIGHT - PRE DAY 1 2025-01-01 22:21:46 118.9 kg F WEIGHT (KG) 2025-01-01 22:21:46 113.5 kg F PRESCRIBED DAYS/WEEK 2025-01-01 22:21:46 3 Day/Wk F VT (KT/V TX VOL) 2025-01-01 22:21:46 57.9 L F Residual kt/v 2025-01-01 22:21:46 F Unable to calculate: Post BUN lab result is unknown VM (KT/V MEAN VOL) 2025-01-01 22:21:46 53.6 F KT/V PRESCRIBED 2025-01-01 22:21:46 1.56 F Total Kt/V 2025-01-01 22:21:46 1.17 F nPCR 2025-01-01 22:21:46 0.62 G/KG/D F AMPUTATE FACTOR 2025-01-01 22:21:46 0 F TBW (Sifuentes) 2025-01-01 22:21:46 55.59 Liters F eKt/V 2025-01-01 22:21:46 1.02 F spKt/V 2025-01-01 22:21:46 1.17 F stdKt/V (DIAL) 2025-01-01 22:21:46 N/A F stdKT/V Total 2025-01-01 22:21:46 N/A F TOTAL HOURS/WEEK DIALYSIS 2025-01-01 22:21:46 11 hrs F Std Renal KT/V 2025-01-01 22:21:46 N/A F BLOOD FLOW-QWB 2025-01-01 22:21:46 413 F CURRENT KRU 2025-01-01 22:21:46 F Unable to calculate: Post BUN lab result is unknown Urea nitrogen [Mass/volume] in Serum or Plasma --post dialysis 2025-01-01 22:20:11 14 mg/dL F 9.0-23.0 Urea nitrogen [Mass/volume] in Serum or Plasma 2025-01-01 18:37:23 39 mg/dL F 9.0-23.0 Creatinine [Mass/volume] in Serum or Plasma 2025-01-01 18:37:23 4.87 mg/dL F 0.7-1.3 AMPUTATE FACTOR 2024-12-31 17:56:31 0 F PATIENT AGE 2024-12-31 17:56:31 54 Years F WEIGHT (KG) 2024-12-31 17:56:31 113.5 kg F HEIGHT IN INCHES 2024-12-31 17:56:31 71 Inches F Creatinine [Mass/volume] in Serum or Plasma 2024-11-28 02:43:27 4.76 mg/dL F 0.7-1.3 Creatinine [Mass/volume] in Serum or Plasma 2024-11-28 02:43:27 4.76 mg/dL F 0.7-1.3 URR% 2024-11-22 18:47:31 68 % F DIALYZER FLOW-QD 2024-11-22 18:47:31 808 mL/min F LENGTH OF DIALYSIS 2024-11-22 18:47:31 231 min F Dialyzer JEFE 2024-11-22 18:47:31 1218 Calc F PATIENT AGE 2024-11-22 18:47:31 54 Years F BSA RICK 2024-11-22 18:47:31 2.32 sq m F WEIGHT - PRE DAY 1 2024-11-22 18:47:31 116.4 kg F WEIGHT - POST DAY 1 2024-11-22 18:47:31 112.7 kg F HEIGHT IN INCHES 2024-11-22 18:47:31 71 Inches F WEIGHT (KG) 2024-11-22 18:47:31 113 kg F PRESCRIBED DAYS/WEEK 2024-11-22 18:47:31 3 Day/Wk F VT (KT/V TX VOL) 2024-11-22 18:47:31 50.9 L F VM (KT/V MEAN VOL) 2024-11-22 18:47:31 52.2 F KT/V PRESCRIBED 2024-11-22 18:47:31 1.59 F Residual kt/v 2024-11-22 18:47:31 F Unable to calculate: Pre BUN lab result is unknown nPCR 2024-11-22 18:47:31 0.81 G/KG/D F Total Kt/V 2024-11-22 18:47:31 1.36 F AMPUTATE FACTOR 2024-11-22 18:47:31 0 F TBW (Sifuentes) 2024-11-22 18:47:31 54.38 Liters F spKt/V 2024-11-22 18:47:31 1.36 F eKt/V 2024-11-22 18:47:31 1.17 F stdKt/V (DIAL) 2024-11-22 18:47:31 N/A F Std Renal KT/V 2024-11-22 18:47:31 N/A F stdKT/V Total 2024-11-22 18:47:31 N/A F TOTAL HOURS/WEEK DIALYSIS 2024-11-22 18:47:31 11 hrs F BLOOD FLOW-QWB 2024-11-22 18:47:31 412 F CURRENT KRU 2024-11-22 18:47:31 F Unable to calculate: Pre BUN lab result is unknown AMPUTATE FACTOR 2024-11-22 18:47:31 0 F BLOOD FLOW-QWB 2024-11-22 18:47:31 412 F TOTAL HOURS/WEEK DIALYSIS 2024-11-22 18:47:31 11 hrs F PATIENT AGE 2024-11-22 18:47:31 54 Years F stdKt/V (DIAL) 2024-11-22 18:47:31 N/A F LENGTH OF DIALYSIS 2024-11-22 18:47:31 231 min F CURRENT KRU 2024-11-22 18:47:31 F Unable to calculate: Pre BUN lab result is unknown PRESCRIBED DAYS/WEEK 2024-11-22 18:47:31 3 Day/Wk F Total Kt/V 2024-11-22 18:47:31 1.36 F Residual kt/v 2024-11-22 18:47:31 F Unable to calculate: Pre BUN lab result is unknown Std Renal KT/V 2024-11-22 18:47:31 N/A F stdKT/V Total 2024-11-22 18:47:31 N/A F VM (KT/V MEAN VOL) 2024-11-22 18:47:31 52.2 F TBW (Sifuentes) 2024-11-22 18:47:31 54.38 Liters F Dialyzer JEFE 2024-11-22 18:47:31 1218 Calc F WEIGHT - POST DAY 1 2024-11-22 18:47:31 112.7 kg F eKt/V 2024-11-22 18:47:31 1.17 F spKt/V 2024-11-22 18:47:31 1.36 F nPCR 2024-11-22 18:47:31 0.81 G/KG/D F VT (KT/V TX VOL) 2024-11-22 18:47:31 50.9 L F WEIGHT (KG) 2024-11-22 18:47:31 113 kg F WEIGHT - PRE DAY 1 2024-11-22 18:47:31 116.4 kg F BSA RICK 2024-11-22 18:47:31 2.32 sq m F KT/V PRESCRIBED 2024-11-22 18:47:31 1.59 F DIALYZER FLOW-QD 2024-11-22 18:47:31 808 mL/min F HEIGHT IN INCHES 2024-11-22 18:47:31 71 Inches F URR% 2024-11-22 18:47:31 68 % F Urea nitrogen [Mass/volume] in Serum or Plasma 2024-11-22 18:45:23 40 mg/dL F 9.0-23.0 Urea nitrogen [Mass/volume] in Serum or Plasma 2024-11-22 18:45:23 40 mg/dL F 9.0-23.0 Urea nitrogen [Mass/volume] in Serum or Plasma --post dialysis 2024-11-22 18:14:18 13 mg/dL F 9.0-23.0 Urea nitrogen [Mass/volume] in Serum or Plasma --post dialysis 2024-11-22 18:14:18 13 mg/dL F 9.0-23.0 URR% 2024-10-30 20:31:26 71 % F DIALYZER FLOW-QD 2024-10-30 20:31:26 808 mL/min F Dialyzer JEFE 2024-10-30 20:31:26 1218 Calc F LENGTH OF DIALYSIS 2024-10-30 20:31:26 235 min F BSA RICK 2024-10-30 20:31:26 2.31 sq m F PATIENT AGE 2024-10-30 20:31:26 54 Years F WEIGHT - POST DAY 1 2024-10-30 20:31:26 111.7 kg F WEIGHT - PRE DAY 1 2024-10-30 20:31:26 112 kg F HEIGHT IN INCHES 2024-10-30 20:31:26 71 Inches F WEIGHT (KG) 2024-10-30 20:31:26 112.5 kg F VT (KT/V TX VOL) 2024-10-30 20:31:26 52 L F PRESCRIBED DAYS/WEEK 2024-10-30 20:31:26 3 Day/Wk F Residual kt/v 2024-10-30 20:31:26 F Unable to calculate: Post BUN lab result is unknown VM (KT/V MEAN VOL) 2024-10-30 20:31:26 52.6 F KT/V PRESCRIBED 2024-10-30 20:31:26 1.63 F Total Kt/V 2024-10-30 20:31:26 1.34 F nPCR 2024-10-30 20:31:26 0.62 G/KG/D F TBW (Sifuentes) 2024-10-30 20:31:26 54.04 Liters F AMPUTATE FACTOR 2024-10-30 20:31:26 0 F spKt/V 2024-10-30 20:31:26 1.34 F eKt/V 2024-10-30 20:31:26 1.16 F stdKt/V (DIAL) 2024-10-30 20:31:26 N/A F Std Renal KT/V 2024-10-30 20:31:26 N/A F stdKT/V Total 2024-10-30 20:31:26 N/A F TOTAL HOURS/WEEK DIALYSIS 2024-10-30 20:31:26 10 hrs F BLOOD FLOW-QWB 2024-10-30 20:31:26 412 F CURRENT KRU 2024-10-30 20:31:26 F Unable to calculate: Post BUN lab result is unknown DIALYZER FLOW-QD 2024-10-30 20:31:26 808 mL/min F Total Kt/V 2024-10-30 20:31:26 1.34 F BSA RICK 2024-10-30 20:31:26 2.31 sq m F CURRENT KRU 2024-10-30 20:31:26 F Unable to calculate: Post BUN lab result is unknown WEIGHT - PRE DAY 1 2024-10-30 20:31:26 112 kg F WEIGHT (KG) 2024-10-30 20:31:26 112.5 kg F eKt/V 2024-10-30 20:31:26 1.16 F AMPUTATE FACTOR 2024-10-30 20:31:26 0 F Residual kt/v 2024-10-30 20:31:26 F Unable to calculate: Post BUN lab result is unknown VM (KT/V MEAN VOL) 2024-10-30 20:31:26 52.6 F Dialyzer JEFE 2024-10-30 20:31:26 1218 Calc F HEIGHT IN INCHES 2024-10-30 20:31:26 71 Inches F TOTAL HOURS/WEEK DIALYSIS 2024-10-30 20:31:26 10 hrs F nPCR 2024-10-30 20:31:26 0.62 G/KG/D F Std Renal KT/V 2024-10-30 20:31:26 N/A F VT (KT/V TX VOL) 2024-10-30 20:31:26 52 L F PRESCRIBED DAYS/WEEK 2024-10-30 20:31:26 3 Day/Wk F WEIGHT - POST DAY 1 2024-10-30 20:31:26 111.7 kg F stdKT/V Total 2024-10-30 20:31:26 N/A F TBW (Sifuentes) 2024-10-30 20:31:26 54.04 Liters F URR% 2024-10-30 20:31:26 71 % F BLOOD FLOW-QWB 2024-10-30 20:31:26 412 F KT/V PRESCRIBED 2024-10-30 20:31:26 1.63 F stdKt/V (DIAL) 2024-10-30 20:31:26 N/A F PATIENT AGE 2024-10-30 20:31:26 54 Years F spKt/V 2024-10-30 20:31:26 1.34 F LENGTH OF DIALYSIS 2024-10-30 20:31:26 235 min F Urea nitrogen [Mass/volume] in Serum or Plasma --post dialysis 2024-10-30 20:29:19 11 mg/dL F 9.0-23.0 Urea nitrogen [Mass/volume] in Serum or Plasma --post dialysis 2024-10-30 20:29:19 11 mg/dL F 9.0-23.0 Urea nitrogen [Mass/volume] in Serum or Plasma 2024-10-30 15:53:27 38 mg/dL F 9.0-23.0 Urea nitrogen [Mass/volume] in Serum or Plasma 2024-10-30 15:53:27 38 mg/dL F 9.0-23.0 nPCR 2024-10-24 17:07:39 0.69 G/KG/D F WEIGHT - PRE DAY 1 2024-10-24 17:07:39 118.6 kg F HEIGHT IN INCHES 2024-10-24 17:07:39 71 Inches F CURRENT KRU 2024-10-24 17:07:39 F Residual kt/v 2024-10-24 17:07:39 F WEIGHT - POST DAY 1 2024-10-24 17:07:39 115.5 kg F KT/V PRESCRIBED 2024-10-24 17:07:39 1.4 F VM (KT/V MEAN VOL) 2024-10-24 17:07:39 52.8 F spKt/V 2024-10-24 17:07:39 1.09 F stdKT/V Total 2024-10-24 17:07:39 N/A F URR% 2024-10-24 17:07:39 61 % F TOTAL HOURS/WEEK DIALYSIS 2024-10-24 17:07:39 11 hrs F stdKt/V (DIAL) 2024-10-24 17:07:39 N/A F PATIENT AGE 2024-10-24 17:07:39 54 Years F BLOOD FLOW-QWB 2024-10-24 17:07:39 406 F PRESCRIBED DAYS/WEEK 2024-10-24 17:07:39 3 Day/Wk F BSA RICK 2024-10-24 17:07:39 2.3 sq m F Total Kt/V 2024-10-24 17:07:39 1.09 F Std Renal KT/V 2024-10-24 17:07:39 N/A F AMPUTATE FACTOR 2024-10-24 17:07:39 0 F eKt/V 2024-10-24 17:07:39 0.93 F TBW (Sifuentes) 2024-10-24 17:07:39 55.32 Liters F WEIGHT (KG) 2024-10-24 17:07:39 111.5 kg F DIALYZER FLOW-QD 2024-10-24 17:07:39 784 mL/min F LENGTH OF DIALYSIS 2024-10-24 17:07:39 201 min F VT (KT/V TX VOL) 2024-10-24 17:07:39 54.6 L F Dialyzer JEFE 2024-10-24 17:07:39 1218 Calc F DIALYZER FLOW-QD 2024-10-24 17:07:39 784 mL/min F BLOOD FLOW-QWB 2024-10-24 17:07:39 406 F URR% 2024-10-24 17:07:39 61 % F nPCR 2024-10-24 17:07:39 0.69 G/KG/D F WEIGHT - PRE DAY 1 2024-10-24 17:07:39 118.6 kg F BSA RICK 2024-10-24 17:07:39 2.3 sq m F WEIGHT - POST DAY 1 2024-10-24 17:07:39 115.5 kg F CURRENT KRU 2024-10-24 17:07:39 F spKt/V 2024-10-24 17:07:39 1.09 F LENGTH OF DIALYSIS 2024-10-24 17:07:39 201 min F AMPUTATE FACTOR 2024-10-24 17:07:39 0 F Dialyzer JEFE 2024-10-24 17:07:39 1218 Calc F PATIENT AGE 2024-10-24 17:07:39 54 Years F TBW (Sifuentes) 2024-10-24 17:07:39 55.32 Liters F HEIGHT IN INCHES 2024-10-24 17:07:39 71 Inches F Std Renal KT/V 2024-10-24 17:07:39 N/A F Total Kt/V 2024-10-24 17:07:39 1.09 F KT/V PRESCRIBED 2024-10-24 17:07:39 1.4 F stdKt/V (DIAL) 2024-10-24 17:07:39 N/A F VM (KT/V MEAN VOL) 2024-10-24 17:07:39 52.8 F PRESCRIBED DAYS/WEEK 2024-10-24 17:07:39 3 Day/Wk F stdKT/V Total 2024-10-24 17:07:39 N/A F eKt/V 2024-10-24 17:07:39 0.93 F Residual kt/v 2024-10-24 17:07:39 F WEIGHT (KG) 2024-10-24 17:07:39 111.5 kg F TOTAL HOURS/WEEK DIALYSIS 2024-10-24 17:07:39 11 hrs F VT (KT/V TX VOL) 2024-10-24 17:07:39 54.6 L F WEIGHT - PRE DAY 1 2024-10-24 17:07:39 118.6 kg F HEIGHT IN INCHES 2024-10-24 17:07:39 71 Inches F nPCR 2024-10-24 17:07:39 0.69 G/KG/D F BLOOD FLOW-QWB 2024-10-24 17:07:39 406 F PATIENT AGE 2024-10-24 17:07:39 54 Years F Residual kt/v 2024-10-24 17:07:39 F Unable to calculate: Post BUN lab result is unknown CURRENT KRU 2024-10-24 17:07:39 F Unable to calculate: Post BUN lab result is unknown TOTAL HOURS/WEEK DIALYSIS 2024-10-24 17:07:39 11 hrs F stdKt/V (DIAL) 2024-10-24 17:07:39 N/A F VM (KT/V MEAN VOL) 2024-10-24 17:07:39 52.8 F KT/V PRESCRIBED 2024-10-24 17:07:39 1.4 F WEIGHT - POST DAY 1 2024-10-24 17:07:39 115.5 kg F URR% 2024-10-24 17:07:39 61 % F stdKT/V Total 2024-10-24 17:07:39 N/A F spKt/V 2024-10-24 17:07:39 1.09 F WEIGHT (KG) 2024-10-24 17:07:39 111.5 kg F VT (KT/V TX VOL) 2024-10-24 17:07:39 54.6 L F PRESCRIBED DAYS/WEEK 2024-10-24 17:07:39 3 Day/Wk F eKt/V 2024-10-24 17:07:39 0.93 F Dialyzer JEFE 2024-10-24 17:07:39 1218 Calc F BSA RICK 2024-10-24 17:07:39 2.3 sq m F LENGTH OF DIALYSIS 2024-10-24 17:07:39 201 min F TBW (Sifuentes) 2024-10-24 17:07:39 55.32 Liters F DIALYZER FLOW-QD 2024-10-24 17:07:39 784 mL/min F Total Kt/V 2024-10-24 17:07:39 1.09 F AMPUTATE FACTOR 2024-10-24 17:07:39 0 F Std Renal KT/V 2024-10-24 17:07:39 N/A F Urea nitrogen [Mass/volume] in Serum or Plasma --post dialysis 2024-10-23 21:24:23 18 mg/dL F 9.0-23.0 Urea nitrogen [Mass/volume] in Serum or Plasma --post dialysis 2024-10-23 21:24:23 18 mg/dL F 9.0-23.0 Urea nitrogen [Mass/volume] in Serum or Plasma --post dialysis 2024-10-23 21:24:23 18 mg/dL F 9.0-23.0 Urea nitrogen [Mass/volume] in Serum or Plasma 2024-10-23 16:56:27 46 mg/dL F 9.0-23.0 Urea nitrogen [Mass/volume] in Serum or Plasma 2024-10-23 16:56:27 46 mg/dL F 9.0-23.0 Urea nitrogen [Mass/volume] in Serum or Plasma 2024-10-23 16:56:27 46 mg/dL F 9.0-23.0 stdKT/V Total 2024-10-19 02:59:36 N/A F BLOOD FLOW-QWB 2024-10-19 02:59:36 371 F DIALYZER FLOW-QD 2024-10-19 02:59:36 784 mL/min F WEIGHT - POST DAY 1 2024-10-19 02:59:36 113.1 kg F URR% 2024-10-19 02:59:36 54 % F HEIGHT IN INCHES 2024-10-19 02:59:36 71 Inches F LENGTH OF DIALYSIS 2024-10-19 02:59:36 234 min F CURRENT KRU 2024-10-19 02:59:36 F Residual kt/v 2024-10-19 02:59:36 F stdKt/V (DIAL) 2024-10-19 02:59:36 N/A F spKt/V 2024-10-19 02:59:36 0.9 F TBW (Sifuentes) 2024-10-19 02:59:36 54.51 Liters F VM (KT/V MEAN VOL) 2024-10-19 02:59:36 52.2 F PRESCRIBED DAYS/WEEK 2024-10-19 02:59:36 3 Day/Wk F Total Kt/V 2024-10-19 02:59:36 0.9 F nPCR 2024-10-19 02:59:36 0.74 G/KG/D F WEIGHT (KG) 2024-10-19 02:59:36 111 kg F PATIENT AGE 2024-10-19 02:59:36 54 Years F WEIGHT - PRE DAY 1 2024-10-19 02:59:36 115.7 kg F AMPUTATE FACTOR 2024-10-19 02:59:36 0 F VT (KT/V TX VOL) 2024-10-19 02:59:36 72.6 L F TOTAL HOURS/WEEK DIALYSIS 2024-10-19 02:59:36 11 hrs F Std Renal KT/V 2024-10-19 02:59:36 N/A F KT/V PRESCRIBED 2024-10-19 02:59:36 1.63 F eKt/V 2024-10-19 02:59:36 0.8 F BSA RICK 2024-10-19 02:59:36 2.3 sq m F Dialyzer JEFE 2024-10-19 02:59:36 1218 Calc F BLOOD FLOW-QWB 2024-10-19 02:59:36 371 F CURRENT KRU 2024-10-19 02:59:36 F HEIGHT IN INCHES 2024-10-19 02:59:36 71 Inches F Residual kt/v 2024-10-19 02:59:36 F DIALYZER FLOW-QD 2024-10-19 02:59:36 784 mL/min F WEIGHT - POST DAY 1 2024-10-19 02:59:36 113.1 kg F stdKT/V Total 2024-10-19 02:59:36 N/A F LENGTH OF DIALYSIS 2024-10-19 02:59:36 234 min F PRESCRIBED DAYS/WEEK 2024-10-19 02:59:36 3 Day/Wk F URR% 2024-10-19 02:59:36 54 % F Total Kt/V 2024-10-19 02:59:36 0.9 F VM (KT/V MEAN VOL) 2024-10-19 02:59:36 52.2 F WEIGHT - PRE DAY 1 2024-10-19 02:59:36 115.7 kg F WEIGHT (KG) 2024-10-19 02:59:36 111 kg F TOTAL HOURS/WEEK DIALYSIS 2024-10-19 02:59:36 11 hrs F AMPUTATE FACTOR 2024-10-19 02:59:36 0 F nPCR 2024-10-19 02:59:36 0.74 G/KG/D F VT (KT/V TX VOL) 2024-10-19 02:59:36 72.6 L F PATIENT AGE 2024-10-19 02:59:36 54 Years F stdKt/V (DIAL) 2024-10-19 02:59:36 N/A F TBW (Sifuentes) 2024-10-19 02:59:36 54.51 Liters F spKt/V 2024-10-19 02:59:36 0.9 F Std Renal KT/V 2024-10-19 02:59:36 N/A F eKt/V 2024-10-19 02:59:36 0.8 F KT/V PRESCRIBED 2024-10-19 02:59:36 1.63 F BSA RICK 2024-10-19 02:59:36 2.3 sq m F Dialyzer JEFE 2024-10-19 02:59:36 1218 Calc F HEIGHT IN INCHES 2024-10-19 02:59:36 71 Inches F WEIGHT - POST DAY 1 2024-10-19 02:59:36 113.1 kg F Residual kt/v 2024-10-19 02:59:36 F Unable to calculate: Post BUN lab result is unknown stdKT/V Total 2024-10-19 02:59:36 N/A F LENGTH OF DIALYSIS 2024-10-19 02:59:36 234 min F DIALYZER FLOW-QD 2024-10-19 02:59:36 784 mL/min F BLOOD FLOW-QWB 2024-10-19 02:59:36 371 F CURRENT KRU 2024-10-19 02:59:36 F Unable to calculate: Post BUN lab result is unknown URR% 2024-10-19 02:59:36 54 % F VT (KT/V TX VOL) 2024-10-19 02:59:36 72.6 L F Total Kt/V 2024-10-19 02:59:36 0.9 F VM (KT/V MEAN VOL) 2024-10-19 02:59:36 52.2 F WEIGHT (KG) 2024-10-19 02:59:36 111 kg F AMPUTATE FACTOR 2024-10-19 02:59:36 0 F stdKt/V (DIAL) 2024-10-19 02:59:36 N/A F WEIGHT - PRE DAY 1 2024-10-19 02:59:36 115.7 kg F PATIENT AGE 2024-10-19 02:59:36 54 Years F TOTAL HOURS/WEEK DIALYSIS 2024-10-19 02:59:36 11 hrs F PRESCRIBED DAYS/WEEK 2024-10-19 02:59:36 3 Day/Wk F spKt/V 2024-10-19 02:59:36 0.9 F nPCR 2024-10-19 02:59:36 0.74 G/KG/D F TBW (Sifuentes) 2024-10-19 02:59:36 54.51 Liters F BSA RICK 2024-10-19 02:59:36 2.3 sq m F Dialyzer JEFE 2024-10-19 02:59:36 1218 Calc F KT/V PRESCRIBED 2024-10-19 02:59:36 1.63 F eKt/V 2024-10-19 02:59:36 0.8 F Std Renal KT/V 2024-10-19 02:59:36 N/A F Urea nitrogen [Mass/volume] in Serum or Plasma --post dialysis 2024-10-19 02:52:12 22 mg/dL F 9.0-23.0 Urea nitrogen [Mass/volume] in Serum or Plasma --post dialysis 2024-10-19 02:52:12 22 mg/dL F 9.0-23.0 Urea nitrogen [Mass/volume] in Serum or Plasma --post dialysis 2024-10-19 02:52:12 22 mg/dL F 9.0-23.0 Urea nitrogen [Mass/volume] in Serum or Plasma 2024-10-18 23:53:16 48 mg/dL F 9.0-23.0 Creatinine [Mass/volume] in Serum or Plasma 2024-10-18 23:53:16 5.25 mg/dL F 0.7-1.3 Urea nitrogen [Mass/volume] in Serum or Plasma 2024-10-18 23:53:16 48 mg/dL F 9.0-23.0 Creatinine [Mass/volume] in Serum or Plasma 2024-10-18 23:53:16 5.25 mg/dL F 0.7-1.3 Urea nitrogen [Mass/volume] in Serum or Plasma 2024-10-18 23:53:16 48 mg/dL F 9.0-23.0 Creatinine [Mass/volume] in Serum or Plasma 2024-10-18 23:53:16 5.25 mg/dL F 0.7-1.3 TBW (Sifuentes) 2024-09-28 00:32:57 53.6 Liters F VM (KT/V MEAN VOL) 2024-09-28 00:32:57 52.2 F WEIGHT - PRE DAY 1 2024-09-28 00:32:57 110.9 kg F Total Kt/V 2024-09-28 00:32:57 1.25 F spKt/V 2024-09-28 00:32:57 1.25 F BLOOD FLOW-QWB 2024-09-28 00:32:57 400 F AMPUTATE FACTOR 2024-09-28 00:32:57 0 F stdKT/V Total 2024-09-28 00:32:57 N/A F stdKt/V (DIAL) 2024-09-28 00:32:57 N/A F LENGTH OF DIALYSIS 2024-09-28 00:32:57 234 min F TOTAL HOURS/WEEK DIALYSIS 2024-09-28 00:32:57 11 hrs F VT (KT/V TX VOL) 2024-09-28 00:32:57 54.8 L F URR% 2024-09-28 00:32:57 68 % F BSA RICK 2024-09-28 00:32:57 2.3 sq m F Dialyzer JEFE 2024-09-28 00:32:57 1218 Calc F Std Renal KT/V 2024-09-28 00:32:57 N/A F WEIGHT - POST DAY 1 2024-09-28 00:32:57 110.4 kg F PATIENT AGE 2024-09-28 00:32:57 54 Years F DIALYZER FLOW-QD 2024-09-28 00:32:57 812 mL/min F CURRENT KRU 2024-09-28 00:32:57 F nPCR 2024-09-28 00:32:57 0.71 G/KG/D F WEIGHT (KG) 2024-09-28 00:32:57 111 kg F Residual kt/v 2024-09-28 00:32:57 F KT/V PRESCRIBED 2024-09-28 00:32:57 1.63 F HEIGHT IN INCHES 2024-09-28 00:32:57 71 Inches F PRESCRIBED DAYS/WEEK 2024-09-28 00:32:57 3 Day/Wk F eKt/V 2024-09-28 00:32:57 1.09 F stdKT/V Total 2024-09-28 00:32:57 N/A F BLOOD FLOW-QWB 2024-09-28 00:32:57 400 F stdKt/V (DIAL) 2024-09-28 00:32:57 N/A F TBW (Sifuentes) 2024-09-28 00:32:57 53.6 Liters F VM (KT/V MEAN VOL) 2024-09-28 00:32:57 52.2 F LENGTH OF DIALYSIS 2024-09-28 00:32:57 234 min F Total Kt/V 2024-09-28 00:32:57 1.25 F spKt/V 2024-09-28 00:32:57 1.25 F AMPUTATE FACTOR 2024-09-28 00:32:57 0 F WEIGHT - PRE DAY 1 2024-09-28 00:32:57 110.9 kg F WEIGHT - POST DAY 1 2024-09-28 00:32:57 110.4 kg F PATIENT AGE 2024-09-28 00:32:57 54 Years F VT (KT/V TX VOL) 2024-09-28 00:32:57 54.8 L F TOTAL HOURS/WEEK DIALYSIS 2024-09-28 00:32:57 11 hrs F URR% 2024-09-28 00:32:57 68 % F Std Renal KT/V 2024-09-28 00:32:57 N/A F Dialyzer JEFE 2024-09-28 00:32:57 1218 Calc F WEIGHT (KG) 2024-09-28 00:32:57 111 kg F CURRENT KRU 2024-09-28 00:32:57 F nPCR 2024-09-28 00:32:57 0.71 G/KG/D F BSA RICK 2024-09-28 00:32:57 2.3 sq m F eKt/V 2024-09-28 00:32:57 1.09 F HEIGHT IN INCHES 2024-09-28 00:32:57 71 Inches F DIALYZER FLOW-QD 2024-09-28 00:32:57 812 mL/min F KT/V PRESCRIBED 2024-09-28 00:32:57 1.63 F Residual kt/v 2024-09-28 00:32:57 F PRESCRIBED DAYS/WEEK 2024-09-28 00:32:57 3 Day/Wk F Urea nitrogen [Mass/volume] in Serum or Plasma --post dialysis 2024-09-28 00:31:14 12 mg/dL F 9.0-23.0 Urea nitrogen [Mass/volume] in Serum or Plasma --post dialysis 2024-09-28 00:31:14 12 mg/dL F 9.0-23.0 Urea nitrogen [Mass/volume] in Serum or Plasma 2024-09-27 19:56:24 37 mg/dL F 9.0-23.0 Urea nitrogen [Mass/volume] in Serum or Plasma 2024-09-27 19:56:24 37 mg/dL F 9.0-23.0 URR% 2024-09-25 08:23:14 F Canceled - Specimen not received 5 days past draw date,Unable to Calculate. URR% 2024-09-25 08:23:14 F Canceled - Specimen not received 5 days past draw date,Unable to Calculate. Urea nitrogen [Mass/volume] in Serum or Plasma --post dialysis 2024-09-25 07:26:21 F Canceled - Specimen not received 5 days past draw date Urea nitrogen [Mass/volume] in Serum or Plasma --post dialysis 2024-09-25 07:26:21 F Canceled - Specimen not received 5 days past draw date Urea nitrogen [Mass/volume] in Serum or Plasma 2024-09-25 07:26:21 F Canceled - Specimen not received 5 days past draw date Urea nitrogen [Mass/volume] in Serum or Plasma 2024-09-25 07:26:21 F Canceled - Specimen not received 5 days past draw date AMPUTATE FACTOR 2024-09-19 17:38:47 0 F HEIGHT IN INCHES 2024-09-19 17:38:47 71 Inches F WEIGHT (KG) 2024-09-19 17:38:47 111 kg F PATIENT AGE 2024-09-19 17:38:47 54 Years F HEIGHT IN INCHES 2024-09-19 17:38:47 71 Inches F PATIENT AGE 2024-09-19 17:38:47 54 Years F AMPUTATE FACTOR 2024-09-19 17:38:47 0 F WEIGHT (KG) 2024-09-19 17:38:47 111 kg F BSA RICK 2024-08-28 16:55:00 2.29 sq m F VT (KT/V TX VOL) 2024-08-28 16:55:00 47.3 L F VM (KT/V MEAN VOL) 2024-08-28 16:55:00 51.4 F BLOOD FLOW-QWB 2024-08-28 16:55:00 419 F stdKt/V (DIAL) 2024-08-28 16:55:00 N/A F nPCR 2024-08-28 16:55:00 0.91 G/KG/D F Std Renal KT/V 2024-08-28 16:55:00 N/A F WEIGHT (KG) 2024-08-28 16:55:00 110.5 kg F URR% 2024-08-28 16:55:00 72 % F TBW (Sifuentes) 2024-08-28 16:55:00 53.64 Liters F spKt/V 2024-08-28 16:55:00 1.46 F KT/V PRESCRIBED 2024-08-28 16:55:00 1.6 F WEIGHT - POST DAY 1 2024-08-28 16:55:00 110.5 kg F AMPUTATE FACTOR 2024-08-28 16:55:00 0 F Residual kt/v 2024-08-28 16:55:00 F CURRENT KRU 2024-08-28 16:55:00 F stdKT/V Total 2024-08-28 16:55:00 N/A F Total Kt/V 2024-08-28 16:55:00 1.46 F PATIENT AGE 2024-08-28 16:55:00 54 Years F Dialyzer JEFE 2024-08-28 16:55:00 1218 Calc F TOTAL HOURS/WEEK DIALYSIS 2024-08-28 16:55:00 11 hrs F WEIGHT - PRE DAY 1 2024-08-28 16:55:00 112.9 kg F LENGTH OF DIALYSIS 2024-08-28 16:55:00 229 min F eKt/V 2024-08-28 16:55:00 1.25 F HEIGHT IN INCHES 2024-08-28 16:55:00 71 Inches F PRESCRIBED DAYS/WEEK 2024-08-28 16:55:00 3 Day/Wk F DIALYZER FLOW-QD 2024-08-28 16:55:00 811 mL/min F Urea nitrogen [Mass/volume] in Serum or Plasma --post dialysis 2024-08-28 16:53:16 16 mg/dL F 9.0-23.0 Creatinine [Mass/volume] in Serum or Plasma 2024-08-28 16:08:21 5.61 mg/dL F 0.7-1.3 Urea nitrogen [Mass/volume] in Serum or Plasma 2024-08-28 16:08:21 57 mg/dL F 9.0-23.0 BLOOD FLOW-QWB 2024-07-31 17:58:12 422 F Residual kt/v 2024-07-31 17:58:12 F eKt/V 2024-07-31 17:58:12 1.12 F VT (KT/V TX VOL) 2024-07-31 17:58:12 51.7 L F TBW (Sifuentes) 2024-07-31 17:58:12 55.32 Liters F PRESCRIBED DAYS/WEEK 2024-07-31 17:58:12 3 Day/Wk F URR% 2024-07-31 17:58:12 67 % F CURRENT KRU 2024-07-31 17:58:12 F DIALYZER FLOW-QD 2024-07-31 17:58:12 803 mL/min F BSA RICK 2024-07-31 17:58:12 2.3 sq m F stdKt/V (DIAL) 2024-07-31 17:58:12 N/A F nPCR 2024-07-31 17:58:12 0.84 G/KG/D F TOTAL HOURS/WEEK DIALYSIS 2024-07-31 17:58:12 11 hrs F LENGTH OF DIALYSIS 2024-07-31 17:58:12 223 min F WEIGHT (KG) 2024-07-31 17:58:12 111 kg F Std Renal KT/V 2024-07-31 17:58:12 N/A F PATIENT AGE 2024-07-31 17:58:12 54 Years F spKt/V 2024-07-31 17:58:12 1.31 F WEIGHT - POST DAY 1 2024-07-31 17:58:12 115.5 kg F AMPUTATE FACTOR 2024-07-31 17:58:12 0 F HEIGHT IN INCHES 2024-07-31 17:58:12 71 Inches F KT/V PRESCRIBED 2024-07-31 17:58:12 1.56 F VM (KT/V MEAN VOL) 2024-07-31 17:58:12 52.7 F WEIGHT - PRE DAY 1 2024-07-31 17:58:12 119.5 kg F Total Kt/V 2024-07-31 17:58:12 1.31 F stdKT/V Total 2024-07-31 17:58:12 N/A F Dialyzer JEFE 2024-07-31 17:58:12 1218 Calc F Creatinine [Mass/volume] in Serum or Plasma 2024-07-31 17:56:18 4.6 mg/dL F 0.7-1.3 Urea nitrogen [Mass/volume] in Serum or Plasma 2024-07-31 17:56:18 54 mg/dL F 9.0-23.0 Urea nitrogen [Mass/volume] in Serum or Plasma --post dialysis 2024-07-31 16:46:26 18 mg/dL F 9.0-23.0 spKt/V 2024-02-16 20:01:50 1.1 F WEIGHT - POST DAY 1 2024-02-16 20:01:50 124.6 kg F eKt/V 2024-02-16 20:01:50 0.94 F DIALYZER FLOW-QD 2024-02-16 20:01:50 498 mL/min F BSA RICK 2024-02-16 20:01:50 2.41 sq m F Residual kt/v 2024-02-16 20:01:50 F AMPUTATE FACTOR 2024-02-16 20:01:50 0 F stdKt/V (DIAL) 2024-02-16 20:01:50 N/A F BLOOD FLOW-QWB 2024-02-16 20:01:50 327 F HEIGHT IN INCHES 2024-02-16 20:01:50 71 Inches F WEIGHT - PRE DAY 1 2024-02-16 20:01:50 127.2 kg F VT (KT/V TX VOL) 2024-02-16 20:01:50 46.7 L F PATIENT AGE 2024-02-16 20:01:50 54 Years F KT/V PRESCRIBED 2024-02-16 20:01:50 1.16 F nPCR 2024-02-16 20:01:50 0.38 G/KG/D F TOTAL HOURS/WEEK DIALYSIS 2024-02-16 20:01:50 3 hrs F CURRENT KRU 2024-02-16 20:01:50 F TBW (Sifuentes) 2024-02-16 20:01:50 58.38 Liters F Total Kt/V 2024-02-16 20:01:50 1.1 F PRESCRIBED DAYS/WEEK 2024-02-16 20:01:50 3 Day/Wk F WEIGHT (KG) 2024-02-16 20:01:50 124 kg F Std Renal KT/V 2024-02-16 20:01:50 N/A F LENGTH OF DIALYSIS 2024-02-16 20:01:50 210 min F VM (KT/V MEAN VOL) 2024-02-16 20:01:50 46.7 F URR% 2024-02-16 20:01:50 63 % F Dialyzer JEFE 2024-02-16 20:01:50 1218 Calc F stdKT/V Total 2024-02-16 20:01:50 N/A F Creatinine [Mass/volume] in Serum or Plasma 2024-02-16 20:00:28 4.39 mg/dL F 0.7-1.3 Urea nitrogen [Mass/volume] in Serum or Plasma 2024-02-16 20:00:28 51 mg/dL F 9.0-23.0 Urea nitrogen [Mass/volume] in Serum or Plasma --post dialysis 2024-02-16 16:37:30 19 mg/dL F 9.0-23.0 Urea nitrogen [Mass/volume] in Serum or Plasma --post dialysis Residual kt/v BLOOD FLOW-QWB KT/V PRESCRIBED PRESCRIBED DAYS/WEEK spKt/V URR% Total Kt/V TBW (Sifuentes) CURRENT KRU VM (KT/V MEAN VOL) BSA RICK stdKt/V (DIAL) stdKT/V Total Std Renal KT/V nPCR VT (KT/V TX VOL) Dialyzer JEFE eKt/V DIALYZER FLOW-QD LENGTH OF DIALYSIS Urea nitrogen [Mass/volume] in Serum or Plasma TOTAL HOURS/WEEK DIALYSIS WEIGHT - PRE DAY 1 WEIGHT - POST DAY 1 Creatinine [Mass/volume] in Serum or Plasma WEIGHT - PRE DAY 1 BLOOD FLOW-QWB Dialyzer JEFE LENGTH OF DIALYSIS DIALYZER FLOW-QD PRESCRIBED DAYS/WEEK WEIGHT - POST DAY 1 TOTAL HOURS/WEEK DIALYSIS CURRENT KRU Std Renal KT/V eKt/V VT (KT/V TX VOL) stdKt/V (DIAL) KT/V PRESCRIBED Total Kt/V BSA RICK stdKT/V Total Residual kt/v spKt/V VM (KT/V MEAN VOL) nPCR TBW (Sifuentes) LENGTH OF DIALYSIS PRESCRIBED DAYS/WEEK Dialyzer JEFE WEIGHT - PRE DAY 1 DIALYZER FLOW-QD BLOOD FLOW-QWB TOTAL HOURS/WEEK DIALYSIS WEIGHT - POST DAY 1 KT/V PRESCRIBED spKt/V BSA RICK CURRENT KRU nPCR eKt/V Residual kt/v VM (KT/V MEAN VOL) VT (KT/V TX VOL) TBW (Sifuentes) Std Renal KT/V stdKT/V Total Total Kt/V stdKt/V (DIAL) Anemia Description Draw Date Result/Unit Status Ref Range Result Comments HCT CALC HGBX3 2025-01-16 03:02:51 36.6 % F 42.0-52.0 Hemoglobin [Mass/volume] in Blood 2025-01-16 03:02:11 12.2 g/dL F 14.0-18.0 Ferritin [Mass/volume] in Serum or Plasma 2025-01-02 06:59:10 104 ng/mL F 22.0-322.0 HCT CALC HGBX3 2025-01-02 04:47:07 36.9 % F 42.0-52.0 Erythrocyte distribution width [Ratio] by Automated count 2025-01-02 04:46:17 14.2 % F 11.0-15.0 Erythrocytes [#/volume] in Blood by Automated count 2025-01-02 04:46:17 3.79 x 10^6 cells/uL F 4.6-6.2 Hemoglobin [Mass/volume] in Blood 2025-01-02 04:46:17 12.3 g/dL F 14.0-18.0 MCV [Entitic volume] by Automated count 2025-01-02 04:46:17 97.5 fL F 80.0-100.0 MCH [Entitic mass] by Automated count 2025-01-02 04:46:17 32.4 pg F 25.9-34.2 Hematocrit [Volume Fraction] of Blood by Automated count 2025-01-02 04:46:17 36.9 % F 41.0-53.0 MCHC [Mass/volume] by Automated count 2025-01-02 04:46:17 33.3 g/dL F 29.6-35.3 Platelets [#/volume] in Blood by Automated count 2025-01-02 04:46:17 232 x 10^3 cells/uL F 140.0-450.0 IRON SATURATION 2025-01-02 01:08:09 21 % F 21.0-49.0 TIBC 2025-01-02 01:08:09 243 ug/dL F 250.0-425.0 Iron [Mass/volume] in Serum or Plasma 2025-01-02 01:04:53 52 ug/dL F 65.0-175.0 Iron binding capacity.unsaturated [Mass/volume] in Serum or Plasma 2025-01-02 01:04:53 191 ug/dL F 75.0-360.0 HCT CALC HGBX3 2024-12-12 03:14:49 40.8 % F 42.0-52.0 HCT CALC HGBX3 2024-12-12 03:14:49 40.8 % F 42.0-52.0 Hemoglobin [Mass/volume] in Blood 2024-12-12 03:14:10 13.6 g/dL F 14.0-18.0 Hemoglobin [Mass/volume] in Blood 2024-12-12 03:14:10 13.6 g/dL F 14.0-18.0 Ferritin [Mass/volume] in Serum or Plasma 2024-11-28 16:48:18 139 ng/mL F 22.0-322.0 Ferritin [Mass/volume] in Serum or Plasma 2024-11-28 16:48:18 139 ng/mL F 22.0-322.0 HCT CALC HGBX3 2024-11-28 06:56:09 41.4 % F 42.0-52.0 HCT CALC HGBX3 2024-11-28 06:56:09 41.4 % F 42.0-52.0 Erythrocyte distribution width [Ratio] by Automated count 2024-11-28 06:55:15 14.7 % F 11.0-15.0 Erythrocytes [#/volume] in Blood by Automated count 2024-11-28 06:55:15 4.4 x 10^6 cells/uL F 4.6-6.2 Hematocrit [Volume Fraction] of Blood by Automated count 2024-11-28 06:55:15 42.2 % F 41.0-53.0 Hemoglobin [Mass/volume] in Blood 2024-11-28 06:55:15 13.8 g/dL F 14.0-18.0 MCH [Entitic mass] by Automated count 2024-11-28 06:55:15 31.3 pg F 25.9-34.2 MCV [Entitic volume] by Automated count 2024-11-28 06:55:15 95.9 fL F 80.0-100.0 MCHC [Mass/volume] by Automated count 2024-11-28 06:55:15 32.7 g/dL F 29.6-35.3 Platelets [#/volume] in Blood by Automated count 2024-11-28 06:55:15 291 x 10^3 cells/uL F 140.0-450.0 Erythrocyte distribution width [Ratio] by Automated count 2024-11-28 06:55:15 14.7 % F 11.0-15.0 Hemoglobin [Mass/volume] in Blood 2024-11-28 06:55:15 13.8 g/dL F 14.0-18.0 Platelets [#/volume] in Blood by Automated count 2024-11-28 06:55:15 291 x 10^3 cells/uL F 140.0-450.0 MCH [Entitic mass] by Automated count 2024-11-28 06:55:15 31.3 pg F 25.9-34.2 MCHC [Mass/volume] by Automated count 2024-11-28 06:55:15 32.7 g/dL F 29.6-35.3 Hematocrit [Volume Fraction] of Blood by Automated count 2024-11-28 06:55:15 42.2 % F 41.0-53.0 Erythrocytes [#/volume] in Blood by Automated count 2024-11-28 06:55:15 4.4 x 10^6 cells/uL F 4.6-6.2 MCV [Entitic volume] by Automated count 2024-11-28 06:55:15 95.9 fL F 80.0-100.0 IRON SATURATION 2024-11-28 04:01:35 26 % F 21.0-49.0 TIBC 2024-11-28 04:01:35 246 ug/dL F 250.0-425.0 IRON SATURATION 2024-11-28 04:01:35 26 % F 21.0-49.0 TIBC 2024-11-28 04:01:35 246 ug/dL F 250.0-425.0 Iron [Mass/volume] in Serum or Plasma 2024-11-28 03:50:58 64 ug/dL F 65.0-175.0 Iron binding capacity.unsaturated [Mass/volume] in Serum or Plasma 2024-11-28 03:50:58 182 ug/dL F 75.0-360.0 Iron binding capacity.unsaturated [Mass/volume] in Serum or Plasma 2024-11-28 03:50:58 182 ug/dL F 75.0-360.0 Iron [Mass/volume] in Serum or Plasma 2024-11-28 03:50:58 64 ug/dL F 65.0-175.0 HCT CALC HGBX3 2024-11-13 23:08:07 38.7 % F 42.0-52.0 HCT CALC HGBX3 2024-11-13 23:08:07 38.7 % F 42.0-52.0 Hemoglobin [Mass/volume] in Blood 2024-11-13 23:07:12 12.9 g/dL F 14.0-18.0 Hemoglobin [Mass/volume] in Blood 2024-11-13 23:07:12 12.9 g/dL F 14.0-18.0 HCT CALC HGBX3 2024-10-24 17:04:05 39.9 % F 42.0-52.0 HCT CALC HGBX3 2024-10-24 17:04:05 39.9 % F 42.0-52.0 HCT CALC HGBX3 2024-10-24 17:04:05 39.9 % F 42.0-52.0 IRON SATURATION 2024-10-24 17:04:05 17 % F 21.0-49.0 TIBC 2024-10-24 17:04:05 231 ug/dL F 250.0-425.0 IRON SATURATION 2024-10-24 17:04:05 17 % F 21.0-49.0 TIBC 2024-10-24 17:04:05 231 ug/dL F 250.0-425.0 IRON SATURATION 2024-10-24 17:04:05 17 % F 21.0-49.0 TIBC 2024-10-24 17:04:05 231 ug/dL F 250.0-425.0 Erythrocyte distribution width [Ratio] by Automated count 2024-10-23 23:38:15 15 % F 11.0-15.0 Erythrocytes [#/volume] in Blood by Automated count 2024-10-23 23:38:15 4.37 x 10^6 cells/uL F 4.6-6.2 Hematocrit [Volume Fraction] of Blood by Automated count 2024-10-23 23:38:15 41.7 % F 41.0-53.0 Hemoglobin [Mass/volume] in Blood 2024-10-23 23:38:15 13.3 g/dL F 14.0-18.0 MCV [Entitic volume] by Automated count 2024-10-23 23:38:15 95.4 fL F 80.0-100.0 MCHC [Mass/volume] by Automated count 2024-10-23 23:38:15 31.8 g/dL F 29.6-35.3 MCH [Entitic mass] by Automated count 2024-10-23 23:38:15 30.4 pg F 25.9-34.2 Platelets [#/volume] in Blood by Automated count 2024-10-23 23:38:15 252 x 10^3 cells/uL F 140.0-450.0 Erythrocytes [#/volume] in Blood by Automated count 2024-10-23 23:38:15 4.37 x 10^6 cells/uL F 4.6-6.2 MCHC [Mass/volume] by Automated count 2024-10-23 23:38:15 31.8 g/dL F 29.6-35.3 MCV [Entitic volume] by Automated count 2024-10-23 23:38:15 95.4 fL F 80.0-100.0 Platelets [#/volume] in Blood by Automated count 2024-10-23 23:38:15 252 x 10^3 cells/uL F 140.0-450.0 Erythrocyte distribution width [Ratio] by Automated count 2024-10-23 23:38:15 15 % F 11.0-15.0 Hemoglobin [Mass/volume] in Blood 2024-10-23 23:38:15 13.3 g/dL F 14.0-18.0 MCH [Entitic mass] by Automated count 2024-10-23 23:38:15 30.4 pg F 25.9-34.2 Hematocrit [Volume Fraction] of Blood by Automated count 2024-10-23 23:38:15 41.7 % F 41.0-53.0 Erythrocyte distribution width [Ratio] by Automated count 2024-10-23 23:38:15 15 % F 11.0-15.0 Hemoglobin [Mass/volume] in Blood 2024-10-23 23:38:15 13.3 g/dL F 14.0-18.0 Platelets [#/volume] in Blood by Automated count 2024-10-23 23:38:15 252 x 10^3 cells/uL F 140.0-450.0 MCH [Entitic mass] by Automated count 2024-10-23 23:38:15 30.4 pg F 25.9-34.2 MCHC [Mass/volume] by Automated count 2024-10-23 23:38:15 31.8 g/dL F 29.6-35.3 Erythrocytes [#/volume] in Blood by Automated count 2024-10-23 23:38:15 4.37 x 10^6 cells/uL F 4.6-6.2 Hematocrit [Volume Fraction] of Blood by Automated count 2024-10-23 23:38:15 41.7 % F 41.0-53.0 MCV [Entitic volume] by Automated count 2024-10-23 23:38:15 95.4 fL F 80.0-100.0 Iron [Mass/volume] in Serum or Plasma 2024-10-23 23:37:30 40 ug/dL F 65.0-175.0 Iron binding capacity.unsaturated [Mass/volume] in Serum or Plasma 2024-10-23 23:37:30 191 ug/dL F 75.0-360.0 Iron [Mass/volume] in Serum or Plasma 2024-10-23 23:37:30 40 ug/dL F 65.0-175.0 Iron binding capacity.unsaturated [Mass/volume] in Serum or Plasma 2024-10-23 23:37:30 191 ug/dL F 75.0-360.0 Iron [Mass/volume] in Serum or Plasma 2024-10-23 23:37:30 40 ug/dL F 65.0-175.0 Iron binding capacity.unsaturated [Mass/volume] in Serum or Plasma 2024-10-23 23:37:30 191 ug/dL F 75.0-360.0 IRON SATURATION 2024-10-18 23:52:55 F Recollect - Hemolyzed specimen,Unable to Calculate. TIBC 2024-10-18 23:52:55 F Recollect - Hemolyzed specimen,Unable to Calculate. TIBC 2024-10-18 23:52:55 F Recollect - Hemolyzed specimen,Unable to Calculate. IRON SATURATION 2024-10-18 23:52:55 F Recollect - Hemolyzed specimen,Unable to Calculate. TIBC 2024-10-18 23:52:55 F Unable to Calculate.,Recol lect - Hemolyzed specimen,Recolle ct - Hemolyzed specimen IRON SATURATION 2024-10-18 23:52:55 F Unable to Calculate.,Recol lect - Hemolyzed specimen,Recolle ct - Hemolyzed specimen Iron [Mass/volume] in Serum or Plasma 2024-10-18 23:52:10 F Recollect - Hemolyzed specimen,Recolle ct - Hemolyzed specimen Iron binding capacity.unsaturated [Mass/volume] in Serum or Plasma 2024-10-18 23:52:10 F Recollect - Hemolyzed specimen,Recolle ct - Hemolyzed specimen Iron binding capacity.unsaturated [Mass/volume] in Serum or Plasma 2024-10-18 23:52:10 F Recollect - Hemolyzed specimen,Recolle ct - Hemolyzed specimen Iron [Mass/volume] in Serum or Plasma 2024-10-18 23:52:10 F Recollect - Hemolyzed specimen,Recolle ct - Hemolyzed specimen Iron binding capacity.unsaturated [Mass/volume] in Serum or Plasma 2024-10-18 23:52:10 F Recollect - Hemolyzed specimen,Recolle ct - Hemolyzed specimen,Recolle ct - Hemolyzed specimen Iron [Mass/volume] in Serum or Plasma 2024-10-18 23:52:10 F Recollect - Hemolyzed specimen,Recolle ct - Hemolyzed specimen,Recolle ct - Hemolyzed specimen HCT CALC HGBX3 2024-10-18 23:41:58 42.9 % F 42.0-52.0 HCT CALC HGBX3 2024-10-18 23:41:58 42.9 % F 42.0-52.0 HCT CALC HGBX3 2024-10-18 23:41:58 42.9 % F 42.0-52.0 Erythrocyte distribution width [Ratio] by Automated count 2024-10-18 23:41:11 14.6 % F 11.0-15.0 Hemoglobin [Mass/volume] in Blood 2024-10-18 23:41:11 14.3 g/dL F 14.0-18.0 Platelets [#/volume] in Blood by Automated count 2024-10-18 23:41:11 272 x 10^3 cells/uL F 140.0-450.0 MCH [Entitic mass] by Automated count 2024-10-18 23:41:11 32.7 pg F 25.9-34.2 MCHC [Mass/volume] by Automated count 2024-10-18 23:41:11 34.1 g/dL F 29.6-35.3 Erythrocytes [#/volume] in Blood by Automated count 2024-10-18 23:41:11 4.38 x 10^6 cells/uL F 4.6-6.2 Hematocrit [Volume Fraction] of Blood by Automated count 2024-10-18 23:41:11 42 % F 41.0-53.0 MCV [Entitic volume] by Automated count 2024-10-18 23:41:11 95.9 fL F 80.0-100.0 Erythrocyte distribution width [Ratio] by Automated count 2024-10-18 23:41:11 14.6 % F 11.0-15.0 Hemoglobin [Mass/volume] in Blood 2024-10-18 23:41:11 14.3 g/dL F 14.0-18.0 Platelets [#/volume] in Blood by Automated count 2024-10-18 23:41:11 272 x 10^3 cells/uL F 140.0-450.0 MCH [Entitic mass] by Automated count 2024-10-18 23:41:11 32.7 pg F 25.9-34.2 MCHC [Mass/volume] by Automated count 2024-10-18 23:41:11 34.1 g/dL F 29.6-35.3 Erythrocytes [#/volume] in Blood by Automated count 2024-10-18 23:41:11 4.38 x 10^6 cells/uL F 4.6-6.2 Hematocrit [Volume Fraction] of Blood by Automated count 2024-10-18 23:41:11 42 % F 41.0-53.0 MCV [Entitic volume] by Automated count 2024-10-18 23:41:11 95.9 fL F 80.0-100.0 Erythrocyte distribution width [Ratio] by Automated count 2024-10-18 23:41:11 14.6 % F 11.0-15.0 Platelets [#/volume] in Blood by Automated count 2024-10-18 23:41:11 272 x 10^3 cells/uL F 140.0-450.0 Hemoglobin [Mass/volume] in Blood 2024-10-18 23:41:11 14.3 g/dL F 14.0-18.0 MCH [Entitic mass] by Automated count 2024-10-18 23:41:11 32.7 pg F 25.9-34.2 MCHC [Mass/volume] by Automated count 2024-10-18 23:41:11 34.1 g/dL F 29.6-35.3 Erythrocytes [#/volume] in Blood by Automated count 2024-10-18 23:41:11 4.38 x 10^6 cells/uL F 4.6-6.2 Hematocrit [Volume Fraction] of Blood by Automated count 2024-10-18 23:41:11 42 % F 41.0-53.0 MCV [Entitic volume] by Automated count 2024-10-18 23:41:11 95.9 fL F 80.0-100.0 Ferritin [Mass/volume] in Serum or Plasma 2024-10-18 22:06:26 F Ferritin [Mass/volume] in Serum or Plasma 2024-10-18 22:06:26 F Ferritin [Mass/volume] in Serum or Plasma 2024-10-18 22:06:26 F CANCELED - TEST CANCELED,CANCELE D - TEST CANCELED HCT CALC HGBX3 2024-09-11 20:21:05 37.8 % F 42.0-52.0 Hemoglobin [Mass/volume] in Blood 2024-09-11 20:20:13 12.6 g/dL F 14.0-18.0 Ferritin [Mass/volume] in Serum or Plasma 2024-08-30 21:13:32 268 ng/mL F 22.0-322.0 IRON SATURATION 2024-08-30 20:14:09 27 % F 21.0-49.0 TIBC 2024-08-30 20:14:09 250 ug/dL F 250.0-425.0 Iron binding capacity.unsaturated [Mass/volume] in Serum or Plasma 2024-08-30 20:12:23 182 ug/dL F 75.0-360.0 Iron [Mass/volume] in Serum or Plasma 2024-08-30 20:12:23 68 ug/dL F 65.0-175.0 HCT CALC HGBX3 2024-08-28 18:08:14 37.2 % F 42.0-52.0 Erythrocyte distribution width [Ratio] by Automated count 2024-08-28 18:07:10 15.6 % F 11.0-15.0 Hemoglobin [Mass/volume] in Blood 2024-08-28 18:07:10 12.4 g/dL F 14.0-18.0 Platelets [#/volume] in Blood by Automated count 2024-08-28 18:07:10 248 x 10^3 cells/uL F 140.0-450.0 MCH [Entitic mass] by Automated count 2024-08-28 18:07:10 31.1 pg F 25.9-34.2 MCHC [Mass/volume] by Automated count 2024-08-28 18:07:10 32.5 g/dL F 29.6-35.3 Erythrocytes [#/volume] in Blood by Automated count 2024-08-28 18:07:10 3.98 x 10^6 cells/uL F 4.6-6.2 Hematocrit [Volume Fraction] of Blood by Automated count 2024-08-28 18:07:10 38.1 % F 41.0-53.0 MCV [Entitic volume] by Automated count 2024-08-28 18:07:10 95.7 fL F 80.0-100.0 HCT CALC HGBX3 2024-08-14 23:01:26 31.8 % F 42.0-52.0 Hemoglobin [Mass/volume] in Blood 2024-08-14 22:55:15 10.6 g/dL F 14.0-18.0 IRON SATURATION 2024-08-01 09:32:48 19 % F 21.0-49.0 TIBC 2024-08-01 09:32:48 259 ug/dL F 250.0-425.0 Iron [Mass/volume] in Serum or Plasma 2024-08-01 07:03:36 49 ug/dL F 65.0-175.0 Iron binding capacity.unsaturated [Mass/volume] in Serum or Plasma 2024-08-01 07:03:36 210 ug/dL F 75.0-360.0 Ferritin [Mass/volume] in Serum or Plasma 2024-08-01 01:39:20 134 ng/mL F 22.0-322.0 HCT CALC HGBX3 2024-07-31 21:03:55 32.1 % F 42.0-52.0 Erythrocyte distribution width [Ratio] by Automated count 2024-07-31 21:03:09 15.8 % F 11.0-15.0 Hemoglobin [Mass/volume] in Blood 2024-07-31 21:03:09 10.7 g/dL F 14.0-18.0 Platelets [#/volume] in Blood by Automated count 2024-07-31 21:03:09 286 x 10^3 cells/uL F 140.0-450.0 MCH [Entitic mass] by Automated count 2024-07-31 21:03:09 30.1 pg F 25.9-34.2 MCHC [Mass/volume] by Automated count 2024-07-31 21:03:09 31.7 g/dL F 29.6-35.3 Hematocrit [Volume Fraction] of Blood by Automated count 2024-07-31 21:03:09 33.8 % F 41.0-53.0 Erythrocytes [#/volume] in Blood by Automated count 2024-07-31 21:03:09 3.56 x 10^6 cells/uL F 4.6-6.2 MCV [Entitic volume] by Automated count 2024-07-31 21:03:09 94.8 fL F 80.0-100.0 Ferritin [Mass/volume] in Serum or Plasma 2024-02-17 03:37:26 132 ng/mL F 22.0-322.0 IRON SATURATION 2024-02-17 01:54:32 20 % F 21.0-49.0 TIBC 2024-02-17 01:54:32 260 ug/dL F 250.0-425.0 Iron [Mass/volume] in Serum or Plasma 2024-02-17 01:53:03 53 ug/dL F 65.0-175.0 Iron binding capacity.unsaturated [Mass/volume] in Serum or Plasma 2024-02-17 01:53:03 207 ug/dL F 75.0-360.0 HCT CALC HGBX3 2024-02-17 00:17:10 30.3 % F 42.0-52.0 Erythrocyte distribution width [Ratio] by Automated count 2024-02-17 00:16:17 14.6 % F 11.0-15.0 Hemoglobin [Mass/volume] in Blood 2024-02-17 00:16:17 10.1 g/dL F 14.0-18.0 Platelets [#/volume] in Blood by Automated count 2024-02-17 00:16:17 190 x 10^3 cells/uL F 140.0-450.0 MCH [Entitic mass] by Automated count 2024-02-17 00:16:17 30.4 pg F 25.9-34.2 MCHC [Mass/volume] by Automated count 2024-02-17 00:16:17 30.9 g/dL F 29.6-35.3 Erythrocytes [#/volume] in Blood by Automated count 2024-02-17 00:16:17 3.31 x 10'6 cells/uL F 4.6-6.2 Hematocrit [Volume Fraction] of Blood by Automated count 2024-02-17 00:16:17 32.6 % F 41.0-53.0 MCV [Entitic volume] by Automated count 2024-02-17 00:16:17 98.4 fL F 80.0-100.0 Hematocrit [Volume Fraction] of Blood by Automated count MCH [Entitic mass] by Automated count Platelets [#/volume] in Blood by Automated count MCHC [Mass/volume] by Automated count HCT CALC HGBX3 Erythrocytes [#/volume] in Blood by Automated count MCV [Entitic volume] by Automated count Hemoglobin [Mass/volume] in Blood Erythrocyte distribution width [Ratio] by Automated count Ferritin [Mass/volume] in Serum or Plasma IRON SATURATION TIBC Iron binding capacity.unsaturated [Mass/volume] in Serum or Plasma Iron [Mass/volume] in Serum or Plasma Comorbidities Description Draw Date Result/Unit Status Ref Range Result Comments Hemoglobin A1c/Hemoglobin.total in Blood 2024-07-31 21:27:18 5.2 %A1c F 0.0-5.6 Hemoglobin A1c/Hemoglobin.total in Blood 2024-02-17 00:50:32 7 %A1c F 0.0-5.6 FluidBP Description Draw Date Result/Unit Status Ref Range Result Comments Sodium [Moles/volume] in Serum or Plasma 2025-01-02 01:04:53 140 mEq/L F 132.0-146.0 Sodium [Moles/volume] in Serum or Plasma 2024-11-28 03:50:58 143 mEq/L F 132.0-146.0 Sodium [Moles/volume] in Serum or Plasma 2024-11-28 03:50:58 143 mEq/L F 132.0-146.0 Sodium [Moles/volume] in Serum or Plasma 2024-10-19 06:11:17 138 mEq/L F 132.0-146.0 Sodium [Moles/volume] in Serum or Plasma 2024-10-19 06:11:17 138 mEq/L F 132.0-146.0 Sodium [Moles/volume] in Serum or Plasma 2024-10-19 06:11:17 138 mEq/L F 132.0-146.0 Sodium [Moles/volume] in Serum or Plasma 2024-08-29 07:04:43 137 mEq/L F 132.0-146.0 Sodium [Moles/volume] in Serum or Plasma 2024-08-01 07:03:36 139 mEq/L F 132.0-146.0 Sodium [Moles/volume] in Serum or Plasma 2024-02-17 01:53:03 139 mEq/L F 132.0-146.0 Sodium [Moles/volume] in Serum or Plasma General Description Draw Date Result/Unit Status Ref Range Result Comments Chloride [Moles/volume] in Serum or Plasma 2025-01-02 01:04:53 101 mEq/L F 99.0-109.0 Alanine aminotransferase [Enzymatic activity/volume] in Serum or Plasma 2025-01-01 18:37:23 18 U/L F 10.0-49.0 Aspartate aminotransferase [Enzymatic activity/volume] in Serum or Plasma 2025-01-01 18:37:23 19 U/L F 0.0-33.0 Chloride [Moles/volume] in Serum or Plasma 2024-11-28 03:50:58 106 mEq/L F 99.0-109.0 Chloride [Moles/volume] in Serum or Plasma 2024-11-28 03:50:58 106 mEq/L F 99.0-109.0 Alanine aminotransferase [Enzymatic activity/volume] in Serum or Plasma 2024-11-28 02:43:27 18 U/L F 10.0-49.0 Aspartate aminotransferase [Enzymatic activity/volume] in Serum or Plasma 2024-11-28 02:43:27 19 U/L F 0.0-33.0 Aspartate aminotransferase [Enzymatic activity/volume] in Serum or Plasma 2024-11-28 02:43:27 19 U/L F 0.0-33.0 Alanine aminotransferase [Enzymatic activity/volume] in Serum or Plasma 2024-11-28 02:43:27 18 U/L F 10.0-49.0 Chloride [Moles/volume] in Serum or Plasma 2024-10-23 23:37:30 105 mEq/L F 99.0-109.0 Chloride [Moles/volume] in Serum or Plasma 2024-10-23 23:37:30 105 mEq/L F 99.0-109.0 Chloride [Moles/volume] in Serum or Plasma 2024-10-23 23:37:30 105 mEq/L F 99.0-109.0 Aspartate aminotransferase [Enzymatic activity/volume] in Serum or Plasma 2024-10-23 16:56:27 20 U/L F 0.0-33.0 Aspartate aminotransferase [Enzymatic activity/volume] in Serum or Plasma 2024-10-23 16:56:27 20 U/L F 0.0-33.0 Aspartate aminotransferase [Enzymatic activity/volume] in Serum or Plasma 2024-10-23 16:56:27 20 U/L F 0.0-33.0 Chloride [Moles/volume] in Serum or Plasma 2024-10-19 06:11:17 97 mEq/L F 99.0-109.0 Chloride [Moles/volume] in Serum or Plasma 2024-10-19 06:11:17 97 mEq/L F 99.0-109.0 Chloride [Moles/volume] in Serum or Plasma 2024-10-19 06:11:17 97 mEq/L F 99.0-109.0 Alanine aminotransferase [Enzymatic activity/volume] in Serum or Plasma 2024-10-18 23:53:16 29 U/L F 10.0-49.0 Alanine aminotransferase [Enzymatic activity/volume] in Serum or Plasma 2024-10-18 23:53:16 29 U/L F 10.0-49.0 Alanine aminotransferase [Enzymatic activity/volume] in Serum or Plasma 2024-10-18 23:53:16 29 U/L F 10.0-49.0 Aspartate aminotransferase [Enzymatic activity/volume] in Serum or Plasma 2024-10-18 23:52:10 F Recollect - Hemolyzed specimen,Recollec t - Hemolyzed specimen Aspartate aminotransferase [Enzymatic activity/volume] in Serum or Plasma 2024-10-18 23:52:10 F Recollect - Hemolyzed specimen,Recollec t - Hemolyzed specimen Aspartate aminotransferase [Enzymatic activity/volume] in Serum or Plasma 2024-10-18 23:52:10 F Recollect - Hemolyzed specimen,Recollec t - Hemolyzed specimen,Recollec t - Hemolyzed specimen Chloride [Moles/volume] in Serum or Plasma 2024-08-29 07:04:43 99 mEq/L F 99.0-109.0 Aspartate aminotransferase [Enzymatic activity/volume] in Serum or Plasma 2024-08-28 16:08:21 31 U/L F 0.0-33.0 Alanine aminotransferase [Enzymatic activity/volume] in Serum or Plasma 2024-08-28 16:08:21 38 U/L F 10.0-49.0 Chloride [Moles/volume] in Serum or Plasma 2024-08-01 07:03:36 104 mEq/L F 99.0-109.0 Aspartate aminotransferase [Enzymatic activity/volume] in Serum or Plasma 2024-07-31 17:56:18 21 U/L F 0.0-33.0 Alanine aminotransferase [Enzymatic activity/volume] in Serum or Plasma 2024-07-31 17:56:18 23 U/L F 10.0-49.0 Chloride [Moles/volume] in Serum or Plasma 2024-02-17 01:53:03 106 mEq/L F 99.0-109.0 Aspartate aminotransferase [Enzymatic activity/volume] in Serum or Plasma 2024-02-16 20:00:28 38 U/L F 0.0-33.0 Alanine aminotransferase [Enzymatic activity/volume] in Serum or Plasma 2024-02-16 20:00:28 31 U/L F 10.0-49.0 Aluminum [Mass/volume] in Serum or Plasma 2024-02-16 18:31:43 10 ug/L F 0.0-9.0 Chloride [Moles/volume] in Serum or Plasma Aspartate aminotransferase [Enzymatic activity/volume] in Serum or Plasma Alanine aminotransferase [Enzymatic activity/volume] in Serum or Plasma InfectionVaccination Description Draw Date Result/Unit Status Ref Range Result Comments Basophils/100 leukocytes in Blood by Automated count 2025-01-02 04:46:17 0.6 % F Neutrophils/100 leukocytes in Blood by Automated count 2025-01-02 04:46:17 57.6 % F Monocytes/100 leukocytes in Blood by Automated count 2025-01-02 04:46:17 6 % F Eosinophils/100 leukocytes in Blood by Automated count 2025-01-02 04:46:17 6.3 % F Lymphocytes/100 leukocytes in Blood by Automated count 2025-01-02 04:46:17 29.6 % F Leukocytes [#/volume] in Blood by Automated count 2025-01-02 04:46:17 10.8 x 10^3 cells/uL F 4.0-11.0 Neutrophils [#/volume] in Blood by Automated count 2025-01-02 04:46:17 6232 Cells/uL F 2000.0-8800.0 Monocytes [#/volume] in Blood by Automated count 2025-01-02 04:46:17 649 Cells/uL F 0.0-1100.0 Eosinophils [#/volume] in Blood by Automated count 2025-01-02 04:46:17 682 Cells/uL F 0.0-700.0 Basophils [#/volume] in Blood by Automated count 2025-01-02 04:46:17 65 Cells/uL F 0.0-400.0 Lymphocytes [#/volume] in Blood by Automated count 2025-01-02 04:46:17 3203 Cells/uL F 620.0-3660.0 Basophils/100 leukocytes in Blood by Automated count 2024-11-28 06:55:15 0.9 % F Neutrophils/100 leukocytes in Blood by Automated count 2024-11-28 06:55:15 65.6 % F Monocytes/100 leukocytes in Blood by Automated count 2024-11-28 06:55:15 6 % F Eosinophils/100 leukocytes in Blood by Automated count 2024-11-28 06:55:15 6 % F Lymphocytes/100 leukocytes in Blood by Automated count 2024-11-28 06:55:15 21.5 % F Leukocytes [#/volume] in Blood by Automated count 2024-11-28 06:55:15 11.8 x 10^3 cells/uL F 4.0-11.0 Neutrophils [#/volume] in Blood by Automated count 2024-11-28 06:55:15 7760 Cells/uL F 2000.0-8800.0 Lymphocytes [#/volume] in Blood by Automated count 2024-11-28 06:55:15 2543 Cells/uL F 620.0-3660.0 Basophils [#/volume] in Blood by Automated count 2024-11-28 06:55:15 106 Cells/uL F 0.0-400.0 Monocytes [#/volume] in Blood by Automated count 2024-11-28 06:55:15 710 Cells/uL F 0.0-1100.0 Eosinophils [#/volume] in Blood by Automated count 2024-11-28 06:55:15 710 Cells/uL F 0.0-700.0 Monocytes/100 leukocytes in Blood by Automated count 2024-11-28 06:55:15 6 % F Neutrophils/100 leukocytes in Blood by Automated count 2024-11-28 06:55:15 65.6 % F Lymphocytes/100 leukocytes in Blood by Automated count 2024-11-28 06:55:15 21.5 % F Eosinophils/100 leukocytes in Blood by Automated count 2024-11-28 06:55:15 6 % F Basophils/100 leukocytes in Blood by Automated count 2024-11-28 06:55:15 0.9 % F Monocytes [#/volume] in Blood by Automated count 2024-11-28 06:55:15 710 Cells/uL F 0.0-1100.0 Basophils [#/volume] in Blood by Automated count 2024-11-28 06:55:15 106 Cells/uL F 0.0-400.0 Eosinophils [#/volume] in Blood by Automated count 2024-11-28 06:55:15 710 Cells/uL F 0.0-700.0 Neutrophils [#/volume] in Blood by Automated count 2024-11-28 06:55:15 7760 Cells/uL F 2000.0-8800.0 Leukocytes [#/volume] in Blood by Automated count 2024-11-28 06:55:15 11.8 x 10^3 cells/uL F 4.0-11.0 Lymphocytes [#/volume] in Blood by Automated count 2024-11-28 06:55:15 2543 Cells/uL F 620.0-3660.0 Basophils/100 leukocytes in Blood by Automated count 2024-10-23 23:38:15 0.6 % F Monocytes/100 leukocytes in Blood by Automated count 2024-10-23 23:38:15 5.3 % F Neutrophils/100 leukocytes in Blood by Automated count 2024-10-23 23:38:15 71.9 % F Lymphocytes/100 leukocytes in Blood by Automated count 2024-10-23 23:38:15 16.9 % F Eosinophils/100 leukocytes in Blood by Automated count 2024-10-23 23:38:15 5.2 % F Leukocytes [#/volume] in Blood by Automated count 2024-10-23 23:38:15 14.9 x 10^3 cells/uL F 4.0-11.0 Neutrophils [#/volume] in Blood by Automated count 2024-10-23 23:38:15 24248 Cells/uL F 2000.0-8800.0 Lymphocytes [#/volume] in Blood by Automated count 2024-10-23 23:38:15 2525 Cells/uL F 620.0-3660.0 Monocytes [#/volume] in Blood by Automated count 2024-10-23 23:38:15 792 Cells/uL F 0.0-1100.0 Basophils [#/volume] in Blood by Automated count 2024-10-23 23:38:15 90 Cells/uL F 0.0-400.0 Eosinophils [#/volume] in Blood by Automated count 2024-10-23 23:38:15 777 Cells/uL F 0.0-700.0 Lymphocytes [#/volume] in Blood by Automated count 2024-10-23 23:38:15 2525 Cells/uL F 620.0-3660.0 Monocytes [#/volume] in Blood by Automated count 2024-10-23 23:38:15 792 Cells/uL F 0.0-1100.0 Lymphocytes/100 leukocytes in Blood by Automated count 2024-10-23 23:38:15 16.9 % F Basophils/100 leukocytes in Blood by Automated count 2024-10-23 23:38:15 0.6 % F Eosinophils/100 leukocytes in Blood by Automated count 2024-10-23 23:38:15 5.2 % F Eosinophils [#/volume] in Blood by Automated count 2024-10-23 23:38:15 777 Cells/uL F 0.0-700.0 Monocytes/100 leukocytes in Blood by Automated count 2024-10-23 23:38:15 5.3 % F Neutrophils [#/volume] in Blood by Automated count 2024-10-23 23:38:15 74394 Cells/uL F 2000.0-8800.0 Neutrophils/100 leukocytes in Blood by Automated count 2024-10-23 23:38:15 71.9 % F Leukocytes [#/volume] in Blood by Automated count 2024-10-23 23:38:15 14.9 x 10^3 cells/uL F 4.0-11.0 Basophils [#/volume] in Blood by Automated count 2024-10-23 23:38:15 90 Cells/uL F 0.0-400.0 Monocytes/100 leukocytes in Blood by Automated count 2024-10-23 23:38:15 5.3 % F Basophils/100 leukocytes in Blood by Automated count 2024-10-23 23:38:15 0.6 % F Neutrophils/100 leukocytes in Blood by Automated count 2024-10-23 23:38:15 71.9 % F Lymphocytes/100 leukocytes in Blood by Automated count 2024-10-23 23:38:15 16.9 % F Eosinophils/100 leukocytes in Blood by Automated count 2024-10-23 23:38:15 5.2 % F Monocytes [#/volume] in Blood by Automated count 2024-10-23 23:38:15 792 Cells/uL F 0.0-1100.0 Basophils [#/volume] in Blood by Automated count 2024-10-23 23:38:15 90 Cells/uL F 0.0-400.0 Eosinophils [#/volume] in Blood by Automated count 2024-10-23 23:38:15 777 Cells/uL F 0.0-700.0 Neutrophils [#/volume] in Blood by Automated count 2024-10-23 23:38:15 12092 Cells/uL F 2000.0-8800.0 Leukocytes [#/volume] in Blood by Automated count 2024-10-23 23:38:15 14.9 x 10^3 cells/uL F 4.0-11.0 Lymphocytes [#/volume] in Blood by Automated count 2024-10-23 23:38:15 2525 Cells/uL F 620.0-3660.0 Neutrophils [#/volume] in Blood by Automated count 2024-10-18 23:41:11 7975 Cells/uL F 2000.0-8800.0 Leukocytes [#/volume] in Blood by Automated count 2024-10-18 23:41:11 13.3 x 10^3 cells/uL F 4.0-11.0 Lymphocytes [#/volume] in Blood by Automated count 2024-10-18 23:41:11 3596 Cells/uL F 620.0-3660.0 Neutrophils/100 leukocytes in Blood by Automated count 2024-10-18 23:41:11 60.1 % F Eosinophils/100 leukocytes in Blood by Automated count 2024-10-18 23:41:11 5.7 % F Basophils/100 leukocytes in Blood by Automated count 2024-10-18 23:41:11 0.3 % F Lymphocytes/100 leukocytes in Blood by Automated count 2024-10-18 23:41:11 27.1 % F Monocytes/100 leukocytes in Blood by Automated count 2024-10-18 23:41:11 6.8 % F Basophils [#/volume] in Blood by Automated count 2024-10-18 23:41:11 40 Cells/uL F 0.0-400.0 Monocytes [#/volume] in Blood by Automated count 2024-10-18 23:41:11 902 Cells/uL F 0.0-1100.0 Eosinophils [#/volume] in Blood by Automated count 2024-10-18 23:41:11 756 Cells/uL F 0.0-700.0 Neutrophils [#/volume] in Blood by Automated count 2024-10-18 23:41:11 7975 Cells/uL F 2000.0-8800.0 Leukocytes [#/volume] in Blood by Automated count 2024-10-18 23:41:11 13.3 x 10^3 cells/uL F 4.0-11.0 Lymphocytes [#/volume] in Blood by Automated count 2024-10-18 23:41:11 3596 Cells/uL F 620.0-3660.0 Neutrophils/100 leukocytes in Blood by Automated count 2024-10-18 23:41:11 60.1 % F Eosinophils/100 leukocytes in Blood by Automated count 2024-10-18 23:41:11 5.7 % F Lymphocytes/100 leukocytes in Blood by Automated count 2024-10-18 23:41:11 27.1 % F Monocytes/100 leukocytes in Blood by Automated count 2024-10-18 23:41:11 6.8 % F Basophils/100 leukocytes in Blood by Automated count 2024-10-18 23:41:11 0.3 % F Basophils [#/volume] in Blood by Automated count 2024-10-18 23:41:11 40 Cells/uL F 0.0-400.0 Monocytes [#/volume] in Blood by Automated count 2024-10-18 23:41:11 902 Cells/uL F 0.0-1100.0 Eosinophils [#/volume] in Blood by Automated count 2024-10-18 23:41:11 756 Cells/uL F 0.0-700.0 Neutrophils [#/volume] in Blood by Automated count 2024-10-18 23:41:11 7975 Cells/uL F 2000.0-8800.0 Leukocytes [#/volume] in Blood by Automated count 2024-10-18 23:41:11 13.3 x 10^3 cells/uL F 4.0-11.0 Lymphocytes [#/volume] in Blood by Automated count 2024-10-18 23:41:11 3596 Cells/uL F 620.0-3660.0 Eosinophils/100 leukocytes in Blood by Automated count 2024-10-18 23:41:11 5.7 % F Neutrophils/100 leukocytes in Blood by Automated count 2024-10-18 23:41:11 60.1 % F Basophils/100 leukocytes in Blood by Automated count 2024-10-18 23:41:11 0.3 % F Monocytes/100 leukocytes in Blood by Automated count 2024-10-18 23:41:11 6.8 % F Lymphocytes/100 leukocytes in Blood by Automated count 2024-10-18 23:41:11 27.1 % F Monocytes [#/volume] in Blood by Automated count 2024-10-18 23:41:11 902 Cells/uL F 0.0-1100.0 Eosinophils [#/volume] in Blood by Automated count 2024-10-18 23:41:11 756 Cells/uL F 0.0-700.0 Basophils [#/volume] in Blood by Automated count 2024-10-18 23:41:11 40 Cells/uL F 0.0-400.0 Basophils/100 leukocytes in Blood by Automated count 2024-08-28 18:07:10 0.3 % F Eosinophils/100 leukocytes in Blood by Automated count 2024-08-28 18:07:10 4.3 % F Lymphocytes/100 leukocytes in Blood by Automated count 2024-08-28 18:07:10 25.3 % F Neutrophils/100 leukocytes in Blood by Automated count 2024-08-28 18:07:10 63.1 % F Monocytes/100 leukocytes in Blood by Automated count 2024-08-28 18:07:10 6.9 % F Monocytes [#/volume] in Blood by Automated count 2024-08-28 18:07:10 733 Cells/uL F 0.0-1100.0 Basophils [#/volume] in Blood by Automated count 2024-08-28 18:07:10 32 Cells/uL F 0.0-400.0 Eosinophils [#/volume] in Blood by Automated count 2024-08-28 18:07:10 457 Cells/uL F 0.0-700.0 Neutrophils [#/volume] in Blood by Automated count 2024-08-28 18:07:10 6708 Cells/uL F 2000.0-8800.0 Leukocytes [#/volume] in Blood by Automated count 2024-08-28 18:07:10 10.6 x 10^3 cells/uL F 4.0-11.0 Lymphocytes [#/volume] in Blood by Automated count 2024-08-28 18:07:10 2689 Cells/uL F 620.0-3660.0 Lymphocytes/100 leukocytes in Blood by Automated count 2024-07-31 21:03:09 18.8 % F Eosinophils/100 leukocytes in Blood by Automated count 2024-07-31 21:03:09 4.7 % F Monocytes/100 leukocytes in Blood by Automated count 2024-07-31 21:03:09 5.7 % F Basophils/100 leukocytes in Blood by Automated count 2024-07-31 21:03:09 0.6 % F Monocytes [#/volume] in Blood by Automated count 2024-07-31 21:03:09 739 Cells/uL F 0.0-1100.0 Neutrophils/100 leukocytes in Blood by Automated count 2024-07-31 21:03:09 70.1 % F Basophils [#/volume] in Blood by Automated count 2024-07-31 21:03:09 78 Cells/uL F 0.0-400.0 Eosinophils [#/volume] in Blood by Automated count 2024-07-31 21:03:09 609 Cells/uL F 0.0-700.0 Neutrophils [#/volume] in Blood by Automated count 2024-07-31 21:03:09 9085 Cells/uL F 2000.0-8800.0 Leukocytes [#/volume] in Blood by Automated count 2024-07-31 21:03:09 13 x 10^3 cells/uL F 4.0-11.0 Lymphocytes [#/volume] in Blood by Automated count 2024-07-31 21:03:09 2436 Cells/uL F 620.0-3660.0 Monocytes/100 leukocytes in Blood by Automated count 2024-02-17 00:16:17 9.5 % F Eosinophils/100 leukocytes in Blood by Automated count 2024-02-17 00:16:17 2.9 % F Lymphocytes/100 leukocytes in Blood by Automated count 2024-02-17 00:16:17 21.6 % F Basophils/100 leukocytes in Blood by Automated count 2024-02-17 00:16:17 0.4 % F Neutrophils/100 leukocytes in Blood by Automated count 2024-02-17 00:16:17 65.6 % F Monocytes [#/volume] in Blood by Automated count 2024-02-17 00:16:17 846 Cell/uL F 0.0-1100.0 Basophils [#/volume] in Blood by Automated count 2024-02-17 00:16:17 36 Cell/uL F 0.0-400.0 Eosinophils [#/volume] in Blood by Automated count 2024-02-17 00:16:17 258 Cell/uL F 0.0-700.0 Neutrophils [#/volume] in Blood by Automated count 2024-02-17 00:16:17 5845 Cell/uL F 2000.0-8800.0 Leukocytes [#/volume] in Blood by Automated count 2024-02-17 00:16:17 8.9 x 10^3 cells/uL F 4.0-11.0 Lymphocytes [#/volume] in Blood by Automated count 2024-02-17 00:16:17 1925 Cell/uL F 620.0-3660.0 Lymphocytes [#/volume] in Blood by Automated count Basophils [#/volume] in Blood by Automated count Monocytes/100 leukocytes in Blood by Automated count Basophils/100 leukocytes in Blood by Automated count Eosinophils [#/volume] in Blood by Automated count Neutrophils [#/volume] in Blood by Automated count Neutrophils/100 leukocytes in Blood by Automated count Lymphocytes/100 leukocytes in Blood by Automated count Leukocytes [#/volume] in Blood by Automated count Monocytes [#/volume] in Blood by Automated count Eosinophils/100 leukocytes in Blood by Automated count MineralBone Disorder Description Draw Date Result/Unit Status Ref Range Result Comments CA CORRECTED 2025-01-16 04:48:37 8.1 mg/dL F Calcium [Mass/volume] in Serum or Plasma 2025-01-16 04:37:01 8 mg/dL F 8.7-10.4 Parathyrin.intact [Mass/volume] in Serum or Plasma 2025-01-02 06:59:10 204 pg/mL F 18.0-80.0 CA CORRECTED 2025-01-02 01:09:47 7.8 mg/dL F CA/PHOS PRODUCT 2025-01-02 01:08:09 53.1 Calc F 21.0-53.0 CA*PO4 CORRCTD 2025-01-02 01:08:09 53.7 Calc F 21.0-53.0 Calcium [Mass/volume] in Serum or Plasma 2025-01-02 01:04:53 7.7 mg/dL F 8.7-10.4 Alkaline phosphatase [Enzymatic activity/volume] in Serum or Plasma 2025-01-01 18:37:23 109 U/L F 46.0-116.0 Phosphate [Mass/volume] in Serum or Plasma 2025-01-01 18:37:23 6.9 mg/dL F 2.4-5.1 Parathyrin.intact [Mass/volume] in Serum or Plasma 2024-11-28 16:48:18 213 pg/mL F 18.0-80.0 Parathyrin.intact [Mass/volume] in Serum or Plasma 2024-11-28 16:48:18 213 pg/mL F 18.0-80.0 CA CORRECTED 2024-11-28 04:03:16 8.3 mg/dL F CA CORRECTED 2024-11-28 04:03:16 8.3 mg/dL F CA/PHOS PRODUCT 2024-11-28 04:01:35 41 Calc F 21.0-53.0 CA*PO4 CORRCTD 2024-11-28 04:01:35 41.4 Calc F 21.0-53.0 CA*PO4 CORRCTD 2024-11-28 04:01:35 41.4 Calc F 21.0-53.0 CA/PHOS PRODUCT 2024-11-28 04:01:35 41 Calc F 21.0-53.0 Calcium [Mass/volume] in Serum or Plasma 2024-11-28 03:50:58 8.2 mg/dL F 8.7-10.4 Calcium [Mass/volume] in Serum or Plasma 2024-11-28 03:50:58 8.2 mg/dL F 8.7-10.4 Alkaline phosphatase [Enzymatic activity/volume] in Serum or Plasma 2024-11-28 02:43:27 118 U/L F 46.0-116.0 Phosphate [Mass/volume] in Serum or Plasma 2024-11-28 02:43:27 5 mg/dL F 2.4-5.1 Phosphate [Mass/volume] in Serum or Plasma 2024-11-28 02:43:27 5 mg/dL F 2.4-5.1 Alkaline phosphatase [Enzymatic activity/volume] in Serum or Plasma 2024-11-28 02:43:27 118 U/L F 46.0-116.0 Parathyrin.intact [Mass/volume] in Serum or Plasma 2024-11-07 04:26:17 184 pg/mL F 18.0-80.0 Parathyrin.intact [Mass/volume] in Serum or Plasma 2024-11-07 04:26:17 184 pg/mL F 18.0-80.0 CA CORRECTED 2024-10-24 17:07:36 8.5 mg/dL F CA CORRECTED 2024-10-24 17:07:36 8.5 mg/dL F CA CORRECTED 2024-10-24 17:07:36 8.5 mg/dL F Calcium [Mass/volume] in Serum or Plasma 2024-10-23 23:37:30 8.3 mg/dL F 8.7-10.4 Calcium [Mass/volume] in Serum or Plasma 2024-10-23 23:37:30 8.3 mg/dL F 8.7-10.4 Calcium [Mass/volume] in Serum or Plasma 2024-10-23 23:37:30 8.3 mg/dL F 8.7-10.4 Alkaline phosphatase [Enzymatic activity/volume] in Serum or Plasma 2024-10-23 16:56:27 115 U/L F 46.0-116.0 Alkaline phosphatase [Enzymatic activity/volume] in Serum or Plasma 2024-10-23 16:56:27 115 U/L F 46.0-116.0 Alkaline phosphatase [Enzymatic activity/volume] in Serum or Plasma 2024-10-23 16:56:27 115 U/L F 46.0-116.0 CA CORRECTED 2024-10-19 06:19:32 7.9 mg/dL F CA CORRECTED 2024-10-19 06:19:32 7.9 mg/dL F CA CORRECTED 2024-10-19 06:19:32 7.9 mg/dL F CA/PHOS PRODUCT 2024-10-19 06:17:21 52.9 Calc F 21.0-53.0 CA*PO4 CORRCTD 2024-10-19 06:17:21 52.9 Calc F 21.0-53.0 CA/PHOS PRODUCT 2024-10-19 06:17:21 52.9 Calc F 21.0-53.0 CA*PO4 CORRCTD 2024-10-19 06:17:21 52.9 Calc F 21.0-53.0 CA/PHOS PRODUCT 2024-10-19 06:17:21 52.9 Calc F 21.0-53.0 CA*PO4 CORRCTD 2024-10-19 06:17:21 52.9 Calc F 21.0-53.0 Phosphate [Mass/volume] in Serum or Plasma 2024-10-19 06:11:17 6.7 mg/dL F 2.4-5.1 Calcium [Mass/volume] in Serum or Plasma 2024-10-19 06:11:17 7.9 mg/dL F 8.7-10.4 Phosphate [Mass/volume] in Serum or Plasma 2024-10-19 06:11:17 6.7 mg/dL F 2.4-5.1 Calcium [Mass/volume] in Serum or Plasma 2024-10-19 06:11:17 7.9 mg/dL F 8.7-10.4 Phosphate [Mass/volume] in Serum or Plasma 2024-10-19 06:11:17 6.7 mg/dL F 2.4-5.1 Calcium [Mass/volume] in Serum or Plasma 2024-10-19 06:11:17 7.9 mg/dL F 8.7-10.4 Alkaline phosphatase [Enzymatic activity/volume] in Serum or Plasma 2024-10-18 23:53:16 117 U/L F 46.0-116.0 Alkaline phosphatase [Enzymatic activity/volume] in Serum or Plasma 2024-10-18 23:53:16 117 U/L F 46.0-116.0 Alkaline phosphatase [Enzymatic activity/volume] in Serum or Plasma 2024-10-18 23:53:16 117 U/L F 46.0-116.0 Parathyrin.intact [Mass/volume] in Serum or Plasma 2024-10-18 22:06:26 F Parathyrin.intact [Mass/volume] in Serum or Plasma 2024-10-18 22:06:26 F Parathyrin.intact [Mass/volume] in Serum or Plasma 2024-10-18 22:06:26 F CANCELED - TEST CANCELED,CANCELED - TEST CANCELED CA CORRECTED 2024-08-29 07:23:04 8.7 mg/dL F CA/PHOS PRODUCT 2024-08-29 07:21:26 60.9 Calc F 21.0-53.0 CA*PO4 CORRCTD 2024-08-29 07:21:26 60.9 Calc F 21.0-53.0 Phosphate [Mass/volume] in Serum or Plasma 2024-08-29 07:04:54 7 mg/dL F 2.4-5.1 Calcium [Mass/volume] in Serum or Plasma 2024-08-29 07:04:43 8.7 mg/dL F 8.7-10.4 Parathyrin.intact [Mass/volume] in Serum or Plasma 2024-08-28 21:56:24 161 pg/mL F 18.0-80.0 Alkaline phosphatase [Enzymatic activity/volume] in Serum or Plasma 2024-08-28 16:08:21 105 U/L F 46.0-116.0 CA CORRECTED 2024-08-15 10:08:32 8.2 mg/dL F Calcium [Mass/volume] in Serum or Plasma 2024-08-15 07:55:06 8.1 mg/dL F 8.7-10.4 CA CORRECTED 2024-08-01 09:34:56 7.9 mg/dL F CA/PHOS PRODUCT 2024-08-01 09:32:48 50.7 Calc F 21.0-53.0 CA*PO4 CORRCTD 2024-08-01 09:32:48 51.2 Calc F 21.0-53.0 Phosphate [Mass/volume] in Serum or Plasma 2024-08-01 07:03:36 6.5 mg/dL F 2.4-5.1 Calcium [Mass/volume] in Serum or Plasma 2024-08-01 07:03:36 7.8 mg/dL F 8.7-10.4 Alkaline phosphatase [Enzymatic activity/volume] in Serum or Plasma 2024-07-31 17:56:18 109 U/L F 46.0-116.0 Parathyrin.intact [Mass/volume] in Serum or Plasma 2024-07-31 15:03:15 243 pg/mL F 18.0-80.0 25-Hydroxyvitamin D3+25-Hydroxyvitamin D2 [Mass/volume] in Serum or Plasma 2024-02-17 03:37:26 16.1 ng/mL F CA CORRECTED 2024-02-17 01:58:25 8.2 mg/dL F CA*PO4 CORRCTD 2024-02-17 01:54:32 29.5 Calc F 21.0-53.0 CA/PHOS PRODUCT 2024-02-17 01:54:32 28.8 Calc F 21.0-53.0 Calcium [Mass/volume] in Serum or Plasma 2024-02-17 01:53:03 8 mg/dL F 8.7-10.4 Parathyrin.intact [Mass/volume] in Serum or Plasma 2024-02-17 00:14:29 403 pg/mL F 18.0-80.0 Phosphate [Mass/volume] in Serum or Plasma 2024-02-16 20:00:28 3.6 mg/dL F 2.4-5.1 Alkaline phosphatase [Enzymatic activity/volume] in Serum or Plasma 2024-02-16 20:00:28 71 U/L F 46.0-116.0 Parathyrin.intact [Mass/volume] in Serum or Plasma CA/PHOS PRODUCT CA*PO4 CORRCTD Calcium [Mass/volume] in Serum or Plasma Phosphate [Mass/volume] in Serum or Plasma CA CORRECTED Alkaline phosphatase [Enzymatic activity/volume] in Serum or Plasma Nutrition Description Draw Date Result/Unit Status Ref Range Result Comments Potassium [Moles/volume] in Serum or Plasma 2025-01-16 04:37:01 4 mEq/L F 3.5-5.5 Potassium [Moles/volume] in Serum or Plasma 2025-01-02 01:04:53 3.8 mEq/L F 3.5-5.5 A/G RATIO 2025-01-01 18:38:24 1.6 Calc F 1.0-2.5 GLOBULIN 2025-01-01 18:38:24 2.5 g/dL F 0.9-5.0 Albumin [Mass/volume] in Serum or Plasma by Bromocresol green (BCG) dye binding method 2025-01-01 18:37:23 3.9 g/dL F 3.4-4.8 Bicarbonate [Moles/volume] in Serum or Plasma 2025-01-01 18:37:23 26 mEq/L F 20.0-31.0 Lactate dehydrogenase [Enzymatic activity/volume] in Serum or Plasma 2025-01-01 18:37:23 240 U/L F 120.0-246.0 Protein [Mass/volume] in Serum or Plasma 2025-01-01 18:37:23 6.4 g/dL F 5.7-8.2 Potassium [Moles/volume] in Serum or Plasma 2024-12-12 04:08:41 3.6 mEq/L F 3.5-5.5 Potassium [Moles/volume] in Serum or Plasma 2024-12-12 04:08:41 3.6 mEq/L F 3.5-5.5 Potassium [Moles/volume] in Serum or Plasma 2024-11-28 03:50:58 3.8 mEq/L F 3.5-5.5 Potassium [Moles/volume] in Serum or Plasma 2024-11-28 03:50:58 3.8 mEq/L F 3.5-5.5 GLOBULIN 2024-11-28 02:44:31 2.8 g/dL F 0.9-5.0 A/G RATIO 2024-11-28 02:44:31 1.4 Calc F 1.0-2.5 A/G RATIO 2024-11-28 02:44:31 1.4 Calc F 1.0-2.5 GLOBULIN 2024-11-28 02:44:31 2.8 g/dL F 0.9-5.0 Albumin [Mass/volume] in Serum or Plasma by Bromocresol green (BCG) dye binding method 2024-11-28 02:43:27 3.9 g/dL F 3.4-4.8 Bicarbonate [Moles/volume] in Serum or Plasma 2024-11-28 02:43:27 26 mEq/L F 20.0-31.0 Lactate dehydrogenase [Enzymatic activity/volume] in Serum or Plasma 2024-11-28 02:43:27 230 U/L F 120.0-246.0 Protein [Mass/volume] in Serum or Plasma 2024-11-28 02:43:27 6.7 g/dL F 5.7-8.2 Lactate dehydrogenase [Enzymatic activity/volume] in Serum or Plasma 2024-11-28 02:43:27 230 U/L F 120.0-246.0 Bicarbonate [Moles/volume] in Serum or Plasma 2024-11-28 02:43:27 26 mEq/L F 20.0-31.0 Albumin [Mass/volume] in Serum or Plasma by Bromocresol green (BCG) dye binding method 2024-11-28 02:43:27 3.9 g/dL F 3.4-4.8 Protein [Mass/volume] in Serum or Plasma 2024-11-28 02:43:27 6.7 g/dL F 5.7-8.2 Potassium [Moles/volume] in Serum or Plasma 2024-11-14 07:16:04 3.8 mEq/L F 3.5-5.5 Potassium [Moles/volume] in Serum or Plasma 2024-11-14 07:16:04 3.8 mEq/L F 3.5-5.5 A/G RATIO 2024-10-24 17:04:05 1.3 Calc F 1.0-2.5 GLOBULIN 2024-10-24 17:04:05 3 g/dL F 0.9-5.0 GLOBULIN 2024-10-24 17:04:05 3 g/dL F 0.9-5.0 A/G RATIO 2024-10-24 17:04:05 1.3 Calc F 1.0-2.5 GLOBULIN 2024-10-24 17:04:05 3 g/dL F 0.9-5.0 A/G RATIO 2024-10-24 17:04:05 1.3 Calc F 1.0-2.5 Potassium [Moles/volume] in Serum or Plasma 2024-10-23 23:37:30 4.6 mEq/L F 3.5-5.5 Potassium [Moles/volume] in Serum or Plasma 2024-10-23 23:37:30 4.6 mEq/L F 3.5-5.5 Potassium [Moles/volume] in Serum or Plasma 2024-10-23 23:37:30 4.6 mEq/L F 3.5-5.5 Albumin [Mass/volume] in Serum or Plasma by Bromocresol green (BCG) dye binding method 2024-10-23 16:56:27 3.8 g/dL F 3.4-4.8 Bicarbonate [Moles/volume] in Serum or Plasma 2024-10-23 16:56:27 21 mEq/L F 20.0-31.0 Lactate dehydrogenase [Enzymatic activity/volume] in Serum or Plasma 2024-10-23 16:56:27 237 U/L F 120.0-246.0 Protein [Mass/volume] in Serum or Plasma 2024-10-23 16:56:27 6.8 g/dL F 5.7-8.2 Albumin [Mass/volume] in Serum or Plasma by Bromocresol green (BCG) dye binding method 2024-10-23 16:56:27 3.8 g/dL F 3.4-4.8 Bicarbonate [Moles/volume] in Serum or Plasma 2024-10-23 16:56:27 21 mEq/L F 20.0-31.0 Protein [Mass/volume] in Serum or Plasma 2024-10-23 16:56:27 6.8 g/dL F 5.7-8.2 Lactate dehydrogenase [Enzymatic activity/volume] in Serum or Plasma 2024-10-23 16:56:27 237 U/L F 120.0-246.0 Lactate dehydrogenase [Enzymatic activity/volume] in Serum or Plasma 2024-10-23 16:56:27 237 U/L F 120.0-246.0 Bicarbonate [Moles/volume] in Serum or Plasma 2024-10-23 16:56:27 21 mEq/L F 20.0-31.0 Albumin [Mass/volume] in Serum or Plasma by Bromocresol green (BCG) dye binding method 2024-10-23 16:56:27 3.8 g/dL F 3.4-4.8 Protein [Mass/volume] in Serum or Plasma 2024-10-23 16:56:27 6.8 g/dL F 5.7-8.2 GLOBULIN 2024-10-18 23:54:15 2.6 g/dL F 0.9-5.0 A/G RATIO 2024-10-18 23:54:15 1.7 Calc F 1.0-2.5 GLOBULIN 2024-10-18 23:54:15 2.6 g/dL F 0.9-5.0 A/G RATIO 2024-10-18 23:54:15 1.7 Calc F 1.0-2.5 GLOBULIN 2024-10-18 23:54:15 2.6 g/dL F 0.9-5.0 A/G RATIO 2024-10-18 23:54:15 1.7 Calc F 1.0-2.5 Bicarbonate [Moles/volume] in Serum or Plasma 2024-10-18 23:53:16 28 mEq/L F 20.0-31.0 Albumin [Mass/volume] in Serum or Plasma by Bromocresol green (BCG) dye binding method 2024-10-18 23:53:16 4.3 g/dL F 3.4-4.8 Protein [Mass/volume] in Serum or Plasma 2024-10-18 23:53:16 6.9 g/dL F 5.7-8.2 Bicarbonate [Moles/volume] in Serum or Plasma 2024-10-18 23:53:16 28 mEq/L F 20.0-31.0 Albumin [Mass/volume] in Serum or Plasma by Bromocresol green (BCG) dye binding method 2024-10-18 23:53:16 4.3 g/dL F 3.4-4.8 Protein [Mass/volume] in Serum or Plasma 2024-10-18 23:53:16 6.9 g/dL F 5.7-8.2 Bicarbonate [Moles/volume] in Serum or Plasma 2024-10-18 23:53:16 28 mEq/L F 20.0-31.0 Albumin [Mass/volume] in Serum or Plasma by Bromocresol green (BCG) dye binding method 2024-10-18 23:53:16 4.3 g/dL F 3.4-4.8 Protein [Mass/volume] in Serum or Plasma 2024-10-18 23:53:16 6.9 g/dL F 5.7-8.2 Lactate dehydrogenase [Enzymatic activity/volume] in Serum or Plasma 2024-10-18 23:52:10 F Recollect - Hemolyzed specimen,Recollect - Hemolyzed specimen Potassium [Moles/volume] in Serum or Plasma 2024-10-18 23:52:10 F Recollect - Hemolyzed specimen,Recollect - Hemolyzed specimen Lactate dehydrogenase [Enzymatic activity/volume] in Serum or Plasma 2024-10-18 23:52:10 F Recollect - Hemolyzed specimen,Recollect - Hemolyzed specimen Potassium [Moles/volume] in Serum or Plasma 2024-10-18 23:52:10 F Recollect - Hemolyzed specimen,Recollect - Hemolyzed specimen Lactate dehydrogenase [Enzymatic activity/volume] in Serum or Plasma 2024-10-18 23:52:10 F Recollect - Hemolyzed specimen,Recollect - Hemolyzed specimen,Recollect - Hemolyzed specimen Potassium [Moles/volume] in Serum or Plasma 2024-10-18 23:52:10 F Recollect - Hemolyzed specimen,Recollect - Hemolyzed specimen,Recollect - Hemolyzed specimen Potassium [Moles/volume] in Serum or Plasma 2024-09-12 04:33:44 3.9 mEq/L F 3.5-5.5 Potassium [Moles/volume] in Serum or Plasma 2024-08-29 07:04:43 4.2 mEq/L F 3.5-5.5 GLOBULIN 2024-08-28 16:09:02 2.8 g/dL F 0.9-5.0 A/G RATIO 2024-08-28 16:09:02 1.5 Calc F 1.0-2.5 Lactate dehydrogenase [Enzymatic activity/volume] in Serum or Plasma 2024-08-28 16:08:21 186 U/L F 120.0-246.0 Bicarbonate [Moles/volume] in Serum or Plasma 2024-08-28 16:08:21 26 mEq/L F 20.0-31.0 Albumin [Mass/volume] in Serum or Plasma by Bromocresol green (BCG) dye binding method 2024-08-28 16:08:21 4.2 g/dL F 3.4-4.8 Protein [Mass/volume] in Serum or Plasma 2024-08-28 16:08:21 7 g/dL F 5.7-8.2 Potassium [Moles/volume] in Serum or Plasma 2024-08-15 07:55:06 4.4 mEq/L F 3.5-5.5 Potassium [Moles/volume] in Serum or Plasma 2024-08-01 07:03:36 4.3 mEq/L F 3.5-5.5 GLOBULIN 2024-07-31 17:57:17 2.9 g/dL F 0.9-5.0 A/G RATIO 2024-07-31 17:57:17 1.3 Calc F 1.0-2.5 Lactate dehydrogenase [Enzymatic activity/volume] in Serum or Plasma 2024-07-31 17:56:18 220 U/L F 120.0-246.0 Bicarbonate [Moles/volume] in Serum or Plasma 2024-07-31 17:56:18 24 mEq/L F 20.0-31.0 Albumin [Mass/volume] in Serum or Plasma by Bromocresol green (BCG) dye binding method 2024-07-31 17:56:18 3.9 g/dL F 3.4-4.8 Protein [Mass/volume] in Serum or Plasma 2024-07-31 17:56:18 6.8 g/dL F 5.7-8.2 Cobalamin (Vitamin B12) [Mass/volume] in Serum or Plasma 2024-02-17 03:37:26 353 pg/mL F 211.0-911.0 Folate [Mass/volume] in Serum or Plasma 2024-02-17 03:37:26 4.7 ng/mL F 5.5-16.0 Potassium [Moles/volume] in Serum or Plasma 2024-02-17 01:53:03 4.2 mEq/L F 3.5-5.5 VLDL-CHOL(CALC) 2024-02-16 20:00:32 48 mg/dL F 0.0-29.0 LDL-CHOLESTEROL 2024-02-16 20:00:32 30 mg/dL F 0.0-99.0 GLOBULIN 2024-02-16 20:00:32 2.2 g/dL F 0.9-5.0 A/G RATIO 2024-02-16 20:00:32 1.7 Calc F 1.0-2.5 CHOL/HDL RATIO 2024-02-16 20:00:32 4 Calc F 3.3-5.0 Protein [Mass/volume] in Serum or Plasma 2024-02-16 20:00:28 240 mg/dL F 0.0-149.0 Cholesterol [Mass/volume] in Serum or Plasma 2024-02-16 20:00:28 104 mg/dL F 0.0-199.0 Lactate dehydrogenase [Enzymatic activity/volume] in Serum or Plasma 2024-02-16 20:00:28 283 U/L F 120.0-246.0 Bicarbonate [Moles/volume] in Serum or Plasma 2024-02-16 20:00:28 24 mEq/L F 20.0-31.0 Albumin [Mass/volume] in Serum or Plasma by Bromocresol green (BCG) dye binding method 2024-02-16 20:00:28 3.7 g/dL F 3.4-4.8 Cholesterol in HDL [Mass/volume] in Serum or Plasma 2024-02-16 20:00:28 26 mg/dL F 40.0-60.0 Protein [Mass/volume] in Serum or Plasma 2024-02-16 20:00:28 5.9 g/dL F 5.7-8.2 GLOBULIN Potassium [Moles/volume] in Serum or Plasma A/G RATIO Bicarbonate [Moles/volume] in Serum or Plasma Albumin [Mass/volume] in Serum or Plasma by Bromocresol green (BCG) dye binding method Lactate dehydrogenase [Enzymatic activity/volume] in Serum or Plasma Protein [Mass/volume] in Serum or Plasma Encounters No encounter information to report Immunizations Ordered Immunization Name Filled Immunization Name Date Status Comments Refusal Reason Influenza, MDCK, trivalent, preservative 2024-03-26 10:45:49 TST-PPD intradermal 2024-03-02 11:13:07 TST-PPD intradermal 2024-02-15 11:09:11 TB RAQ 2024-02-15 04:00:00 Pneumococcal conjugate PCV20, polysaccharide [id number] conjugate, adjuvant, PF 2024-01-17 04:00:00 Tdap 2024-01-17 04:00:00 Covid-19 Vaccination 2020-08-24 05:00:00 Plan of Treatment Planned Activity Provider Planned Date Details Commen ts Diagnostic Test Pending Rain Carpenter 2025-01-17 05:35:27 Ferritin [Mass/volume] in Serum or Plasma [code = 2276-4] Diagnostic Test Pending [facility] 2024-11-17 04:00:00 Ferritin [Mass/volume] in Serum or Plasma [code = 2276-4] Diagnostic Test Pending [facility] 2024-02-14 12:01:13 Alanine aminotransferase [Enzymatic activity/volume] in Serum or Plasma [code = 1742-6] Diagnostic Test Pending [facility] 2024-02-14 11:51:26 Potassium [Moles/volume] in Serum or Plasma [code = 2823-3] Diagnostic Test Pending [facility] 2024-05-19 05:00:00 Hemoglobin [Mass/volume] in Blood [code = 718-7] Diagnostic Test Pending [facility] 2024-02-14 11:48:33 Creatinine [Mass/volume] in Serum or Plasma [code = 2160-0] Diagnostic Test Pending [facility] 2024-02-14 12:01:12 Parathyrin.intact [Mass/volume] in Serum or Plasma [code = 2731-8] Diagnostic Test Pending [facility] 2024-02-14 12:03:12 Hemoglobin A1c/Hemoglobin.total in Blood [code = 4548-4] Diagnostic Test Pending [facility] 2024-02-14 11:51:57 Cobalamin (Vitamin B12) [Mass/volume] in Serum or Plasma [code = 2132-9] Diagnostic Test Pending [facility] 2024-02-14 11:51:49 Sodium [Moles/volume] in Serum or Plasma [code = 2951-2] Diagnostic Test Pending [facility] 2024-02-14 11:52:04 25-Hydroxyvitamin D3+25-Hydroxyvitamin D2 [Mass/volume] in Serum or Plasma [code = 71638-5] Diagnostic Test Pending [facility] 2024-02-14 11:48:11 Aluminum [Mass/volume] in Serum or Plasma [code = 5574-9] Diagnostic Test Pending [facility] 2024-02-14 11:48:51 Folate [Mass/volume] in Serum or Plasma [code = 2284-8] Diagnostic Test Pending [facility] 2025-01-22 04:00:00 In-Center Hemodialysis Treatment [code = NRZ567] Diagnostic Test Pending [facility] 2024-12-17 12:20:41 In-Center Hemodialysis Treatment [code = IPR722] Diagnostic Test Pending [facility] 2024-10-23 18:33:02 In-Center Hemodialysis Treatment [code = CTO574] Diet Order [facility] March 12, 2024 Diet Calorie 30 kcal/kg Fluid Value 1200 mL/d Phosphorus Value 1000 mg/d Potassium Value 2000 mg/d Protein Value 1.3 gm/kg Sodium Value 2000 mg/d Calculated Weight 111 kg dietary_diet_modification Carb Controlle d;
--- OUTSIDE RECORDS SUMMARY | 2025-01-24 16:13 | XMS_ITS | Encounter Summary ---
Author Organization [employer] ([place], [place], [place], [place] Address [address] [place] [address] Care Team Providers Care Senior Net Developer Architect Name Role Phone Courtney Mays MD Primary Care Provider [phone] Encounter Details Date Type Department Care Team (Late st Contact Info) Description 06/16/2020 Transcribed Document [facility] Family Medicine [facility] [place] [address] ProviderSheron MD [address] [place] [address] Social History Tobacco Use Types Packs/Day Years Used Date Smoking Tobacco: Never Assessed Sex and Gender Information Value Date Recorded Sex Assigned at Not on file Legal Sex Male 7:08 PM CDT Gender Identity Not on file Sexual Orientation Not on file documented as of this encounter Miscellaneous Notes * [employer]ner Conversion Note - Sheron ProviderMD - 06/16/2020 5:46 PM RETAIL PRESENTATION SPECIALIST DATE OF SERVICE: 06/16/2020 LEXISCAN MYOVIEW PERFUSION STUDY INDICATIONS: Chest pain, coronary artery disease. RESTING ELECTROCARDIOGRAM: Normal sinus rhythm, nonspecific ST-T wave changes. LEXISCAN STRESS: Standard Lexiscan stress protocol. Peak heart rate response of 89 beats per minute, blood pressure response to 128/74 mmHg were achieved. There was no chest discomfort. No arrhythmia. The stress electrocardiogram is negative for ischemic ST changes. 10.5 mCi of Myoview was administered prior to rest scan and 32.8 mCi prior to the post stress scan. MYOVIEW PERFUSION DATA: Reversible defect: None. Fixed defects: There is moderate fixed defect involving basal mid distal inferior wall and the apex. Left ventricular function: Gated management of left ventricular systolic function post-stress was 47%. No regional wall motion abnormality. IMPRESSION: Probably normal Lexiscan Myoview perfusion study. No evidence of ischemia. Fixed inferior defect could represent diaphragmatic attenuation. Low-normal left ventricular systolic function post stress. /[id number] Yobany Carrion MD SSL/AQ / SSL / MODL /[id number] CC: Ryan Dexter Electronically signed by Bhavani, [facility] Conversion [employer] Bpm Consultant [employer]ner at 10/09/2022 7:46 PM CDT documented in this encounter Plan of Treatment Not on file documented as of this encounter Visit Diagnoses Not on filedocumented in this encounter Care Teams Senior Net Developer Architect Relationship Specialty Start Date End Date Courtney Mays MD PCP - General Internal Medicine 01/20/24 documented as of this encounter
--- OUTSIDE RECORDS SUMMARY | 2025-01-24 16:13 | XMS_ITS | Encounter Summary ---
Author Organization [employer] ([place], [place], [place]) Address [address] [place] [address] Care Team Providers Care Funeral Director/Embalmer Name Role Phone Courtney Mays MD Primary Care Provider [phone] Encounter Details Date Type Department Care Team (Late st Contact Info) Description 05/13/2020 Transcribed Document [facility] Family Medicine [facility] [place] [address] ProviderSheron MD [address] [place] [address] Social History Tobacco Use Types Packs/Day Years Used Date Smoking Tobacco: Never Assessed Sex and Gender Information Value Date Recorded Sex Assigned at Not on file Legal Sex Male 7:08 PM CDT Gender Identity Not on file Sexual Orientation Not on file documented as of this encounter Miscellaneous Notes * Cerner Conversion Note - Historical ProviderMD - 05/13/2020 3:48 PM [facility] WORK[facility] DATE OF SERVICE: 05/13/2020 SLEEP MEDICINE CONSULTATION APPOINTMENT REFERRING DOCTOR: Dr. Yobany Carrion. PRIMARY DOCTOR: Dr. Ryan Dexter. HISTORY: The patient is a pleasant 50-year-old male, who presents in the clinic today because of his erratic sleep, he is up and down all night long, and Dr. Carrion was referring him. He has not been to a Sleep Center before. He normally goes to bed on the weekday 8:30 p.m. and gets up at 5 a.m., and on the weekend, he goes to bed between 9 and 10:00 p.m. and gets up between 7 to 9 a.m. It takes him 15 to 20 minutes to fall asleep. He wakes up 4 to 6 times during the night. Average number of sleep hours that he gets is 7 to 8 hours. He denies napping. Admits to being frequently fatigued and drowsy during the day. Denies that he has ever had any accidents at work due to sleepiness. Denies that he has ever had any near traffic accidents due to sleepiness. Denies that he dozes off at rest. His [place] Sleepiness Scale is 6. He has been told that he snores every night, but not continuously. He admits that he wakes up with a dry cotton mouth. His family has told him that he stops breathing at night. Denies that he wakes up coughing, choking, difficulty breathing. Denies waking up gasping for air, but he does admit to waking up with a sore throat and trouble breathing through his nose at night. Denies trouble breathing through his nose during the day. Denies morning headaches. He denies waking up with a sour taste or burning sensation in chest. Denies taking reflux medications. Eats 2 to 3 meals a day and he walks for exercise. Denies sudden episodes of sleep during the day. Denies whole body paralysis when going to sleep or waking up. Denies visual hallucinations when going to sleep or waking up. Denies sudden physical weakness with strong emotions. He admits that he has trouble staying asleep, but denies difficulty falling asleep. He admits that he has pain that bothers him at night. He admits that he frequently kicks and jerks his legs at night, and he admits that he has leg discomfort with an urge to move them. Denies walking in his sleep. He admits talking in his sleep or acting out dreams. Denies waking up screaming or nightmares. He is not sure that he grinds his teeth in his sleep. Denies that he has ever hurt himself or others during sleep. Denies other sleep time behaviors. Denies childhood issues concerning sleep. MEDICATIONS: He is on: 1. Oxycodone. 2. Jardiance. 3. Vascepa. 4. . 5. Humulin. 6. Atorvastatin. 7. Gabapentin. 8. Losartan. 9. Hydrochlorothiazide. 10. Flomax. 11. Amlodipine. 12. Aspirin. MEDICATION ALLERGIES: He is allergic to Lortab, glyburide, and sulfa. PAST MEDICAL HISTORY: Remarkable for high blood pressure, chronic pain, coronary artery disease, kidney disease, and diabetes. SURGICAL INTERVENTIONS: Two back surgeries, diskectomies. PSYCHOSOCIAL HISTORY: He admits to using tobacco products, but not now. He quit in January 2020. Denies drinking alcohol. Denies currently using illegal drugs. Drinks 1 cup of coffee a day, 2 to 3 sodas. FAMILY HISTORY: Mother had diabetes, heart disease, high blood pressure. REVIEW OF SYMPTOMS: EYES: Denies vision loss, double vision, dry eyes. EARS, NOSE, AND THROAT: Denies sore throat, dry mouth, stuffiness. HEART: Admits to chest pain, heaviness. Denies racing or pounding. PULMONARY: Denies cough, wheezing, shortness of breath. STOMACH AND GI TRACT: Denies heartburn, stomach pain, nausea. GENITOURINARY: Admits to frequent urination. He admits to erectile dysfunction. Denies decreased libido. MUSCULOSKELETAL: Admits to back pain. Denies neck pain, swollen joints. SKIN: Denies itching, rash, blisters. NEUROLOGIC: Denies dizziness, headache, memory loss. PSYCHOLOGICAL: Denies suicidal thoughts, depression, anxiety. ENDOCRINE: Denies frequent thirst, always cold or hot. HEMATOLOGIC: Denies bruising, bleeding, or swollen glands. CONSTITUTIONAL: Denies fatigue, fever, night sweats. PHYSICAL EXAMINATION: VITAL SIGNS: Pulse is 91, resting blood pressure 120/80, oxygen saturation 97%, respiratory rate 16. Neck circumference in inches is 18 inches. He is 6 feet, weighs 262 with a BMI of 35. GENERAL: Well developed, well nourished. He is obese. EYES: Pupils equal and round. Eyelids normal. Sclerae and cornea are clear. EARS, NOSE, AND THROAT: He has a mask on. RESPIRATORY: Normal respiratory rate and pattern with no distress. NECK/THYROID: No palpable nodule. No thyromegaly. No JVD. CHEST: On auscultation, normal breath sounds. No rales, rhonchi, or wheezes. CARDIAC: Normal PMI. Normal rate. Regular rhythm. No murmur. VASCULAR/CAROTID: No bruits heard. Abdominal bruit not present. Dorsalis, pedal, radial pulse full bilaterally. GASTROINTESTINAL: Nontender. Normal bowel sounds. EXTREMITIES/MUSCULOSKELETAL: No tenderness. Muscle strength symmetric. No edema. SKIN: No clubbing, cyanosis, ulcerations, or vascular skin lesions. NEURO/PSYCH: Oriented. Alert mood. Affect appropriate. IMPRESSION: 1. Hypersomnia. We will evaluate for sleep apnea. 2. Chronic pain. The patient is on oxycodone. 3. Moderate coronary artery disease. No stents. Follow up with Dr. Carrion. 4. Hypertension, controlled. 5. Diabetes. He is on insulin. RECOMMENDATIONS: We will order a sleep study in-lab. If insurance denies, then we will do a home study and see him back after that. Dictating from a written report prepared by Rosa Medina APRN. Thank you for the opportunity to meet Mr. Brooks and join in his care. /[id number] DICTATED BY: Alisia Cruz RN for Rosa Medina APRN Rosa Medina APRN DC/AQ / DC / MODL /[id number] CC: MD Ryan Priest MD Electronically signed by [facility] Conversion Automatic Spooler Operator Cerner at 10/09/2022 7:42 PM CDT documented in this encounter Plan of Treatment Not on file documented as of this encounter Visit Diagnoses Not on filedocumented in this encounter Care Teams Funeral Director/Embalmer Relationship Specialty Start Date End Date Courtney Mays MD PCP - General Internal Medicine 01/20/24 documented as of this encounter
--- OUTSIDE RECORDS SUMMARY | 2025-01-24 16:13 | XMS_ITS | Clinical Summary ---
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 SENIOR C DEVELOPER of the mid RPL V/RV marginal branch, with [id number] collaterals and a codominant circumflex therefore no [...] Do you speak a language other than [place]ian at [facility]? No 01/21/2024 Do you want help with [...] Mass Index 35.05 04/05/2024 6:00 AM EDT Plan of Treatment Health Maintenance Due Date Last Done Comments CT Colonography 1968 FOBT/FIT 1968 Fit-DNA (Cologuard) 1968 Sigmoidoscopy 1968 Diabetic Eye Exam 01/18/1978 Depression Screening (12+) 1980 HIV Screening 01/18/1983 Pneumococcal 50+ years (1 of 2 - PCV) 01/18/1987 Hemoglobin A1C 01/30/2024 COVID-19 VACCINE ( - 2023- season) 02/18/202401/2021, 01/02/2021 Influenza Vaccine (#1) 2025 Tobacco Cessation Counseling and Screening (12+) 04/05/2025 04/05/2024 Lipid Panel 06/20/2026 06/20/2023 Colonoscopy 07/12/2027 07/12/2017 Colorectal Cancer Screening 07/12/2027 DTAP/TDAP/TD VACCINES (2 - Td or Tdap) 11/23/2031 Shingles Vaccine (Zoster) Completed 06/08/2022, Hepatitis C Screening Completed 02/08/2024, 024 Procedures Procedure Name Priority Date/Time Associated Diagnosis Comments HEPATITIS PANEL, ACUTE Routine 02/08/2024 10:46 AM EDT from Last 3 Months or Most Recently Relevant to Health Maintenance Results * Hepatitis panel, acute (02/08/2024 10:46 AM EDT) Hep A IgM Nonreactive Nonreactive, Equivocal 02/08/2024 12:37 PM EDT [facility] Hep B C IgM Nonreactive Nonreactive 02/08/2024 12:37 PM EDT [facility] Hepatitis B surface antigen Nonreactive Nonreactive, Equivocal 02/08/2024 12:37 PM EDT [facility] Hepatitis C Ab Nonreactive Nonreactive, Equivocal 02/08/2024 12:37 PM EDT [facility] Blood Venipuncture / Unknown 02/08/2024 10:46 AM EDT 02/08/2024 10:53 AM EDT [facility] - 02/08/2024 12:37 PM EDT Hepatitis [...] MD LAB BLOOD ORDERABLES Final Resul t [facility] [address] [phone] from Last 3 Months or Most Recently Relevant to Health Maintenance Insurance BLUE CROSS/BLUE SHIELD Advance Directives For more information, please contact: [phone] * Full Code (Latest Code Status on File) Date Activated Date Inactivated Comments 2024 7:01 PM 02/13/2024 5:44 PM Care Teams Fax Machine Repairer Relationship Specialty Start Date End Date Courtney Mays MD PCP - General Internal Medicine 01/20/24
--- OUTSIDE RECORDS SUMMARY | 2025-01-24 16:13 | XMS_ITS ---
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, mid LAD 70-80% with IFR 0.83 status post PCI with a 3.0 x 23 mm Xience AMANDEEP postdilated with a 3.25 NC. GREENSKEEPER SUPERVISOR of the mid RPL V/RV marginal branch, with [id number] collaterals and a codominant circumflex therefore no [...] Ellen pain and spine, Dr. Harden. Hydrocodone Current Oncology Plans No current plan information found. Past Plans No past plan information found. Radiation Treatments * No radiation treatments are documented for this patient in [facility]. Treatments may have been administered in another system. Lifetime Dose Tracking * Chemical Lifetime Dose Automatic Entry Manual Entr y Radiation 43 mGy 43 mGy 0 mGy Resolved Problems Problem Noted Date Diagnosed Date Resolved Date Hypertensive emergency 01/19/202401/29 Melena 2024 01/30/2024
--- OUTSIDE RECORDS SUMMARY | 2025-01-24 16:14 | XMS_ITS | Encounter Summary ---
Author Organization [facility] Address [address] [place] [address] Care Team Providers Care Pressing Machine Tender Name Role Phone Sydnee Castro Primary Care Provider [phone] Reason for Visit * Reason Comments Follow-up Encounter Details Date Type Department Care Team (Late st Contact Info) Description 01/13/2025 Telephone [facility] [address] [place] [address] Beatriz Bright, RN [facility] K[facility]NEY [id number] [address] [place] [phone] Follow-up Social History Tobacco Use Types Packs/Day Years Used Date Smoking Tobacco: Former Cigarettes 0.5 37.6 S tarted: 06/19/1987 Passive Smoke Exposure: Never Smokeless Tobacco: Never Alcohol Use Standard Drinks/Week Comments Never 0 [...] AM EST documented as of this encounter Miscellaneous Notes * Telephone Encounter - Beatriz Bright RN - 01/13/2025 2:42 PM EDT Patient LVM requesting return call. Call went to , message left. documented in this encounter Plan of Treatment Not on file documented as of this encounter Visit Diagnoses Not on filedocumented in this encounter Additional Health Concerns Assessment Noted Time PHQ-9 Depression Total Score: 15 023 10:32 AM EST A fall risk assessment has been complete d for the patient 01/01/2025 10:00 AM EDT A Body Mass Index follow-up plan has been documented for the patient 07/29/2024 9:12 AM EST documented as of this encounter Care Teams Pressing Machine Tender Relationship Specialty Start Date End Date Sydnee Castro PA PCP - General 12/22/22 documented as of this encounter
--- OUTSIDE RECORDS SUMMARY | 2025-01-24 16:14 | XMS_ITS | Encounter Summary ---
Author Organization [facility] Address [address] [place] [address] Care Team Providers Care Fitting Room Supervisor Name Role Phone Courtney Mays MD Primary Care Provider [phone] Encounter Details Date Type Department Care Team (Late st Contact Info) Description 12/13/2024 Results Follow-Up [facility] CARDIOLOGY [address] [place] [address] Edi Leung MD [address] [facility] [address] [place] [address] Social History Tobacco Use Types Packs/Day Years [...] AM EDT documented as of this encounter Plan of Treatment Upcoming Encounters Date Type Department Care Team (Late st Contact Info) Description 03/03/2025 12:30 PM EDT Office Visit [facility] ENDOCRINOLOGY [address] [place] [address] Aileen Patricia PA [address] [facility] [address] [place] [address] 05/13/2025 9:30 AM EST Office Visit [facility] CARDIOLOGY [address] [facility] [address] [place] [address] Edi Leung MD [address] [facility] [address] [facility] [address] [place] [address] documented as of this encounter Visit Diagnoses Not on filedocumented in this encounter Care Teams Fitting Room Supervisor Relationship Specialty Start Date End Date Courtney Mays MD [address] [facility] [address] [place] [address] PCP - General Internal Medicine 06/14/24 documented as of this encounter
--- OUTSIDE RECORDS SUMMARY | 2025-01-24 16:14 | XMS_ITS | Encounter Summary ---
Author Organization [facility] Address [address] [place] [address] Care Team Providers Care Student Liaison Officer Name Role Phone Courtney Mays MD Primary Care Provider [phone] Reason for Visit * Reason Comments Med Refill Encounter Details Date Type Department Care Team (Late st Contact Info) Description 01/07/2025 Refill [facility] CARDIOLOGY [address] [facility] [address] [place] [address] Edi Leung MD [address] [facility] [address] [place] [id number] Med Refill Social History Tobacco Use Types Packs/Day Years [...] Description 03/03/2025 12:30 PM EDT Office Visit [facility] ENDOCRINOLOGY [address] [place] [address] Aileen Patricia PA [address] [place] [address] 05/13/2025 9:30 AM EST Office Visit [facility] CARDIOLOGY [address] [facility] [address] [place] [address] Edi Leung MD [address] [facility] [address] [place] [address] documented as of this encounter Visit Diagnoses Not on filedocumented in this encounter Care Teams Student Liaison Officer Relationship Specialty Start Date End Date Courtney Mays MD [address] [place] [address] PCP - General Internal Medicine 06/14/24 documented as of this encounter
--- OUTSIDE RECORDS SUMMARY | 2025-01-24 16:14 | XMS_ITS | Encounter Summary ---
Author Organization [facility] Address [address] [place] [address] Care Team Providers Care Plate Shop Helper Name Role Phone Courtney Mays MD Primary Care Provider [phone] Reason for Visit * Reason Onset Date Comments Appointment 12/09/2024 Encounter Details Date Type Department Care Team (Late st Contact Info) Description 12/09/[address] [facility] CARDIOLOGY [address] [facility] [address] [place] [address] Edi Leung MD [address] [facility] [address] [place] [phone] Appointment Social History Tobacco Use Types Packs/Day Years [...] AM EDT documented as of this encounter Miscellaneous Notes * Telephone Encounter - Leatha Almonte RegSched Rep - 12/09/2024 1:34 PM EDT .lcc * Telephone Encounter - Leatha Almonte RegSched Rep - 12/09/2024 1:10 PM EDT Working Waitlist for Dr. Leung. M to see if patient would like to schedule tomorrow, . If patient returns call, please transfer to office. documented in this encounter Plan of Treatment Upcoming Encounters Date Type Department Care Team (Late st Contact Info) Description 03/03/2025 12:30 PM EDT Office Visit [facility] ENDOCRINOLOGY [address] [place] [address] Aileen Patricia PA [address] [place] [address] 05/13/2025 9:30 AM EST Office Visit [facility] CARDIOLOGY [address] [facility] [address] [place] [address] Edi Leung MD [address] [place], [place] [phone] documented as of this encounter Visit Diagnoses Not on filedocumented in this encounter Care Teams Plate Shop Helper Relationship Specialty Start Date End Date Courtney Mays MD [address] [facility] [address] [place] [address] PCP - General Internal Medicine 06/14/24 documented as of this encounter
--- OUTSIDE RECORDS SUMMARY | 2025-01-24 16:14 | XMS_ITS | Encounter Summary ---
Author Organization [facility] Address [address] [place] [address] Care Team Providers Care Volunteer Coordinator Name Role Phone Sydnee Castro Primary Care Provider Reason for Visit * Reason Comments Follow-up Nicotine Encounter Details Date Type Department Care Team (Late st Contact Info) Description 12/18/2024 Telephone [facility] [address] [place] [address] Beatriz Bright, RN [facility] [id number] [address] [place] [address] Follow-up (Nicotine) Social History Tobacco Use Types Packs/Day Years [...] Telephone Encounter - Beatriz Bright RN - 12/18/2024 2:47 PM EDT Phoned patient to discuss nicotine cessation after discussion with our director. Call went to . [facility] advising that if we are unable to schedule remainder of eval as a result of negative nicotine within the next 6 weeks then we will close referral. Requested return call to confirm receipt of message and provide update. documented in this encounter Plan of Treatment Not on file documented as of this encounter Visit Diagnoses Not on filedocumented in this encounter Additional Health Concerns Assessment Noted Time PHQ-9 Depression Total Score: 15 023 10:32 AM EST A fall risk assessment has been complete d for the patient 07/29/2024 8:13 AM EST A Body Mass Index follow-up plan has been documented for the patient 07/29/2024 9:12 AM EST documented as of this encounter Care Teams Volunteer Coordinator Relationship Specialty Start Date End Date Sydnee Castro PA PCP - General 12/22/22 documented as of this encounter
--- OUTSIDE RECORDS SUMMARY | 2025-01-24 16:14 | XMS_ITS | Encounter Summary ---
Author Organization [facility] Address [address] [place] [address] Care Team Providers Care Monotype Caster Name Role Phone Sydnee Castro Primary Care Provider [phone] Encounter Details Date Type Department Care Team (Latest Contact Info) Description 01/01/2025 Travel Social History Tobacco Use Types Packs/Day Years [...] AM EST documented as of this encounter Functional Status * Calculated C-SSRS Risk Score (Lifetime/Recent) Answer Date of Assessment Author No Risk Indicated 01/01/2025 9:59 AM Lety Fernandes * Question Answer Date of Assessment Author 1. Wish to be (Past 1 Month) No 025 9:59 AM Lety Fernandes 2. Non-Specific Active Suici laurel Thoughts (Past 1 Month) No 01/01/2025 9:59 AM EDT Mary Obregon 6. Suicidal Behavior (Lifetime) No 9:59 AM EDT Lety Obregon documented as of this encounter Plan of Treatment Not on [...] documented as of this encounter Care Teams Monotype Caster Relationship Specialty Start Date End Date Sydnee Castro PA PCP - General 12/22/22 documented as of this encounter
--- OUTSIDE RECORDS SUMMARY | 2025-01-24 16:14 | XMS_ITS | Encounter Summary ---
Author Organization [facility] Address [address] [place] [address] Care Team Providers Care Physical Integration Practitioner Name Role Phone Sydnee Castro Primary Care Provider [phone] Encounter Details Date Type Department Care Team (Late st Contact Info) Description 01/14/2025 Telephone [facility] [address] [place] [address] Beatriz Bright, RN [facility] K[facility]NEY [id number] [address] [place] [phone] Social History Tobacco Use Types Packs/Day Years [...] Telephone Encounter - Beatriz Bright RN - 01/14/2025 11:11 AM EDT Received message from JOSE Molina that patient discussed that he is using nicotine again at his visit with her yesterday. Advised that patient has been listed inactive to start waiting time since June 2023 and has not been able to start eval due to continued nicotine use, despite frequent discussions. He was given 6 weeks to cease nicotine on December 18. Advised that we will discuss removing him from waitlist at committee next week, but he is able to be re-referred when he is nicotine free. She verbalized understanding and thanked me for the call. Tracy Crook: [email or web address] documented in this encounter Plan of Treatment [...] documented as of this encounter Care Teams Physical Integration Practitioner Relationship Specialty Start Date End Date Sydnee Castro PA PCP - General 12/22/22 documented as of this encounter
--- OUTSIDE RECORDS SUMMARY | 2025-01-24 16:14 | XMS_ITS | Encounter Summary ---
Author Organization [facility] Address [address] [place] [address] Care Team Providers Care Clean Room Technician Name Role Phone Sydnee Castro Primary Care Provider [phone] Encounter Details Date Type Department Care Team (Latest Contact Info) Description 12/27/2024 Travel Social History Tobacco Use Types Packs/Day [...] AM EST documented as of this encounter Plan of [...] documented as of this encounter Care Teams Clean Room Technician Relationship Specialty Start Date End Date Sydnee Castro PA PCP - General 12/22/22 documented as of this encounter
--- OUTSIDE RECORDS SUMMARY | 2025-01-24 16:14 | XMS_ITS | Encounter Summary ---
Author Organization [facility] Address [address] [place] [address] Care Team Providers Care Director Data Name Role Phone Ryan Dexter MD Primary Care Provider [phone] Sdynee Castro Primary Care Provider [phone] Encounter Details Date Type Department Care Team (Late st Contact Info) Description 07/27/2022 Lab Requisition [facility] [address] [place] [address] Israel Arnold MD [address] [facility] [address] [place] [address] Other specified disorders of nose and nasal sinuses Social History Tobacco Use Types Packs/Day Years Used Date Smoking Tobacco: Every Day Cigarettes 2 35 Passive Smoke Exposure: Never Smokeless Tobacco: Never Alcohol Use Standard Drinks/Week Comments Never 0 (1 standard drink = 0.6 oz pur e alcohol) PHQ-2 Answer Date Recorded Patient Health Questionnaire-2 Score 0 07/27/2022 Sex and Gender Information Value Date Recorded Sex Assigned at Male 08/08/2022 11:07 AM EST Legal Sex Male 8:42 AM EST Gender Identity Male 08/08/2022 11:07 AM EST Sexual Orientation Straight 08/08/2022 11 :07 AM EST COVID-19 Exposure Response Date Recorded In the last 10 days, have yo u been in contact with someone who was confirmed or suspected to have Coronavirus/COVID-19? No / Unsure 07/27/2022 1:57 PM EST documented as of this encounter Functional Status * Over the past 2 weeks, how often have you been bothered by any of the following problems? Question Answer Date of Assessment Author Little interest or pleasure in doing things Not at all 07/27/2022 2:25 PM EST Alethea Wilks Feeling down, depressed, or hopeless Not at all 07/27/2022 2:25 PM EST Alethea Wilks Patient Health Questionnaire-2 Score 0 07/27/2022 2:25 PM EST Tammi Wilks * Calculated C-SSRS Risk Score (Lifetime/Recent) Answer Date of Assessment Author No Risk Indicated 07/27/2022 2:25 PM EST Nayla Forman * Question Answer Date of Assessment Author 1. Wish to be (Past 1 Month) No 07/27/2022 2:25 PM EST Alethea Wilks 2. Non-Specific Active Suici laurel Thoughts (Past 1 Month) No 07/27/2022 2:25 PM EST Isa Wilks 6. Suicidal Behavior (Lifetime) No 2:25 PM EST Nayla Wilks documented as of this encounter Plan of Treatment Not on file documented as of this encounter Procedures Procedure Name Priority Date/Time Associated Diagnosis Comments SURGICAL PATHOLOGY CONSULT Routine 07/27/2022 2:15 PM EST Other specified disorders of nose and nasal sinuses documented in this encounter Results * Surgical Pathology Consult (07/27/2022 2:15 PM EST) Case Report Sugical Pathology Consult Case: [id number] Authorizing Provider: Israel Arnold MD Collected: 07/27/2022 1415 Ordering Location: [facility] Lab Received: 07/27/2022 1415 Pathologist: Samuel Woodson MD Specimen: Nasal, [id number] 07/27/2022 7:31 PM EST [facility] Final Diagnosis A. 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 [id number] Received along with a corresponding pathology report from [facility] Laboratory are 1 slide labeled outside case: [id number] collected on 07/19/2022. 07/27/2022 7:31 PM EST [facility] Note: A resident was involved in the service. I attest I examined the relevant preparations for the specimens and confirmed the diagnosis or interpretation. 07/27/2022 7:31 PM EST [facility] Tissue Nasal structure / Unknown 07/27/2022 2:15 PM EST 07/27/2022 2:15 PM EST us Israel Arnold MD LAB PATHOLOGY ORDERABLES Final R esult Performing Organization Address City/State/[facility] Co de Phone Number [facility]ALTH[facility]ARE [facility] [address] [place] [address] documented in this encounter Visit Diagnoses Diagnosis Other specified disorders of nose and nasal sinuses documented in this encounter Additional Health Concerns Assessment Noted Time A fall risk assessment has been complete d for the patient 07/27/2022 2:26 PM EST documented as of this encounter Care Teams Director Data Relationship Specialty Start Date End Date Ryan Dexter MD [address] [place] [address] PCP - General 07/27/22 12/21/22 Sydnee Castro PA [address] [place] [address] PCP - General 12/22/22 documented as of this encounter
--- OUTSIDE RECORDS SUMMARY | 2025-01-24 16:14 | XMS_ITS ---
Author Organization [facility] Address [address] [place] [address] Care Team Providers Care Fourdrinier Wire Weaver Name Role Phone Sydnee Castro Primary Care Provider [phone] Transplant Episode Kidney Candidate [facility] ([place], [place]) - [facility] Center waitlisted on 06/29/2023 Marked as Removed on 01/21/2025 Reason: Medical Non-Compliance Kidney CoordinatorBeatriz Bright RN Fax: N/A Email: N/A Scores Score Value Updated Exceptions/Reas ons CPRA Not available EPTS (Calc) 64 01/24/2025 [place] Organ Diagnosis Organ Primary Contributory Kidney Diabetes Mellitus - Type II Hype rtensive Nephrosclerosis Infection History Noted Survival Infection Treatment Organism Resolved 05/26/2023 Measles Care Team Name Role Phone Fax Email Beatriz Bright RN Kidney Coordinator [phone] N/A N/A Nargis Wood Safety Investigator [phone] N/A N/A Hever Barros MD Referring Physician [phone] N/A Events Pre-Transplant Referred: 05/02/2023 Evaluation began: 05/18/2023 Committee: 06/28/2023 Center waitlisted: 06/29/2023 Dialysis History Dialysis History Start End Type Comments Center 02/02/2024 [facility] Information Center Phone Fax Address [facility] [phone] [address] [facility] [address]
--- OUTSIDE RECORDS SUMMARY | 2025-01-24 16:14 | XMS_ITS | Encounter Summary ---
Author Organization [facility] Address [address] [place] [address] Care Team Providers Care Network Planner Name Role Phone Sydnee Castro Primary Care Provider [phone] Encounter Details Date Type Department Care Team (Late st Contact Info) Description 12/18/2024 Telephone [facility] [address] [place] [address] Beatriz Bright, RN [id number] [address] [place] [id number] Social History Tobacco Use Types Packs/Day Years [...] Telephone Encounter - Beatriz Bright RN - 12/24/2024 1:08 PM EDT Incoming call from the patient returning my call. He states that he has been nicotine free since Monday and would like to arrange lab. Advised he must be nicotine free for 30 days prior to recheckinglabs. We will reschedule lab on [facility] the first week of January. He states he does not want to come and still be positive, so he wanted to know if there was any way to get it out of his system faster. Iadvised that I did not think there was anything to get it out of his system faster, to which he verbalized understanding. Chaitanya, please have patient scheduled for lab only appt for nicotine check on F the first full week of January. Notify coordinator of appt details. documented in this encounter Plan of Treatment [...] documented as of this encounter Care Teams Network Planner Relationship Specialty Start Date End Date Sydnee Castro PA PCP - General 12/22/22 documented as of this encounter
--- OUTSIDE RECORDS SUMMARY | 2025-01-24 16:14 | XMS_ITS | Encounter Summary ---
Author Organization [employer] ([place], [place], [place], [place]) Address [address] [place] [address] Care Team Providers Care Professional Builder Name Role Phone Courtney Mays MD Primary Care Provider [phone] Encounter Details Date Type Department Care Team (Late st Contact Info) Description 04/20/2020 Transcribed Document [facility] [address] [place] [address] ProviderSheron MD [address] [place] [address] Social History Tobacco Use Types Packs/Day Years Used Date Smoking Tobacco: Never Assessed Sex and Gender Information Value Date Recorded Sex Assigned at Not on file Legal Sex Male 7:08 PM CDT Gender Identity Not on file Sexual Orientation Not on file documented as of this encounter Miscellaneous Notes * Cerner Conversion Note - Historical ProviderMD - 04/20/2020 8:22 AM PICTURE FRAME MAKER Height and Weight, Routine Entered On: 04/20/2020 8:22 EST Performed On: 04/20/2020 8:22 EST by JOSE MAYNARD RN Height and Weight, Routine Routine Weight Source : Standing scale Routine Weight Entry Format : [place] Routine Weight, Pounds : 265 lb Routine Weight Calculation : 120.45 kg Height Source : Measured Height Entry Format : [place] Height, Feet : 6 ft Height, Inches : 0 Inch Clinical Height : 182.88 cm Body Surface Area (BSA), Routine : 2.4 m2 Body Mass Index (BMI), Routine : 36.01 kg/m2 JOSE MAYNARD, RN - 04/20/2020 8:22 EST Electronically signed by [facility], [facility] Conversion Construction Skills Teacher Cerner at 10/09/2022 7:41 PM CDT documented in this encounter Plan of Treatment Not on file documented as of this encounter Visit Diagnoses Not on filedocumented in this encounter Care Teams Professional Builder Relationship Specialty Start Date End Date Courtney Mays MD PCP - General Internal Medicine 01/20/24 documented as of this encounter
--- OUTSIDE RECORDS SUMMARY | 2025-01-24 16:14 | XMS_ITS | Encounter Summary ---
Author Organization [employer] ([place], [place], [place], [place]) Address [address] [place] [address] Care Team Providers Care Nursing Support Worker Name Role Phone Courtney Mays MD Primary Care Provider [phone] Encounter Details Date Type Department Care Team (Late st Contact Info) Description 04/26/2020 Transcribed Document [facility] [place] [address] Sheron Muñoz MD [address] [place] [address] Social History Tobacco Use Types Packs/Day Years Used Date Smoking Tobacco: Never Assessed Sex and Gender Information Value Date Recorded Sex Assigned at Not on file Legal Sex Male 7:08 PM CDT Gender Identity Not on file Sexual Orientation Not on file documented as of this encounter Miscellaneous Notes * Cerner Conversion Note - Sheron Muñoz MD - 04/26/2020 10:19 PM PRINCIPAL SECRETARY DATE OF SERVICE: 04/20/2020 EXERCISE STRESS TEST INDICATION: Chest pain. RESTING ELECTROCARDIOGRAM: Normal sinus rhythm. IVCD. EXERCISE STRESS: The patient exercised for 7 minutes and 41 seconds by Martinez protocol and achieved peak heart rate response of 102 beats per minute (less than 61% MPHR) and blood pressure response to 173/77 mmHg. There is no chest discomfort. No arrhythmia. The stress electrocardiogram is nondiagnostic, secondary to inadequate heart rate response. IMPRESSION: Nondiagnostic exercise stress test at 8.6 METS and peak heart rate response of 102 beats per minute (61% MPHR). /[id number] Yobany Carrion MD SSL/AQ / SSL / MODL /[id number] CC: Ryan Dexter MD Electronically signed by [facility], [facility] Conversion Legger Press Operator Cerner at 10/09/2022 7:40 PM CDT documented in this encounter Plan of Treatment Not on file documented as of this encounter Visit Diagnoses Not on filedocumented in this encounter Care Teams Nursing Support Worker Relationship Specialty Start Date End Date Courtney Mays MD PCP - General Internal Medicine 01/20/24 documented as of this encounter
--- OUTSIDE RECORDS SUMMARY | 2025-01-24 16:14 | XMS_ITS | Encounter Summary ---
Author Organization [facility] Address [address] [place] [address] Care Team Providers Care Inorganic Chemistry Teacher Name Role Phone Ryan Dexter MD Primary Care Provider [phone] Sydnee Castro Primary Care Provider [phone] Encounter Details Date Type Department Care Team (Late st Contact Info) Description 04/17/2020 Orders Only External Location [address] [place] [address] [place] [address] [place] [address] [address] [place] [address] Social History Tobacco Use Types Packs/Day Years [...] Procedure Name Priority Date/Time Associated Diagnosis Comments CT OUTSIDE IMAGES 04/17/2020 9:07 AM EDT documented in this encounter Results * CT OUTSIDE IMAGES (04/17/2020 9:07 AM EDT) Anatomical Region Laterality Modality Computed Tomogra phy 04/17/2020 9:07 AM EDT us Yobany Carrion MD IMG CT PROCEDURES Final Result documented in this encounter Visit Diagnoses Not on filedocumented in this encounter Care Teams Inorganic Chemistry Teacher Relationship Specialty Start Date End Date Ryan Dexter MD [address] [place], [place] [id number] PCP - General 07/27/22 12/21/22 Sydnee Castro PA [address] [place] [address] PCP - General 12/22/22 documented as of this encounter
--- OUTSIDE RECORDS SUMMARY | 2025-01-24 16:14 | XMS_ITS | Encounter Summary ---
Author Organization [facility] Address [address] [place] [address] Care Team Providers Care Director Strategic Account Management Name Role Phone Ryan Dexter MD Primary Care Provider [phone] Sydnee Castro Primary Care Provider [phone] Encounter Details Date Type Department Care Team (Late st Contact Info) Description 11/06/2020 Orders Only External Location [address] [place] [address] Provider, External Social History Tobacco Use Types Packs/Day Years [...] Name Priority Date/Time Associated Diagnosis Comments CT NEURO OUTSIDE IMAGES 11/06/2020 9:39 AM EDT documented in this encounter Results * CT NEURO OUTSIDE IMAGES (11/06/2020 9:39 AM EDT) Anatomical Region Laterality Modality Computed Tomogra phy 11/06/2020 9:39 AM EDT us External Provider IMG CT PROCEDURES Final Result documented in this encounter Visit Diagnoses Not on filedocumented in this encounter Care Teams Director Strategic Account Management Relationship Specialty Start Date End Date Ryan Dexter MD [address] [place] [address] PCP - General 07/27/22 12/21/22 Sydnee Castro PA [address] [place] [address] PCP - General 12/22/22 documented as of this encounter
--- OUTSIDE RECORDS SUMMARY | 2025-01-24 16:14 | XMS_ITS | Clinical Summary ---
Author Organization [facility] Address [address] [place] [address] Care Team Providers Care Pediatric Registered Nurse Name Role Phone Courtney Mays MD Primary Care Provider [phone] Allergies Active Allergy Reactions Criticality Noted Date Comments Glyburide Anaphylaxis High 09/10/2016 Sulfa Antibiotics Rash Low 09/10/2016 thrush Medications tamsulosin (FLOMAX) 0.4 MG capsule 24 hr capsule Take 1 capsule by mouth Every Night. Active icosapent ethyl (VASCEPA) 1 g capsule capsule Take 2 g by mouth 2 (Two) Times a Day With Meals. Active aspirin 81 MG EC tablet Take 1 tablet by mouth Daily. Active gabapentin (NEURONTIN) 300 MG capsule Take 1 capsule by mouth 2 (Two) Times a Day. Active cetirizine (ZyrTEC Allergy) 10 MG tablet Take 1 tablet by mouth Daily. Active bumetanide (BUMEX) 2 MG tablet Take 1 tablet by mouth Daily. Nephrology for further refills 30 tablet Active albuterol sulfate HFA 108 (90 Base) MCG/ACT inhaler INHALE 1 PUFF BY MOUTH EVERY 4 TO 6 HOURS Active ezetimibe (ZETIA) 10 MG tablet Take by mouth. Ac tive hydrALAZINE (APRESOLINE) 25 MG tablet Take 4 tablets by mouth 4 (Four) Times a Day. Active hydroxychloroquin e (PLAQUENIL) 200 MG tablet Take 1 tablet by mouth Daily. 2024 Active oxyCODONE (ROXICODONE) 10 MG tablet Take by oral route for 30 days. Active FLUoxetine (PROzac) 20 MG tablet Take 1 tablet by mouth Daily. Active atorvastatin (Lipitor) 80 MG tabletIndications :Mixed hyperlipidemia Take 1 tablet by mouth Daily. 30 tablet 024 2024 Active NIFEdipine XL (PROCARDIA XL) 90 MG 24 hr tablet Take 1 tablet by mouth Daily. 30 tablet 024 2024 Active insulin NPH-insulin regular (HumuLIN 70/30) (70-30) 100 UNIT/ML injectionIndicati ons:Type 2 diabetes mellitus with chronic kidney disease on chronic dialysis, with long-term current use of insulin INJECT 80 UNITS SUBCUTANEOUSLY BEFORE BREAKFAST AND 80 BEFORE SUPPER (TITRATE FOR MAX DAILY DOSE OF 200 UNITS) 60 mL Active Insulin Syringe-Needle U-100 (BD Insulin Syringe U/F) 31G X 11/01 1 ML miscIndications:T ype 2 diabetes mellitus with chronic kidney disease on chronic dialysis, with long-term current use of insulin Use twice daily for insulin 100 each 5 Active clopidogrel (PLAVIX) 75 MG tablet Take 1 tablet by mouth Daily. 90 tablet 1 Active bisoprolol (ZEBeta) 10 MG tablet Take 1 tablet by mouth Daily. 30 tablet 11 Active isosorbide mononitrate (IMDUR) 120 MG 24 hr tablet Take 1 tablet by mouth once daily 90 tablet Active cloNIDine (CATAPRES) 0.1 MG tablet TAKE 1 TABLET BY MOUTH THREE TIMES DAILY 90 tablet 2 025 Active cloNIDine (CATAPRES) 0.1 MG tablet TAKE 1 TABLET BY MOUTH THREE TIMES DAILY 60 tablet 1 025 2024 Discontinued Active Problems Problem Noted Date Diagnosed Date Abnormal nuclear stress test 06/14/2023 Coronary artery disease of n ative artery of [place] heart with stable angina pectoris 04/12/2023 Overview (06/20/2023): 06/20/2023: LHC at [facility], mid LAD 70-80% with IFR 0.83 status post PCI with a 3.0 x 23 mm Xience AMANDEEP postdilated with a 3.25 NC. GANG PLANK WORKMAN of the mid RPL V/RV marginal branch, with doub-vx-ohbrp collaterals and a codominant circumflex therefore no intervention warranted. Mid circumflex 20% otherwise normal. LVEDP 18 mmHg. Essential hypertension 04/12/2023 Tobacco use 04/12/2023 Subclinical hypothyroidism 02/10/2023 Assessment & Plan (07/21/2023 4:54 PM EST): -Thyroid function test abnormal 07/17/2023 and consistent with subclinical hypothyroidism in the setting of negative TPO antibody -Recommend repeating thyroid function tests in about 4 weeks and if he has persistent subclinical hypothyroidism will do trial of levothyroxine to see if it helps with his symptoms Assessment & Plan (02/10/2023 11:22 AM EDT): -Clinically hypothyroid -Previously with negative TPO antibody -Repeat TSH and free T4 today, if TSH remains persistently elevated will consider a trial levothyroxine to see if it helps with his symptoms Hyperparathyroidism 02/10/2023 Assessment & Plan (02/10/2023 11:23 AM EDT): -Suspect patient with 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 -Patient without evidence of hypercalcemia -Recommend he follow with nephrology later today to discuss management -Check CMP, 25-OH Vitamin D, and PTH Type 2 diabetes mellitus wit h chronic kidney disease on chronic dialysis, with long-term current use of insulin 09/06/2017 Assessment & Plan (07/04/2024 2:25 PM EST): -Diabetes is currently reasonably well-controlled -Complications include ESRD on iHD, diabetic polyneuropathy, CAD s/p PCI and suspected diabetic retinopathy -Given he is on dialysis recommend stopping Jardiance, it is likely having very little effect on his glucose as his renal function is exceptionally low although he does still make some urine -Continue units with breakfast and 80 units with supper, recommend reducing dose to 20 units if he skips a meal -Patient did not like CGM due to inaccurate readings, continue FSBG at least twice daily -Not currently ACEi/ARB per nephrology; blood pressure today 118/74 DM Health Maintenance: Ophtho: 06/20/2024, reports suspected retinopathy, has follow-up with [facility] 07/12/2024 Monofilament / Foot exam: completed 02/28/2024 Lipids/Statin: Taking atorvastatin 80 mg daily; LDL 53 done 06/20/2023 GERTRUDE: Managed by specialist Aspirin: taking Assessment & Plan (02/29/2024 12:36 PM EDT): Diabetes is improving with treatment. Continue current treatment regimen. Reminded to bring in blood sugar diary at next visit. Recommended an ADA diet. Discussed ways to avoid symptomatic hypoglycemia. Discussed foot care. Continue current low-dose of Jardiance 10 mg. Ozempic has been discontinued and he will stay off of this. A1c is improved but likely falsely low due to underlying anemia. Patient will continue current dose of Humulin 70/30 80 units twice daily. Gave him a sample of freestyle rach 3+ today and helped him start using it. This will be more accurate assessment of glucose levels and can be used for adjusting medication in the future. Diabetes will be reassessed in 3 months Assessment & Plan (07/21/2023 4:53 PM EST): -Diabetes remains uncontrolled due to hyperglycemia -Complications include known diabetic polyneuropathy, CAD s/p PCI and diabetic nephropathy with CKD IV undergoing transplant evaluation -Patient remains very high risk for complications due to persistent hyperglycemia; counseled that halfway hyperglycemia can cause worsening neuropathy, kidney damage, eye damage, and cardiovascular disease -Continue Jardiance 25 mg daily -Given his very high triglycerides would recommend against Ozempic 0.25 mg weekly as his risk of pancreatitis is high -Discussed with the patient that MDI would allow for better glycemic control and more dietary variability, patient requests to be on premixed insulin to minimize injections and checking FSBG, will try it for another 3 months and if blood glucoses remain uncontrolled we will switch to MDI at next visit -Continue 70/30 80 units with breakfast and 80 units with supper; recommend taking a half dose if he skips a meal -Continue checking FSBG at least twice daily - ACEi/ARB per nephrology; blood pressure today 116/62 DM Health Maintenance: Ophtho: due, retina scan done in office today Monofilament / Foot exam: completed 02/10/2023 Lipids/Statin: As noted below GERTRUDE: elevated, known CKD IV with eGFR of 15 on last set of labs, following with nephrology and undergoing transplant evaluation Aspirin: taking along with clopidogrel Assessment & Plan (02/10/2023 11:21 AM EDT): -Diabetes is uncontrolled due to hyperglycemia -Complications include known diabetic nephropathy with CKD IIIa and diabetic polyneuropathy -Patient remains high risk for complications due to persistent hyperglycemia; counseled that superintendent terminal hyperglycemia can cause worsening neuropathy, kidney damage, eye damage, and cardiovascular disease -Recommend adding some form of prandial insulin, patient is willing to try premixed insulin with 70/30 -Stop NPH -Start 70/30 80u with breakfast and 80u with supper, increase dose by 5u every 3-4 days if BG is above 150mg/dl, instruction for titration given to patient -Continue Jardiance 25 mg daily -Patient did not tolerate GLP-1 agonist -Continue checking fingerstick blood glucose twice daily and as needed for signs/symptoms of hypoglycemia -Continue ARB per nephrology; blood pressure today 134/70 DM Health Maintenance: Ophtho: due, he will schedule this in coming months Monofilament / Foot exam: completed today, abnormal as noted above Lipids/Statin: Continue rosuvastatin 20 mg daily, check fasting lipid panel today, may need to reduce dose of rosuvastatin pending renal function GERTRUDE: elevated, known CKD, following with nephrology TSH: TSH 5.57 done 09/2022 Aspirin: taking Mixed hyperlipidemia 09/06/2017 Assessment & Plan (07/21/2023 3:57 PM EST): -Due to renal function patient should not be on a dose of rosuvastatin above 10 mg daily, recommend switching to atorvastatin which is not renally dosed -Start atorvastatin 80 mg daily -Stop rosuvastatin Encounters Date Type Department Care Team Description 01/07/2025 Refill [facility] [address] [facility] [address] [place] [address] Edi Leung MD Med Refill 12/16/2024 Refill [facility] [address] [place] [address] Edi Leung MD Med Refill 12/13/2024 11:00 AM EDT - 12/13/2024 11:59 PM EDT Hospital Encounter [facility] [address] [facility] [address] [place] [address] Edi Leung MD Coronary artery disease of [place] artery of [place] heart with stable angina pectoris Discharge Disposition: Home or Self Care 12/13/2024 Results Follow-Up [facility] [address] [facility] [address] [place] [address] Edi Leung MD 12/13/2024 Travel 12/09/2024 Telephone [facility] [address] [facility] [address] [place] [address] Edi Leung MD Appointment 11/04/2024 Telephone [facility] [address] [facility] [address] [place] [id number]KUSTERER- MED REFILL 11/04/2024 Refill [facility] [address] [facility] [address] [place] [address] Edi Leung MD Med Refill 10/25/2024 Travel from Last 3 Months Family History Medical History Relation Name Comments No Known Problems Brother 1 No Known Problems Brother 2 Cancer Father COPD Mother [place] madera Heart attack Mother [place] madera Heart disease Mother [place] madera Diabetes Other Heart failure Other Hypertension Other Leukemia Sister 1 No Known Problems Sister 2 Relation Name Status Comments Brother 1 Alive Brother 2 Alive Father Mother [place] madera Other Sister 1 Alive Sister 2 Alive Social History Tobacco Use Types Packs/Day Years [...] Orientation Straight 01/22/2024 9: 13 AM EDT Last Filed Vital Signs Vital Sign Reading Time Taken Comments Blood Pressure 130/73 12/13/2024 11:46 AM EDT Pulse 71 07/04/2024 1:52 PM EST Temperature 36.3 C (97.4 F) 06/20/2023 11:06 AM EST Respiratory Rate 20 06/20/2023 2:05 PM EST Oxygen Saturation 95% 07/04/2024 1:52 PM EST Inhaled Oxygen Concentration - - Weight 110 kg (242 lb 8.1 oz) 12/13/2024 11:46 A M EDT Height 182.9 cm (6' 0.01 ) 12/13/2024 11:46 AM E DT Body Mass Index 32.88 12/13/2024 11:46 AM EDT Plan of Treatment Upcoming Encounters Date Type Department Care Team (Late st Contact Info) Description 03/03/2025 12:30 PM EDT Office Visit [facility] [address] [facility] [address] [place] [address] Aileen Patricia PA [address] [place] [address] 05/13/2025 9:30 AM EST Office Visit [facility] [address] [place] [id number] Edi Leung MD [address] [place] [address] Health Maintenance Due Date Last Done Comments COLOGUARD 01/18/2013 COLON CANCER SCREENING 5 YEA R SIGMOIDOSCOPY 01/18/2013 CT COLONOGRAPHY 01/18/2013 FECAL OCCULT BLOOD TEST 01/18/2013 FIT Testing (1 year) 01/18/2013 ANNUAL WELLNESS VISIT 09/17/2016 COVID-19 Vaccine (3 - 2023-2 5 season) 2024 01/24/2021, 01/02/2021 Pneumococcal Vaccine 50+ (2 of 2 - PPSV23) 03/13/2024 01/17/2024 LIPID PANEL 06/23/2024 06/23/2023, 10/2023, 06/20/2023, Additional history exists HEMOGLOBIN A1C 01/26/2025 07/29/2024, 07/20, 07/04/2024, Additional history exists DIABETIC FOOT EXAM 02/27/2025 02/28/2024, 0 02/28/2024, 02/28/2024, Additional history exists INFLUENZA VACCINE 03/19/2025 03/03/2023, , 05/11/2020, Additional history exists DIABETIC EYE EXAM 06/20/2025 06/20/2024 (Boubacar gaspar-Reported (Performed Externally)), 08/15/2023, 07/26/2023, Additional history exists COLONOSCOPY 07/12/2027 07/12/2017 COLORECTAL CANCER SCREENING 07/12/2027 TDAP/TD VACCINES (2 - Td or Tdap) 11/23/2031 022 ZOSTER VACCINE Completed 06/08/2022, 12/10/2021 URINE MICROALBUMIN-CREATININ E RATIO (uACR) Discontinued 02/16/2023 LUNG CANCER SCREENING Discontinued 02/01/2024, 024 Hepatitis B Completed 02/26/2024, 08/18, 08/08/2023 HEPATITIS C SCREENING Completed 07/29/2024 , 07/29/2024, 06/23/2023, Additional history exists Medical Devices Implanted Type Area Motor Brakeman Device Identifier Shelf Expiration Date Model / Serial / Lot Stnt Cornry Rx Xience/Skypoi nt Rapdxng 3x23mm - [id number] Implanted:Qty : 1 on 06/20/2023 by Ajith Zeng MD at [facility] N/A: Coronary RAMEY VASCULAR [id number] / / [id number] Procedures Procedure Name Priority Date/Time Associated Diagnosis Comments ECHO COMPLETE W/ DOPPLER, COLOR FLOW AND STRAIN Routine 12/13/2024 11:46 AM EDT Coronary artery disease of [place] artery of [place] heart with stable angina pectoris POCT GLYCOSYLATED HEMOGLOBIN (HGB A1C) Routine 07/04/2024 2:01 PM EST Type 2 diabetes mellitus with chronic kidney disease on chronic dialysis, with long-term current use of insulin SCANNED - EYE EXAM 08/15/2023 LIPID PANEL STAT 06/20/2023 11:27 AM EST Health care maintenance MICROALBUMIN / CREATININE URINE RATIO Routine 02/16/2023 12:31 PM EDT Chronic kidney disease (CKD) stage G3b/A1, moderately decreased glomerular filtration rate (GFR) between 30-44 mL/min/1.73 square meter and albuminuria creatinine ratio less than 30 mg/g (CMS/H* from Last 3 Months or Most Recently Relevant to Health Maintenance Results * ECHO COMPLETE W/ DOPPLER, COLOR [...] The study is technically adequate for diagnosis. Edi Leung MD CV ECHO ORDERABLES Gisselle nair Result * POC Glycosylated Hemoglobin (Hb A1C) (07/04/2024 2:01 PM EST) Hemoglobin A1C 5.7 4.5 - 5.7 % [facility] Lot Number [id number] [facility] Expiration Date 03/22/2026 [facility] Blood 07/04/2024 2:01 PM EST Syed Childers MD POINT OF CARE TEST ORDERABL ES Final Result [facility]
[address] [place] [address], * SCANNED - EYE EXAM (08/15/2023) Anatomical Region Laterality Modality Other Syed Childers MD CHART REVIEW TABS Final Result * (ABNORMAL) Lipid Panel (06/20/2023 11:27 AM EST) Total Cholesterol 446(H) 0 - 200 mg/dL 06/20/2023 12:23 PM [facility] Triglycerides 2,549(H) 0 - 150 mg/dL 06/20/2023 12:23 PM [facility] HDL Cholesterol 19(L) 40 - 60 mg/dL 06/20/2023 12:23 PM [facility] Comment:Triglyceride result >1200 mg/dL. HDL result may be affected. Calculated results will not be reported. LDL Cholesterol 12:23 PM [facility] Comment:Unable to calculate VLDL Cholesterol 06/20/19 12:23 PM [facility] Comment:Unable to calculate LDL/HDL Ratio 06/20/2023 12:23 PM [facility] Comment:Unable to calculate Blood Line / Unknown 06/20/2023 11 :27 AM EST 06/20/2023 11:41 AM EST [facility] - 06/20/2023 12:23 PM EST Cholesterol Reference Ranges (U.S. Department of Health and Human Services ATP III Classifications) Desirable <200 mg/dL Borderline High 200-239 mg/dL High Risk >240 mg/dL Triglyceride Reference Ranges (U.S. Department of Health and Human Services ATP III Classifications) Normal <150 mg/dL Borderline High 150-199 mg/dL High 200-499 mg/dL Very High >500 mg/dL HDL Reference Ranges (U.S. Department of Health and Human Services ATP III Classifications) Low <40 mg/dl (major risk factor for CHD) High >60 mg/dl ('negative' risk factor for CHD) LDL Reference Ranges (U.S. Department of Health and Human Services ATP III Classifications) Optimal <100 mg/dL Near Optimal 100-129 mg/dL Borderline High 130-159 mg/dL High 160-189 mg/dL Very High >189 mg/dL Jami Bonilla APRN LAB BLOOD ORDERABLES Final R esult [facility]
[address] [place] [address], * Microalbumin / Creatinine Urine Ratio - Urine, Clean Catch (02/16/2023 12:31 PM EDT) Microalbumin/C reatinine Ratio 1,751.0 mg/g 02/17/2023 12:21 AM EDT [facility] Creatinine, Urine 77.9 mg/dL 02/17/2023 12:21 AM EDT [facility] Microalbumin, Urine 136.4 mg/dL 02/17/2023 12:21 AM EDT [facility] Urine Urine specimen obtained by clean catch procedure / Unknown Collection / Unknown 02/16/2023 12:31 PM EDT 02/16/2023 12:31 PM EDT Rain Carpenter MD URINE ORDERABLES Final Resul t [facility]
[address] [place] [address], from Last 3 Months or Most Recently Relevant to Health Maintenance Insurance MEDICARE A & B Care Teams Pediatric Registered Nurse Relationship Specialty Start Date End Date Courtney Mays MD [address] [place] [place] [address] PCP - General Internal Medicine 06/14/24
--- OUTSIDE RECORDS SUMMARY | 2025-01-24 16:14 | XMS_ITS | Encounter Summary ---
Author Organization [facility] ([place], [place], [place], [place]) Address [address] [place] [address] Care Team Providers Care Wet Pan Operator Name Role Phone Courtney Mays MD Primary Care Provider [phone] Encounter Details Date Type Department Care Team (Late st Contact Info) Description 04/20/2020 Transcribed Document [facility] Family Medicine [address] [place] [address] ProviderSheron MD [address] [place] [address] Social History Tobacco Use Types Packs/Day Years Used Date Smoking Tobacco: Never Assessed Sex and Gender Information Value Date Recorded Sex Assigned at Not on file Legal Sex Male 7:08 PM CDT Gender Identity Not on file Sexual Orientation Not on file documented as of this encounter Miscellaneous Notes * Cerner Conversion Note - Historical ProviderMD - 04/20/2020 8:25 AM CHICK 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 Conversion Equipment Maintenance Technician Cerner at 10/09/2022 7:42 PM CDT documented in this encounter Plan of Treatment Not on file documented as of this encounter Visit Diagnoses Not on filedocumented in this encounter Care Teams Wet Pan Operator Relationship Specialty Start Date End Date Courtney Mays MD PCP - General Internal Medicine 01/20/24 documented as of this encounter
--- OUTSIDE RECORDS SUMMARY | 2025-01-24 16:14 | XMS_ITS | Encounter Summary ---
Author Organization [facility] Address [address] [place] [address] Care Team Providers Care Yard Manager Name Role Phone Sydnee Castro Primary Care Provider [phone] Reason for Visit * Reason Comments Follow-up Encounter Details Date Type Department Care Team (Late st Contact Info) Description 01/16/2025 Telephone [facility] [address] [place] [address] Beatriz Bright, RN [id number] [address] [place] [id number] Follow-up Social History Tobacco Use Types Packs/Day [...] Telephone Encounter - Beatriz Bright RN - 01/16/2025 12:54 PM EDT Patient LVM requesting return call. Returned call to patient who states that he has started vaping again. Advised that the decision from the medical team was to remove if patient has not been nicotine free for 6 weeks in early December, so I will discuss with committee. Patient has been struggling a lot being on dialysis and stopped taking his anti-depressant for several months. He was finally able to get back into PCP and restart medication. Encouraged him to keep working towards goal and let him know that this is not a no forever, but potentially a no for right now. We will be happy to see him in the future. He verbalized understanding. documented in this encounter Plan of Treatment [...] documented as of this encounter Care Teams Yard Manager Relationship Specialty Start Date End Date Sydnee Castro PA PCP - General 12/22/22 documented as of this encounter
--- OUTSIDE RECORDS SUMMARY | 2025-01-24 16:14 | XMS_ITS | Clinical Summary ---
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 If the informationreleased to you contains information about AIDs or HIVtest results, that information has been disclosed to you from records whoseconfidentiality is protected by state law ([place] 214.625). State law proh ibitsyou from making any further disclosure of such information relating to AIDS orHIV without the specific written consent of the person to whom such informationpertains, or as otherwise permitted by state law. A general authorization forthe release of medical or other information is NOT sufficient for this purpose.2. If the information released to you contains information about alcohol ordrug abuse diagnosis, treatment for such abuse, or referrals for treatment, andif the release was made by a program as defined in 42 CFR 2.11, thisinformation has been disclosed to you from records protected by Federalconfidentiality rules ( TheFederal rules restrict any use of the information to criminally investigate orprosecute any alcohol or drug abuse patient.3. If the information released to you contains information about a person'smental health or chemical dependency, you may not redisclose or otherwisereveal information concerning the mental health or chemical dependency of thatperson, beyond the purpose for which the disclosure was made, without firstobtaining that person's specific written consent to the redisclosure. [id number].[facility]
--- OUTSIDE RECORDS SUMMARY | 2025-01-24 16:14 | XMS_ITS | Encounter Summary ---
Author Organization [facility] Address [address] [place] [address] Care Team Providers Care Silverware Buffing Machine Operator Name Role Phone Sydnee Castro Primary Care Provider [phone] Reason for Visit * Reason Comments Follow-up Waitlist Removal Encounter Details Date Type Department Care Team (Late st Contact Info) Description 01/21/2025 Telephone [facility] [address] [place] [address] Beatriz Bright, RN [id number] [address] [phone] Follow-up (Waitlist Removal) Social History Tobacco Use Types Packs/Day Years [...] Telephone Encounter - Beatriz Bright RN - 01/21/2025 12:14 PM EDT Phoned patient to discuss committee decision for waitlist removal due to continued nicotine use. Patient verbalized understanding of plan. Recommended that he have his dialysis center re-refer him toour center once he has maintained nicotine cessation for 30 days. documented in this encounter Plan of Treatment [...] documented as of this encounter Care Teams Silverware Buffing Machine Operator Relationship Specialty Start Date End Date Sydnee Castro PA PCP - General 12/22/22 documented as of this encounter
--- OUTSIDE RECORDS SUMMARY | 2025-01-24 16:14 | XMS_ITS | Clinical Summary ---
Author Organization [facility] Address [address] [place] [address] Care Team Providers Care Credit Operations Processor Name Role Phone Sydnee Castro Primary Care Provider [phone] Allergies Active Allergy Reactions Criticality Noted Date Comments Glyburide Anaphylaxis High 09/10/2016 Sulfa Drugs Other - please docum ent in the comment field Low 09/10/2016 thrush Medications aspirin 81 MG EC tablet Take 1 tablet (81 mg) by mouth 1 (one) time each day. Active fluticasone (Flonase) 50 MCG/ACT nasal spray Administer 2 sprays into each nostril 1 (one) time each day. 3 Active gabapentin (Neurontin) 300 MG capsule Take 1 capsule (300 mg) by mouth 1 (one) time each day before breakfast. Active Icosapent Ethyl (Vascepa) 1 g capsule Take 2 capsules (2 g) by mouth 2 (two) times a day with meals. 2 Active tamsulosin (Flomax) 0.4 MG 24 hr capsule Take 1 capsule (0.4 mg) by mouth 1 (one) time each day. 2 Active ezetimibe (Zetia) 10 MG tablet Take 1 tablet (10 mg) by mouth 1 (one) time each day. 3 Active oxyCODONE-acetam inophen (Percocet) 10-325 MG tablet Take 1 tablet by mouth every 8 (eight) hours if needed for severe pain. Active clopidogrel (Plavix) 75 MG tablet Take 1 tablet (75 mg) by mouth 1 (one) time each day. Active insulin NPH-insulin regular (Novolin 70-30,Humulin 70-30) (70-30) 100 UNIT/ML injection vial Inject 0.8 mL (80 Units) under the skin 2 (two) times a day before meals. Active FLUoxetine (PROzac) 10 MG tablet Take 1 tablet (10 mg) by mouth 1 (one) time each day. Active isosorbide mononitrate ER (Imdur) 30 MG 24 hr tablet Take 1 tablet (30 mg) by mouth 1 (one) time each day. Do not crush or chew. Active atorvastatin (Lipitor) 80 MG tablet 4 Active ergocalciferol 1.25 MG (56836 UT) capsule Take 1 capsule (50,000 Units) by mouth 1 (one) time per week. 4 Active BD Insulin Syringe U/F 31G X 11/01 1 ML misc 4 Active hydrALAZINE (Apresoline) 100 MG tablet Take 1 tablet (100 mg) by mouth 2 (two) times a day. Active cloNIDine (Catapres) 0.1 MG tablet Take by mouth 2 (two) times a day. Active hydroxychloroqui ne (Plaquenil) 200 MG tablet Take 1 tablet (200 mg) by mouth 1 (one) time each day. Active bumetanide (Bumex) 0.5 MG tablet Take by mouth 1 (one) time each day. 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 Shortness of breath 05/26/2023 Otitis media 05/26/2023 GUILLERMINA (obstructive sleep apnea) 05/26/2023 Noncompliance 05/26/2023 Hypertension 05/26/2023 Measles 05/26/2023 Diabetes mellitus, type 2 05/26/2023 Depression 05/26/2023 CKD (chronic kidney disease) 05/26/2023 CAD (coronary artery disease) 05/26/2023 BPH (benign prostatic hyperplasia) 05/26/2023 Bejarano's palsy 05/26/2023 Arthritis 05/26/2023 Anxiety 05/26/2023 Allergies 05/26/2023 Primary squamous cell carcinoma of tonsil 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 Harden. Hydrocodone Cigarette smoker 08/26/2022 CKD (chronic kidney disease), stage IV Overview (08/26/2022): [facility] Diabetes mellitus type 2, controlled 08/26/2022 Diabetic foot ulcer 08/26/2022 Diabetic mononeuropathy asso ciated with diabetes mellitus due to underlying condition 08/26/2022 Elevated TSH 08/26/2022 Enlarged prostate 08/26/2022 Hyperlipidemia, acquired 08/26/2022 Hypertension, benign 08/26/2022 Insomnia, idiopathic 08/26/2022 Low serum calcium 08/26/2022 Microalbuminuria due to type 2 diabetes mellitus 08/26/2022 Hypertriglyceridemia 08/26/2022 Osteoarthritis 08/26/2022 Retinopathy, diabetic, bilateral 08/26/2022 Internal nasal lesion 08/24/2022 Tobacco abuse 07/27/2022 Mixed hyperlipidemia 09/06/2017 Encounters Date Type Department Care Team Description 01/21/2025 Telephone [facility] [address] [place] [address] Beatriz Bright, RN Follow-up (Waitlist Removal) 01/16/2025 Telephone [facility] [address] [place] [address] Beatriz Bright, RN Follow-up 01/14/2025 Telephone [facility] [address] [place] [address] Beatriz Bright RN 01/13/2025 Telephone [facility] [address] [place] [address] Beatriz Bright, RN Follow-up 01/01/2025 10:15 AM EDT Office Visit [facility] [address] [place] [address] Israel Arnold MD Primary squamous cell carcinoma of tonsil 01/01/2025 Travel 12/27/2024 Travel 12/24/2024 Telephone [facility] [address] [place] [address] Chaitanya Lopez Appointment (Confirmed lab appointment) 12/18/2024 Telephone [facility] [address] [place] [address] Beatriz Bright RN 12/18/2024 Telephone [facility] [address] [place] [address] Beatriz Bright, RN Follow-up (Nicotine) 10/31/2024 Telephone [facility] [address] [place] [address] Beatriz Bright, RN Follow-up (Nicotine follow up) from Last 3 Months Immunizations Immunization Administration Dates Next Due Hep A, Adult 07/05/2018 Influenza, injectable, quadr ivalent, preservative free 05/11/2020,07/22/2019,04/04/2018 Pfizer-BioNTech COVID-19 Vac cine (Purple Cap) 12+ 01/24/2021,01/02/2021 Tdap 11/22/2021 Zoster, Recombinant 06/08/2022,12/10/2021 Family History Medical History Relation Name Comments Drug abuse Brother Peterson madera Cancer Father Lenny madera Lung cancer Father Lenny madera Angina Mother [place] madera Diabetes Mother [place] madera Heart disease Mother [place] madera Melanoma Paternal Grandfather Cancer Sister Franca barton Leukemia Sister Franca barton Anesthesia problems Neg Hx Malig Hyperthermia Neg Hx Relation Name Status Comments Brother Peterson madera Father Lenny madera Mother [place] madera Paternal Grandfather Sister Franca barton Social History Tobacco Use Types Packs/Day Years [...] Orientation Straight 08/08/2022 11 :07 AM EST Last Filed Vital Signs Vital Sign Reading Time Taken Comments Blood Pressure 138/68 01/01/2025 9:56 AM EDT Pulse 72 01/01/2025 9:56 AM EDT Temperature 36.9 C (98.5 F) 01/01/2025 9:56 AM EDT Respiratory Rate 14 01/01/2025 9:56 AM EDT Oxygen Saturation 97% 01/01/2025 9:56 AM EDT Inhaled Oxygen Concentration - - Weight 118 kg (261 lb 0.4 oz) 01/01/2025 9:56 AM EDT Height 182.9 cm (6') 07/29/2024 8:05 AM EST Body Mass Index 35.4 07/29/2024 8:05 AM EST Plan of Treatment Health Maintenance Due Date Last Done Comments Dental Prophylaxis 1970 Dental X-Ray: Bitewings 1968 [facility] Annual Wellness (AWV) 1968 [facility]-/Child/Adol SDOH Screenings 1968 Diabetes: Dental Exam 01/18/1978 [facility]- SDOH Screenings 01/18/1986 [facility]-Adult SDOH Screenings 01/18/1986 CT Colonography 01/18/2013 [facility]-DNA 01/18/2013 FIT 01/18/2013 FOBT 01/18/2013 Sigmoidoscopy 01/18/2013 [id number] Vaccine (3 - Pfizer risk series) 02/21/2021 01/24/2021, 01/02/2021 Dental Oral Exam 01/04/2024 07/05/2023 [facility]-Pneumococcal Vaccine: 50+ Years (2 of 2 - PPSV23) 03/13/2024 01/17/2024 [facility]-Diabetes: Hemoglobin A1C 01/26/202503/2025, 06/23/2023, 05/17/2023 [facility]-Influenza Vaccine (#1) 02/17/202503/03, 05/11/2020, 07/22/2019, Additional history exists [facility]-Hepatitis B Vaccines (1 of 1 - Risk Dialysis 4-dose series) 02/25/2025 02/26/2024, 09/07/2023, 08/08/2023 [facility]-Depression Screening 07/29/2025 07/29/2024, 04/20 Dental X-Ray: Full Mouth 07/06/2026 07/05/2023 Colonoscopy 07/12/2027 07/12/2017 [facility]-Colorectal Cancer Screening 07/12/2027 [facility]-DTaP,Tdap,and Td Vaccines (2 - Td or Tdap) 11/23/2031 11/22/2021 [facility]-Zoster Vaccines Completed 06/08/2022, [facility]-Hepatitis A Vaccines Aged Out 024, 09/07/2023, 08/08/2023, Additional history exists No longer eligible based on patient's age to complete this topic [facility]-HIV Screening Completed 07/29/2024, 06/23/2023 [facility]-Hepatitis C Screening Completed 07/29/2024, 10/2023 [facility]-Obesity Intervention Completed 025, 01/05/2024, 07/05/2023, Additional history exists HPV Vaccines Aged Out No longer eligi ble based on patient's age to complete this topic [facility]-HIB Vaccines Aged Out No longer e ligible based on patient's age to complete this topic [facility]-IPV Vaccines Aged Out No longer e ligible based on patient's age to complete this topic [facility]-Rotavirus Vaccines Aged Out No lo nger eligible based on patient's age to complete this topic Procedures Procedure Name Priority Date/Time Associated Diagnosis Comments HEPATITIS C ANTIBODY W/REFLEX TO HCV QUANT PCR Routine 07/29/2024 9:52 AM EST End stage renal disease (CMS/HCC) HIV 1/2 ANTIBODY/ANTIGEN SCREEN WITH REFLEX TO HIV I/II DIFFERENTIATION Routine 07/29/2024 9:52 AM EST End stage renal disease (CMS/HCC) HEMOGLOBIN A1C Routine 07/29/2024 9:52 AM EST End stage renal disease (CMS/HCC) PANORAMIC RADIOGRAPHIC IMAGE Routine 07/05/2023 2:30 PM EST Oral lesion COMPREHENSIVE ORAL EVALUATION - NEW OR ESTABLISHED PATIENT Routine 07/05/2023 2:30 PM EST Oral lesion COLONOSCOPY Routine 07/12/2017 12:45 PM EST from Last 3 Months or Most Recently Relevant to Health Maintenance Results * HIV 1 & 2 Antibody/Antigen Screen (07/29/2024 9:52 AM EST) HIV 1 & 2 Antibody/Antigen Screen Non Reactive Non Reactive 07/29/2024 10:56 AM EST [facility] Comment:Screening for HIV 1 & 2 antibodies, and P24 antigen is NONREACTIVE. No confirmatory testing is required. Blood Venous blood specimen / Unknown Venipuncture / Unknown 07/29/2024 9:52 AM EST 07/29/2024 10:14 AM EST us Ying Malloy MD LAB BLOOD ORDERABLES Final Resul t [facility] [address] [place] [address] * Hepatitis C Antibody (07/29/2024 9:52 AM EST) Hepatitis C Antibody Negative Negative 07/29/2024 10:56 AM EST [facility] Blood Venous blood specimen / Unknown Venipuncture / Unknown 07/29/2024 9:52 AM EST 07/29/2024 10:14 AM EST Ying Malloy MD LAB BLOOD ORDERABLES Final Resul t Performing Organization Address [facility] Co de Phone Number [facility] [address] [place] [address] * Hemoglobin A1c (07/29/2024 9:52 AM EST) Hemoglobin A1c 5.3 <5.7 % 07/29/2024 10:32 AM EST [facility] Blood Venous blood specimen / Unknown Venipuncture / Unknown 07/29/2024 9:52 AM EST 07/29/2024 10:15 AM EST Narrative [facility] - 07/29/2024 10:32 AM EST HA1C Interpretive Data: Diagnosis of Diabetes: Diabetic > or = 6.5% Pre-diabetic 5.7 to 6.4% Non-diabetic < or = 5.6% Glycemic Targets for Type I and Type II Diabetics: Non- Adults <7.0% Adults <6.0% Children and Adolescents <7.5% Source: [place] [employer]. Standards of medical care in diabetes,2017. Diabetes Care.2017:40 (suppl 1):S1-S135. HbA1c assay performed by an ion-exchange chromatography method that is certified traceable to the DCCT. Ying Maloly MD LAB BLOOD ORDERABLES Final Resul t Performing Organization Address [facility] de Phone Number [facility] [address] [place] [address] * Colonoscopy (07/12/2017 12:45 PM EST) Anatomical Region Laterality Modality Endoscopy us Historical Provider GI PROCEDURE ORDERABLES F inal Result from Last 3 Months or Most Recently Relevant to Health Maintenance Insurance MEDICARE MEDICARE Care Teams Credit Operations Processor Relationship Specialty Start Date End Date Sydnee Castro PA PCP - General 12/22/22
--- OUTSIDE RECORDS SUMMARY | 2025-01-24 16:14 | XMS_ITS | Encounter Summary ---
Author Organization [facility] Address [address] [place] [id number] Care Team Providers Care Product Development Director Name Role Phone Sydnee Castro Primary Care Provider [phone] Reason for Visit * Reason Comments Appointment Confirmed lab appoin tment Encounter Details Date Type Department Care Team (Late st Contact Info) Description 12/24/2024 Telephone [facility] [address] [facility] [address] [place] [id number] Chaitanya Lopez Transplant [address] [phone] Appointment (Confirmed lab appointment) Social History Tobacco Use Types Packs/Day Years [...] encounter Miscellaneous Notes * Telephone Encounter - Chaitanya Lopez - 12/24/2024 2:44 PM EDT Called and spoke with patient. Patient agreed to do lab visit 01/27/25 @12. Mailed patient appointment reminder. documented in this encounter Plan of Treatment [...] documented as of this encounter Care Teams Product Development Director Relationship Specialty Start Date End Date Sydnee Castro PA PCP - General 12/22/22 documented as of this encounter
--- OUTSIDE RECORDS SUMMARY | 2025-01-24 16:14 | XMS_ITS | Encounter Summary ---
Author Organization [facility] Address [address] [place] [address] Care Team Providers Care Repairer Art Objects Name Role Phone Courtney Mays MD Primary Care Provider [phone] Encounter Details Date Type Department Care Team (Latest Contact Info) Description 12/13/2024 Travel Social History Tobacco Use Types Packs/Day [...] Description 03/03/2025 12:30 PM EDT Office Visit [facility] ENDOCRINOLOGY [address] [facility] [address] [place] [address] Aileen Patricia PA [address] [facility] [address] [place] [address] 05/13/2025 9:30 AM EST Office Visit [facility] CARDIOLOGY [address] [facility] [address] [place] [id number] Edi Leung MD [address] [facility] [address] [facility] [address] [place] [address] documented as of this encounter Visit Diagnoses Not on filedocumented in this encounter Care Teams Repairer Art Objects Relationship Specialty Start Date End Date Courtney Mays MD [address] [place] [address] PCP - General Internal Medicine 06/14/24 documented as of this encounter
--- OUTSIDE RECORDS SUMMARY | 2025-01-24 16:14 | XMS_ITS | Encounter Summary ---
Author Organization [facility] Address [address] [place] [address] Care Team Providers Care Rocket Motor Tester Name Role Phone Courtney Mays MD Primary Care Provider [phone] Reason for Visit * Reason Comments Med Refill Encounter Details Date Type Department Care Team (Late st Contact Info) Description 12/16/2024 Refill [facility] CARDIOLOGY [address] [facility] [address] [place] [address] Edi Leung MD [address] [facility] [address] [place] [phone] Med Refill Social History Tobacco Use Types [...] Description 03/03/2025 12:30 PM EDT Office Visit [facility] ENDOCRINOLOGY [address] [place] [address] Aileen Patricia PA [address] [place] [address] 05/13/2025 9:30 AM EST Office Visit [facility] CARDIOLOGY [address] [facility] [address] [place] [address] Edi Leung MD [address] [facility] [address] [place] [address] documented as of this encounter Visit Diagnoses Not on filedocumented in this encounter Care Teams Rocket Motor Tester Relationship Specialty Start Date End Date Courtney Mays MD [address] [place] [address] PCP - General Internal Medicine 06/14/24 documented as of this encounter
--- NOTE | 2025-01-24 16:37 | XR_ITS ---
PROCEDURE INFORMATION: Exam: XR Right Foot Exam date and time: 01/24/2025 4:43 PM Age: 55 years old Clinical indication: Injury or trauma; Fall; Blunt trauma; Foot; Right; Additional info: Tenderness S/P fall yesterday TECHNIQUE: Imaging protocol: Radiologic exam of the right foot. Views: 3 or more views. COMPARISON: CR Ankle R 01/24/2025 4:41 PM FINDINGS: Bones/joints: No acute fracture. No dislocation. Small calcaneal traction spurs. No significant loss of joint space. Soft tissues: Mild diffuse soft tissue swelling. No radiopaque foreign body. IMPRESSION: No acute fracture is identified.
--- NOTE | 2025-01-24 16:37 | XR_ITS ---
PROCEDURE INFORMATION: Exam: XR Right Tibia and Fibula Exam date and time: 01/24/2025 4:40 PM Age: 55 years old Clinical indication: Injury or trauma; Fall; Blunt trauma; Lower leg; Right; Additional info: Tenderness S/P fall TECHNIQUE: Imaging protocol: Radiologic exam of the right tibia and fibula. Views: 2 views. COMPARISON: CR XR KNEE RT 3V 01/24/2025 4:39 PM FINDINGS: Bones/joints: No acute fracture or dislocation. Soft tissues: Mild diffuse subcutaneous edema. IMPRESSION: No acute fracture is identified.
--- NOTE | 2025-01-24 16:37 | XR_ITS ---
PROCEDURE INFORMATION: Exam: XR Right Ankle Exam date and time: 01/24/2025 4:41 PM Age: 55 years old Clinical indication: Injury or trauma; Fall; Blunt trauma; Ankle; Right; Additional info: Tenderness S/P fall TECHNIQUE: Imaging protocol: Radiologic exam of the right ankle. Views: 3 or more views. COMPARISON: CR Lower leg R 01/24/2025 4:40 PM FINDINGS: Bones/joints: No acute fracture or dislocation. No talar shift. Calcaneal traction spurs. Soft tissues: Diffuse subcutaneous edema. IMPRESSION: No acute fracture is identified.
--- NOTE | 2025-01-24 16:37 | XR_ITS ---
PROCEDURE INFORMATION: Exam: XR Right Knee Exam date and time: 01/24/2025 4:39 PM Age: 55 years old Clinical indication: Injury or trauma; Fall; Blunt trauma; Knee; Right; Additional info: Tenderness S/P fall TECHNIQUE: Imaging protocol: Radiologic exam of the right knee. Views: 3 views. COMPARISON: CR Femur R 01/24/2025 4:37 PM FINDINGS: Bones/joints: No acute fracture or dislocation. Mild patellar spurring. No significant loss of joint space. Moderate joint effusion. No evidence of lipohemarthrosis. Soft tissues: Unremarkable as visualized. IMPRESSION: No acute fracture is identified.
--- NOTE | 2025-01-24 16:37 | XR_ITS ---
PROCEDURE INFORMATION: Exam: XR Right Femur Exam date and time: 01/24/2025 4:37 PM Age: 55 years old Clinical indication: Injury or trauma; Fall; Blunt trauma; Thigh or upper leg; Right; Additional info: Tenderness S/P fall TECHNIQUE: Imaging protocol: Radiologic exam of the right femur. Views: 2 views. COMPARISON: No relevant prior studies available. FINDINGS: Bones/joints: No acute fracture or dislocation. No significant loss of joint space. Moderate knee joint effusion. Soft tissues: Unremarkable as visualized. IMPRESSION: No acute fracture is identified.
--- NOTE | 2025-01-24 16:40 | [facility].EDGENADL ---
Discharge Plan Disposition Patient Disposition: Home, Self-Care Condition: Good Prescriptions Prescriptions: New methocarbamol 500 mg tablet 500 mg PO BID Qty: 30 0RF No Action hydroxychloroquine 200 mg Tablet 200 mg PO BID atorvastatin 80 mg Tablet 80 mg PO DAILY nifedipine 90 mg Tablet Extended Release 90 mg PO DAILY clopidogrel 75 mg Tablet 75 mg PO DAILY isosorbide mononitrate 120 mg Tablet Extended Release 24 Hr 120 mg PO DAILY tamsulosin 0.4 mg Capsule 0.4 mg PO DAILY gabapentin 800 mg Tablet 800 mg PO DAILY fluoxetine 20 mg Tablet 20 mg PO DAILY gabapentin 300 mg Capsule 300 mg PO BID aspirin 81 mg Tablet 81 mg PO DAILY Jardiance 25 mg Tablet 25 mg PO DAILY clonidine HCl 0.1 mg Tablet 0.1 mg PO TID bumetanide 2 mg Tablet 2 mg PO DAILY hydralazine 25 mg Tablet 25 mg PO QID ezetimibe 10 mg Tablet 10 mg PO DAILY fenofibrate 40 mg Tablet 48 mg PO DAILY icosapent ethyl 1 gram Capsule 2 g PO BID Referrals Follow up/Referrals: Courtney Mays MD [Primary Care Provider, Medical] - See instructions Activity Restrictions/Add. Instructions Additional Instructions/Restrictions: You can use the crutches to help ambulate. You can bear weight and put weight on the right lower extremity as tolerated. I have sent you with a referral to our orthopedic team if your symptoms do not improve in the next week. You can take Tylenol and your home Percocet for pain control. I will send her with a muscle relaxer as needed. Return to the emergency department for any acute or worsening symptoms. Clinical Impressions Clinical Impression: Musculoskeletal leg pain Print Language Print Language: Macedonian Discharge ED Provider: Sheila Whitten General Adult HPI General Chief complaint: Extremity Injury, Lower Stated complaint: AO 01/23/25 10:00 injury right leg Time Seen by Provider: 01/24/25 16:09 History of Present Illness HPI narrative: Patient is an otherwise healthy 55-year-old male however on Monday dialysis who presented to the emergency department with right knee pain. Patient states he fell on his knee has been having difficulties with pain with ambulating. Patient denies any redness or swelling. Patient denies any previous hardware or surgery to the right knee. Patient denies any other complaints at this time. Denies any numbness or weakness. Related Data Home Medications ?Medication ?Instructions ?Recorded ?Confirmed aspirin 81 mg tablet 81 mg PO DAILY 08/06/24 08/06/24 atorvastatin 80 mg tablet 80 mg PO DAILY 08/06/24 08/06/24 bumetanide 2 mg tablet 2 mg PO DAILY 08/06/24 08/06/24 clonidine HCl 0.1 mg tablet 0.1 mg PO TID 08/06/24 08/06/24 clopidogrel 75 mg tablet 75 mg PO DAILY 08/06/24 08/06/24 empagliflozin 25 mg tablet 25 mg PO DAILY 08/06/24 08/06/24 (Jardiance) ezetimibe 10 mg tablet 10 mg PO DAILY 08/06/24 08/06/24 fenofibrate 40 mg tablet 48 mg PO DAILY 08/06/24 08/06/24 fluoxetine 20 mg tablet 20 mg PO DAILY 08/06/24 08/06/24 gabapentin 300 mg capsule 300 mg PO BID 08/06/24 08/06/24 gabapentin 800 mg tablet 800 mg PO DAILY 08/06/24 08/06/24 hydralazine 25 mg tablet 25 mg PO QID 08/06/24 08/06/24 hydroxychloroquine 200 mg tablet 200 mg PO BID 08/06/24 08/06/24 icosapent ethyl 1 gram capsule 2 g PO BID 08/06/24 08/06/24 isosorbide mononitrate 120 mg 120 mg PO DAILY 08/06/24 08/06/24 tablet,extended release 24 hr nifedipine 90 mg tablet,extended 90 mg PO DAILY 08/06/24 08/06/24 release tamsulosin 0.4 mg capsule 0.4 mg PO DAILY 08/06/24 08/06/24 Previous Rx's ?Medication ?Instructions ?Recorded methocarbamol 500 mg tablet 500 mg PO BID #30 tabs 01/24/25 Allergies Allergy/AdvReac Type Severity Reaction Status Date / Time glipizide Allergy Unknown Verified 08/06/24 02: allergy reaction Sulfa (Sulfonamide Allergy Unknown Verified 08/06/24 02:25 Antibiotics) allergy reaction [facility] Disclaimer: The information contained in this section may have been updated after the patient was seen, as this information can be updated by other users. Social History Smoking Status: Unknown if ever smoked alcohol intake: never current occupational status: other Travel in the last 8 weeks?: None ROS Obtained: Yes All systems reviewed & no additional complaints except as documented and Yes Systems reviewed as appropriate & no additional complaints except as documented Physical Exam General General appearance: alert and in no apparent distress Head Head exam: atraumatic, normocephalic and normal inspection Eye Eye exam: Present normal appearance, PERRL and EOMI; Absent scleral icterus ENT ENT exam: Present normal exam and normal external ear exam Neck Neck exam: Present normal inspection and full ROM Chest Chest inspection: Present normal inspection and symmetric chest wall rise Respiratory Respiratory exam: Present normal lung sounds bilaterally; Absent respiratory distress or wheezes Cardiovascular Cardiovascular exam: Present regular rate, normal rhythm and normal heart sounds Abdominal Exam Abdominal exam: Present soft and distention; Absent tenderness, guarding or rebound Extremities Exam Extremities exam: Present normal inspection, full ROM and other (Right knee with some diffuse tenderness no appreciable swelling no redness, full range of motion with pain, neurovascularly intact with appropriate pulses) Back Exam Back exam: Present normal inspection and full ROM Neurological Exam Neurological exam: Present alert and oriented X3 Psychiatric Psychiatric exam: Present normal affect and normal mood Skin Skin exam: Present warm and dry Medical Decision Making Medical Records Medical records reviewed: Yes I reviewed the patient's medical records. Screening: Per USPSTF and CDC recommendations, given the prevalence of disease in our region, it is our hospital?s policy to screen for HIV and viral Hepatitis for all patients aged 18 and over and those with ongoing risk factors. Andrew Inquiry Pt receiving controlled substance: No Vital Signs: 01/24/25 16:04 01/24/25 19:15 Temperature 98.1 F 98.2 F Temperature Source Oral Pulse Rate 80 Pulse Rate [Left Radial] 77 Respiratory Rate 17 20 Blood Pressure 138/79 Blood Pressure [Right Arm] 124/45 L Blood Pressure Mean [Right Arm] 71 Blood Pressure Source [Right Arm] Automatic Cuff Blood Pressure Position [Right Arm] Sitting 02 Sat by Pulse Oximetry 97 Oxygen Delivery Method Room Air Room Air Lab Data Lab results reviewed: Yes I reviewed the patient's lab results. Orders (Tests/Meds): ED MEDICATIONS Discontinued Medications Generic Name Dose Route Start Last Admin Trade Name Freq PRN Reason Stop Dose Admin Acetaminophen 1,000 mg 01/24/25 16:37 01/24/25 17:03 Acetaminophen 500mg Tab PO 01/24/25 16:38 1,000 mg ONCE ONE Administration Oxycodone HCl 5 mg 08/08/25 16:39 01/24/25 17:03 Oxycodone 5mg Immediate Release Tablet PO 01/24/25 16:40 5 mg ONCE ONE Administration ORDERS Category Date Time Status CT knee RT wo con Stat Cat Scan 01/24/25 18:10 Completed Ankle XR -Right minimum 3 Views [XR ankle RT min 3V] Exams 01/24/25 16:37 Completed Stat Femur XR right 2 views [XR femur RT 2V] Stat Exams 01/24/25 16:37 Completed Fibula/tibia XR right 2 views [XR tibia fibula RT 2V] Exams 01/24/25 16:37 Completed Stat Foot XR right minimum 3 views [XR foot RT min 3V] Stat Exams 01/24/25 16:37 Completed Knee XR right 3 views [XR knee RT 3V] Stat Exams 01/24/25 16:37 Completed Medical Decision Narrative: Patient is an otherwise healthy 55-year-old gentleman on dialysis due to end-stage renal disease who presented to the emergency department with right knee pain. On arrival, patient was hemodynamically stable with unremarkable vital signs. Differential includes but not limited to: Fracture, dislocation, sprain, strain, septic joint, gout, amongst others. Patient had a traumatic injury therefore doubt septic joint less likely. Patient had no redness erythema, patient had full range of motion of the joint with pain. X-rays were obtained which were reviewed and interpreted by myself and showed no acute fractures. Given that patient was still having significant pain with ambulation, CT of the knee was obtained which showed no acute pathology. At this time, patient sent with crutches the patient was sent with outpatient orthopedic follow-up if pain did not resolve. Patient was given symptomatic pain control emergency department and advised to use medications at home for continued pain control. Patient was otherwise discharged home in stable condition. Critical Care Critical Care Time Critical Care Time: No
[2025-01-24 16:47] VITALS: BMI 33.9
[2025-01-24] MEDS: OXYCODONE 5MG IMMEDIATE RELEASE TABLET 5 MG PO (17:03)
[2025-01-24] MEDS: ACETAMINOPHEN 500MG TAB 1000 MG PO (17:03)
--- NOTE | 2025-01-24 18:10 | CT_ITS ---
PROCEDURE INFORMATION: Exam: CT Right Lower Extremity Without Contrast, Knee Exam date and time: 01/24/2025 6:19 PM Age: 55 years old Clinical indication: Other: R/O tibial plateau fracture TECHNIQUE: Imaging protocol: CT of the right lower extremity without contrast was performed. Exam focused on the knee. Radiation optimization: All CT scans at this facility use at least one of these dose optimization techniques: automated exposure control; mA and/or kV adjustment per patient size (includes targeted exams where dose is matched to clinical indication); or iterative reconstruction. COMPARISON: CR XR KNEE RT 3V 01/24/2025 4:39 PM FINDINGS: Limitations: Motion artifact degrades some of the images. Suboptimal positioning. The proximal fibula was not completely included in the field of view. Bones/joints: No acute fracture or dislocation. No significant loss of joint space. Moderate joint effusion. No evidence of lipohemarthrosis. Soft tissues: Unremarkable as visualized. IMPRESSION: 1. No acute fracture is identified. 2. No tibial plateau fracture.
[2025-01-24 19:15] VITALS: BP 138/79; PULSE 80; RESP 20; TEMP 36.8; O2SAT 98
== END 2025-01-24 19:16 | disposition home or self-care (01) ==
PROVIDERS: Emergency Provider Student in an Organized Health Care Education/Training Program; PCP Internal Medicine
DX: M25.561 Pain in right knee (principal); W19.XXXA Unspecified fall, initial encounter
CPT/HCPCS: 73552; 73562; 73590; 73610; 73630; 73700; 99284